=== PATIENT | female | born 1965 | race Caucasian/White ===

== ENCOUNTER 2017-12-14 18:18 | Emergency (ER) | payer BC ==
[2017-12-14] MEDS ORDERED: SODIUM CHLORIDE 0.9% 1,000 ML IV ONE (18:23)
[2017-12-14] MEDS ORDERED: ONDANSETRON 4 MG/2 ML VIAL IVP STA (18:23)
[2017-12-14 18:29] VITALS: TEMP 96.1
--- NOTE | 2017-12-14 18:34 | ED ---
Altered Mental Status HPI - General Chief Complaint: Altered Mental Status Stated Complaint: unresponsive Time Seen by Provider: 12/14/17 18:18 Source: EMS, RN notes reviewed, old records reviewed Mode of arrival: EMS Limitations: no limitations - History of Present Illness Initial Comments: This is a 52-year-old female with a history of hypertensive emergency in 2010 history of fibromuscular dysplasia the right renal artery small kidney in the left side who apparently her son that she did not like went to the bathroom according to family members as a reported to EMS came out and collapsed onto the floor. She was unresponsive to given Narcan per EMS without any results. She is noted have a larger pupil on the left eye than the right she did not respond but did maintain her airway. She was transported here for evaluation she was noted have a heart rate did fluctuate between 16 and 10 beats a minute blood glucose of 156. She did have elevated blood pressure the numbers unknown. She has no history of CVA the remainder the history is unknown at this time. Heather. She apparently is ALLERGIC to codeine Complaint: altered mental status, decreased responsiveness - Related Data Allergies Allergy/AdvReac Type Severity Reaction Status Date / Time No Known Allergies Allergy Verified 12/14/17 18:29 Review of Systems ROS Statement: Those systems with pertinent positive or pertinent negative responses have been documented in the HPI. ROS Other: All systems not noted in ROS Statement are negative. Limitations: ROS unobtainable due to patients medical condition Past Medical History Past Medical History: Hypertension History of Any Multi-Drug Resistant Organisms: None Reported Past Surgical History: Section Past Psychological History: No Psychological Hx Reported Smoking Status: Never smoker Past Alcohol Use History: None Reported Past Drug Use History: None Reported General Exam - General Exam Comments Initial Comments: This a well-developed well-nourished unresponsive female she did demonstrate some nausea upon arrival she was noted be moving her extremities Limitations: no limitations, altered mental status General appearance: obtunded Head exam: Present: atraumatic, normocephalic, normal inspection Eye exam: Present: other (Pupil on the left is partially 1-2 mm larger one on the right there reactive) ENT exam: Present: normal exam, mucous membranes moist Neck exam: Present: normal inspection, other (No stridor JVD or bruits). Absent : tenderness, meningismus, lymphadenopathy Cardiovascular Exam: Present: normal rhythm, bradycardia, normal heart sounds. Absent: systolic murmur, diastolic murmur, rubs, gallop, clicks GI/Abdominal exam: Present: soft. Absent: tenderness, bruit, pulsatile mass, hernia Rectal exam: Present: deferred Back exam: Present: normal inspection Neurological exam: Present: altered, CN II-XII intact, reflexes normal Psychiatric exam: Present: other (Unable to evaluate) Skin exam: Present: warm, dry, intact, normal color. Absent: rash Course Vital Signs 12/14/17 12/14/17 12/14/17 18:24 18:57 19:22 Temperature 96.1 F L Pulse Rate 63 100 96 Respiratory 18 23 Rate Blood Pressure 239/143 224/129 232/118 O2 Sat by Pulse 94 L 97 100 Oximetry 12/14/17 12/14/17 12/14/17 19:28 19:33 19:43 Temperature Pulse Rate 98 100 97 Respiratory 23 24 16 Rate Blood Pressure 247/114 229/106 217/105 O2 Sat by Pulse 100 100 100 Oximetry 12/14/17 19:48 Temperature Pulse Rate 94 Respiratory 16 Rate Blood Pressure 212/95 O2 Sat by Pulse 100 Oximetry - Reevaluation(s) Reevaluation #1: 12/14/17 19:43 I did discuss the initial findings with the family members. Apparently the patient had been dealing with high blood pressure and was not associated doctor to get blood pressure medications she apparently after coming out of the bathroom today bent down to pet dog that is when she apparently sat down on her buttock and then passed out. She had been talking with some slurred speech just prior to this. No trauma is reported other than that above. Reevaluation #2: 12/14/17 19:45 I did discuss the findings with radiologist patient does demonstrate left thalamic several arachnoid hemorrhage with blood in the third and fourth ventricles and slight right word shift. I did discuss this with the family requested transfer to [facility]. I did discuss case with Dr. Villagomez who is agreed to accept the patient transfer she will be going by helicopter. Also the patient was started on a Cardene drip after IV labetalol. She also started on propofol drip. An OG tube was placed after intubation it is in good position per x-ray Reevaluation #3: 12/14/17 19:47 The blood pressure is trending down the patient is beginning to respond she does appear to be responding to pain with any ablation of her IVs. Family is at bedside Reevaluation #4: 12/14/17 19:53 Helicopter crew has arrived the blood pressure is trending down patient currently is on 10 mg per hour of Cardene as well as propofol 10 mg drip Procedures - Intubation Time Out Performed: No (Continual assessment) Paralytic: Succinylcholine Mg Given: 100 Laryngoscope: Pro Size: 4 ET Tube Size: 7.5 ET Tube Uncuffed: No Tube Secured Depth (cm): 22 Tube Secured Location: lips Tube Placement Confirmation: visualized tube passing through cords, equal breath sounds bilaterally, confirmation by capnometry Patient Tolerated Procedure: well Intubation Complications: none Medical Decision Making - Lab Data Result diagrams: 12/14/17 18:27 12/14/17 18:27 Lab Results 12/14/17 12/14/17 12/14/17 Range/Units 18:22 18:27 18:27 WBC (3.8-10.6) k/uL RBC (3.80-5.40) m/uL Hgb (11.4-16.0) gm/dL Hct (34.0-46.0) % MCV (80.0-100.0) fL MCH (25.0-35.0) pg MCHC (31.0-37.0) g/dL RDW (11.5-15.5) % Plt Count (150-450) k/uL Neutrophils % % Lymphocytes % % Monocytes % % Eosinophils % % Basophils % % Neutrophils # (1.3-7.7) k/uL Lymphocytes # (1.0-4.8) k/uL Monocytes # (0-1.0) k/uL Eosinophils # (0-0.7) k/uL Basophils # (0-0.2) k/uL PT (9.0-12.0) sec INR (<1.2) APTT (22.0-30.0) sec D-Dimer (<0.60) mg/L FEU Sodium (137-145) mmol/L Potassium (3.5-5.1) mmol/L Chloride (98-107) mmol/L Carbon Dioxide (22-30) mmol/L Anion Gap mmol/L BUN (7-17) mg/dL Creatinine (0.52-1.04) mg/dL Est GFR (CKD-EPI)AfAm (>60 ml/min/1.73 sqM) Est GFR (CKD-EPI)NonAf (>60 ml/min/1.73 sqM) Glucose (74-99) mg/dL POC Glucose (mg/dL) 143 H (75-99) mg/dL POC Glu Leather Fitter ID Maicol Armendariz Calcium (8.4-10.2) mg/dL Magnesium (1.6-2.3) mg/dL Total Bilirubin (0.2-1.3) mg/dL AST (14-36) U/L ALT (9-52) U/L Alkaline Phosphatase (38-126) U/L Ammonia <9 (<30) umol/L Total Creatine Kinase 58 (30-135) U/L CK-MB (CK-2) 0.5 (0.0-2.4) ng/mL CK-MB (CK-2) Rel Index 0.9 Troponin I <0.012 (0.000-0.034) ng/mL Total Protein (6.3-8.2) g/dL Albumin (3.5-5.0) g/dL Urine Color Urine Appearance (Clear) Urine pH (5.0-8.0) Ur Specific [place] (1.001-1.035) Urine Protein (Negative) Urine Glucose (UA) (Negative) Urine Ketones (Negative) Urine Blood (Negative) Urine Nitrite (Negative) Urine Bilirubin (Negative) Urine Urobilinogen (<2.0) mg/dL Ur Leukocyte Esterase (Negative) Urine RBC (0-5) /hpf Urine WBC (0-5) /hpf Urine Bacteria (None) /hpf Salicylates mg/dL Urine Opiates Screen (NotDetected) Ur Oxycodone Screen (NotDetected) Urine Methadone Screen (NotDetected) Ur Propoxyphene Screen (NotDetected) Acetaminophen ug/mL Ur Barbiturates Screen (NotDetected) U Tricyclic Antidepress (NotDetected) Ur Phencyclidine Scrn (NotDetected) Ur Amphetamines Screen (NotDetected) U Methamphetamines Scrn (NotDetected) U Benzodiazepines Scrn (NotDetected) Urine Cocaine Screen (NotDetected) U Marijuana (THC) Screen (NotDetected) Serum Alcohol mg/dL 12/14/17 12/14/17 12/14/17 Range/Units 18:27 18:27 18:27 WBC 14.4 H (3.8-10.6) k/uL RBC 3.13 L (3.80-5.40) m/uL Hgb 8.5 L (11.4-16.0) gm/dL Hct 26.2 L (34.0-46.0) % MCV 83.9 (80.0-100.0) fL MCH 27.1 (25.0-35.0) pg MCHC 32.3 (31.0-37.0) g/dL RDW 14.9 (11.5-15.5) % Plt Count 121 L (150-450) k/uL Neutrophils % 80 % Lymphocytes % 15 % Monocytes % 4 % Eosinophils % 1 % Basophils % 0 % Neutrophils # 11.5 H (1.3-7.7) k/uL Lymphocytes # 2.1 (1.0-4.8) k/uL Monocytes # 0.6 (0-1.0) k/uL Eosinophils # 0.1 (0-0.7) k/uL Basophils # 0.0 (0-0.2) k/uL PT 10.7 (9.0-12.0) sec INR 1.1 (<1.2) APTT 20.7 L (22.0-30.0) sec D-Dimer 0.69 H (<0.60) mg/L FEU Sodium 140 (137-145) mmol/L Potassium 3.3 L (3.5-5.1) mmol/L Chloride 104 (98-107) mmol/L Carbon Dioxide 21 L (22-30) mmol/L Anion Gap 15 mmol/L BUN 17 (7-17) mg/dL Creatinine 1.24 H (0.52-1.04) mg/dL Est GFR (CKD-EPI)AfAm 59 (>60 ml/min/1.73 sqM) Est GFR (CKD-EPI)NonAf 51 (>60 ml/min/1.73 sqM) Glucose 162 H (74-99) mg/dL POC Glucose (mg/dL) (75-99) mg/dL POC Glu Leather Fitter ID Calcium 9.1 (8.4-10.2) mg/dL Magnesium 1.8 (1.6-2.3) mg/dL Total Bilirubin 1.2 (0.2-1.3) mg/dL AST 22 (14-36) U/L ALT 20 (9-52) U/L Alkaline Phosphatase 77 (38-126) U/L Ammonia (<30) umol/L Total Creatine Kinase (30-135) U/L CK-MB (CK-2) (0.0-2.4) ng/mL CK-MB (CK-2) Rel Index Troponin I (0.000-0.034) ng/mL Total Protein 7.2 (6.3-8.2) g/dL Albumin 4.4 (3.5-5.0) g/dL Urine Color Urine Appearance (Clear) Urine pH (5.0-8.0) Ur Specific [place] (1.001-1.035) Urine Protein (Negative) Urine Glucose (UA) (Negative) Urine Ketones (Negative) Urine Blood (Negative) Urine Nitrite (Negative) Urine Bilirubin (Negative) Urine Urobilinogen (<2.0) mg/dL Ur Leukocyte Esterase (Negative) Urine RBC (0-5) /hpf Urine WBC (0-5) /hpf Urine Bacteria (None) /hpf Salicylates <1.0 mg/dL Urine Opiates Screen (NotDetected) Ur Oxycodone Screen (NotDetected) Urine Methadone Screen (NotDetected) Ur Propoxyphene Screen (NotDetected) Acetaminophen <10.0 ug/mL Ur Barbiturates Screen (NotDetected) U Tricyclic Antidepress (NotDetected) Ur Phencyclidine Scrn (NotDetected) Ur Amphetamines Screen (NotDetected) U Methamphetamines Scrn (NotDetected) U Benzodiazepines Scrn (NotDetected) Urine Cocaine Screen (NotDetected) U Marijuana (THC) Screen (NotDetected) Serum Alcohol <10 mg/dL 12/14/17 Range/Units 19:09 WBC (3.8-10.6) k/uL RBC (3.80-5.40) m/uL Hgb (11.4-16.0) gm/dL Hct (34.0-46.0) % MCV (80.0-100.0) fL MCH (25.0-35.0) pg MCHC (31.0-37.0) g/dL RDW (11.5-15.5) % Plt Count (150-450) k/uL Neutrophils % % Lymphocytes % % Monocytes % % Eosinophils % % Basophils % % Neutrophils # (1.3-7.7) k/uL Lymphocytes # (1.0-4.8) k/uL Monocytes # (0-1.0) k/uL Eosinophils # (0-0.7) k/uL Basophils # (0-0.2) k/uL PT (9.0-12.0) sec INR (<1.2) APTT (22.0-30.0) sec D-Dimer (<0.60) mg/L FEU Sodium (137-145) mmol/L Potassium (3.5-5.1) mmol/L Chloride (98-107) mmol/L Carbon Dioxide (22-30) mmol/L Anion Gap mmol/L BUN (7-17) mg/dL Creatinine (0.52-1.04) mg/dL Est GFR (CKD-EPI)AfAm (>60 ml/min/1.73 sqM) Est GFR (CKD-EPI)NonAf (>60 ml/min/1.73 sqM) Glucose (74-99) mg/dL POC Glucose (mg/dL) (75-99) mg/dL POC Glu Leather Fitter ID Calcium (8.4-10.2) mg/dL Magnesium (1.6-2.3) mg/dL Total Bilirubin (0.2-1.3) mg/dL AST (14-36) U/L ALT (9-52) U/L Alkaline Phosphatase (38-126) U/L Ammonia (<30) umol/L Total Creatine Kinase (30-135) U/L CK-MB (CK-2) (0.0-2.4) ng/mL CK-MB (CK-2) Rel Index Troponin I (0.000-0.034) ng/mL Total Protein (6.3-8.2) g/dL Albumin (3.5-5.0) g/dL Urine Color Colorless Urine Appearance Clear (Clear) Urine pH 6.5 (5.0-8.0) Ur Specific [place] 1.005 (1.001-1.035) Urine Protein Trace H (Negative) Urine Glucose (UA) 2+ H (Negative) Urine Ketones 1+ H (Negative) Urine Blood Trace H (Negative) Urine Nitrite Negative (Negative) Urine Bilirubin Negative (Negative) Urine Urobilinogen <2.0 (<2.0) mg/dL Ur Leukocyte Esterase Negative (Negative) Urine RBC 2 (0-5) /hpf Urine WBC 2 (0-5) /hpf Urine Bacteria Many H (None) /hpf Salicylates mg/dL Urine Opiates Screen Not Detected (NotDetected) Ur Oxycodone Screen Not Detected (NotDetected) Urine Methadone Screen Not Detected (NotDetected) Ur Propoxyphene Screen Not Detected (NotDetected) Acetaminophen ug/mL Ur Barbiturates Screen Not Detected (NotDetected) U Tricyclic Antidepress Not Detected (NotDetected) Ur Phencyclidine Scrn Not Detected (NotDetected) Ur Amphetamines Screen Not Detected (NotDetected) U Methamphetamines Scrn Not Detected (NotDetected) U Benzodiazepines Scrn Not Detected (NotDetected) Urine Cocaine Screen Not Detected (NotDetected) U Marijuana (THC) Screen Not Detected (NotDetected) Serum Alcohol mg/dL - EKG Data -: EKG Interpreted by Me (Sinus bradycardia rate of 54. Interval 136 QRS duration 90 QT since QTC of) EKG shows normal: sinus rhythm - Radiology Data Radiology results: report reviewed (X-ray shows ET tube approximately 2 cm above the marilu the OG tube is in the stomach.), image reviewed Critical Care Time Critical Care Time: Yes Critical Care Time: 55 minutes of critical care time which does not include intubation this does include monitoring the EMS run and discussed with paramedics regarding the events history physical labs x-rays multiple reevaluation of the patient. Several conversations with family members. Discussion with the receiving facility and Dr. Villagomez. Discussion with the helicopter crew upon arrival. Review of old history that was available. Documentation of the above. Review of x-rays and labs. Disposition Clinical Impression: Subarachnoid bleed, Hypertensive emergency, Renal insufficiency Disposition: OTHER INSTITUTION NOT DEFINED Condition: Critical Referrals: None,Stated [Primary Care Provider] - 1-2 days - Out of Hospital Transfer - Req. Specs Out of Hospital Transfer - Requested Specifics: Other Emergency Center
[2017-12-14 18:42] LABS: Glucose,Whole Blood 143 mg/dL (75-99)
--- NOTE | 2017-12-14 18:46 | CT ---
EXAMINATION TYPE: CT brain wo con DATE OF EXAM: 12/14/2017 COMPARISON: NONE HISTORY: Unresponsive, unequal pupils. CT DLP: 1026.8 mGycm Automated exposure control for dose reduction was used. FINDINGS: There is a 3 x 6 cm area of high attenuation involving the left thalamus consistent with acute hemorr rimma. There is also significant acute hemorrhage in the left lateral ventricle. There is hemorrhage i n the fourth ventricle. There is acute hemorrhage within the third ventricle. Midline is shifted slig htly to the right side. Calvarium is intact. IMPRESSION: THERE IS LARGE ACUTE SUBARACHNOID HEMORRHAGE INVOLVING THE LEFT LATERAL VENTRICLE, THIRD AND FOURTH V ENTRICLE. THERE IS LARGE ACUTE LEFT THALAMIC HEMORRHAGE. THIS EXAM WAS DISCUSSED WITH ER PHYSICIAN AT 6:45 PM.
[2017-12-14 18:49] LABS: Basophils % (A) 0 %; Eosinophils # (A) 0.1 k/uL (0-0.7); Eosinophils % (A) 1 %; HCT 26.2 % (34.0-46.0); HGB 8.5 gm/dL (11.4-16.0); Lymphocytes # (A) 2.1 k/uL (1.0-4.8); Lymphocytes % (A) 15 %; MCH 27.1 pg (25.0-35.0); MCHC 32.3 g/dL (31.0-37.0); MCV 83.9 fL (80.0-100.0); Mean Platelet Volume 10.5; Monocytes # (A) 0.6 k/uL (0-1.0); Monocytes % (A) 4 %; Neutrophils # (A) 11.5 k/uL (1.3-7.7); Neutrophils % (A) 80 %; Platelet Count 121 k/uL (150-450); RBC 3.13 m/uL (3.80-5.40); RDW 14.9 % (11.5-15.5); WBC 14.4 k/uL (3.8-10.6)
[2017-12-14 18:51] LABS: D-Dimer 0.69 mg/L FEU (<0.60)
[2017-12-14] MEDS ORDERED: MIDAZOLAM (PF) 1 MG/ML 5 ML VIAL IV STA (18:51)
[2017-12-14] MEDS ORDERED: LABETALOL 5 MG/ML VIAL MDV IVP STA (18:54)
[2017-12-14] MEDS ORDERED: SUCCINYLCHOLINE CHLORIDE VIAL 200 MG/10 ML VIAL IV STA (18:54)
[2017-12-14 18:58] LABS: INR 1.1 (<1.2); Prothrombin Time 10.7 sec (9.0-12.0)
[2017-12-14 19:04] LABS: Partial Thromboplastin Time 20.7 sec (22.0-30.0)
[2017-12-14 19:07] LABS: ALT 20 U/L (9-52); AST 22 U/L (14-36); Acetaminophen <10.0 ug/mL; Albumin 4.4 g/dL (3.5-5.0); Alcohol <10 mg/dL; Alkaline Phosphatase 77 U/L (38-126); Anion Gap 15 mmol/L; Blood Urea Nitrogen 17 mg/dL (7-17); Calcium 9.1 mg/dL (8.4-10.2); Carbon Dioxide 21 mmol/L (22-30); Chloride 104 mmol/L (98-107); Glucose 162 mg/dL (74-99); Magnesium 1.8 mg/dL (1.6-2.3); Potassium 3.3 mmol/L (3.5-5.1); Salicylate <1.0 mg/dL; Sodium 140 mmol/L (137-145); Total Bilirubin 1.2 mg/dL (0.2-1.3); Total Protein 7.2 g/dL (6.3-8.2)
[2017-12-14] MEDS ORDERED: PROPOFOL 1,000 MG in EMPTY BAG 1 BAG IV SCH (19:15)
[2017-12-14 19:20] LABS: Creatine Kinase 58 U/L (30-135)
--- NOTE | 2017-12-14 19:26 | XR ---
EXAMINATION TYPE: XR chest 1V portable DATE OF EXAM: 12/14/2017 COMPARISON: NONE HISTORY: Intubation TECHNIQUE: Single frontal view of the chest is obtained. FINDINGS: Endotracheal tube is in good position 4 cm from the marilu. Nasogastric tube appears in go od position. Lungs are clear. There is no heart failure. There are chest leads. IMPRESSION: No active cardiopulmonary disease.
[2017-12-14 19:30] LABS: Appearance,Urine Clear (Clear); Bacteria,Urine Many /hpf; Bilirubin,Urine Negative (Negative); Blood,Urine Trace (Negative); Color,Urine Colorless; Glucose,Urine (UA) 2+ (Negative); Ketones,Urine 1+ (Negative); Leukocyte Esterase,Urine Negative (Negative); Nitrite,Urine Negative (Negative); PH, Urine 6.5 (5.0-8.0); Protein,Urine Trace (Negative); RBC,Urine 2 /hpf (0-5); Specific Gravity,Urine 1.005 (1.001-1.035); Urobilinogen,Urine <2.0 mg/dL (<2.0); WBC,Urine 2 /hpf (0-5)
[2017-12-14 19:32] LABS: Creatine Kinase MB 0.5 ng/mL (0.0-2.4); Troponin I <0.012 ng/mL (0.000-0.034)
[2017-12-14 19:35] LABS: Amphetamine Screen,Urine Not Detected (NotDetected); Barbiturate Screen,Urine Not Detected (NotDetected); Benzodiazepines Screen,Urine Not Detected (NotDetected); Cocaine Screen,Urine Not Detected (NotDetected); Methadone Screen, Urine Not Detected (NotDetected); Opiate Screen,Urine Not Detected (NotDetected); Oxycodone Screen, Urine Not Detected (NotDetected); Phencyclidine Screen,Urine Not Detected (NotDetected); Tricyclic Antidepressant,Urine Not Detected (NotDetected); Urn Cannabinoid Scrn Not Detected (NotDetected)
[2017-12-14 19:44] VITALS: RESP 16
[2017-12-14] MEDS ORDERED: SODIUM CHLORIDE 0.9% 500 ML IV STA (19:47)
[2017-12-14 19:55] VITALS: BP 212/111; PULSE 100
== END 2017-12-14 20:20 | disposition other institution (70) ==
LOC: EC 18:18
DX: I60.9 Nontraumatic subarachnoid hemorrhage, unspecified (principal); I16.1 Hypertensive emergency; N28.9 Disorder of kidney and ureter, unspecified; I77.3 Arterial fibromuscular dysplasia
CPT/HCPCS: 43753; 36415; 94002; 93005; 85379; 80053; 82140; 82550; 82553; 82805; 83735; 84484; 85025; 85610; 85730; 81001; 80306; 83520 ×2; 80320; 71045; 70450; 99291; 31500; 51702; 96374; 96375 ×2; 96361; J0330; J2405; J2250; J2704

== ENCOUNTER 2018-01-26 17:09 | Observation (INO) | payer BC ==
--- NOTE | 2018-01-26 17:32 | ED ---
General Adult HPI - General Chief complaint: Upper Respiratory Infection Stated complaint: ELIDA Time Seen by Provider: 01/26/18 17:14 Source: EMS, RN notes reviewed Mode of arrival: EMS Limitations: language barrier, physical limitation - History of Present Illness Initial comments: 52-year-old female who has a past medical history significant for intracranial hemorrhage related to hypertensive emergency with subsequent tracheostomy placement patient presents to the emergency department today sent by staff at [facility] [place] for shortness of breath and wheezing. Reports from [facility] state that patient had audible wheezes with auscultation, she received a DuoNeb updraft treatment and Solu-Medrol, despite this the wheezing continued and she was sent here for further evaluation. Patient is nonverbal and unable to provide any history. states that today during speech therapy they gave patient grapefruit juice and she had a choking episode. After that she developed shortness of breath and wheezing. She was sent here for further evaluation. - Related Data Home Medications Medication Instructions Recorded Confirmed Acetaminophen Tab [Tylenol Tab] 650 mg PEG/G-TUBE Q4H PRN 01/26/18 01/26/18 Amantadine Syrup 50 mg PEG/G-TUBE BID@0900,1700 01/26/18 01/26/18 Atorvastatin [Lipitor] 10 mg PEG/G-TUBE HS 01/26/18 01/26/18 Baclofen Suspension 5 mg PEG/G-TUBE TID@0600,1400,2200 01/26/18 01/26/18 Bromocriptine Mesylate [Parlodel] 2.5 mg PEG/G-TUBE 01/26/18 01/26/18 TID@0600,1400,2200 Docusate Oral Soln [Colace Oral 100 mg PEG/G-TUBE BID@0900,1700 01/26/18 Soln] Heparin Sodium,Porcine [Heparin 5,000 unit SQ TID@0600,1400,2200 01/26/18 Sodium] Labetalol HCl [Trandate] 300 mg PEG/G-TUBE 01/26/18 01/26/18 TID@0600,1400,2200 Lisinopril [Prinivil] 20 mg PEG/G-TUBE DAILY@0900 01/26/18 01/26/18 Polyethylene Glycol 3350 [Miralax] 17 gm PEG/G-TUBE DAILY@0900 01/26/18 01/26/18 Ranitidine HCl [Zantac] 150 mg PEG/G-TUBE BID@0900,1700 01/26/18 01/26/18 Sennosides Syrup 17.6 mg PEG/G-TUBE BID@0900,1700 01/26/18 01/26/18 Tuberculin Ppd (Skin Test) 5 unit INTRADERMA HS 01/26/18 01/26/18 [Tubersol] amLODIPine [Norvasc] 10 mg PEG/G-TUBE HS 01/26/18 01/26/18 levETIRAcetam 100 mg PEG/G-TUBE BID@0900,2100 01/26/18 01/26/18 Allergies Allergy/AdvReac Type Severity Reaction Status Date / Time codeine Allergy Unknown Verified 01/26/18 17:30 Review of Systems ROS Statement: Those systems with pertinent positive or pertinent negative responses have been documented in the HPI. ROS Other: All systems not noted in ROS Statement are negative. Past Medical History Past Medical History: Hypertension Additional Past Medical History / Comment(s): hydrocephalus, (R) cerebral infarction History of Any Multi-Drug Resistant Organisms: None Reported Past Surgical History: Section Additional Past Surgical History / Comment(s): trache placement Past Psychological History: No Psychological Hx Reported Smoking Status: Never smoker Past Alcohol Use History: None Reported Past Drug Use History: None Reported General Exam Limitations: language barrier, physical limitation General appearance: alert, in no apparent distress, other (This is a well- developed, well-nourished adult female patient in no apparent distress. Vital signs upon presentation are temperature 97.3F, pulse 91, respirations 16, blood pressure 140/102, pulse ox 100% on room air.) Eye exam: Present: normal appearance, PERRL, EOMI. Absent: scleral icterus, conjunctival injection, periorbital swelling ENT exam: Present: normal exam, normal oropharynx, mucous membranes moist Respiratory exam: Present: normal lung sounds bilaterally. Absent: respiratory distress, wheezes, rales, rhonchi, stridor Cardiovascular Exam: Present: regular rate, normal rhythm, normal heart sounds. Absent: systolic murmur, diastolic murmur, rubs, gallop, clicks GI/Abdominal exam: Present: soft, normal bowel sounds. Absent: distended, tenderness, guarding, rebound, rigid Neurological exam: Present: alert, oriented X3, CN II-XII intact Psychiatric exam: Present: normal affect, normal mood Skin exam: Present: warm, dry, intact, normal color. Absent: rash Course Vital Signs 01/26/18 01/26/18 01/26/18 17:14 19:17 20:30 Temperature 97.3 F L 99.8 F H Pulse Rate 91 92 81 Respiratory 16 18 16 Rate Blood Pressure 140/102 191/101 159/94 O2 Sat by Pulse 100 99 100 Oximetry 01/26/18 21:36 Temperature 98.9 F Pulse Rate 87 Respiratory 18 Rate Blood Pressure 163/89 O2 Sat by Pulse 98 Oximetry EKG Findings - EKG Comments: EKG Findings:: EKG obtained in 1931 shows normal sinus rhythm with possible left atrial enlargement, left ventricular hypertrophy, ventricular rate is 85,. Interval 186, QRS duration 90, QT 374, QTC 445. Medical Decision Making - Medical Decision Making 52-year-old female patient presents to the emergency department today for evaluation of shortness of breath and wheezing after choking on some grapefruit juice. Physical examination reveals clear equal lung sounds. Labs are reviewed and showed a white blood cell count of 11.1, potassium 5.4, BUN of 32. Chest x-ray showed no acute cardiopulmonary process. Patient did have a elevated blood pressure here in the department. She was given a dose of labetalol which did improve her numbers. Patient will be admitted for observation repeat chest x-ray in the morning to determine presence of aspiration pneumonia. She did have elevated temperature 99.8 axillary. She'll be admitted to Dr. Caraballo. - Lab Data Result diagrams: 01/26/18 18:35 01/26/18 18:35 Lab Results 01/26/18 01/26/18 01/26/18 Range/Units 18:35 18:35 18:35 WBC 11.1 H (3.8-10.6) k/uL RBC 4.40 (3.80-5.40) m/uL Hgb 12.7 D (11.4-16.0) gm/dL Hct 37.2 (34.0-46.0) % MCV 84.6 (80.0-100.0) fL MCH 28.8 (25.0-35.0) pg MCHC 34.0 (31.0-37.0) g/dL RDW 15.9 H (11.5-15.5) % Plt Count 172 (150-450) k/uL Neutrophils % 86 % Lymphocytes % 10 % Monocytes % 2 % Eosinophils % 1 % Basophils % 0 % Neutrophils # 9.5 H (1.3-7.7) k/uL Lymphocytes # 1.1 (1.0-4.8) k/uL Monocytes # 0.2 (0-1.0) k/uL Eosinophils # 0.2 (0-0.7) k/uL Basophils # 0.0 (0-0.2) k/uL PT (9.0-12.0) sec INR (<1.2) APTT (22.0-30.0) sec Sodium 141 (137-145) mmol/L Potassium 5.4 H (3.5-5.1) mmol/L Chloride 102 (98-107) mmol/L Carbon Dioxide 23 (22-30) mmol/L Anion Gap 16 mmol/L BUN 32 H (7-17) mg/dL Creatinine 1.03 (0.52-1.04) mg/dL Est GFR (CKD-EPI)AfAm 73 (>60 ml/min/1.73 sqM) Est GFR (CKD-EPI)NonAf 64 (>60 ml/min/1.73 sqM) Glucose 112 H (74-99) mg/dL Calcium 10.6 H (8.4-10.2) mg/dL Total Bilirubin 1.2 (0.2-1.3) mg/dL AST 41 H (14-36) U/L ALT 75 H (9-52) U/L Alkaline Phosphatase 117 (38-126) U/L Total Creatine Kinase 60 (30-135) U/L CK-MB (CK-2) 0.7 (0.0-2.4) ng/mL CK-MB (CK-2) Rel Index 1.2 Troponin I <0.012 (0.000-0.034) ng/mL Total Protein 7.6 (6.3-8.2) g/dL Albumin 4.6 (3.5-5.0) g/dL 01/26/18 Range/Units 18:35 WBC (3.8-10.6) k/uL RBC (3.80-5.40) m/uL Hgb (11.4-16.0) gm/dL Hct (34.0-46.0) % MCV (80.0-100.0) fL MCH (25.0-35.0) pg MCHC (31.0-37.0) g/dL RDW (11.5-15.5) % Plt Count (150-450) k/uL Neutrophils % % Lymphocytes % % Monocytes % % Eosinophils % % Basophils % % Neutrophils # (1.3-7.7) k/uL Lymphocytes # (1.0-4.8) k/uL Monocytes # (0-1.0) k/uL Eosinophils # (0-0.7) k/uL Basophils # (0-0.2) k/uL PT 10.5 (9.0-12.0) sec INR 1.1 (<1.2) APTT 16.5 L (22.0-30.0) sec Sodium (137-145) mmol/L Potassium (3.5-5.1) mmol/L Chloride (98-107) mmol/L Carbon Dioxide (22-30) mmol/L Anion Gap mmol/L BUN (7-17) mg/dL Creatinine (0.52-1.04) mg/dL Est GFR (CKD-EPI)AfAm (>60 ml/min/1.73 sqM) Est GFR (CKD-EPI)NonAf (>60 ml/min/1.73 sqM) Glucose (74-99) mg/dL Calcium (8.4-10.2) mg/dL Total Bilirubin (0.2-1.3) mg/dL AST (14-36) U/L ALT (9-52) U/L Alkaline Phosphatase (38-126) U/L Total Creatine Kinase (30-135) U/L CK-MB (CK-2) (0.0-2.4) ng/mL CK-MB (CK-2) Rel Index Troponin I (0.000-0.034) ng/mL Total Protein (6.3-8.2) g/dL Albumin (3.5-5.0) g/dL - Radiology Data Radiology results: report reviewed, image reviewed Two-view x-ray of the chest shows a heart and mediastinum are normal. Lungs are clear consolidation. There is no heart failure. Costophrenic angles are clear. The bony thorax is intact. Impression by Dr. Ying shows No active cardiopulmonary disease. No adverse change compared to old exam. Disposition Clinical Impression: Dyspnea, Hypertension Disposition: ADMITTED IP TO THIS [facility] Condition: Serious Decision to Admit Reason: Admit from EC Decision Date: 01/26/18 Decision Time: 20:41
[2018-01-26 19:02] LABS: Basophils % (A) 0 %; Eosinophils # (A) 0.2 k/uL (0-0.7); Eosinophils % (A) 1 %; HCT 37.2 % (34.0-46.0); Lymphocytes # (A) 1.1 k/uL (1.0-4.8); Lymphocytes % (A) 10 %; MCH 28.8 pg (25.0-35.0); MCV 84.6 fL (80.0-100.0); Mean Platelet Volume 9.2; Monocytes # (A) 0.2 k/uL (0-1.0); Monocytes % (A) 2 %; Neutrophils # (A) 9.5 k/uL (1.3-7.7); Neutrophils % (A) 86 %; Platelet Count 172 k/uL (150-450); RDW 15.9 % (11.5-15.5); WBC 11.1 k/uL (3.8-10.6)
[2018-01-26 19:10] LABS: Albumin 4.6 g/dL (3.5-5.0); Calcium 10.6 mg/dL (8.4-10.2); HGB 12.7 gm/dL (11.4-16.0); Potassium 5.4 mmol/L (3.5-5.1); Total Bilirubin 1.2 mg/dL (0.2-1.3); Total Protein 7.6 g/dL (6.3-8.2)
[2018-01-26] MEDS ORDERED: LABETALOL 5 MG/ML VIAL MDV IVP STA (19:17)
[2018-01-26 19:19] LABS: INR 1.1 (<1.2); Prothrombin Time 10.5 sec (9.0-12.0)
[2018-01-26 19:25] LABS: Partial Thromboplastin Time 16.5 sec (22.0-30.0)
--- NOTE | 2018-01-26 19:35 | XR ---
EXAMINATION TYPE: XR chest 2V DATE OF EXAM: 01/26/2018 COMPARISON: 12/14/2017 HISTORY: Wheezing TECHNIQUE: Frontal and lateral views of the chest are obtained. FINDINGS: Heart and mediastinum are normal. Lungs are clear of consolidation. There is no heart fail ure. Costophrenic angles are clear. The bony thorax is intact. IMPRESSION: No active cardiopulmonary disease. No adverse change compared to old exam.
[2018-01-26 19:39] LABS: Creatine Kinase 60 U/L (30-135)
[2018-01-26 19:52] LABS: Creatine Kinase MB 0.7 ng/mL (0.0-2.4); Troponin I <0.012 ng/mL (0.000-0.034)
[2018-01-26] MEDS ORDERED: NALOXONE 0.4 MG/ML 1 ML VIAL IV PRN (20:39)
[2018-01-26] MEDS ORDERED: SODIUM CHLORIDE 0.9% 1,000 ML IV SCH (20:45)
[2018-01-27] MEDS: BROMOCRIPTINE MESYLATE 2.5 MG PEG/G-TUBE SCH ×4 (00:25→22:43)
[2018-01-27] MEDS: HEPARIN SODIUM,PORCINE 5,000 UNIT/ML 1 ML VIAL SQ SCH ×4 (00:27→22:43)
[2018-01-27] MEDS: BACLOFEN 10 MG TAB PEG/G-TUBE SCH ×4 (00:28→22:43)
[2018-01-27] MEDS: LABETALOL 100 MG TAB PEG/G-TUBE SCH ×3 (00:28→13:01)
[2018-01-27] MEDS: SENNOSIDES 8.6 MG TAB PEG/G-TUBE SCH ×2 (08:04→17:10)
[2018-01-27] MEDS: FAMOTIDINE 20 MG TAB PEG/G-TUBE SCH ×2 (08:04→17:30)
[2018-01-27] MEDS: LISINOPRIL 20 MG TAB PEG/G-TUBE SCH (08:04)
[2018-01-27] MEDS: levETIRAcetam ORAL SOLN 500 MG/5 ML CUP PEG/G-TUBE SCH ×2 (08:05→22:40)
[2018-01-27] MEDS: AMANTADINE HCL PEG/G-TUBE SCH ×2 (08:06→17:30)
[2018-01-27] MEDS: DOCUSATE ORAL SOLN 100 MG/10 ML CUP PEG/G-TUBE SCH ×2 (08:06→17:09)
[2018-01-27 08:13] LABS: Basophils % (A) 0 %; Eosinophils % (A) 0 %; HGB 11.6 gm/dL (11.4-16.0); Lymphocytes % (A) 14 %; MCH 29.2 pg (25.0-35.0); MCHC 34.3 g/dL (31.0-37.0); MCV 85.2 fL (80.0-100.0); Mean Platelet Volume 8.3; Monocytes # (A) 0.2 k/uL (0-1.0); Monocytes % (A) 3 %; Neutrophils # (A) 6.2 k/uL (1.3-7.7); Neutrophils % (A) 83 %; Platelet Count 183 k/uL (150-450); RBC 3.99 m/uL (3.80-5.40); WBC 7.5 k/uL (3.8-10.6)
[2018-01-27 08:28] LABS: Albumin 4.1 g/dL (3.5-5.0); Calcium 10.5 mg/dL (8.4-10.2); Total Bilirubin 0.7 mg/dL (0.2-1.3); Total Protein 6.8 g/dL (6.3-8.2)
--- NOTE | 2018-01-27 09:18 | XR ---
EXAMINATION TYPE: XR chest 2V DATE OF EXAM: 01/27/2018 COMPARISON: 01/26/2018 HISTORY: Shortness of breath TECHNIQUE: Frontal and lateral views of the chest are obtained. FINDINGS: Scattered senescent parenchymal changes noted. No evidence for infiltrate. No evidence for atelectasis. Heart size is stable. Mediastinal structures are stable and grossly unremarkable. No evidence for hilar prominence. Degenerative changes dorsal spine. IMPRESSION: 1. No evidence for acute pulmonary disease.
[2018-01-27] MEDS: ACETAMINOPHEN TAB 325 MG TAB PEG/G-TUBE PRN ×4 (09:35→22:55)
--- NOTE | 2018-01-27 11:47 | CT ---
EXAMINATION TYPE: CT brain wo con DATE OF EXAM: 01/27/2018 COMPARISON: 12/14/2017 HISTORY: altered mental status CT DLP: 1121 mGycm Automated exposure control for dose reduction was used. FINDINGS: There is a 3.5 cm area of low attenuation within the left thalamus. Punctate areas of hyperdensity ar e seen which may represent petechial hemorrhage. This is improved from the prior exam with some persi stent midline shift from [id number] at the level of the thalamus. The degree of midline shift is r educed. There does appear to be residual edema or mass. Could not exclude some mass effect upon the u pper margin of the midbrain on the left. Remote ischemia involving the left occipital parietal junction noted. Changes of mastoiditis on the right noted. There is abnormal attenuation within the right basal ganglia suggestive of remote ischem ia and stable from previous exam. There appears to be near complete resolution of subarachnoid hemorrhage. 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 IMPRESSION: THERE IS INTERVAL MARKED REDUCTION IN AMOUNT OF ACUTE ACUTE INTRACRANIAL HEMORRHAGE RELATIVE TO THE P REVIOUS EXAM. THERE DOES APPEAR TO BE SOME AREAS OF PERSISTENT ILL-DEFINED HYPERDENSITY WITHIN THE LE FT THALAMIC 3.5 CM AREA OF EDEMA OR MASS. PETECHIAL ACUTE HEMORRHAGE SUSPECTED. RECOMMEND FOLLOW-UP M RI. THE DEGREE OF MIDLINE SHIFT IS MARKEDLY IMPROVED. NOTED ABOVE SOME MASS EFFECT UPON THE UPPER MARGIN OF THE MIDBRAIN ON THE LEFT NOT EXCLUDED..
--- NOTE | 2018-01-27 14:37 | P.CNPUL ---
History of Present Illness Consult date: 01/27/18 Requesting physician: Alison Caraballo Reason for consult: dyspnea, other Chief complaint: shortness of breath and wheezing due to aspiration History of present illness: Mrs. Gardner is a 52-year-old female patient on Dr. Whitleyvi was brought to the emergency department per EMS from [facility] on 01/26/2018 at 1709 after developing respiratory difficulty, wheezing. The patient given some cranberry juice during speech therapy and had a choking episode. Shortly after that she developed symptoms of shortness of breath and significant wheezing. She was given updraft treatments and IV steroids, and was brought in for further evaluation. Patient has a past medical history of intracranial hemorrhage related to hypertensive urgency approximately one month ago, ventilator dependent respiratory failure requiring tracheostomy placement. The patient was hospitalized at the [facility], was subsequently weaned off the ventilator and was transferred to the [facility] 2 weeks ago. The patient's , daughters and other family members are present at the bedside and provided patient's history. Patient has a long-standing history of essential hypertension, and 2 years ago she became noncompliant with her blood pressure medications, and completely stopped taking them, and her states on the regular basis patient's systolic blood pressure was over 200 mmHg. No other past medical history prior to her stroke. No chronic lung disease, is a lifetime nonsmoker, no regular EtOH use. 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 Following her stroke, the patient sustained right sided paralysis, is unable to speak, but is able to nod her head yes or no to simple questions. She was undergoing speech therapy, and was doing well with sips of water, and then was reportedly given some cranberry juice after which she developed acute dyspnea and wheezing. Patient has a PEG tube in place, and she gets intermittent gastric feedings at the senior living. Chest x-ray completed in the ED showed no acute cardiopulmonary process, and the follow-up chest x-ray from this morning on was stable, with no abnormal findings.Currently patient is on 30% trach collar with a pulse ox of 100%. She has been afebrile, vitals have been stable. patient was noted to be hypertensive in the emergency department and was given labetalol. Today her blood pressure is better controlled with as BP from 120s to 130s mmHg, and DBP in the 70s mmHg. Review of Systems All systems: negative Constitutional: Denies chills, Denies fever Eyes: denies blurred vision, denies pain Ears, nose, mouth and throat: Denies headache, Denies sore throat Cardiovascular: Denies chest pain, Denies shortness of breath Respiratory: Reports dyspnea, Reports wheezing, Denies cough Gastrointestinal: Denies abdominal pain, Denies diarrhea, Denies nausea, Denies vomiting Genitourinary: Denies dysuria, Denies hematuria Musculoskeletal: Denies myalgias Integumentary: Denies pruritus, Denies rash Neurological: Denies numbness, Denies weakness Psychiatric: Denies anxiety, Denies depression Endocrine: Denies fatigue, Denies weight change Past Medical History Past Medical History: Hypertension Additional Past Medical History / Comment(s): hydrocephalus, (R) cerebral infarction History of Any Multi-Drug Resistant Organisms: None Reported Past Surgical History: Section Additional Past Surgical History / Comment(s): trache placement Past Psychological History: No Psychological Hx Reported Smoking Status: Never smoker Past Alcohol Use History: None Reported Past Drug Use History: None Reported Medications and Allergies Home Medications Medication Instructions Recorded Confirmed Type Acetaminophen Tab [Tylenol Tab] 650 mg PEG/G-TUBE Q4H PRN 01/26/18 01/26/18 History Amantadine Syrup 50 mg PEG/G-TUBE BID@0900,1700 01/26/18 01/26/18 History Atorvastatin [Lipitor] 10 mg PEG/G-TUBE HS 01/26/18 01/26/18 History Baclofen Suspension 5 mg PEG/G-TUBE TID@0600,1400,2200 01/26/18 01/26/18 History Bromocriptine Mesylate [Parlodel] 2.5 mg PEG/G-TUBE 01/26/18 01/26/18 History TID@0600,1400,2200 Docusate Oral Soln [Colace Oral 100 mg PEG/G-TUBE BID@0900,1700 01/26/18 History Soln] Heparin Sodium,Porcine [Heparin 5,000 unit SQ TID@0600,1400,2200 01/26/18 History Sodium] Labetalol HCl [Trandate] 300 mg PEG/G-TUBE 01/26/18 01/26/18 History TID@0600,1400,2200 Lisinopril [Prinivil] 20 mg PEG/G-TUBE DAILY@0900 01/26/18 01/26/18 History Polyethylene Glycol 3350 [Miralax] 17 gm PEG/G-TUBE DAILY@0900 01/26/18 History Ranitidine HCl [Zantac] 150 mg PEG/G-TUBE BID@0900,1700 01/26/18 01/26/18 History Sennosides Syrup 17.6 mg PEG/G-TUBE BID@0900,1700 01/26/18 01/26/18 History Tuberculin Ppd (Skin Test) 5 unit INTRADERMA HS 01/26/18 01/26/18 History [Tubersol] amLODIPine [Norvasc] 10 mg PEG/G-TUBE HS 01/26/18 01/26/18 History levETIRAcetam 100 mg PEG/G-TUBE BID@0900,2100 01/26/18 01/26/18 History Allergies Allergy/AdvReac Type Severity Reaction Status Date / Time codeine Allergy Unknown Verified 01/26/18 17:30 Physical Exam Vitals: Vital Signs Temp Pulse Pulse Resp BP BP Pulse Ox 01/27/18 07:05 98.0 F 79 16 132/79 100 01/27/18 00:57 98.3 F 71 18 124/72 100 01/26/18 23:15 98 01/26/18 21:36 98.9 F 87 18 163/89 98 01/26/18 21:29 99 F 75 18 128/73 100 01/26/18 20:30 99.8 F H 81 16 159/94 100 01/26/18 19:17 92 18 191/101 99 01/26/18 17:14 97.3 F L 91 16 140/102 100 Intake and Output 01/26/18 01/27/18 01/27/18 22:59 06:59 14:59 Output Total 900 Balance -900 Output: Urine 900 Uretheral (Santizo) 900 Other: Voiding Method Indwelling Catheter # Voids 0 Weight 56.699 kg 56.699 kg - Constitutional General appearance: average body habitus, no acute distress - EENT Eyes: EOMI, dentition normal, normal appearance ENT: NA/AT, normal oropharynx Ears: bilateral: normal - Neck Patient has a tracheostomy in place, and is currently on 30% FiO2 with humidification. The trach site is clean dry, intact Neck: no lymphadenopathy Thyroid: bilateral: normal size - Respiratory Respiratory: bilateral: CTA - Cardiovascular Rhythm: regular Heart sounds: normal: S1, S2 dorsalis pedis Peripheral Pulses: bilateral: Normal radial pulse Peripheral Pulses: bilateral: Normal - Gastrointestinal a PEG tube present in the left upper quadrant, the PEG tube insertion site is clean dry and intact. General gastrointestinal: no organomegaly, soft, no tenderness - Genitourinary There is a Santizo catheter present from the senior living, and the urine is noted to be somewhat cloudy, with a strong odor - Integumentary Integumentary: flushed, normal turgor - Neurologic patient is alert, appears to be oriented to self and the family, although this is difficult to assess the patient is nonverbal, but is able to nod yes or no to questions appropriately. Patient has right-sided motor paralysis, chronic contractures of the right arm and hand, foot drop noted in the right foot. Neurologic: focal deficits - Musculoskeletal right-sided paralysis Musculoskeletal: right sided weakness - Psychiatric patient is tearful, and appears to be frustrated with her current situation, crying, but consolable Psychiatric: appropriate affect Results - Laboratory Findings CBC and BMP: 01/27/18 07:42 01/27/18 07:42 PT/INR, D-dimer PT 10.5 sec (9.0-12.0) 01/26/18 18:35 INR 1.1 (<1.2) 01/26/18 18:35 Abnormal lab findings: Abnormal Labs 01/26/18 01/26/18 01/26/18 18:35 18:35 18:35 WBC 11.1 H RDW 15.9 H Neutrophils # 9.5 H APTT 16.5 L Potassium 5.4 H BUN 32 H Creatinine Glucose 112 H Calcium 10.6 H AST 41 H ALT 75 H 01/27/18 01/27/18 07:42 07:42 WBC RDW 16.0 H Neutrophils # APTT Potassium BUN 39 H Creatinine 1.05 H Glucose 100 H Calcium 10.5 H AST ALT 65 H - Diagnostic Findings Chest x-ray: report reviewed, image reviewed Additional studies: EKG reviewed Assessment and Plan Plan: Assessment: #1. Acute dyspnea, and bronchospasm related to aspiration of foreign substance/ cranberry juice #2. Chronic hypoxic respiratory failure related to history of intracranial hemorrhage, the patient has a trach in place, is breathing spontaneously currently, on 30% FiO2 #3. Recent history of a nontraumatic intracerebral hemorrhage related to hypertensive urgency a month ago, and the patient was hospitalized at the [facility], recovered, and was transferred to the [facility] on the [place] #4. 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 Aphasia following cerebral infarction #6. Generalized muscle weakness #7. Chronic anemia #8. History medical noncompliance #9. Essential hypertension #10. Lifetime nonsmoker Plan: Chest x-ray from the ED and the follow-up chest x-ray from today are negative for any evidence of pneumonia. Keep patient nothing by mouth, currently the patient is stable from pulmonary standpoint, she is maintaining good oxygenation on 30% FiO2, denies any distress. No evidence of wheezing, keep head of the bed elevated 30, maintain aspiration precautions. Labs are negative for any evidence of leukocytosis, patient is afebrile, no evidence of any ongoing dyspnea or bronchospasm. Patient seems to have responded well to the initial treatment with nebulized bronchodilators and a dose of Solu-Medrol. we will order DuoNeb nebulized treatment on as-needed basis. No need for additional doses of IV steroids. We will continue to monitor I performed a history & physical examination of the patient and discussed their management with my nurse practitioner, Samantha Lucero. I reviewed the nurse practitioner's note and agree with the documented findings and plan of care. Lung sounds are clear. The findings and the impression was discussed with the patient. I attest to the documentation by the nurse practitioner. Time with Patient: Greater than 30
--- NOTE | 2018-01-27 15:44 | P.HPIM ---
History of Present Illness H&P Date: 01/27/18 52 years old female patient of Dr. Lu, who sees Dr. Amaya with past medical history of intracranial hemorrhage related to hypertensive urgency on 12/14 patient was hospitalized at [facility] for a month during which she got tracheostomy and PEG tube placed on 12/27 and was initiated on Keppra for seizure precautions. Other significant history includes right brachial artery thrombosis, history of prolonged QT hold is currently a resident of [facility] on the [place] for the past 1 week. Patient comes in with wheezing, shortness of breath and choking episode on cranberry juice while being assessed for speech. Patient is currently wearing Trac collar 30% and was on 8 L of oxygen when evaluated. Oxygen was decreased and patient was saturating well. Patient does not speak or comprehend. She is able to inform when she is in pain or discomfort. According to the bedside her face was flushed and she was wheezing before admission. Chest x-ray was obtained which was negative for any acute abnormality. Vitals were stable with a temp of 97, pulse rate 85 blood pressure 131/71 on trach collar. Labs were unremarkable with creatinine 1.0 was 5, glucose 100, calcium was slightly high with calcium 10.5. Patient to continue on breathing treatments. Pulmonary consult placed Review of Systems ROS unobtainable: due to mental status Past Medical History Past Medical History: Hypertension Additional Past Medical History / Comment(s): hydrocephalus, (R) cerebral infarction History of Any Multi-Drug Resistant Organisms: None Reported Past Surgical History: Section Additional Past Surgical History / Comment(s): trache placement Past Psychological History: No Psychological Hx Reported Smoking Status: Never smoker Past Alcohol Use History: None Reported Past Drug Use History: None Reported Medications and Allergies Home Medications Medication Instructions Recorded Confirmed Type Acetaminophen Tab [Tylenol Tab] 650 mg PEG/G-TUBE Q4H PRN 01/26/18 01/26/18 History Amantadine Syrup 50 mg PEG/G-TUBE BID@0900,1700 01/26/18 01/26/18 History Atorvastatin [Lipitor] 10 mg PEG/G-TUBE HS 01/26/18 01/26/18 History Baclofen Suspension 5 mg PEG/G-TUBE TID@0600,1400,2200 01/26/18 01/26/18 History Bromocriptine Mesylate [Parlodel] 2.5 mg PEG/G-TUBE 01/26/18 01/26/18 History TID@0600,1400,2200 Docusate Oral Soln [Colace Oral 100 mg PEG/G-TUBE BID@0900,1700 01/26/18 History Soln] Heparin Sodium,Porcine [Heparin 5,000 unit SQ TID@0600,1400,2200 01/26/18 History Sodium] Labetalol HCl [Trandate] 300 mg PEG/G-TUBE 01/26/18 01/26/18 History TID@0600,1400,2200 Lisinopril [Prinivil] 20 mg PEG/G-TUBE DAILY@0900 01/26/18 01/26/18 History Polyethylene Glycol 3350 [Miralax] 17 gm PEG/G-TUBE DAILY@0900 01/26/18 History Ranitidine HCl [Zantac] 150 mg PEG/G-TUBE BID@0900,1700 01/26/18 01/26/18 History Sennosides Syrup 17.6 mg PEG/G-TUBE BID@0900,1700 01/26/18 01/26/18 History Tuberculin Ppd (Skin Test) 5 unit INTRADERMA HS 01/26/18 01/26/18 History [Tubersol] amLODIPine [Norvasc] 10 mg PEG/G-TUBE HS 01/26/18 01/26/18 History levETIRAcetam 100 mg PEG/G-TUBE BID@0900,2100 01/26/18 01/26/18 History Allergies Allergy/AdvReac Type Severity Reaction Status Date / Time codeine Allergy Unknown Verified 01/26/18 17:30 Physical Exam Vitals: Vital Signs Temp Pulse Pulse Resp BP BP Pulse Ox 01/27/18 14:50 97.0 F L 85 16 131/71 96 01/27/18 08:00 79 16 01/27/18 07:05 98.0 F 79 16 132/79 100 01/27/18 00:57 98.3 F 71 18 124/72 100 01/26/18 23:15 98 01/26/18 21:36 98.9 F 87 18 163/89 98 01/26/18 21:29 99 F 75 18 128/73 100 01/26/18 20:30 99.8 F H 81 16 159/94 100 01/26/18 19:17 92 18 191/101 99 01/26/18 17:14 97.3 F L 91 16 140/102 100 Intake and Output 01/27/18 01/27/18 01/27/18 06:59 14:59 22:59 Output Total 900 400 Balance -900 -400 Output: Urine 900 400 Uretheral (Santizo) 900 Other: Voiding Method Indwelling Catheter Indwelling Catheter # Voids 0 0 # Bowel Movements 1 Weight 56.699 kg - Constitutional General appearance: cooperative, no acute distress, thin, does not track eyes but does follow commands like squeezing fingers with the left hand. - EENT Eyes: anicteric sclerae, PERRLA, normal appearance ENT: hearing grossly normal - Neck Neck: no lymphadenopathy, does have a tracheostomy in place - Respiratory Respiratory: bilateral: CTA, diminished at bases, but no dullness, rales, rhonchi - Cardiovascular Rhythm: regular Heart sounds: normal: S1, S2 Abnormal Heart Sounds: no systolic murmur, no diastolic murmur, no rub, no S3 Gallop, no S4 Gallop, no click, no other - Gastrointestinal General gastrointestinal: normal bowel sounds, soft, nontender - Integumentary Integumentary: no rash - Neurologic Neurologic: Right sided hemiparesis with contractures present in the right hand stop moves left upper and lower extremities. Sensation intact. Coordination could not be assessed - Musculoskeletal Musculoskeletal: gait could not be assessed, no strength right upper and lower extremities - Psychiatric Psychiatric: Patient is alert but orientation could not be assessed but according to 's bedside patient is currently at her baseline, appropriate affect Results CBC & Chem 7: 01/27/18 07:42 01/27/18 07:42 Labs: Abnormal Lab Results - Last 24 Hours (Table) 01/26/18 01/26/18 01/26/18 Range/Units 18:35 18:35 18:35 WBC 11.1 H (3.8-10.6) k/uL RDW 15.9 H (11.5-15.5) % Neutrophils # 9.5 H (1.3-7.7) k/uL APTT 16.5 L (22.0-30.0) sec Potassium 5.4 H (3.5-5.1) mmol/L BUN 32 H (7-17) mg/dL Creatinine (0.52-1.04) mg/dL Glucose 112 H (74-99) mg/dL Calcium 10.6 H (8.4-10.2) mg/dL AST 41 H (14-36) U/L ALT 75 H (9-52) U/L 01/27/18 01/27/18 Range/Units 07:42 07:42 WBC (3.8-10.6) k/uL RDW 16.0 H (11.5-15.5) % Neutrophils # (1.3-7.7) k/uL APTT (22.0-30.0) sec Potassium (3.5-5.1) mmol/L BUN 39 H (7-17) mg/dL Creatinine 1.05 H (0.52-1.04) mg/dL Glucose 100 H (74-99) mg/dL Calcium 10.5 H (8.4-10.2) mg/dL AST (14-36) U/L ALT 65 H (9-52) U/L Thrombosis Risk Factor Assmnt - DVT/VTE Prophylaxis DVT/VTE Prophylaxis: Pharmacologic Prophylaxis ordered - Choose All That Apply Any of the Below Risk Factors Present?: Yes Each Factor Represents 1 point: Age 41-60 years Each Risk Factor Represents 2 Points: Patient confined to bed Other congenital or acquired thrombophilia - If yes, enter type in comment: No Each Risk Factor Represents 5 Points: Stroke (< 1 month) Thrombosis Risk Factor Assessment Total Risk Factor Score: 8 Thrombosis Risk Factor Assessment Level: High Risk Assessment and Plan Plan: #1 acute shortness of breath likely secondary to the aspiration event. No wheezing on examination. Continue DuoNeb as needed. Speech evaluation ordered. Pulmonary evaluated the patient who does not think patient is an active failure. #2 chronic hypoxic respiratory failure secondary to CVA. Currently on home requirement of 4 L with tracheostomy. #3 history of nontraumatic intracranial hemorrhage secondary to hypertensive urgency. Repeat CT suggestive of 3.5 cm area of the termination of the left thalamus with some concern from new petechial hemorrhage. Midline shift present from [id number] at the level of thalamus which was reduced. There are also signs of remote ischemia involving the left occipital parietal junction , right basal ganglia that appears stable. 7 required hemorrhage had completely resolved. Continue to monitor neuro checks once daily #4 hypertension blood pressure controlled since admission continue amlodipine, labetalol, lisinopril through the PEG tube #5 Right sided hemiparesis with the phase via secondary to intracranial hemorrhage continue aspirin, baclofen for contractures. Continue Keppra for seizure precautions #6 QT prolongation. Avoid QT prolonging medication continue on telemetry #7 CODE STATUS full code Disposition- patient will be discharged back to [facility] tomorrow if stable
--- NOTE | 2018-01-27 20:01 | P.CNNES ---
History of Present Illness Consult date: 01/27/18 Reason for Consult: Patient with history of ICH 12/14/2017 now with aspiration. History of Present Illness: This patient is a 52-year-old right-handed white female who was admitted to [facility] yesterday with evidence of possible aspiration. Patient has a complicated past medical history recently as she had suffered an acute intracerebral hemorrhage on 12/14/2017. It was felt to be secondary to uncontrolled hypertension. She was airlifted to [facility] where she underwent extensive treatment and subacute rehabilitation for about 1 month. She had undergo a tracheostomy and PEG tube placement on 12/27/2017. She was also initiated on Keppra for seizure prophylaxis. Patient was [facility] to [facility] at [facility] on the [place] and had been there for the past 1 week. According to her was at bedside she was being given some cranberry juice and apparently developed severe coughing. Staff was very concerned about possibility of aspiration. She does have a trach collar said it 4 L oxygen. Apparently she had some difficulty when she tried to swallow the fluids. She was brought into the emergency room at [facility] yesterday for further evaluation. She was seen in the ER and subsequent admitted to Hospital. The patient is now resting comfortably. Her is at bedside. He states it was clearly due to the fluid stimulus that may have caused her to suddenly start coughing. She did undergo a computed tomography scan of the brain given her history of previous stroke and this was completed today. This CAT scan reveals interval marketed reduction in the amount of acute intracranial hemorrhage relative to the previous exam performed on 12/14/2017. There does appear to be areas of persistent ill-defined hyperdensity in the left thalamus. Petechial acute hemorrhage is suspected. Recommend follow-up neuro imaging. Midline shift is markedly improved compared to previous exam. We reviewed the CAT scan results today with the patient's at bedside. We have recommended a follow-up computed tomography scan to be done tomorrow for comparison. We will check a Keppra level as she is on anti-seizure precautions. She has not had any seizure activity according to the since her initial intracerebral hemorrhage. The patient is resting comfortably. Due to her stroke she has significant right-sided spastic hemiparesis. She does have right facial droop as well. She has a trach collar in place at this time. She does open her eyes and does attempt to follow some simple commands. Neurology is now been consulted for further evaluation and recommendations. Review of Systems ROS unobtainable: due to mental status Constitutional: Denies chills, Denies fever Eyes: denies blurred vision, denies pain Ears, nose, mouth and throat: Denies headache, Denies sore throat Cardiovascular: Denies chest pain, Denies shortness of breath Respiratory: Denies cough Gastrointestinal: Denies abdominal pain, Denies diarrhea, Denies nausea, Denies vomiting Genitourinary: Denies dysuria, Denies hematuria Musculoskeletal: Denies myalgias Integumentary: Denies pruritus, Denies rash Neurological: Reports aphasia, Reports change in speech, Reports convulsions, Reports motor disturbance, Reports paralysis, Reports seizures, Reports sensory deficit, Reports spasticity, Denies numbness, Denies weakness Psychiatric: Denies anxiety, Denies depression Endocrine: Denies fatigue, Denies weight change Past Medical History Past Medical History: Hypertension Additional Past Medical History / Comment(s): hydrocephalus, (R) cerebral infarction History of Any Multi-Drug Resistant Organisms: None Reported Past Surgical History: Section Additional Past Surgical History / Comment(s): trache placement Past Psychological History: No Psychological Hx Reported Smoking Status: Never smoker Past Alcohol Use History: None Reported Past Drug Use History: None Reported Medications and Allergies Home Medications Medication Instructions Recorded Confirmed Type Acetaminophen Tab [Tylenol Tab] 650 mg PEG/G-TUBE Q4H PRN 01/26/18 01/26/18 History Amantadine Syrup 50 mg PEG/G-TUBE BID@0900,1700 01/26/18 01/26/18 History Atorvastatin [Lipitor] 10 mg PEG/G-TUBE HS 01/26/18 01/26/18 History Baclofen Suspension 5 mg PEG/G-TUBE TID@0600,1400,2200 01/26/18 01/26/18 History Bromocriptine Mesylate [Parlodel] 2.5 mg PEG/G-TUBE 01/26/18 01/26/18 History TID@0600,1400,2200 Docusate Oral Soln [Colace Oral 100 mg PEG/G-TUBE BID@0900,1700 01/26/18 History Soln] Heparin Sodium,Porcine [Heparin 5,000 unit SQ TID@0600,1400,2200 01/26/18 History Sodium] Labetalol HCl [Trandate] 300 mg PEG/G-TUBE 01/26/18 01/26/18 History TID@0600,1400,2200 Lisinopril [Prinivil] 20 mg PEG/G-TUBE DAILY@0900 01/26/18 01/26/18 History Polyethylene Glycol 3350 [Miralax] 17 gm PEG/G-TUBE DAILY@0900 01/26/18 History Ranitidine HCl [Zantac] 150 mg PEG/G-TUBE BID@0900,1700 01/26/18 01/26/18 History Sennosides Syrup 17.6 mg PEG/G-TUBE BID@0900,1700 01/26/18 01/26/18 History Tuberculin Ppd (Skin Test) 5 unit INTRADERMA HS 01/26/18 01/26/18 History [Tubersol] amLODIPine [Norvasc] 10 mg PEG/G-TUBE HS 01/26/18 01/26/18 History levETIRAcetam 100 mg PEG/G-TUBE BID@0900,2100 01/26/18 01/26/18 History Allergies Allergy/AdvReac Type Severity Reaction Status Date / Time codeine Allergy Unknown Verified 01/26/18 17:30 Physical Examination - Vital Signs Vital Signs: Vital Signs Temp Pulse Pulse Resp BP BP Pulse Ox 01/27/18 16:00 16 01/27/18 14:50 97.0 F L 85 16 131/71 96 01/27/18 08:00 79 16 01/27/18 07:05 98.0 F 79 16 132/79 100 01/27/18 00:57 98.3 F 71 18 124/72 100 01/26/18 23:15 98 01/26/18 21:36 98.9 F 87 18 163/89 98 01/26/18 21:29 99 F 75 18 128/73 100 01/26/18 20:30 99.8 F H 81 16 159/94 100 01/26/18 19:17 92 18 191/101 99 Intake and Output 01/27/18 01/27/18 01/27/18 06:59 14:59 22:59 Output Total 900 400 Balance -900 -400 Output: Urine 900 400 Uretheral (Santizo) 900 Other: Voiding Method Indwelling Catheter Indwelling Catheter # Voids 0 0 # Bowel Movements 1 Weight 56.699 kg - Constitutional General appearance: average body habitus, cooperative - EENT EENT: PERRL, mucous membranes moist - Respiratory Respiratory: lungs clear, normal breath sounds - Cardiovascular Cardiovascular: regular rate, normal S1, normal S2 Extremities: no peripheral edema bilaterally - Gastrointestinal Gastrointestinal: normoactive bowel sounds - Integumentary Integumentary: normal - Neurologic Cranial nerve examination: PERRL, EOMI, VFF, V1/V2/V3 grossly intact, tongue midline, intact gag reflex, facial droop Speech examination: global aphasia Sensorimotor examination: intact Motor examination - right side: 2/5: biceps, triceps, wrist flexion, wrist extension, 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, hip flexors, knee extensors, dorsiflexion, toe extension (EHL) , plantarflexion Motor examination - left side: 4/5: biceps, triceps, wrist flexion, wrist extension, 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, hip flexors, knee extensors, dorsiflexion, toe extension (EHL) , plantarflexion Detailed sensory examination: intact Reflex and gait examination: intact Reflexes: 1+: ankle, bicep, knee, tricep - Musculoskeletal Musculoskeletal: no pain - Psychiatric Psychiatric: mood/affect appropriate, cooperative Results - Laboratory Findings CBC and BMP: 01/27/18 07:42 01/27/18 07:42 Abnormal Lab Findings: Abnormal Labs 01/26/18 01/26/18 01/26/18 18:35 18:35 18:35 WBC 11.1 H RDW 15.9 H Neutrophils # 9.5 H APTT 16.5 L Potassium 5.4 H BUN 32 H Creatinine Glucose 112 H Calcium 10.6 H AST 41 H ALT 75 H 01/27/18 01/27/18 07:42 07:42 WBC RDW 16.0 H Neutrophils # APTT Potassium BUN 39 H Creatinine 1.05 H Glucose 100 H Calcium 10.5 H AST ALT 65 H Assessment and Plan (1) History of cerebral hemorrhage Current Visit: Yes Status: Acute Code(s): Z86.79 - PERSONAL HISTORY OF OTHER DISEASES OF THE CIRCULATORY SYSTEM SNOMED Code(s): 928210671 (2) Spastic hemiparesis affecting dominant side Current Visit: Yes Status: Acute Code(s): G81.10 - SPASTIC HEMIPLEGIA AFFECTING UNSPECIFIED SIDE SNOMED Code(s): 70972553 (3) Shortness of breath Current Visit: Yes Status: Acute Code(s): R06.02 - SHORTNESS OF BREATH SNOMED Code(s): 181057268 (4) Hypertension Current Visit: Yes Status: Acute Code(s): I10 - ESSENTIAL (PRIMARY) HYPERTENSION SNOMED Code(s): 52290937 Plan: This patient is a 52-year-old right-handed white female who was residing at [facility] after recently suffering acute intracerebral hemorrhage due to uncontrolled hypertension. Patient was transferred to [facility] for management of acute intracerebral hemorrhage on 2017. She was therefore one month and then recently about a week ago was transferred to [facility] for subacute rehab. Patient yesterday was given some cranberry juice and apparently gagged and was having difficulty breathing following this. She was brought into the emergency room for further evaluation. She underwent a computed tomography scan of the brain results which are noted above. We have recommended that a repeat computed tomography scan of the brain be done tomorrow for follow-up. CAT scan did reveal evidence of improvement in terms of her known history of intracerebral hemorrhage involving the left thalamus. There was still some areas of ill-defined hyperdensity suggesting possibility of petechial hemorrhage. For this reason we have recommended a follow-up computed tomography scan to be done tomorrow to rule out any progression. The patient is resting comfortably at this time. She is to be evaluated by speech pathology. Her neurological exam reveals her to have a spastic hemiparesis on the right secondary to her recent stroke. She is currently on Keppra for seizure prophylaxis and we will check a Keppra level tomorrow morning. Case was discussed at length with the patient's who is at bedside. All of his questions were answered. Overall prognosis at this time remains very guarded. Time with Patient: Greater than 30
[2018-01-27] MEDS: amLODIPine 10 MG TAB PEG/G-TUBE SCH (22:40)
[2018-01-27] MEDS: LABETALOL 200 MG TAB PEG/G-TUBE SCH (22:44)
[2018-01-28 01:33] LABS: Parathyroid Hormone Intact 28.2 pg/mL (14.0-72.0)
[2018-01-28] MEDS: BROMOCRIPTINE MESYLATE 2.5 MG PEG/G-TUBE SCH ×3 (06:19→23:21)
[2018-01-28] MEDS: HEPARIN SODIUM,PORCINE 5,000 UNIT/ML 1 ML VIAL SQ SCH ×3 (06:19→23:20)
[2018-01-28] MEDS: BACLOFEN 10 MG TAB PEG/G-TUBE SCH ×3 (06:19→23:09)
[2018-01-28] MEDS: LABETALOL 200 MG TAB PEG/G-TUBE SCH ×3 (06:20→23:08)
[2018-01-28 07:51] LABS: Anisocytosis Slight; Basophils % (A) 0 %; Eosinophils # (A) 0.1 k/uL (0-0.7); Eosinophils % (A) 2 %; HCT 30.6 % (34.0-46.0); HGB 10.1 gm/dL (11.4-16.0); Lymphocytes # (A) 1.3 k/uL (1.0-4.8); Lymphocytes % (A) 24 %; MCH 28.7 pg (25.0-35.0); MCHC 33.1 g/dL (31.0-37.0); MCV 86.6 fL (80.0-100.0); Mean Platelet Volume 8.5; Monocytes # (A) 0.3 k/uL (0-1.0); Monocytes % (A) 6 %; Neutrophils # (A) 3.7 k/uL (1.3-7.7); Neutrophils % (A) 67 %; Platelet Count 173 k/uL (150-450); RBC 3.53 m/uL (3.80-5.40); RDW 16.2 % (11.5-15.5); WBC 5.4 k/uL (3.8-10.6)
[2018-01-28 08:09] LABS: Calcium 9.8 mg/dL (8.4-10.2); Potassium 4.3 mmol/L (3.5-5.1)
[2018-01-28] MEDS: DOCUSATE ORAL SOLN 100 MG/10 ML CUP PEG/G-TUBE SCH ×2 (09:18→16:37)
[2018-01-28] MEDS: SENNOSIDES 8.6 MG TAB PEG/G-TUBE SCH ×2 (09:18→16:37)
[2018-01-28] MEDS: FAMOTIDINE 20 MG TAB PEG/G-TUBE SCH ×2 (09:19→16:59)
[2018-01-28] MEDS: LISINOPRIL 20 MG TAB PEG/G-TUBE SCH (09:19)
[2018-01-28] MEDS: ACETAMINOPHEN TAB 325 MG TAB PEG/G-TUBE PRN ×3 (09:19→20:23)
[2018-01-28] MEDS: AMANTADINE HCL PEG/G-TUBE SCH ×2 (09:19→16:59)
[2018-01-28] MEDS: levETIRAcetam ORAL SOLN 500 MG/5 ML CUP PEG/G-TUBE SCH ×2 (09:20→20:23)
--- NOTE | 2018-01-28 09:54 | CT ---
EXAMINATION TYPE: CT brain wo con DATE OF EXAM: 01/28/2018 COMPARISON: Previous study dated 01/27/2018. HISTORY: History of ICH, Follow up to evaluate bleed CT DLP: 1090.40 mGycm Automated exposure control for dose reduction was used. FINDINGS: There continues to be a stable, 2.8 cm area of decreased attenuation in the region of the left thalam us. There is some central increased density which may represent some residual blood products. This is unchanged from the examination of yesterday. No additional lesions are seen. There is no mass effect or midline shift. There is fluid within the right-sided mastoid air cells. The remainder the paranasal sinuses are balwinder r. The bony calvarium is intact. IMPRESSION: 1. STABLE LESION IN THE LEFT THALAMUS PRESUMABLY A SEQUELA FROM THE PATIENT'S PREVIOUS BLEEDING THIS REGION. 2. EVIDENCE OF RIGHT-SIDED MASTOIDITIS.
[2018-01-28 10:07] LABS: Appearance,Urine Cloudy (Clear); Bacteria,Urine Many /hpf; Bilirubin,Urine Negative (Negative); Blood,Urine Negative (Negative); Color,Urine Yellow; Glucose,Urine (UA) Negative (Negative); Ketones,Urine Negative (Negative); Leukocyte Esterase,Urine Large (Negative); Mucus,Urine Rare /hpf; Nitrite,Urine Positive (Negative); Protein,Urine Negative (Negative); RBC,Urine 4 /hpf (0-5); Specific Gravity,Urine 1.014 (1.001-1.035); Urobilinogen,Urine <2.0 mg/dL (<2.0); WBC,Urine 31 /hpf (0-5)
[2018-01-28] MEDS: IPRATROPIUM-ALBUTEROL 3 ML NEB INHALATION PRN ×3 (11:03→19:53)
--- NOTE | 2018-01-28 11:50 | P.PN ---
Subjective Progress Note Date: 01/28/18 52 years old female patient of Dr. Lu, who sees Dr. Amaya with past medical history of intracranial hemorrhage related to hypertensive urgency on 12/14 patient was hospitalized at [place] for a month during which she got tracheostomy and PEG tube placed on 12/27 and was initiated on Keppra for seizure precautions. Other significant history includes right brachial artery thrombosis, history of prolonged QT hold is currently a resident of [facility] on the [place] for the past 1 week. Patient comes in with wheezing, shortness of breath and choking episode on cranberry juice while being assessed for speech. Patient is currently wearing Trac collar 30% and was on 8 L of oxygen when evaluated. Oxygen was decreased and patient was saturating well. Patient does not speak or comprehend. She is able to inform when she is in pain or discomfort. According to the bedside her face was flushed and she was wheezing before admission. Chest x-ray was obtained which was negative for any acute abnormality. Vitals were stable with a temp of 97, pulse rate 85 blood pressure 131/71 on trach collar. Labs were unremarkable with creatinine 1.0 was 5, glucose 100, calcium was slightly high with calcium 10.5. Patient to continue on breathing treatments. Pulmonary consult placed 01/28: Patient underwent for CT of the brain without contrast that was ordered by the neurology service, she is laying down in bed does not appear to be in acute distress, discussed with the nursing staff obtain a urinalysis because the urine is cloudy, she appears stable at this time. Objective - Vital Signs Vital signs: Vital Signs Temp 98.4 F 01/27/18 20:40 Pulse 85 01/27/18 20:40 Resp 16 01/27/18 20:40 BP 168/98 01/27/18 20:40 Pulse Ox 95 01/28/18 07:10 Intake & Output 01/27/18 01/28/18 01/28/18 18:59 06:59 18:59 Output Total 900 1100 Balance -900 -1100 Weight 56.699 kg Output: Urine 900 1100 Uretheral (Santizo) 1100 Other: Voiding Method Indwelling Catheter Indwelling Catheter # Voids 0 # Bowel Movements 1 - Exam - Constitutional General appearance: cooperative, no acute distress, thin, does not track eyes but does follow commands like squeezing fingers with the left hand. - EENT Eyes: anicteric sclerae, PERRLA, normal appearance ENT: hearing grossly normal - Neck Neck: no lymphadenopathy, does have a tracheostomy in place - Respiratory Respiratory: bilateral: CTA, diminished at bases, but no dullness, rales, rhonchi - Cardiovascular Rhythm: regular Heart sounds: normal: S1, S2 Abnormal Heart Sounds: no systolic murmur, no diastolic murmur, no rub, no S3 Gallop, no S4 Gallop, no click, no other - Gastrointestinal General gastrointestinal: normal bowel sounds, soft, nontender - Integumentary Integumentary: no rash - Neurologic Neurologic: Right sided hemiparesis with contractures present in the right hand stop moves left upper and lower extremities. Sensation intact. Coordination could not be assessed - Musculoskeletal Musculoskeletal: gait could not be assessed, no strength right upper and lower extremities - Psychiatric Psychiatric: Patient is alert but orientation could not be assessed but according to 's bedside patient is currently at her baseline, appropriate affect - Labs CBC & Chem 7: 01/28/18 07:30 01/28/18 07:30 Labs: Abnormal Lab Results - Last 24 Hours (Table) 01/27/18 01/27/18 01/27/18 Range/Units 07:42 07:42 07:42 RBC (3.80-5.40) m/uL Hgb (11.4-16.0) gm/dL Hct (34.0-46.0) % RDW 16.0 H (11.5-15.5) % BUN 39 H (7-17) mg/dL Creatinine 1.05 H (0.52-1.04) mg/dL Glucose 100 H (74-99) mg/dL Calcium 10.5 H (8.4-10.2) mg/dL ALT 65 H (9-52) U/L Vitamin D 25-Hydroxy 26.0 L (30.0-100.0) ng/mL 01/28/18 Range/Units 07:30 RBC 3.53 L (3.80-5.40) m/uL Hgb 10.1 L (11.4-16.0) gm/dL Hct 30.6 L (34.0-46.0) % RDW 16.2 H (11.5-15.5) % BUN (7-17) mg/dL Creatinine (0.52-1.04) mg/dL Glucose (74-99) mg/dL Calcium (8.4-10.2) mg/dL ALT (9-52) U/L Vitamin D 25-Hydroxy (30.0-100.0) ng/mL Assessment and Plan Assessment: Assessment and Plan Plan: #1 acute shortness of breath likely secondary to the aspiration event. No wheezing on examination. Continue DuoNeb as needed. Speech evaluation ordered. Pulmonary evaluated the patient who does not think patient is an active failure. #2 chronic hypoxic respiratory failure secondary to CVA. Currently on home requirement of 4 L with tracheostomy. #3 history of nontraumatic intracranial hemorrhage secondary to hypertensive urgency. Repeat CT suggestive of 3.5 cm area of the termination of the left thalamus with some concern from new petechial hemorrhage. Midline shift present from [id number] at the level of thalamus which was reduced. There are also signs of remote ischemia involving the left occipital parietal junction , right basal ganglia that appears stable. 7 required hemorrhage had completely resolved. Continue to monitor neuro checks once daily #4 hypertension blood pressure controlled since admission continue amlodipine, labetalol, lisinopril through the PEG tube #5 Right sided hemiparesis with the phase via secondary to intracranial hemorrhage continue aspirin, baclofen for contractures. Continue Keppra for seizure precautions #6 QT prolongation. Avoid QT prolonging medication continue on telemetry #7 Complicated UTI. Start the patient on Rocephin 1 g IV piggyback every 24 hours. #8. Patient is full code.
[2018-01-28] MEDS: cefTRIAXone IN SWFI 1,000 MG/10 ML SYRINGE IVP SCH (12:00)
--- NOTE | 2018-01-28 14:18 | P.PN ---
Subjective Progress Note Date: 01/28/18 Mrs. Gardner is a 52-year-old female patient on Dr. Whitleyvi was brought to the emergency department per EMS from [facility] on 01/26/2018 at 1709 after developing respiratory difficulty, wheezing. The patient given some cranberry juice during speech therapy and had a choking episode. Shortly after that she developed symptoms of shortness of breath and significant wheezing. She was given updraft treatments and IV steroids, and was brought in for further evaluation. Patient has a past medical history of intracranial hemorrhage related to hypertensive urgency approximately one month ago, ventilator dependent respiratory failure requiring tracheostomy placement. The patient was hospitalized at the [facility], was subsequently weaned off the ventilator and was transferred to the [facility] 2 weeks ago. The patient's , daughters and other family members are present at the bedside and provided patient's history. Patient has a long-standing history of essential hypertension, and 2 years ago she became noncompliant with her blood pressure medications, and completely stopped taking them, and her states on the regular basis patient's systolic blood pressure was over 200 mmHg. No other past medical history prior to her stroke. No chronic lung disease, is a lifetime nonsmoker, no regular EtOH use. 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 Following her stroke, the patient sustained right sided paralysis, is unable to speak, but is able to nod her head yes or no to simple questions. She was undergoing speech therapy, and was doing well with sips of water, and then was reportedly given some cranberry juice after which she developed acute dyspnea and wheezing. Patient has a PEG tube in place, and she gets intermittent gastric feedings at the [facility]. Chest x-ray completed in the ED showed no acute cardiopulmonary process, and the follow-up chest x-ray from this morning on was stable, with no abnormal findings.Currently patient is on 30% trach collar with a pulse ox of 100%. She has been afebrile, vitals have been stable. patient was noted to be hypertensive in the emergency department and was given labetalol. Today her blood pressure is better controlled with as BP from 120s to 130s mmHg, and DBP in the 70s mmHg. The patient is seen again today 01/28/2018 in follow-up on the regular medical floor. She is currently awake in no acute distress. She has had a productive cough through the tracheal tube of green thick sputum. She is maintaining good O2 saturations in the 90s on 30% trach collar. The pressure has been stable. She's been afebrile. No leukocytosis. Hemoglobin 10.1. Creatinine 0.98. Urinalysis is positive for nitrates and large amounts of leukocyte esterase with 31 WBCs and many bacteria. Culture is pending. She is currently on ceftriaxone. Objective - Vital Signs Vital signs: Vital Signs Temp 97.5 F L 01/28/18 07:34 Pulse 76 01/28/18 11:19 Resp 16 01/28/18 08:00 BP 154/82 01/28/18 07:34 Pulse Ox 96 01/28/18 07:34 Intake & Output 01/27/18 01/28/18 01/28/18 18:59 06:59 18:59 Intake Total 195 Output Total 900 1100 550 Balance -900 -1100 -355 Weight 56.699 kg 56.9 kg Intake: Tube Feeding 195 Output: Urine 900 1100 550 Uretheral (Santizo) 1100 550 Other: Voiding Method Indwelling Catheter Indwelling Catheter Indwelling Catheter # Voids 0 # Bowel Movements 1 - Exam - Constitutional General appearance: average body habitus, no acute distress - EENT Eyes: EOMI, dentition normal, normal appearance ENT: NA/AT, normal oropharynx Ears: bilateral: normal - Neck Patient has a tracheostomy in place, and is currently on 30% FiO2 with humidification. The trach site is clean dry, intact Neck: no lymphadenopathy Thyroid: bilateral: normal size - Respiratory Respiratory: bilateral: CTA - Cardiovascular Rhythm: regular Heart sounds: normal: S1, S2 dorsalis pedis Peripheral Pulses: bilateral: Normal radial pulse Peripheral Pulses: bilateral: Normal - Gastrointestinal a PEG tube present in the left upper quadrant, the PEG tube insertion site is clean dry and intact. General gastrointestinal: no organomegaly, soft, no tenderness - Genitourinary There is a Santizo catheter present from the [facility], and the urine is noted to be somewhat cloudy, with a strong odor - Integumentary Integumentary: flushed, normal turgor - Neurologic patient is alert, appears to be oriented to self and the family, although this is difficult to assess the patient is nonverbal, but is able to nod yes or no to questions appropriately. Patient has right-sided motor paralysis, chronic contractures of the right arm and hand, foot drop noted in the right foot. Neurologic: focal deficits - Musculoskeletal right-sided paralysis Musculoskeletal: right sided weakness - Psychiatric patient is tearful, and appears to be frustrated with her current situation, crying, but consolable Psychiatric: appropriate affect - Labs CBC & Chem 7: 01/28/18 07:30 01/28/18 07:30 Labs: Abnormal Lab Results - Last 24 Hours (Table) 01/27/18 01/28/18 01/28/18 Range/Units 07:42 07:30 07:30 RBC 3.53 L (3.80-5.40) m/uL Hgb 10.1 L (11.4-16.0) gm/dL Hct 30.6 L (34.0-46.0) % RDW 16.2 H (11.5-15.5) % BUN 36 H (7-17) mg/dL Glucose 114 H (74-99) mg/dL Vitamin D 25-Hydroxy 26.0 L (30.0-100.0) ng/mL Urine Appearance (Clear) Urine Nitrite (Negative) Ur Leukocyte Esterase (Negative) Urine WBC (0-5) /hpf Urine Bacteria (None) /hpf Urine Mucus (None) /hpf 01/28/18 Range/Units 09:32 RBC (3.80-5.40) m/uL Hgb (11.4-16.0) gm/dL Hct (34.0-46.0) % RDW (11.5-15.5) % BUN (7-17) mg/dL Glucose (74-99) mg/dL Vitamin D 25-Hydroxy (30.0-100.0) ng/mL Urine Appearance Cloudy H (Clear) Urine Nitrite Positive H (Negative) Ur Leukocyte Esterase Large H (Negative) Urine WBC 31 H (0-5) /hpf Urine Bacteria Many H (None) /hpf Urine Mucus Rare H (None) /hpf Assessment and Plan Assessment: Assessment: #1. Acute dyspnea, and bronchospasm related to aspiration of foreign substance/ cranberry juice, no evidence of aspiration on the chest x-ray. Follow-up x-ray still clear. #2. Chronic hypoxic respiratory failure related to history of intracranial hemorrhage, the patient has a trach in place, is breathing spontaneously currently, on 30% FiO2 #3. Recent history of a nontraumatic intracerebral hemorrhage related to hypertensive urgency a month ago, and the patient was hospitalized at the [facility], recovered, and was transferred to the [facility] on the [place] #4. 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 Aphasia following cerebral infarction #6. Generalized muscle weakness #7. Chronic anemia #8. History medical noncompliance #9. Essential hypertension #10. Lifetime nonsmoker Plan: The patient was seen and evaluated by Dr. Figueroa. Chest x-rays and labs were reviewed. She is cleared for discharge back to [facility] on the [place]. She could remain on antibiotics for suspected urinary tract infection. No plans for decannulation at this time. He will be seeing her in consultation there and we' ll decannulate her when he feels it is appropriate. I, the cosigning physician, performed a history & physical examination of the patient. Lungs sounds are clear. Maintaining good O2 saturations in the 90s on 30% trach collar. I discussed the assessment and plan of care with my nurse practitioner, Nahomy Decker. I attest to the above note as dictated by her.
--- NOTE | 2018-01-28 16:43 | P.PN ---
Subjective Progress Note Date: 01/28/18 This patient is a 52-year-old female who was seen in neurology consultation yesterdayfor evaluation of altered mental status and possible aspiration. Patient has a history of recent left intracerebral hemorrhage diagnosed on 12/14. She was transferred to [facility] where she underwent extensive neurosurgical evaluation and was sent to rehab after 1 month in the hospital. She was residing at [facility] the [facility] and apparently yesterday had some difficulty with drinking cranberry juice. She does have a PEG tube and tracheostomy in place. She was brought into the emergency room and underwent a computed tomography scan of the brain yesterday. There was some evidence of some petechial hemorrhage residual in the left thalamus from her previous intracerebral hemorrhage. She was sent for repeat computed tomography scan of the brain today which reveals stable lesion of the left thalamus as a sequelae of her previous bleeding in this region. No evidence of new or acute hemorrhage. Patient is doing somewhat better today. According to the she seems to be coming back to near baseline level of function as she was at the [facility]. She has been sleeping off and on throughout the day according to the nursing staff. She denies any headaches. She does have right- sided hemiparesis from her stroke and is also on Keppra monotherapy for seizure prophylaxis. We have ordered a Keppra blood level which is still pending to return from the laboratory. She has been seen by pulmonary medicine and there is no evidence of aspiration pneumonia based on her chest x-ray results. We will continue close neurological follow-up for the patient during this admission. Objective - Vital Signs Vital signs: Vital Signs Temp 97.5 F L 01/28/18 07:34 Pulse 76 01/28/18 11:19 Resp 16 01/28/18 08:00 BP 154/82 01/28/18 07:34 Pulse Ox 96 01/28/18 07:34 Intake & Output 01/27/18 01/28/18 01/28/18 18:59 06:59 18:59 Intake Total 195 Output Total 900 1100 550 Balance -900 -1100 -355 Weight 56.699 kg 56.9 kg Intake: Tube Feeding 195 Output: Urine 900 1100 550 Uretheral (Santizo) 1100 550 Other: Voiding Method Indwelling Catheter Indwelling Catheter Indwelling Catheter # Voids 0 # Bowel Movements 1 - Exam Physical examination: PHYSICAL EXAMINATION: Patient is resting comfortably in bed. Patient is sleeping but is easily arousable. She is noted to have a tracheostomy in place with a trach soft collar. VITAL SIGNS: Blood pressure is [154/82]. Heart rate is [70]. Respiration is [16] . Temperature is [97.5]. HEENT: Head is atraumatic, neck is supple, there were no carotid bruits. CHEST: Lungs are clear to auscultation and percussion. CARDIAC: S1, S2 normal rate and rhythm. There is no murmur. ABDOMEN: Soft and nontender. Bowel sounds are present. EXTREMITIES: There is no pedal edema. Peripheral pulses are present. Neurological examination: Patient's neurological examination is unchanged from yesterday. - Labs CBC & Chem 7: 01/28/18 07:30 01/28/18 07:30 Labs: Abnormal Lab Results - Last 24 Hours (Table) 01/27/18 01/28/18 01/28/18 Range/Units 07:42 07:30 07:30 RBC 3.53 L (3.80-5.40) m/uL Hgb 10.1 L (11.4-16.0) gm/dL Hct 30.6 L (34.0-46.0) % RDW 16.2 H (11.5-15.5) % BUN 36 H (7-17) mg/dL Glucose 114 H (74-99) mg/dL Vitamin D 25-Hydroxy 26.0 L (30.0-100.0) ng/mL Urine Appearance (Clear) Urine Nitrite (Negative) Ur Leukocyte Esterase (Negative) Urine WBC (0-5) /hpf Urine Bacteria (None) /hpf Urine Mucus (None) /hpf 01/28/18 Range/Units 09:32 RBC (3.80-5.40) m/uL Hgb (11.4-16.0) gm/dL Hct (34.0-46.0) % RDW (11.5-15.5) % BUN (7-17) mg/dL Glucose (74-99) mg/dL Vitamin D 25-Hydroxy (30.0-100.0) ng/mL Urine Appearance Cloudy H (Clear) Urine Nitrite Positive H (Negative) Ur Leukocyte Esterase Large H (Negative) Urine WBC 31 H (0-5) /hpf Urine Bacteria Many H (None) /hpf Urine Mucus Rare H (None) /hpf Assessment and Plan (1) History of cerebral hemorrhage Current Visit: Yes Status: Acute Code(s): Z86.79 - PERSONAL HISTORY OF OTHER DISEASES OF THE CIRCULATORY SYSTEM SNOMED Code(s): 754434802 (2) Spastic hemiparesis affecting dominant side Current Visit: Yes Status: Acute Code(s): G81.10 - SPASTIC HEMIPLEGIA AFFECTING UNSPECIFIED SIDE SNOMED Code(s): 08629284 (3) Shortness of breath Current Visit: Yes Status: Acute Code(s): R06.02 - SHORTNESS OF BREATH SNOMED Code(s): 621486198 (4) Hypertension Current Visit: Yes Status: Acute Code(s): I10 - ESSENTIAL (PRIMARY) HYPERTENSION SNOMED Code(s): 06430594 Plan: This patient is a 52-year-old right-handed white female who was residing at [facility] after recently suffering acute intracerebral hemorrhage due to uncontrolled hypertension. Patient was transferred to [facility] for management of acute intracerebral hemorrhage on 2017. She was there for one month and then recently about a week ago was transferred to [facility] the [facility] for subacute rehab. Patient yesterday was given some cranberry juice and apparently gagged and was having difficulty breathing following this. She was brought into the emergency room for further evaluation. She underwent a computed tomography scan of the brain results which are noted above. We have recommended that a repeat computed tomography scan of the brain be done today for follow-up. Her initial CAT scan did reveal evidence of improvement in terms of her known history of intracerebral hemorrhage involving the left thalamus. There was still some areas of ill-defined hyperdensity suggesting possibility of petechial hemorrhage. For this reason we have recommended a follow-up computed tomography scan to be done today to rule out any progression. Patient had repeat computed tomography scan of the brain this morning. CAT scan reveals stable lesion of the left thalamus presumably a sequelae from her previous history of bleeding in this region. No evidence for new or acute bleed. The patient is resting comfortably at this time. She is to be evaluated by speech pathology. Her neurological exam reveals her to have a spastic hemiparesis on the right secondary to her recent stroke. She is currently on Keppra for seizure prophylaxis and we awaiting the Keppra blood level to return from the laboratory.. Case was discussed at length with the patient's who is at bedside yesterday. All of his questions were answered. Overall prognosis at this time her prognosis remains very guarded. We will continue close neurological follow-up for this patient during this admission.
[2018-01-28] MEDS: amLODIPine 10 MG TAB PEG/G-TUBE SCH (20:23)
[2018-01-28] MEDS ORDERED: ALPRAZolam 0.25 MG TAB PO PRN (21:25)
[2018-01-29] MEDS ORDERED: ALPRAZolam 0.25 MG TAB PO PRN (02:35)
[2018-01-29] MEDS: BACLOFEN 10 MG TAB PEG/G-TUBE SCH ×3 (05:30→22:31)
[2018-01-29] MEDS: HEPARIN SODIUM,PORCINE 5,000 UNIT/ML 1 ML VIAL SQ SCH ×3 (05:30→22:31)
[2018-01-29] MEDS: BROMOCRIPTINE MESYLATE 2.5 MG PEG/G-TUBE SCH ×3 (05:31→23:27)
[2018-01-29] MEDS: LABETALOL 200 MG TAB PEG/G-TUBE SCH ×3 (05:31→22:30)
[2018-01-29 07:30] LABS: Anisocytosis Slight; Basophils % (A) 0 %; Eosinophils # (A) 0.2 k/uL (0-0.7); Eosinophils % (A) 3 %; HCT 32.1 % (34.0-46.0); HGB 10.9 gm/dL (11.4-16.0); Lymphocytes # (A) 1.1 k/uL (1.0-4.8); Lymphocytes % (A) 16 %; MCH 29.1 pg (25.0-35.0); MCV 85.5 fL (80.0-100.0); Mean Platelet Volume 7.8; Monocytes # (A) 0.3 k/uL (0-1.0); Monocytes % (A) 4 %; Neutrophils % (A) 76 %; Platelet Count 182 k/uL (150-450); RBC 3.76 m/uL (3.80-5.40); RDW 16.2 % (11.5-15.5); WBC 6.6 k/uL (3.8-10.6)
[2018-01-29] MEDS: DOCUSATE ORAL SOLN 100 MG/10 ML CUP PEG/G-TUBE SCH ×2 (07:54→17:43)
[2018-01-29] MEDS: FAMOTIDINE 20 MG TAB PEG/G-TUBE SCH ×2 (07:54→17:42)
[2018-01-29] MEDS: SENNOSIDES 8.6 MG TAB PEG/G-TUBE SCH ×2 (07:54→17:43)
[2018-01-29] MEDS: LISINOPRIL 20 MG TAB PEG/G-TUBE SCH ×2 (07:54→20:43)
[2018-01-29] MEDS: AMANTADINE HCL PEG/G-TUBE SCH ×2 (07:56→17:42)
[2018-01-29] MEDS: levETIRAcetam ORAL SOLN 500 MG/5 ML CUP PEG/G-TUBE SCH ×2 (07:57→20:43)
[2018-01-29 07:58] LABS: Anion Gap 12 mmol/L; Blood Urea Nitrogen 28 mg/dL (7-17); Calcium 9.9 mg/dL (8.4-10.2); Carbon Dioxide 25 mmol/L (22-30); Chloride 105 mmol/L (98-107); Glucose 114 mg/dL (74-99); Potassium 4.1 mmol/L (3.5-5.1); Sodium 142 mmol/L (137-145)
[2018-01-29] MEDS: ACETAMINOPHEN TAB 325 MG TAB PEG/G-TUBE PRN (08:00)
--- NOTE | 2018-01-29 09:46 | P.PN ---
Subjective Progress Note Date: 01/29/18 52 years old female patient of Dr. Lu, who sees Dr. Amaya with past medical history of intracranial hemorrhage related to hypertensive urgency on 12/14 patient was hospitalized at [place] for a month during which she got tracheostomy and PEG tube placed on 12/27 and was initiated on Keppra for seizure precautions. Other significant history includes right brachial artery thrombosis, history of prolonged QT hold is currently a resident of [facility] the [place] for the past 1 week. Patient comes in with wheezing, shortness of breath and choking episode on cranberry juice while being assessed for speech. Patient is currently wearing Trac collar 30% and was on 8 L of oxygen when evaluated. Oxygen was decreased and patient was saturating well. Patient does not speak or comprehend. She is able to inform when she is in pain or discomfort. According to the bedside her face was flushed and she was wheezing before admission. Chest x-ray was obtained which was negative for any acute abnormality. Vitals were stable with a temp of 97, pulse rate 85 blood pressure 131/71 on trach collar. Labs were unremarkable with creatinine 1.0 was 5, glucose 100, calcium was slightly high with calcium 10.5. Patient to continue on breathing treatments. Pulmonary consult placed 01/28: Patient underwent for CT of the brain without contrast that was ordered by the neurology service, she is laying down in bed does not appear to be in acute distress, discussed with the nursing staff obtain a urinalysis because the urine is cloudy, she appears stable at this time. 01/29: Patient is laying down in bed does not appear to be in acute distress, she can use to be somewhat hypertensive, we will adjusting her lisinopril to 20mg per PEG tube twice every day , we will continue amlodipine 10 mg per PEG tube once every day and labetalol 300 mg per PEG tube 3 times every day. Objective - Vital Signs Vital signs: Vital Signs Temp 98.4 F 01/28/18 21:01 Pulse 83 01/29/18 05:34 Resp 16 01/28/18 21:01 BP 187/90 01/29/18 05:34 Pulse Ox 97 01/28/18 21:01 Intake & Output 01/28/18 01/29/18 01/29/18 18:59 06:59 18:59 Intake Total 306 Output Total 550 300 Balance -244 -300 Weight 56.9 kg Intake: Tube Feeding 306 Output: Urine 550 300 Uretheral (Santizo) 550 300 Other: Voiding Method Indwelling Catheter Indwelling Catheter # Voids 0 - Exam - Constitutional General appearance: cooperative, no acute distress, thin, does not track eyes but does follow commands like squeezing fingers with the left hand. - EENT Eyes: anicteric sclerae, PERRLA, normal appearance ENT: hearing grossly normal - Neck Neck: no lymphadenopathy, does have a tracheostomy in place - Respiratory Respiratory: bilateral: CTA, diminished at bases, but no dullness, rales, rhonchi - Cardiovascular Rhythm: regular Heart sounds: normal: S1, S2 Abnormal Heart Sounds: no systolic murmur, no diastolic murmur, no rub, no S3 Gallop, no S4 Gallop, no click, no other - Gastrointestinal General gastrointestinal: normal bowel sounds, soft, nontender - Integumentary Integumentary: no rash - Neurologic Neurologic: Right sided hemiparesis with contractures present in the right hand stop moves left upper and lower extremities. Sensation intact. Coordination could not be assessed - Musculoskeletal Musculoskeletal: gait could not be assessed, no strength right upper and lower extremities - Psychiatric Psychiatric: Patient is alert but orientation could not be assessed but according to 's bedside patient is currently at her baseline, appropriate affect - Labs CBC & Chem 7: 01/29/18 07:12 01/29/18 07:12 Labs: Abnormal Lab Results - Last 24 Hours (Table) 01/28/18 01/28/18 01/28/18 Range/Units 07:30 07:30 09:32 RBC 3.53 L (3.80-5.40) m/uL Hgb 10.1 L (11.4-16.0) gm/dL Hct 30.6 L (34.0-46.0) % RDW 16.2 H (11.5-15.5) % BUN 36 H (7-17) mg/dL Glucose 114 H (74-99) mg/dL Urine Appearance Cloudy H (Clear) Urine Nitrite Positive H (Negative) Ur Leukocyte Esterase Large H (Negative) Urine WBC 31 H (0-5) /hpf Urine Bacteria Many H (None) /hpf Urine Mucus Rare H (None) /hpf Microbiology - Last 24 Hours (Table) 01/28/18 09:32 Urine Culture - Preliminary Urine,Catheterized Assessment and Plan Assessment: Assessment and Plan Plan: #1 acute shortness of breath likely secondary to the aspiration event. No wheezing on examination. Continue DuoNeb as needed. Speech evaluation ordered. Pulmonary evaluated the patient who does not think patient is an active failure. #2 chronic hypoxic respiratory failure secondary to CVA. Currently on home requirement of 4 L with tracheostomy. #3 history of nontraumatic intracranial hemorrhage secondary to hypertensive urgency. Repeat CT suggestive of 3.5 cm area of the termination of the left thalamus with some concern from new petechial hemorrhage. Midline shift present from [id number] at the level of thalamus which was reduced. There are also signs of remote ischemia involving the left occipital parietal junction , right basal ganglia that appears stable. 7 required hemorrhage had completely resolved. Continue to monitor neuro checks once daily #4 hypertension blood pressure controlled since admission continue amlodipine, labetalol, lisinopril through the PEG tube, increase lisinopril to 20 mg per PEG tube twice every day. #5 Right sided hemiparesis with the phase via secondary to intracranial hemorrhage continue aspirin, baclofen for contractures. Continue Keppra for seizure precautions #6 QT prolongation. Avoid QT prolonging medication continue on telemetry #7 Complicated UTI. Start the patient on Rocephin 1 g IV piggyback every 24 hours. #8. Patient is full code.
--- NOTE | 2018-01-29 09:59 | P.PN ---
Subjective Progress Note Date: 01/29/18 Principal diagnosis: Possible aspiration Progress note dated 01/29/2018 52-year-old female transferred over from [facility] the [facility] because of shortness of breath. The patient was suspected to have an aspiration syndrome but the chest x-ray was clear. The patient chronically has a tracheostomy tube in place. She status post intracranial hemorrhage. The patient also has a history of right-sided hemiplegia aphasia generalized muscle weakness chronic anemia essential hypertension and lifetime nonsmoker. In my opinion, this time, the patient is not a candidate for decannulation. The patient appears stable this time. No respiratory issues. From my perspective, the patient could be transferred back. The patient is also being treated for a urinary tract infection. Objective - Vital Signs Vital signs: Vital Signs Temp 98.7 F 01/29/18 07:00 Pulse 73 01/29/18 07:00 Resp 16 01/29/18 07:00 BP 166/89 01/29/18 07:00 Pulse Ox 98 01/29/18 07:17 Intake & Output 01/28/18 01/29/18 01/29/18 18:59 06:59 18:59 Intake Total 306 Output Total 550 300 Balance -244 -300 Weight 56.9 kg Intake: Tube Feeding 306 Output: Urine 550 300 Uretheral (Santizo) 550 300 Other: Voiding Method Indwelling Catheter Indwelling Catheter # Voids 0 - Exam No acute distress, blank stare. Tracheostomy tube in place.. HEENT examination is grossly unremarkable. Mucous membranes are moist. No oral lesions. Neck supple. Full range of motion. No adenopathy thyromegaly or neck vein distention. Midline tracheostomy tube is noted. Cardiovascular examination reveals regular rhythm rate. S1-S2 normal. No S3 or S4. No discernible murmur noted. Lungs reveal a few scattered rhonchi. Breath sounds are equal. No crackles. No wheezes. Abdomen soft bowel sounds are heard. No masses or tenderness. Extremities are intact. No cyanosis clubbing or edema. Skin is without rash or lesion. Neurologic examination could not be adequately assessed. - Labs CBC & Chem 7: 01/29/18 07:12 01/29/18 07:12 Labs: Abnormal Lab Results - Last 24 Hours (Table) 01/28/18 01/29/18 01/29/18 Range/Units 09:32 07:12 07:12 RBC 3.76 L (3.80-5.40) m/uL Hgb 10.9 L (11.4-16.0) gm/dL Hct 32.1 L (34.0-46.0) % RDW 16.2 H (11.5-15.5) % BUN 28 H (7-17) mg/dL Glucose 114 H (74-99) mg/dL Urine Appearance Cloudy H (Clear) Urine Nitrite Positive H (Negative) Ur Leukocyte Esterase Large H (Negative) Urine WBC 31 H (0-5) /hpf Urine Bacteria Many H (None) /hpf Urine Mucus Rare H (None) /hpf Microbiology - Last 24 Hours (Table) 01/28/18 09:32 Urine Culture - Preliminary Urine,Catheterized Assessment and Plan Assessment: Assessment Acute shortness of breath with bronchospasm, possibly related to aspiration, although chest x-rays clear. Chronic hypoxemic respiratory failure status post tracheostomy tube, secondary to intracranial hemorrhage. Recent nontraumatic intracerebral hemorrhage related to hypertensive urgency, treated at [facility]. Right-sided hemiplegia/hemiparesis secondary to CVA History of dyspnea Generalized muscle weakness Chronic anemia History of medical noncompliance Essential hypertension Lifetime nonsmoker Possible urinary tract infection Plan: Plan dated 01/29/2018 From my perspective, the patient's doing well. No need to decannulate the patient this time. The patient is having significant secretion still. Chest x- ray is normal. The patient seemed to have adequate cough but I'm not sure that when she is decannulated, she can protect airway given her mental status changes. We'll continue to follow. Prognosis is guarded. The patient could be discharged home. Antibiotics can be descalated. Time with Patient: Less than 30
[2018-01-29] MEDS: cefTRIAXone IN SWFI 1,000 MG/10 ML SYRINGE IVP SCH (12:28)
[2018-01-29] MEDS: hydrALAZINE HCL 20 MG/ML 1 ML VIAL IVP PRN (16:31)
--- NOTE | 2018-01-29 19:03 | P.PN ---
Subjective Progress Note Date: 01/29/18 This patient is a 52-year-old female who was seen in neurology consultation yesterdayfor evaluation of altered mental status and possible aspiration. Patient has a history of recent left intracerebral hemorrhage diagnosed on 12/14. She was transferred to [facility] where she underwent extensive neurosurgical evaluation and was sent to rehab after 1 month in the hospital. She was residing at [facility] on the [facility] and apparently yesterday had some difficulty with drinking cranberry juice. She does have a PEG tube and tracheostomy in place. She was brought into the emergency room and underwent a computed tomography scan of the brain yesterday. There was some evidence of some petechial hemorrhage residual in the left thalamus from her previous intracerebral hemorrhage. She was sent for repeat computed tomography scan of the brain today which reveals stable lesion of the left thalamus as a sequelae of her previous bleeding in this region. No evidence of new or acute hemorrhage. Patient is doing somewhat better today. According to the she seems to be coming back to near baseline level of function as she was at the [facility]. Patient is much more awake and alert today. She denies any headaches. She does have right-sided hemiparesis from her stroke and is also on Keppra monotherapy for seizure prophylaxis. We have ordered a Keppra blood level which is still pending to return from the laboratory. She has been seen by pulmonary medicine and there is no evidence of aspiration pneumonia based on her chest x-ray results. Pulmonary medicine has cleared the patient for discharge back to [facility]. We will continue close neurological follow-up for the patient during this admission. Objective - Vital Signs Vital signs: Vital Signs Temp 98.7 F 01/29/18 07:00 Pulse 73 01/29/18 07:00 Resp 16 01/29/18 07:00 BP 166/89 01/29/18 07:00 Pulse Ox 98 01/29/18 07:17 Intake & Output 01/28/18 01/29/18 01/29/18 18:59 06:59 18:59 Intake Total 306 Output Total 550 300 Balance -244 -300 Weight 56.9 kg Intake: Tube Feeding 306 Output: Urine 550 300 Uretheral (Santizo) 550 300 Other: Voiding Method Indwelling Catheter Indwelling Catheter Indwelling Catheter # Voids 0 - Exam Physical examination: PHYSICAL EXAMINATION: Patient is resting comfortably in bed. Patient is sleeping but is easily arousable. She is noted to have a tracheostomy in place with a trach soft collar. VITAL SIGNS: Blood pressure is [167/89]. Heart rate is [73]. Respiration is [16] . Temperature is [98.7]. HEENT: Head is atraumatic, neck is supple, there were no carotid bruits. CHEST: Lungs are clear to auscultation and percussion. CARDIAC: S1, S2 normal rate and rhythm. There is no murmur. ABDOMEN: Soft and nontender. Bowel sounds are present. EXTREMITIES: There is no pedal edema. Peripheral pulses are present. Neurological examination: Patient's neurological examination is unchanged from yesterday. Patient is much more awake and alert today. She is able to follow simple commands. She continues to demonstrate right-sided hemiparesis from her old stroke. - Labs CBC & Chem 7: 01/29/18 07:12 01/29/18 07:12 Labs: Abnormal Lab Results - Last 24 Hours (Table) 01/29/18 01/29/18 Range/Units 07:12 07:12 RBC 3.76 L (3.80-5.40) m/uL Hgb 10.9 L (11.4-16.0) gm/dL Hct 32.1 L (34.0-46.0) % RDW 16.2 H (11.5-15.5) % BUN 28 H (7-17) mg/dL Glucose 114 H (74-99) mg/dL Microbiology - Last 24 Hours (Table) 01/28/18 09:32 Urine Culture - Preliminary Urine,Catheterized Assessment and Plan (1) History of cerebral hemorrhage Current Visit: Yes Status: Acute Code(s): Z86.79 - PERSONAL HISTORY OF OTHER DISEASES OF THE CIRCULATORY SYSTEM SNOMED Code(s): 961459120 (2) Spastic hemiparesis affecting dominant side Current Visit: Yes Status: Acute Code(s): G81.10 - SPASTIC HEMIPLEGIA AFFECTING UNSPECIFIED SIDE SNOMED Code(s): 15014146 (3) Shortness of breath Current Visit: Yes Status: Acute Code(s): R06.02 - SHORTNESS OF BREATH SNOMED Code(s): 530104365 (4) Hypertension Current Visit: Yes Status: Acute Code(s): I10 - ESSENTIAL (PRIMARY) HYPERTENSION SNOMED Code(s): 71231658 Plan: This patient is a 52-year-old female who is being followed for recent episode of possible aspiration at the halfway. She has suffered a recent hypertensive intracranial hemorrhage on 12/14/2017. She was hospitalized at [facility] for a month. She recently was transferred to [facility] on the [facility] and was making good progress. The patient apparently aspirated on some cranberry juice and was having offing spells. For this reason she was admitted to hospital for further evaluation. She has undergone 2 CT scans of the brain as follow-up from her history of hypertensive hemorrhagic bleed involving the left thalamus. Her last CAT scan done yesterday failed to reveal any increase in size or new areas of infarction or hemorrhage. Clinically she is doing quite well and is much more awake and alert today. She is able to follow some simple commands. Her blood pressure is slightly elevated but is closely being monitored by the nursing staff. The patient has evidence of right-sided hemiparesis from her recent stroke. She has been seen by pulmonary medicine and her chest x-rays have remained clear. No evidence to suggest aspiration pneumonia. They have cleared her for discharge back to halfway. Patient clinically is much improved today. Family is at bedside and they have also noticed the improvement. Patient is to continue on anticonvulsant therapy at this time and blood levels are still pending from the laboratory. Overall prognosis at this time remains guarded.
[2018-01-29] MEDS: IPRATROPIUM-ALBUTEROL 3 ML NEB INHALATION PRN (20:18)
[2018-01-29] MEDS: amLODIPine 10 MG TAB PEG/G-TUBE SCH (20:43)
[2018-01-30] MEDS: HEPARIN SODIUM,PORCINE 5,000 UNIT/ML 1 ML VIAL SQ SCH ×3 (06:15→22:09)
[2018-01-30] MEDS: BACLOFEN 10 MG TAB PEG/G-TUBE SCH ×3 (06:15→22:08)
[2018-01-30] MEDS: BROMOCRIPTINE MESYLATE 2.5 MG PEG/G-TUBE SCH ×3 (06:15→23:19)
[2018-01-30] MEDS ORDERED: LABETALOL 100 MG TAB PEG/G-TUBE SCH (06:29)
[2018-01-30] MEDS: IPRATROPIUM-ALBUTEROL 3 ML NEB INHALATION PRN ×3 (07:46→19:15)
[2018-01-30] MEDS: levETIRAcetam ORAL SOLN 500 MG/5 ML CUP PEG/G-TUBE SCH ×2 (08:08→22:08)
[2018-01-30] MEDS: AMANTADINE HCL PEG/G-TUBE SCH ×2 (08:08→17:29)
[2018-01-30] MEDS: DOCUSATE ORAL SOLN 100 MG/10 ML CUP PEG/G-TUBE SCH ×2 (08:09→17:29)
[2018-01-30] MEDS: FAMOTIDINE 20 MG TAB PEG/G-TUBE SCH ×2 (08:09→17:29)
[2018-01-30] MEDS: SENNOSIDES 8.6 MG TAB PEG/G-TUBE SCH ×2 (08:10→17:29)
[2018-01-30] MEDS: LISINOPRIL 20 MG TAB PEG/G-TUBE SCH (08:10)
[2018-01-30] MEDS: hydrALAZINE HCL 20 MG/ML 1 ML VIAL IVP PRN ×2 (08:16→11:22)
[2018-01-30] MEDS: LABETALOL 200 MG TAB PEG/G-TUBE SCH ×2 (08:38→22:07)
[2018-01-30 09:20] LABS: Anisocytosis Slight; Basophils % (A) 0 %; Eosinophils # (A) 0.2 k/uL (0-0.7); Eosinophils % (A) 3 %; HCT 35.8 % (34.0-46.0); HGB 12.1 gm/dL (11.4-16.0); Lymphocytes # (A) 1.4 k/uL (1.0-4.8); Lymphocytes % (A) 19 %; MCH 29.3 pg (25.0-35.0); MCHC 33.8 g/dL (31.0-37.0); MCV 86.8 fL (80.0-100.0); Mean Platelet Volume 8.3; Monocytes # (A) 0.3 k/uL (0-1.0); Monocytes % (A) 5 %; Neutrophils # (A) 5.3 k/uL (1.3-7.7); Neutrophils % (A) 73 %; Platelet Count 182 k/uL (150-450); RBC 4.13 m/uL (3.80-5.40); RDW 16.3 % (11.5-15.5); WBC 7.2 k/uL (3.8-10.6)
[2018-01-30 09:50] LABS: ALT 44 U/L (9-52); AST 23 U/L (14-36); Albumin 4.2 g/dL (3.5-5.0); Alkaline Phosphatase 118 U/L (38-126); Anion Gap 16 mmol/L; Blood Urea Nitrogen 25 mg/dL (7-17); Calcium 10.2 mg/dL (8.4-10.2); Carbon Dioxide 24 mmol/L (22-30); Chloride 102 mmol/L (98-107); Glucose 104 mg/dL (74-99); Potassium 4.4 mmol/L (3.5-5.1); Sodium 142 mmol/L (137-145); Total Bilirubin 0.5 mg/dL (0.2-1.3)
--- NOTE | 2018-01-30 10:30 | P.PN ---
Subjective Progress Note Date: 01/30/18 Principal diagnosis: Possible aspiration Progress note dated 01/29/2018 52-year-old female transferred over from [facility] on the [facility] because of shortness of breath. The patient was suspected to have an aspiration syndrome but the chest x-ray was clear. The patient chronically has a tracheostomy tube in place. She status post intracranial hemorrhage. The patient also has a history of right-sided hemiplegia aphasia generalized muscle weakness chronic anemia essential hypertension and lifetime nonsmoker. In my opinion, this time, the patient is not a candidate for decannulation. The patient appears stable this time. No respiratory issues. From my perspective, the patient could be transferred back. The patient is also being treated for a urinary tract infection. Progress note dated 01/30/2018 This is a 52-year-old female [facility] because of shortness of breath. The patient was suspected to have an aspiration syndrome but chest x-ray was clear. The patient does have a tracheostomy tube in place. The patient's cough is weak. She still expelling thick mucus from the tracheostomy tube. She status post intracranial hemorrhage , nontraumatic. She has a history of right-sided hemiplegia, aphagia, generalized muscle weakness, chronic anemia, essential hypertension and lifetime nonsmoking. The patient likely has a gram-negative urinary tract infection. The bacteria has not been ideally initiate. The patient can be transferred back to [facility] with aspiration precautions. Head of bed should always be elevated. She is not ready to be decannulated. Objective - Vital Signs Vital signs: Vital Signs Temp 97.9 F 01/30/18 07:25 Pulse 88 01/30/18 08:04 Resp 20 01/30/18 07:47 BP 187/99 01/30/18 07:25 Pulse Ox 96 01/30/18 07:25 Intake & Output 01/29/18 01/30/18 01/30/18 18:59 06:59 18:59 Intake Total 516 Output Total 400 Balance 116 Weight 56.7 kg 59.874 kg Intake: Tube Feeding 516 Output: Urine 400 Uretheral (Santizo) 400 Other: Voiding Method Indwelling Catheter Indwelling Catheter - Exam No acute distress, blank stare. Tracheostomy tube in place.. HEENT examination is grossly unremarkable. Mucous membranes are moist. No oral lesions. Neck supple. Full range of motion. No adenopathy thyromegaly or neck vein distention. Midline tracheostomy tube is noted. Cardiovascular examination reveals regular rhythm rate. S1-S2 normal. No S3 or S4. No discernible murmur noted. Lungs reveal a few scattered rhonchi. Breath sounds are equal. No crackles. No wheezes. Abdomen soft bowel sounds are heard. No masses or tenderness. Extremities are intact. No cyanosis clubbing or edema. Skin is without rash or lesion. Neurologic examination could not be adequately assessed. - Labs CBC & Chem 7: 01/30/18 07:52 01/30/18 07:52 Labs: Abnormal Lab Results - Last 24 Hours (Table) 01/30/18 01/30/18 Range/Units 07:52 07:52 RDW 16.3 H (11.5-15.5) % BUN 25 H (7-17) mg/dL Glucose 104 H (74-99) mg/dL Microbiology - Last 24 Hours (Table) 01/28/18 09:32 Urine Culture - Preliminary Urine,Catheterized Gram Neg Bacilli Assessment and Plan Assessment: Assessment Acute shortness of breath with bronchospasm, possibly related to aspiration, although chest x-rays clear. Chronic hypoxemic respiratory failure status post tracheostomy tube, secondary to intracranial hemorrhage. Recent nontraumatic intracerebral hemorrhage related to hypertensive urgency, treated at [facility]. Right-sided hemiplegia/hemiparesis secondary to CVA History of dyspnea Generalized muscle weakness Chronic anemia History of medical noncompliance Essential hypertension Lifetime nonsmoker Possible urinary tract infection Plan: Plan dated 01/29/2018 From my perspective, the patient's doing well. No need to decannulate the patient this time. The patient is having significant secretion still. Chest x- ray is normal. The patient seemed to have adequate cough but I'm not sure that when she is decannulated, she can protect airway given her mental status changes. We'll continue to follow. Prognosis is guarded. The patient could be discharged home. Antibiotics can be descalated. Time with Patient: Less than 30
[2018-01-30] MEDS: cefTRIAXone IN SWFI 1,000 MG/10 ML SYRINGE IVP SCH (13:14)
[2018-01-30] MEDS: LOSARTAN 50 MG TAB PO SCH (13:15)
[2018-01-30 15:19] VITALS: BMI 22.6
--- NOTE | 2018-01-30 15:46 | P.PN ---
Subjective Progress Note Date: 01/30/18 52 years old female patient of Dr. Amaya with past medical history of intracranial hemorrhage related to hypertensive urgency on 12/14 patient was hospitalized at [place] for a month during which she got tracheostomy and PEG tube placed on 12/27 and was initiated on Keppra for seizure precautions. Other significant history includes right brachial artery thrombosis, history of prolonged QT hold is currently a resident of [facility] on [facility] for the past 1 week. Patient comes in with wheezing, shortness of breath and choking episode on cranberry juice while being assessed for speech. Patient is currently wearing Trac collar 30% and was on 8 L of oxygen when evaluated. Oxygen was decreased and patient was saturating well. Patient does not speak or comprehend. She is able to inform when she is in pain or discomfort. According to the bedside her face was flushed and she was wheezing before admission. Chest x-ray was obtained which was negative for any acute abnormality. Vitals were stable with a temp of 97, pulse rate 85 blood pressure 131/71 on trach collar. Labs were unremarkable with creatinine 1.0 was 5, glucose 100, calcium was slightly high with calcium 10.5. Patient to continue on breathing treatments. Pulmonary consult placed 01/28: Patient underwent for CT of the brain without contrast that was ordered by the neurology service, she is laying down in bed does not appear to be in acute distress, discussed with the nursing staff obtain a urinalysis because the urine is cloudy, she appears stable at this time. 01/29: Patient is laying down in bed does not appear to be in acute distress, she can use to be somewhat hypertensive, we will adjusting her lisinopril to 20mg per PEG tube twice every day , we will continue amlodipine 10 mg per PEG tube once every day and labetalol 300 mg per PEG tube 3 times every day. 01/30:01/30: Patient has been cleared by pulmonary medicine to return back to alf. There was no need to decannulate the patient. Patient continues to have significant secretions. Chest x-ray is normal. Patient had repeat CAT scan of the brain failed to reveal any increase in size or new areas of infarction or hemorrhage. Patient is more awake and alert and able to follow simple commands. Patient is to continue on anticoagulation. Urine culture is showing gram-negative bacilli on this admission the patient had a urine culture on January 21 showing E. coli resistant to Augmentin, ampicillin and tetracycline , intermediate to Unasyn and cefazolin. Patient has been on ceftriaxone. Regarding patient's blood pressure, she has received 3 doses of hydralazine 20 mg IV and less than 24 hours and blood pressure remains at 189/119. Lisinopril will be discontinued and patient started on losartan 100 mg daily with an additional dose now, labetalol increased to 600 mg twice daily. Stage therapy would like to do modified barium swallow possibly tomorrow with pressure is improved. Objective - Vital Signs Vital signs: Vital Signs Temp 97.9 F 01/30/18 07:25 Pulse 88 01/30/18 08:04 Resp 20 01/30/18 07:47 BP 187/99 01/30/18 07:25 Pulse Ox 96 01/30/18 07:25 Intake & Output 01/29/18 01/30/18 01/30/18 18:59 06:59 18:59 Intake Total 516 Output Total 400 Balance 116 Weight 56.7 kg Intake: Tube Feeding 516 Output: Urine 400 Uretheral (Santizo) 400 Other: Voiding Method Indwelling Catheter Indwelling Catheter - Exam General appearance: cooperative, no acute distress, thin, does not track eyes but does follow commands like squeezing fingers with the left hand. - EENT Eyes: anicteric sclerae, PERRLA, normal appearance ENT: hearing grossly normal - Neck Neck: no lymphadenopathy, does have a tracheostomy in place - Respiratory Respiratory: bilateral: CTA, diminished at bases, but no dullness, rales, rhonchi - Cardiovascular Rhythm: regular Heart sounds: normal: S1, S2 Abnormal Heart Sounds: no systolic murmur, no diastolic murmur, no rub, no S3 Gallop, no S4 Gallop, no click, no other - Gastrointestinal General gastrointestinal: normal bowel sounds, soft, nontender - Integumentary Integumentary: no rash - Neurologic Neurologic: Right sided hemiparesis with contractures present in the right hand stop moves left upper and lower extremities. Sensation intact. Coordination could not be assessed - Musculoskeletal Musculoskeletal: gait could not be assessed, no strength right upper and lower extremities - Psychiatric Psychiatric: Patient is alert but orientation could not be assessed but according to 's bedside patient is currently at her baseline, appropriate affect - Labs CBC & Chem 7: 01/30/18 07:52 01/30/18 07:52 Labs: Abnormal Lab Results - Last 24 Hours (Table) 01/30/18 Range/Units 07:52 RDW 16.3 H (11.5-15.5) % Microbiology - Last 24 Hours (Table) 01/28/18 09:32 Urine Culture - Preliminary Urine,Catheterized Gram Neg Bacilli Assessment and Plan Plan: 1 acute shortness of breath likely secondary to the aspiration event. No wheezing on examination. Continue DuoNeb as needed. Speech evaluation ordered. Pulmonary evaluated the patient who does not think patient is an active failure. Speech therapy following and plan for modified barium swallow possibly tomorrow. #2 chronic hypoxic respiratory failure secondary to CVA. Currently on home requirement of 4 L with tracheostomy. #3 history of nontraumatic intracranial hemorrhage secondary to hypertensive urgency. Repeat CT suggestive of 3.5 cm area of the termination of the left thalamus with some concern from new petechial hemorrhage. Midline shift present from [id number] at the level of thalamus which was reduced. There are also signs of remote ischemia involving the left occipital parietal junction , right basal ganglia that appears stable. 7 required hemorrhage had completely resolved. Continue to monitor neuro checks once daily #4 uncontrolled hypertension. Lisinopril discontinued and patient started on losartan 100 mg daily, continue amlodipine 10 mg at bedtime, labetalol increased to 600 mg twice daily. Continue hydralazine 20 mg IV every 2 hours as needed #5 Right sided hemiparesis with the phase via secondary to intracranial hemorrhage continue aspirin, baclofen for contractures. Continue Keppra for seizure precautions #6 QT prolongation. Avoid QT prolonging medication continue on telemetry #7 Complicated UTI. Start the patient on Rocephin 1 g IV piggyback every 24 hours. #8. Patient is full code. Discharge plan: Return to [facility] Impression and plan of care have been directed as dictated by the signing physician. Pretty Gomes nurse practitioner acting as scribe for signing physician.
[2018-01-30] MEDS: ACETAMINOPHEN TAB 325 MG TAB PEG/G-TUBE PRN (18:23)
[2018-01-30] MEDS: amLODIPine 10 MG TAB PEG/G-TUBE SCH (22:09)
--- NOTE | 2018-01-30 23:53 | P.PN ---
Subjective Progress Note Date: 01/30/18 This patient is a 52-year-old female who was seen in neurology consultation yesterdayfor evaluation of altered mental status and possible aspiration. Patient has a history of recent left intracerebral hemorrhage diagnosed on 12/14. She was transferred to [facility] where she underwent extensive neurosurgical evaluation and was sent to rehab after 1 month in the hospital. She was residing at [facility] on the [facility] and apparently yesterday had some difficulty with drinking cranberry juice. She does have a PEG tube and tracheostomy in place. She was brought into the emergency room and underwent a computed tomography scan of the brain yesterday. There was some evidence of some petechial hemorrhage residual in the left thalamus from her previous intracerebral hemorrhage. She was sent for repeat computed tomography scan of the brain today which reveals stable lesion of the left thalamus as a sequelae of her previous bleeding in this region. No evidence of new or acute hemorrhage. Patient is doing somewhat better today. According to the she seems to be coming back to near baseline level of function as she was at the custodial. Patient is much more awake and alert today. She denies any headaches. She does have right-sided hemiparesis from her stroke and is also on Keppra monotherapy for seizure prophylaxis. We have ordered a Keppra blood level which is still pending to return from the laboratory. She has been seen by pulmonary medicine and there is no evidence of aspiration pneumonia based on her chest x-ray results. Pulmonary medicine has cleared the patient for discharge back to custodial. Pulmonary medicine feels the patient does not require decannulation at this time. She does continue to have significant secretions. Speech therapy is considering a barium swallow study once her blood pressure is better controlled. Patient has been showing signs of increase hypertension. There has been changes made to her antihypertensive medications today. According to her who was admitted to today she did complain earlier today of IV pain. When questioned if she had headache she denied headache to the . Due to the symptoms of ongoing elevated hypertension and retro-orbital eye pain we have recommended a repeat computed tomography scan of the brain to be done tomorrow morning for further evaluation. As noted to previous CAT scans have shown no significant changes and no evidence of acute hemorrhage or bleed. Given her history of spontaneous hemorrhage we will get a follow-up computed tomography scan tomorrow morning and will continue close monitoring of her status. We will continue close neurological follow-up for the patient during this admission. Her overall prognosis at this time remains guarded. Objective - Vital Signs Vital signs: Vital Signs Temp 97.6 F 01/30/18 15:20 Pulse 111 H 01/30/18 16:58 Resp 16 01/30/18 16:58 BP 158/99 01/30/18 15:20 Pulse Ox 98 01/30/18 15:20 Intake & Output 01/29/18 01/30/18 01/30/18 18:59 06:59 18:59 Intake Total 516 Output Total 400 3000 Balance 116 -3000 Weight 56.7 kg 59.874 kg Intake: Tube Feeding 516 Output: Urine 400 3000 Uretheral (Santizo) 400 Other: Voiding Method Indwelling Catheter Indwelling Catheter Indwelling Catheter # Voids 0 - Exam Physical examination: PHYSICAL EXAMINATION: Patient is resting comfortably in bed. Patient is sleeping but is easily arousable. She is noted to have a tracheostomy in place with a trach soft collar. VITAL SIGNS: Blood pressure is [158/99]. Heart rate is [111]. Respiration is [16 ]. Temperature is [97.7]. HEENT: Head is atraumatic, neck is supple, there were no carotid bruits. CHEST: Lungs are clear to auscultation and percussion. CARDIAC: S1, S2 normal rate and rhythm. There is no murmur. ABDOMEN: Soft and nontender. Bowel sounds are present. EXTREMITIES: There is no pedal edema. Peripheral pulses are present. Neurological examination: Patient's neurological examination is unchanged from yesterday. Patient is currently sleeping. She is easily arousable. She continues to demonstrate right-sided hemiparesis from her old stroke. - Labs CBC & Chem 7: 01/30/18 07:52 01/30/18 07:52 Labs: Abnormal Lab Results - Last 24 Hours (Table) 01/30/18 01/30/18 Range/Units 07:52 07:52 RDW 16.3 H (11.5-15.5) % BUN 25 H (7-17) mg/dL Glucose 104 H (74-99) mg/dL Microbiology - Last 24 Hours (Table) 01/28/18 09:32 Urine Culture - Final Urine,Catheterized Escherichia coli Assessment and Plan (1) History of cerebral hemorrhage Current Visit: Yes Status: Acute Code(s): Z86.79 - PERSONAL HISTORY OF OTHER DISEASES OF THE CIRCULATORY SYSTEM SNOMED Code(s): 496311827 (2) Spastic hemiparesis affecting dominant side Current Visit: Yes Status: Acute Code(s): G81.10 - SPASTIC HEMIPLEGIA AFFECTING UNSPECIFIED SIDE SNOMED Code(s): 32311141 (3) Shortness of breath Current Visit: Yes Status: Acute Code(s): R06.02 - SHORTNESS OF BREATH SNOMED Code(s): 558345981 (4) Hypertension Current Visit: Yes Status: Acute Code(s): I10 - ESSENTIAL (PRIMARY) HYPERTENSION SNOMED Code(s): 70625693 Plan: This patient is a 52-year-old female who is being evaluated for possibility of aspiration from the custodial. She has a history of having suffered a hypertensive intracranial hemorrhage back on 12/14/2017. She was hospitalized at [facility] for one month. She has been transferred about a week ago to [facility] on the [facility]. She had some difficulty with some cranberry juice and possibly was choking. She has been seen by pulmonary medicine and has been cleared for return back to the custodial. She does not require decannulation of her tracheostomy at this time. Her blood pressure continues to fluctuate. There've been changes made today and her antihypertensive medications. 2 CAT scans of the brain revealed stable findings with no evidence of new or acute signs of hemorrhage or infarction. She is showing improvement in her mental status as well over the last 2 days. Speech therapy is following the patient as well. They're considering a modified barium swallow study if her blood pressure remained stable. According to her she did complain of eye pain today. Her blood pressure has been slightly elevated most of today. We have recommended a follow-up computed tomography scan of the brain to be done tomorrow morning to rule out any evidence of acute hemorrhage. Her last 2 CAT scans failed to reveal new areas of hemorrhagic change involving the left thalamus. We will continue to follow her closely for any further neurological changes. Overall prognosis remains guarded.
[2018-01-31] MEDS: ACETAMINOPHEN TAB 325 MG TAB PEG/G-TUBE PRN ×2 (02:07→11:44)
[2018-01-31] MEDS: BACLOFEN 10 MG TAB PEG/G-TUBE SCH ×3 (06:06→21:59)
[2018-01-31] MEDS: HEPARIN SODIUM,PORCINE 5,000 UNIT/ML 1 ML VIAL SQ SCH ×3 (06:06→21:59)
[2018-01-31] MEDS: BROMOCRIPTINE MESYLATE 2.5 MG PEG/G-TUBE SCH ×3 (06:32→22:30)
[2018-01-31] MEDS: IPRATROPIUM-ALBUTEROL 3 ML NEB INHALATION PRN ×4 (07:53→20:32)
--- NOTE | 2018-01-31 08:25 | CT ---
EXAMINATION TYPE: CT brain wo con DATE OF EXAM: 01/31/2018 COMPARISON: 01/28/2018 and 12/14/2017. HISTORY: 52-year-old female Patient with history of ICH on left thalamus. F/U TECHNIQUE: Examination was done in axial plane without intravenous contrast. Coronal and sagittal r econstructions performed. CT DLP: 1230 mGycm Automated exposure control for dose reduction was used. FINDINGS: Redemonstrated sequela of patient's large left-sided intracranial hemorrhage now characterized by an ovoid area of primarily hypodensity measuring 3.7 x 2.7 cm centered in the left thalamus. This is as compared to 4.0 x 2.8 cm on 01/28/2018. There is less mass effect on to the third ventricle. No midlin e shift or effacement of basal subarachnoid cisterns. Some encephalomalacia is present along the superior margin of the frontal horn of the left lateral ve ntricle which corresponded to region of prior hemorrhage. Old lacunar infarcts in the right basal ganglia. Additional encephalomalacia in the left occipital lobe, new from 12/14/2017. No evidence for acute intracranial hemorrhage or acute ischemic change. No extra-axial fluid collecti on or residual intraventricular hemorrhage seen. Paranasal sinuses are well pneumatized. Fluid in the right mastoid air cells. IMPRESSION: 1. Continued evolution of the patient's residual left thalamic intracranial hematoma. This is now lar dania subacute and shows further slight decrease in size measuring 3.7 x 2.7 cm (versus 4.0 x 2.8 cm, previously). There is less mass effect on to the third ventricle. No midline shift or acute intracran ial hemorrhage. 2. Some areas of patchy periventricular encephalomalacia as a sequela of patient's previous large hem orrhage. Additional encephalomalacia left occipital lobe is new from 12/14/2017 suggesting interval, n ow chronic infarct. 3. Old lacunar infarcts in the right basal ganglia. 4. Continued trapped fluid in the right mastoid air cells. Correlate for any mastoid pain to exclude mastoiditis.
[2018-01-31] MEDS: LABETALOL 200 MG TAB PEG/G-TUBE SCH ×2 (08:45→22:02)
[2018-01-31] MEDS: LOSARTAN 50 MG TAB PO SCH (08:45)
[2018-01-31] MEDS: levETIRAcetam ORAL SOLN 500 MG/5 ML CUP PEG/G-TUBE SCH ×2 (08:46→22:01)
[2018-01-31] MEDS: SENNOSIDES 8.6 MG TAB PEG/G-TUBE SCH ×2 (08:46→16:00)
[2018-01-31] MEDS: DOCUSATE ORAL SOLN 100 MG/10 ML CUP PEG/G-TUBE SCH ×2 (08:46→15:57)
[2018-01-31] MEDS: AMANTADINE HCL PEG/G-TUBE SCH ×2 (08:46→15:57)
[2018-01-31] MEDS: FAMOTIDINE 20 MG TAB PEG/G-TUBE SCH ×2 (08:46→15:57)
[2018-01-31 08:52] LABS: Anisocytosis Slight; Basophils % (A) 0 %; Eosinophils # (A) 0.2 k/uL (0-0.7); Eosinophils % (A) 3 %; HCT 34.3 % (34.0-46.0); HGB 11.9 gm/dL (11.4-16.0); Lymphocytes # (A) 1.6 k/uL (1.0-4.8); Lymphocytes % (A) 21 %; MCH 30.2 pg (25.0-35.0); MCHC 34.7 g/dL (31.0-37.0); Mean Platelet Volume 8.2; Monocytes # (A) 0.5 k/uL (0-1.0); Monocytes % (A) 6 %; Neutrophils # (A) 5.2 k/uL (1.3-7.7); Neutrophils % (A) 68 %; Platelet Count 199 k/uL (150-450); RBC 3.94 m/uL (3.80-5.40); RDW 16.7 % (11.5-15.5); WBC 7.7 k/uL (3.8-10.6)
[2018-01-31 08:59] LABS: Potassium 4.7 mmol/L (3.5-5.1)
--- NOTE | 2018-01-31 09:47 | P.PN ---
Subjective Progress Note Date: 01/31/18 Principal diagnosis: Shortness of breath with bronchospasm, possibly related to aspiration Progress note dated 01/29/2018 52-year-old female transferred over from [facility] on the [facility] because of shortness of breath. The patient was suspected to have an aspiration syndrome but the chest x-ray was clear. The patient chronically has a tracheostomy tube in place. She status post intracranial hemorrhage. The patient also has a history of right-sided hemiplegia aphasia generalized muscle weakness chronic anemia essential hypertension and lifetime nonsmoker. In my opinion, this time, the patient is not a candidate for decannulation. The patient appears stable this time. No respiratory issues. From my perspective, the patient could be transferred back. The patient is also being treated for a urinary tract infection. Progress note dated 01/30/2018 This is a 52-year-old female transferred from [facility] on the [facility] because of shortness of breath. The patient was suspected to have an aspiration syndrome but chest x-ray was clear. The patient does have a tracheostomy tube in place. The patient's cough is weak. She still expelling thick mucus from the tracheostomy tube. She status post intracranial hemorrhage , nontraumatic. She has a history of right-sided hemiplegia, aphagia, generalized muscle weakness, chronic anemia, essential hypertension and lifetime nonsmoking. The patient likely has a gram-negative urinary tract infection. The bacteria has not been ideally initiate. The patient can be transferred back to [facility] with aspiration precautions. Head of bed should always be elevated. She is not ready to be decannulated. On 01/31/2018 patient seen in follow-up. Patient is nonverbal, has a tracheostomy in place, she has been nothing by mouth. She has been afebrile, lung sounds are clear to auscultation. She is on 30% trach collar, signs are stable. No wheezes, no rhonchi or rales noted on today's exam. No signs of any respiratory distress. Has been stable from pulmonary standpoint, anticipate discharge back to the [facility] on [facility] sometime today. Objective - Vital Signs Vital signs: Vital Signs Temp 97.1 F L 01/30/18 21:35 Pulse 88 01/31/18 08:08 Resp 16 01/31/18 00:00 BP 111/76 01/31/18 02:06 Pulse Ox 98 01/30/18 23:58 Intake & Output 01/30/18 01/31/18 01/31/18 18:59 06:59 18:59 Intake Total 336 Output Total 3000 600 Balance -3000 -264 Weight 59.874 kg Intake: Tube Feeding 336 Output: Urine 3000 600 Uretheral (Santizo) 600 Other: Voiding Method Indwelling Catheter Indwelling Catheter # Voids 0 - Exam No acute distress, blank stare. Tracheostomy tube in place.. HEENT examination is grossly unremarkable. Mucous membranes are moist. No oral lesions. Neck supple. Full range of motion. No adenopathy thyromegaly or neck vein distention. Midline tracheostomy tube is noted. Cardiovascular examination reveals regular rhythm rate. S1-S2 normal. No S3 or S4. No discernible murmur noted. Lungs reveal clear lung sounds, no rhonchi, no wheezes Abdomen soft bowel sounds are heard. No masses or tenderness. Extremities are intact. No cyanosis clubbing or edema. Skin is without rash or lesion. Neurologic examination could not be adequately assessed. - Labs CBC & Chem 7: 01/31/18 08:00 01/31/18 08:00 Labs: Abnormal Lab Results - Last 24 Hours (Table) 01/30/18 01/31/18 01/31/18 Range/Units 07:52 08:00 08:00 RDW 16.7 H (11.5-15.5) % BUN 25 H 35 H (7-17) mg/dL Creatinine 1.09 H (0.52-1.04) mg/dL Glucose 104 H 109 H (74-99) mg/dL Microbiology - Last 24 Hours (Table) 01/28/18 09:32 Urine Culture - Final Urine,Catheterized Escherichia coli Assessment and Plan Plan: Assessment: #1. Acute dyspnea, and bronchospasm related to aspiration of foreign substance/ cranberry juice #2. Chronic hypoxic respiratory failure related to history of intracranial hemorrhage, the patient has a trach in place, is breathing spontaneously currently, on 30% FiO2 #3. Recent history of a nontraumatic intracerebral hemorrhage related to hypertensive urgency a month ago, and the patient was hospitalized at the [facility], recovered, and was transferred to the [facility] on the [place] #4. 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 Aphasia following cerebral infarction #6. Generalized muscle weakness #7. Chronic anemia #8. History medical noncompliance #9. Essential hypertension #10. Lifetime nonsmoker Plan: Patient remains stable from pulmonary standpoint, afebrile, vital signs are stable. No wheezing, no rhonchi. Patient was noted to be hypertensive, and her blood pressure control is being optimized. Otherwise she stable for transfer back to the [facility] on the [place] today. Not a candidate for decannulation at this time in view of high aspiration risk I performed a history & physical examination of the patient and discussed their management with my nurse practitioner, Samantha Lucero. I reviewed the nurse practitioner's note and agree with the documented findings and plan of care. Lung sounds are clear. The findings and the impression was discussed with the patient. I attest to the documentation by the nurse practitioner. Time with Patient: Less than 30
--- NOTE | 2018-01-31 10:43 | P.DS ---
Providers Date of admission: 01/26/18 20:41 Expected date of discharge: 01/31/18 Attending physician: Sheree Amaya Consults: 01/27/18 10:14 Consult Physician Routine Consulting Provider: Shreyas Bañuelos Consult Reason/Comments: ic bleeding history Do you want consulting provider notified?: Yes 01/27/18 10:17 Consult Physician Routine Consulting Provider: Nuria James Consult Reason/Comments: bronchitis?? Do you want consulting provider notified?: Yes Primary care physician: Sheree Amaya Hospital Course: 52 years old female patient of Dr. Lu, who sees Dr. Amaya with past medical history of intracranial hemorrhage related to hypertensive urgency on 12/14 patient was hospitalized at [place] for a month during which she got tracheostomy and PEG tube placed on 12/27 and was initiated on Keppra for seizure precautions. Other significant history includes right brachial artery thrombosis, history of prolonged QT hold is currently a resident of [facility] on [facility] for the past 1 week. Patient comes in with wheezing, shortness of breath and choking episode on cranberry juice while being assessed for speech. Patient is currently wearing Trac collar 30% and was on 8 L of oxygen when evaluated. Oxygen was decreased and patient was saturating well. Patient does not speak or comprehend. She is able to inform when she is in pain or discomfort. According to the bedside her face was flushed and she was wheezing before admission. Chest x-ray was obtained which was negative for any acute abnormality. Vitals were stable with a temp of 97, pulse rate 85 blood pressure 131/71 on trach collar. Labs were unremarkable with creatinine 1.0 was 5, glucose 100, calcium was slightly high with calcium 10.5. Patient to continue on breathing treatments. Pulmonary consult placed 01/28: Patient underwent for CT of the brain without contrast that was ordered by the neurology service, she is laying down in bed does not appear to be in acute distress, discussed with the nursing staff obtain a urinalysis because the urine is cloudy, she appears stable at this time. 01/29: Patient is laying down in bed does not appear to be in acute distress, she can use to be somewhat hypertensive, we will adjusting her lisinopril to 20mg per PEG tube twice every day , we will continue amlodipine 10 mg per PEG tube once every day and labetalol 300 mg per PEG tube 3 times every day. 01/30: Patient has been cleared by pulmonary medicine to return back to senior living. There was no need to decannulate the patient. Patient continues to have significant secretions. Chest x-ray is normal. Patient had repeat CAT scan of the brain failed to reveal any increase in size or new areas of infarction or hemorrhage. Patient is more awake and alert and able to follow simple commands. Patient is to continue on anticoagulation. Urine culture is showing gram-negative bacilli on this admission the patient had a urine culture on January 21 showing E. coli resistant to Augmentin, ampicillin and tetracycline, intermediate to Unasyn and cefazolin. Patient has been on ceftriaxone. Regarding patient's blood pressure, she has received 3 doses of hydralazine 20 mg IV and less than 24 hours and blood pressure remains at 189/119. Lisinopril will be discontinued and patient started on losartan 100 mg daily with an additional dose now, labetalol increased to 600 mg twice daily. Stage therapy would like to do modified barium swallow possibly tomorrow with pressure is improved. 01/31: Urine culture is positive for E coli and antibiotics changed to ceftin. Blood pressure is much improved with new medications. Patient will be discharged back to [facility] today in stable condition. Discharge diagnoses: 1. Acute shortness of breath likely secondary to the aspiration event without signs of aspiration pneumonia 2. Chronic hypoxic respiratory failure secondary to CVA. Currently on home requirement of 4 L with tracheostomy. 3. History of nontraumatic intracranial hemorrhage secondary to hypertensive urgency. 4. Hypertension 5. Right sided hemiparesis with aphasia secondary to intracranial hemorrhage 6. QT prolongation. Avoid QT prolonging medication 7. Ecoli UTI. Discharge plan: Return to [facility] Impression and plan of care have been directed as dictated by the signing physician. Pretty Gomes nurse practitioner acting as scribe for signing physician. Patient Condition at Discharge: Good Plan - Discharge Summary Discharge Rx Participant: No New Discharge Prescriptions: New Cefuroxime Oral Susp [Ceftin Susp] 250 mg PO BID #200 ml Ipratropium-Albuterol Nebulize [Duoneb 0.5 mg-3 mg/3 ml Soln] 3 ml INHALATION RT-Q2H PRN ampul.neb PRN Reason: Shortness Of Breath Or Wheezing Labetalol [Trandate] 600 mg PEG/G-TUBE BID tab Losartan [Cozaar] 100 mg PO DAILY tab Continue Acetaminophen Tab [Tylenol] 650 mg PEG/G-TUBE Q4H PRN PRN Reason: Pain Bromocriptine Mesylate [Parlodel] 2.5 mg PEG/G-TUBE TID@0600,1400,2200 Heparin Sodium,Porcine [Heparin Sodium] 5,000 unit SQ TID@0600,1400,2200 Ranitidine HCl [Zantac] 150 mg PEG/G-TUBE BID@0900,1700 Baclofen Suspension 5 mg PEG/G-TUBE TID@0600,1400,2200 Sennosides Syrup 17.6 mg PEG/G-TUBE BID@0900,1700 levETIRAcetam 100 mg PEG/G-TUBE BID@0900,2100 Docusate Oral Soln [Colace Oral Soln] 100 mg PEG/G-TUBE BID@0900,1700 Amantadine Syrup 50 mg PEG/G-TUBE BID@0900,1700 Tuberculin Ppd (Skin Test) [Tubersol] 5 unit INTRADERMA HS amLODIPine [Norvasc] 10 mg PEG/G-TUBE HS Polyethylene Glycol 3350 [Miralax] 17 gm PEG/G-TUBE DAILY@0900 Atorvastatin [Lipitor] 10 mg PEG/G-TUBE HS Discontinued Labetalol HCl [Trandate] 300 mg PEG/G-TUBE TID@0600,1400,2200 Lisinopril [Prinivil] 20 mg PEG/G-TUBE DAILY@0900 Discharge Medication List Acetaminophen Tab [Tylenol] 650 mg PEG/G-TUBE Q4H PRN 01/26/18 [History] Amantadine Syrup 50 mg PEG/G-TUBE BID@0900,1700 01/26/18 [History] Atorvastatin [Lipitor] 10 mg PEG/G-TUBE HS 01/26/18 [History] Baclofen Suspension 5 mg PEG/G-TUBE TID@0600,1400,2200 01/26/18 [History] Bromocriptine Mesylate [Parlodel] 2.5 mg PEG/G-TUBE TID@0600,1400,2200 01/26/18 [History] Docusate Oral Soln [Colace Oral Soln] 100 mg PEG/G-TUBE BID@0900,1700 01/26/18 [ History] Heparin Sodium,Porcine [Heparin Sodium] 5,000 unit SQ TID@0600,1400,2200 [History] Polyethylene Glycol 3350 [Miralax] 17 gm PEG/G-TUBE DAILY@0900 01/26/18 [History ] Ranitidine HCl [Zantac] 150 mg PEG/G-TUBE BID@0900,1700 01/26/18 [History] Sennosides Syrup 17.6 mg PEG/G-TUBE BID@0900,1700 01/26/18 [History] Tuberculin Ppd (Skin Test) [Tubersol] 5 unit INTRADERMA HS 01/26/18 [History] amLODIPine [Norvasc] 10 mg PEG/G-TUBE HS 01/26/18 [History] levETIRAcetam 100 mg PEG/G-TUBE BID@0900,2100 01/26/18 [History] Cefuroxime Oral Susp [Ceftin Susp] 250 mg PO BID #200 ml 01/31/18 [Rx] Ipratropium-Albuterol Nebulize [Duoneb 0.5 mg-3 mg/3 ml Soln] 3 ml INHALATION RT -Q2H PRN ampul.neb 01/31/18 [Rx] Labetalol [Trandate] 600 mg PEG/G-TUBE BID tab 01/31/18 [Rx] Losartan [Cozaar] 100 mg PO DAILY tab 01/31/18 [Rx] Follow up Appointment(s)/Referral(s): Beck Lu MD [STAFF PHYSICIAN] - 1-2 days
[2018-01-31] MEDS: cefTRIAXone IN SWFI 1,000 MG/10 ML SYRINGE IVP SCH (11:56)
--- NOTE | 2018-01-31 19:05 | P.PN ---
Subjective Progress Note Date: 01/31/18 This patient is a 52-year-old female who was seen in neurology consultation yesterdayfor evaluation of altered mental status and possible aspiration. Patient has a history of recent left intracerebral hemorrhage diagnosed on 12/14. She was transferred to [facility] where she underwent extensive neurosurgical evaluation and was sent to rehab after 1 month in the hospital. She was residing at [facility] on the [facility] and apparently yesterday had some difficulty with drinking cranberry juice. She does have a PEG tube and tracheostomy in place. She was brought into the emergency room and underwent a computed tomography scan of the brain yesterday. There was some evidence of some petechial hemorrhage residual in the left thalamus from her previous intracerebral hemorrhage. She was sent for repeat computed tomography scan of the brain today which reveals stable lesion of the left thalamus as a sequelae of her previous bleeding in this region. No evidence of new or acute hemorrhage. Patient is doing somewhat better today. According to the she seems to be coming back to near baseline level of function as she was at the [facility]. Patient is much more awake and alert today. She denies any headaches. She does have right-sided hemiparesis from her stroke and is also on Keppra monotherapy for seizure prophylaxis. We have ordered a Keppra blood level which is still pending to return from the laboratory. She has been seen by pulmonary medicine and there is no evidence of aspiration pneumonia based on her chest x-ray results. Pulmonary medicine has cleared the patient for discharge back to [facility]. Pulmonary medicine feels the patient does not require decannulation at this time. She does continue to have significant secretions. Speech therapy is considering a barium swallow study once her blood pressure is better controlled. Patient has been showing signs of increase hypertension. There has been changes made to her antihypertensive medications today. According to her who was admitted to today she did complain earlier today of IV pain. When questioned if she had headache she denied headache to the . Due to the symptoms of ongoing elevated hypertension and retro-orbital eye pain we have recommended a repeat computed tomography scan of the brain to be done tomorrow morning for further evaluation. As noted to previous CAT scans have shown no significant changes and no evidence of acute hemorrhage or bleed. Given her history of spontaneous hemorrhage we will get a follow-up computed tomography scan done today and will continue close monitoring of her status. This follow-up CAT scan done today reveals evolution of the left thalamic intracranial hematoma. The size has slightly decreased from previous. Clearly no evidence of new areas of hemorrhage. This is a good sign for the patient and she is still awaiting discharge to the [facility] possibly later today. We will continue close neurological follow-up for the patient during this admission. Her overall prognosis at this time remains guarded. Objective - Vital Signs Vital signs: Vital Signs Temp 97.9 F 01/31/18 14:55 Pulse 90 01/31/18 16:00 Resp 18 01/31/18 16:00 BP 142/78 01/31/18 14:55 Pulse Ox 97 01/31/18 14:55 Intake & Output 01/30/18 01/31/18 01/31/18 18:59 06:59 18:59 Intake Total 336 252 Output Total 3000 600 4175 Balance -2346 -906 -6105 Weight 59.874 kg 61.59 kg Intake: Tube Feeding 336 252 Output: Urine 3000 600 4175 Uretheral (Santizo) 600 1175 Other: Voiding Method Indwelling Catheter Indwelling Catheter Indwelling Catheter # Voids 0 0 - Exam Physical examination: PHYSICAL EXAMINATION: Patient is resting comfortably in bed. Patient is sleeping but is easily arousable. She is noted to have a tracheostomy in place with a trach soft collar. VITAL SIGNS: Blood pressure is [142/78]. Heart rate is [90]. Respiration is [18] . Temperature is [97.9]. HEENT: Head is atraumatic, neck is supple, there were no carotid bruits. CHEST: Lungs are clear to auscultation and percussion. CARDIAC: S1, S2 normal rate and rhythm. There is no murmur. ABDOMEN: Soft and nontender. Bowel sounds are present. EXTREMITIES: There is no pedal edema. Peripheral pulses are present. Neurological examination: Patient's neurological examination is unchanged from yesterday. Patient is is more awake and alert today. She is able to follow some simple commands. She continues to demonstrate right-sided hemiparesis from her old stroke. - Labs CBC & Chem 7: 01/31/18 08:00 01/31/18 08:00 Labs: Abnormal Lab Results - Last 24 Hours (Table) 01/31/18 01/31/18 Range/Units 08:00 08:00 RDW 16.7 H (11.5-15.5) % BUN 35 H (7-17) mg/dL Creatinine 1.09 H (0.52-1.04) mg/dL Glucose 109 H (74-99) mg/dL Microbiology - Last 24 Hours (Table) 01/28/18 09:32 Urine Culture - Final Urine,Catheterized Escherichia coli Assessment and Plan (1) History of cerebral hemorrhage Current Visit: Yes Status: Acute Code(s): Z86.79 - PERSONAL HISTORY OF OTHER DISEASES OF THE CIRCULATORY SYSTEM SNOMED Code(s): 476495519 (2) Spastic hemiparesis affecting dominant side Current Visit: Yes Status: Acute Code(s): G81.10 - SPASTIC HEMIPLEGIA AFFECTING UNSPECIFIED SIDE SNOMED Code(s): 74349996 (3) Shortness of breath Current Visit: Yes Status: Acute Code(s): R06.02 - SHORTNESS OF BREATH SNOMED Code(s): 444295605 (4) Hypertension Current Visit: Yes Status: Acute Code(s): I10 - ESSENTIAL (PRIMARY) HYPERTENSION SNOMED Code(s): 89037627 Plan: This patient is a 52-year-old female who has a known history of intracerebral hemorrhage due to hypertensive urgency that occurred on 12/14/2017. She was admitted and treated at [facility] for over one month. She underwent tracheostomy and PEG tube placement. She was transferred to [facility] on the [facility] for ongoing care. She developed some signs of choking and possible aspiration and was admitted to Hospital on 01/26/2018 for further evaluation. She has been seen by pulmonary medicine and her chest x-rays are clear and she has been cleared by pulmonary for discharge back to the [facility]. Patient was complaining of some eye pain and questionable headache pain yesterday and for this reason she was sent for repeat computed tomography scan of the brain today. CAT scan fails to reveal any evidence of new areas of hemorrhage. Area of left thalamic hemorrhage in fact is slightly diminished in size compared to previous. The patient is to continue on Keppra for secondary seizure prophylaxis. She is being treated for positive urine cultures for E. coli and is on antibiotics which is been switched to Ceftin today. The patient' s blood pressure is much improved today. She is being considered for discharge back to [facility] on the [facility] possibly later today. At this point there is no evidence of any areas of new hemorrhage involving the left thalamic region on the CAT scan of the brain. We will continue close monitoring of her condition during this admission. As noted she is awaiting transfer back to [facility] on the [facility] for further care. Her overall prognosis at this time remains guarded.
[2018-01-31] MEDS: amLODIPine 10 MG TAB PEG/G-TUBE SCH (21:59)
[2018-02-01] MEDS: BACLOFEN 10 MG TAB PEG/G-TUBE SCH ×2 (06:16→13:55)
[2018-02-01] MEDS: HEPARIN SODIUM,PORCINE 5,000 UNIT/ML 1 ML VIAL SQ SCH ×2 (06:17→13:55)
[2018-02-01] MEDS: BROMOCRIPTINE MESYLATE 2.5 MG PEG/G-TUBE SCH ×2 (06:17→14:14)
[2018-02-01] MEDS: LABETALOL 200 MG TAB PEG/G-TUBE SCH (07:51)
[2018-02-01] MEDS: FAMOTIDINE 20 MG TAB PEG/G-TUBE SCH (07:51)
[2018-02-01] MEDS: SENNOSIDES 8.6 MG TAB PEG/G-TUBE SCH (07:51)
[2018-02-01] MEDS: LOSARTAN 50 MG TAB PO SCH (07:51)
[2018-02-01] MEDS: DOCUSATE ORAL SOLN 100 MG/10 ML CUP PEG/G-TUBE SCH (07:52)
[2018-02-01] MEDS: AMANTADINE HCL PEG/G-TUBE SCH (07:53)
[2018-02-01] MEDS: levETIRAcetam ORAL SOLN 500 MG/5 ML CUP PEG/G-TUBE SCH (07:54)
[2018-02-01 08:03] VITALS: BP 137/77; RESP 16; TEMP 97.7
[2018-02-01 08:25] LABS: Anisocytosis Slight; Basophils % (A) 1 %; Eosinophils # (A) 0.2 k/uL (0-0.7); Eosinophils % (A) 3 %; HCT 33.8 % (34.0-46.0); HGB 11.2 gm/dL (11.4-16.0); Lymphocytes # (A) 1.3 k/uL (1.0-4.8); Lymphocytes % (A) 15 %; MCH 28.6 pg (25.0-35.0); MCHC 33.2 g/dL (31.0-37.0); MCV 86.1 fL (80.0-100.0); Mean Platelet Volume 8.6; Monocytes # (A) 0.5 k/uL (0-1.0); Monocytes % (A) 6 %; Neutrophils # (A) 6.2 k/uL (1.3-7.7); Neutrophils % (A) 75 %; Platelet Count 178 k/uL (150-450); RBC 3.92 m/uL (3.80-5.40); RDW 16.4 % (11.5-15.5); WBC 8.3 k/uL (3.8-10.6)
[2018-02-01 08:47] LABS: Calcium 9.9 mg/dL (8.4-10.2); Potassium 4.9 mmol/L (3.5-5.1)
[2018-02-01] MEDS: IPRATROPIUM-ALBUTEROL 3 ML NEB INHALATION PRN ×2 (09:02→12:35)
--- NOTE | 2018-02-01 13:02 | FL ---
Modified barium swallow. HISTORY: Dysphagia. Modified barium swallow was performed with the department of speech pathology. The patient was prese nted with various consistencies of barium. There is nonfunctioning swallow. Aspiration with thin liquid barium. Full report is to follow from [facility] department of speech pathology. Impression: There is nonfunctioning swallow. Aspiration with thin liquid barium.
[2018-02-01] MEDS: cefTRIAXone IN SWFI 1,000 MG/10 ML SYRINGE IVP SCH (13:55)
[2018-02-01] MEDS: ACETAMINOPHEN TAB 325 MG TAB PEG/G-TUBE PRN (15:47)
[2018-02-01 16:13] VITALS: PULSE 86
== END 2018-02-01 16:50 ==
LOC: EC 17:09 → 5MS5E 20:41
PROVIDERS: ADMIT Family Medicine; ATTEND Family Medicine
DX: R06.02 Shortness of breath (principal); J96.11 Chronic respiratory failure with hypoxia; Z93.0 Tracheostomy status; Z93.1 Gastrostomy status; Z99.81 Dependence on supplemental oxygen; J98.01 Acute bronchospasm; I69.320 Aphasia following cerebral infarction; I69.392 Facial weakness following cerebral infarction; I69.351 Hemiplegia and hemiparesis following cerebral infarction affecting right dominant side; M62.81 Muscle weakness (generalized); D64.9 Anemia, unspecified; I45.81 Long QT syndrome; N39.0 Urinary tract infection, site not specified; B96.20 Unspecified Escherichia coli [E. coli] as the cause of diseases classified elsewhere; I10 Essential (primary) hypertension; G91.9 Hydrocephalus, unspecified; T17.998A Other foreign object in respiratory tract, part unspecified causing other injury, initial encounter; X58.XXXA Exposure to other specified factors, initial encounter; Y92.129 Unspecified place in nursing home as the place of occurrence of the external cause; Z74.01 Bed confinement status; Z88.5 Allergy status to narcotic agent; Z79.899 Other long term (current) drug therapy; Z79.01 Long term (current) use of anticoagulants
CPT/HCPCS: 99285 ×2; 96374 ×2; 96376 ×4; 96372 ×4; 96373 ×2; 96375 ×2; 36415; 94640 ×9; 94760 ×2; 93005; 97163; 97112; 97167; 92611; 80053 ×3; 80048 ×4; 80177; 82550; 82553; 84484; 85025 ×7; 85610; 85730; 81001; 82306; 83970; 87086; 87077; 87186; 74230; 71046 ×2; 70450 ×3; G0378 ×7; J0360 ×2; J1644 ×6; J0696 ×5

== ENCOUNTER → 2018-03-23 | Outpatient (CLI) | payer BC ==
--- NOTE | 2018-03-23 12:16 | FL ---
EXAMINATION TYPE: FL barium swallow w video DATE OF EXAM: 03/23/2018 COMPARISON: NONE HISTORY: CVA difficulty breathing previous aspiration TECHNIQUE: Fluoroscopy. FINDINGS: Fluoroscopic guidance was provided for the procedure performed in conjunction with the [facility] pathology department. Please see complete report forthcoming from the Speech Pathology departmen t. Various consistencies from thin liquid to solids were administered. Fluoroscopy time: 2 minutes 5 seconds Number of images: 0. There is aspiration with thin liquids. No additional thin liquids were administered. Minimal transien t penetration may have been present with nectar thick. Honey thick solids and puree without evidence of aspiration or penetration. Very minimal pooling was observed in the vallecula. There is some delay of bolus transit. IMPRESSION: 1. Aspiration with thin liquids. 2. Minimal pooling within the vallecula. 3. Congers thick to solids are essentially normal without aspiration.
== END | disposition home or self-care (01) ==
LOC: RADFLMAIN 11:09
PROVIDERS: ATTEND Family Medicine
DX: R13.12 Dysphagia, oropharyngeal phase (principal); I69.351 Hemiplegia and hemiparesis following cerebral infarction affecting right dominant side
CPT/HCPCS: 74230

== ENCOUNTER → 2018-03-30 | Outpatient (CLI) | payer BC ==
--- NOTE | 2018-03-30 22:27 | CT ---
EXAMINATION TYPE: CT brain wo/w con DATE OF EXAM: 03/30/2018 COMPARISON: 01/31/2013 and 01/28/2018 HISTORY: 53-year-old female Nontraumatic intracranial hemorrhage. TECHNIQUE: Examination was done in axial plane before and after administration of intravenous contra st. 100 mL Isovue-300 IV contrast was administered. Coronal and sagittal reconstructions performed. CT DLP: 1887.7 mGycm Automated exposure control for dose reduction was used. FINDINGS: There is further evolution to lower density within the left thalamus measuring 2.4 x 1.7 cm versus 3. 7 x 2.7 cm, previously. Only a small 8 mm area of residual slightly higher density remains within and postcontrast images show ring enhancement measuring 1.8 cm. No evidence for acute intracranial hemorrhage, acute ischemic change, mass, mass effect, midline shif t, or extra-axial fluid collection. No hydrocephalus. No effacement of basal subarachnoid cisterns or cerebral sulci. Old infarct left occipital lobe. Redemonstrated trapped fluid within the inferior right mastoid air cells, decreased from 01/31/2018. Pa ranasal sinuses are well pneumatized. Orbits and globes are intact. IMPRESSION: Further evolution of the area of previous intracranial hematoma centered at the left thalamus. The ar ea shows decreasing density suggesting developing encephalomalacia. Some minimal nodular high density measuring 8 mm remains within and there is 1.8 cm of ring enhancement. Ring enhancement can be seen in the setting of resolving hematoma and subacute infarct and these are the favored differentials. Th e internal nodular density could represent an underlying vascular malformation such as a cavernoma. A n aggressive etiology is considered less likely given the gradually decreasing size. Continued follow -up recommended. Small amount of trapped fluid in the right mastoid air cells, decreased from 01/31/2018. Query any symp toms of mastoiditis.
== END | disposition home or self-care (01) ==
LOC: RADCTMAIN 15:12
PROVIDERS: ATTEND Family Medicine
DX: I61.9 Nontraumatic intracerebral hemorrhage, unspecified (principal); R90.89 Other abnormal findings on diagnostic imaging of central nervous system
CPT/HCPCS: 70470; Q9967

== ENCOUNTER 2018-05-23 13:39 | Inpatient (IN) | payer BC, OTHER ==
[2018-05-23] MEDS ORDERED: SODIUM CHLORIDE 0.9% 1,000 ML IV STA (13:44)
--- NOTE | 2018-05-23 13:53 | ED ---
General Adult HPI - General Stated complaint: stroke symptoms Time Seen by Provider: 05/23/18 13:39 Source: RN notes reviewed - History of Present Illness Initial comments: This a 53-year-old female who is in a intermediate because of a stroke earlier this year she has right sided deficit. Patient was last seen normal today at 9: 00 and at approximately 120 this afternoon he went to see her and she was unable to respond to staff. No staff came with the patient no family is with the patient and patient is unable to give any further history. Patient is unable to follow simple commands so is difficult to assess her neurologic deficit she is not speaking and it appears that she has some right-sided arm and leg weakness but his difficult to tell because she is not making any effort when I ask her to. - Related Data Home Medications Medication Instructions Recorded Confirmed Acetaminophen Tab [Tylenol] 650 mg PO Q4H PRN 01/26/18 05/23/18 Atorvastatin [Lipitor] 10 mg PO HS 01/26/18 05/23/18 Bromocriptine Mesylate [Parlodel] 2.5 mg PO TID@01/26/18 05/23/18 Ranitidine HCl [Zantac] 150 mg PO BID 01/26/18 05/23/18 amLODIPine [Norvasc] 10 mg PO HS 01/26/18 05/23/18 Amantadine 50mg 50 mg PO BID 05/23/18 05/23/18 Artificial Tears-Hypromellose 1 drops BOTH EYES BID 05/23/18 05/23/18 [Artificial Tear Drops] Aspirin 81 mg PO DAILY 05/23/18 05/23/18 Baclofen [Lioresal] 10 mg PO TID@05/23/18 05/23/18 Cyclobenzaprine [Flexeril] 10 mg PO BID 05/23/18 05/23/18 Gabapentin [Neurontin] 300 mg PO TID@,,05/23/18 05/23/18 HYDROcodone/APAP 7.5-325MG [[place] 1 tab PO BID PRN 05/23/18 05/23/18 7.5-325] Labetalol [Trandate] 600 mg PO BID 05/23/18 05/23/18 Lactose-Reduced Food [Ensure Plus] 240 ml PO BID@09,17 05/23/18 05/23/18 Losartan Potassium 100 mg PO DAILY 05/23/18 05/23/18 Mylanta 30 ml PO Q6H PRN 05/23/18 05/23/18 Ondansetron [Zofran] 4 mg PO Q6H PRN 05/23/18 05/23/18 Sennosides [Senna] 17.2 mg PO BID 05/23/18 05/23/18 Sertraline [Zoloft] 50 mg PO DAILY 05/23/18 05/23/18 levETIRAcetam [Keppra] 500 mg PO BID 05/23/18 05/23/18 Allergies Allergy/AdvReac Type Severity Reaction Status Date / Time codeine Allergy Unknown Verified 05/23/18 13:42 Review of Systems ROS Statement: Those systems with pertinent positive or pertinent negative responses have been documented in the HPI. ROS Other: All systems not noted in ROS Statement are negative. Past Medical History Past Medical History: Hypertension Additional Past Medical History / Comment(s): hydrocephalus, (R) cerebral infarction History of Any Multi-Drug Resistant Organisms: VRE Date of last positivie culture/infection: 05/04/18 MDRO Source:: VRE URINE Past Surgical History: Section Additional Past Surgical History / Comment(s): trache placement Past Psychological History: No Psychological Hx Reported Smoking Status: Never smoker Past Alcohol Use History: None Reported Past Drug Use History: None Reported - Past Family History Father Family Medical History: Unable to Obtain General Exam - General Exam Comments Initial Comments: GENERAL: Patient is well-developed and well-nourished. Patient is nontoxic and well- hydrated and is in no acute distress. ENT: Neck is soft and supple. No significant lymphadenopathy is noted. Oropharynx is clear. Moist mucous membranes. EYES: The sclera were anicteric and conjunctiva were pink and moist. Eyelids were unremarkable. PULMONARY: Unlabored respirations. Good breath sounds bilaterally. No audible rales rhonchi or wheezing was noted. CARDIOVASCULAR: There is a regular rate and rhythm without any murmurs gallops or rubs. ABDOMEN: Soft and nontender with normal bowel sounds. SKIN: Skin is clear with no lesions or rashes and otherwise unremarkable. NEUROLOGIC: Patient is alert and oriented 0. I am unable to assess the patient's cranial nerves or motor and sensory function because the patient does not follow my commands. MUSCULOSKELETAL: Patient has move the left leg and left arm a little but unable to assess strength PSYCHIATRIC: Unable to assess Course Vital Signs 05/23/18 05/23/18 13:42 15:00 Temperature 99.2 F Pulse Rate 70 76 Respiratory 18 16 Rate Blood Pressure 120/57 145/76 O2 Sat by Pulse 98 100 Oximetry Medical Decision Making - Medical Decision Making EKG shows normal sinus rhythm at 70 bpm AR interval is 184 QRS is 104 QT interval 426 QTC is 460. Patient's EKG shows no ST segment elevation or depression or T wave abnormalities are noted. CT of the brain shows no acute abnormality. Family came in to see the patient thought she was close to her baseline if not at her baseline. I spoke with Dr. Irizarry he agreed to admit the patient admitted the patient I consult to her neurologist. - Lab Data Result diagrams: 05/23/18 13:55 05/23/18 13:55 Lab Results 05/23/18 05/23/18 05/23/18 Range/Units 13:42 13:55 13:55 WBC 6.2 (3.8-10.6) k/uL RBC 3.71 L (3.80-5.40) m/uL Hgb 11.4 (11.4-16.0) gm/dL Hct 33.2 L (34.0-46.0) % MCV 89.4 (80.0-100.0) fL MCH 30.8 (25.0-35.0) pg MCHC 34.4 (31.0-37.0) g/dL RDW 13.5 (11.5-15.5) % Plt Count 202 (150-450) k/uL Neutrophils % 68 % Lymphocytes % 22 % Monocytes % 7 % Eosinophils % 3 % Basophils % 1 % Neutrophils # 4.2 (1.3-7.7) k/uL Lymphocytes # 1.3 (1.0-4.8) k/uL Monocytes # 0.4 (0-1.0) k/uL Eosinophils # 0.2 (0-0.7) k/uL Basophils # 0.0 (0-0.2) k/uL PT (9.0-12.0) sec INR (<1.2) APTT (22.0-30.0) sec Sodium (137-145) mmol/L Potassium (3.5-5.1) mmol/L Chloride (98-107) mmol/L Carbon Dioxide (22-30) mmol/L Anion Gap mmol/L BUN (7-17) mg/dL Creatinine (0.52-1.04) mg/dL Est GFR (CKD-EPI)AfAm (>60 ml/min/1.73 sqM) Est GFR (CKD-EPI)NonAf (>60 ml/min/1.73 sqM) Glucose (74-99) mg/dL POC Glucose (mg/dL) 99 (75-99) mg/dL POC Glu Rail Layer ID [place] Calcium (8.4-10.2) mg/dL Total Bilirubin (0.2-1.3) mg/dL AST (14-36) U/L ALT (9-52) U/L Alkaline Phosphatase (38-126) U/L Total Creatine Kinase 42 (30-135) U/L CK-MB (CK-2) 0.3 (0.0-2.4) ng/mL CK-MB (CK-2) Rel Index 0.7 Troponin I <0.012 (0.000-0.034) ng/mL Total Protein (6.3-8.2) g/dL Albumin (3.5-5.0) g/dL 05/23/18 05/23/18 Range/Units 13:55 13:55 WBC (3.8-10.6) k/uL RBC (3.80-5.40) m/uL Hgb (11.4-16.0) gm/dL Hct (34.0-46.0) % MCV (80.0-100.0) fL MCH (25.0-35.0) pg MCHC (31.0-37.0) g/dL RDW (11.5-15.5) % Plt Count (150-450) k/uL Neutrophils % % Lymphocytes % % Monocytes % % Eosinophils % % Basophils % % Neutrophils # (1.3-7.7) k/uL Lymphocytes # (1.0-4.8) k/uL Monocytes # (0-1.0) k/uL Eosinophils # (0-0.7) k/uL Basophils # (0-0.2) k/uL PT 10.0 (9.0-12.0) sec INR 1.0 (<1.2) APTT 22.4 (22.0-30.0) sec Sodium 142 (137-145) mmol/L Potassium 4.3 (3.5-5.1) mmol/L Chloride 111 H (98-107) mmol/L Carbon Dioxide 24 (22-30) mmol/L Anion Gap 7 mmol/L BUN 21 H (7-17) mg/dL Creatinine 1.20 H (0.52-1.04) mg/dL Est GFR (CKD-EPI)AfAm 61 (>60 ml/min/1.73 sqM) Est GFR (CKD-EPI)NonAf 53 (>60 ml/min/1.73 sqM) Glucose 81 (74-99) mg/dL POC Glucose (mg/dL) (75-99) mg/dL POC Glu Rail Layer ID Calcium 9.4 (8.4-10.2) mg/dL Total Bilirubin 0.6 (0.2-1.3) mg/dL AST 37 H (14-36) U/L ALT 66 H (9-52) U/L Alkaline Phosphatase 81 (38-126) U/L Total Creatine Kinase (30-135) U/L CK-MB (CK-2) (0.0-2.4) ng/mL CK-MB (CK-2) Rel Index Troponin I (0.000-0.034) ng/mL Total Protein 6.4 (6.3-8.2) g/dL Albumin 3.7 (3.5-5.0) g/dL Disposition Clinical Impression: Transient cerebral ischemia Disposition: ADMITTED IP TO THIS HOSP Referrals: Sheree Amaya MD [Primary Care Provider] - 1-2 days Time of Disposition: 16:02
[2018-05-23 14:11] LABS: Basophils % (A) 1 %; Eosinophils # (A) 0.2 k/uL (0-0.7); Eosinophils % (A) 3 %; HCT 33.2 % (34.0-46.0); HGB 11.4 gm/dL (11.4-16.0); Lymphocytes # (A) 1.3 k/uL (1.0-4.8); Lymphocytes % (A) 22 %; MCH 30.8 pg (25.0-35.0); MCHC 34.4 g/dL (31.0-37.0); MCV 89.4 fL (80.0-100.0); Mean Platelet Volume 7.6; Monocytes # (A) 0.4 k/uL (0-1.0); Monocytes % (A) 7 %; Neutrophils # (A) 4.2 k/uL (1.3-7.7); Neutrophils % (A) 68 %; Platelet Count 202 k/uL (150-450); RBC 3.71 m/uL (3.80-5.40); RDW 13.5 % (11.5-15.5); WBC 6.2 k/uL (3.8-10.6)
[2018-05-23 14:23] LABS: Albumin 3.7 g/dL (3.5-5.0); Calcium 9.4 mg/dL (8.4-10.2); Potassium 4.3 mmol/L (3.5-5.1); Total Bilirubin 0.6 mg/dL (0.2-1.3); Total Protein 6.4 g/dL (6.3-8.2)
[2018-05-23 14:25] LABS: Partial Thromboplastin Time 22.4 sec (22.0-30.0)
[2018-05-23 14:30] LABS: Glucose,Whole Blood 99 mg/dL (75-99)
[2018-05-23 14:41] LABS: Creatine Kinase 42 U/L (30-135)
--- NOTE | 2018-05-23 14:47 | CT ---
EXAMINATION TYPE: CT brain wo con DATE OF EXAM: 05/23/2018 HISTORY: Neuro deficits, stroke symptoms, history of bleed with right sided paralysis CT DLP: 955.0 mGycm. Automated Exposure Control for Dose Reduction was Utilized. TECHNIQUE: CT scan of the head is performed without contrast. COMPARISON: CT brain March 30, 2018. FINDINGS: There is no acute intracranial hemorrhage or midline shift identified. There is diffuse v entricular and sulcal prominence consistent with diffuse age-related cerebral atrophy. There is low- attenuation in the periventricular white matter consistent with chronic small vessel ischemic change. Area of old infarct or encephalomalacia medial left occipital lobe near axial image 29 is redemonstr ated. Similar there is subacute on chronic infarct posterior left thalamus axial image 28 which has p rogressed or is more prominent from prior. The globes are intact and the visualized sinuses are clear . Patchy increased fluid signal right mastoid air cells is redemonstrated. IMPRESSION: No acute intracranial hemorrhage or midline shift. There is mild diffuse age-related ce rebral atrophy and chronic small vessel ischemic change as well as old left occipital lobe infarct al l redemonstrated. There is interval progression or better visualization of subacute on chronic infar ct left thalamus extending superiorly to level of [place] radiata axial image 25.
[2018-05-23 14:53] LABS: Creatine Kinase MB 0.3 ng/mL (0.0-2.4); Troponin I <0.012 ng/mL (0.000-0.034)
--- NOTE | 2018-05-23 15:33 | CT ---
EXAMINATION TYPE: CT angio head neck DATE OF EXAM: 05/23/2018 HISTORY: Neurodeficits per order. Difficulty in speaking. COMPARISON: NONE CT DLP: 303.90 mGycm. Automated Exposure Control for Dose Reduction was Utilized. TECHNIQUE: CTA scan of the head and neck are performed with IV Contrast, patient injected with 65 mL of Isovue 370, axial images are obtained, coronal and sagittal reformatted images are reviewed. Thre e-D reconstructed images are created on an independent workstation and reviewed. FINDINGS: Carotid/Vascular Structures: There is bovine type arch which is normal variant. Visualized arch shows no significant plaque. The right common carotid artery shows normal origin from right brachiocephali c artery. There is no significant plaque or stenosis in the right common carotid artery. There is pat ent external carotid artery without significant plaque or stenosis. The right internal carotid artery shows slight tortuous course without significant plaque or stenosis. There is mild noncalcified plaque along anterior aspect left mid common carotid artery axial image 33 . There is mild calcified plaque at left carotid bulb extending into proximal internal carotid artery . No significant stenosis is evident. Remainder of internal carotid artery shows no significant plaqu e or stenosis. There is patent left external carotid artery without significant plaque or stenosis. There is codominant vertebral basilar system. Vertebral arteries are patent to basilar junction. Ther e is patent left posterior communicating artery. Hypoplastic right posterior communicating artery is seen. There is no significant focal stenosis or aneurysmal change. There is patent anterior communicating artery. There is no significant focal stenosis or aneurysmal c hange in the anterior circulation. Other: There is partial visualization of bilateral subpectoral breast implants. There is exaggerated cervical curvature with moderate to severe disc space narrowing and mild to mode rate spurring C5-C6 level. Slight scoliotic curvature seen on coronal images. IMPRESSION: 1. No aneurysmal change at level of [place]. 2. No significant focal stenosis in common or internal carotid arteries bilaterally.
--- NOTE | 2018-05-23 15:52 | XR ---
EXAMINATION TYPE: XR chest 2V DATE OF EXAM: 05/23/2018 COMPARISON: Chest x-ray January 27, 2018 HISTORY: Altered mental status and weakness. TECHNIQUE: Frontal and lateral views of the chest are obtained. FINDINGS: Interval removal of tracheostomy tube noted. There is no focal air space opacity, pleural e ffusion, or pneumothorax seen. The cardiac silhouette size is stable and mildly enlarged. The osse ous structures are intact. IMPRESSION: Mild cardiomegaly without acute pulmonary process.
[2018-05-23 22:11] VITALS: BMI 24.2
[2018-05-24 03:51] LABS: Cholesterol 174 mg/dL (<200); HDL Cholesterol 44 mg/dL (40-60); LDL Cholesterol,Calculated 96 mg/dL (0-99); Triglycerides 172 mg/dL (<150)
[2018-05-24] MEDS ORDERED: ACETAMINOPHEN TAB 325 MG TAB PO PRN (09:33)
[2018-05-24] MEDS ORDERED: ONDANSETRON 4 MG TAB PO PRN (09:33)
[2018-05-24] MEDS ORDERED: HYDROcodone/APAP 7.5-325MG 1 EACH TAB PO PRN (09:33)
[2018-05-24] MEDS ORDERED: MAG HYDROX/AL HYDROX/SIMETH 30 ML CUP PO PRN (09:33)
[2018-05-24] MEDS ORDERED: ASPIRIN 81 MG PO SCH (09:45)
[2018-05-24] MEDS: ARTIFICIAL TEARS-HYPROMELLOSE DROPS 15 ML BTL BOTH EYES SCH ×2 (10:44→21:17)
[2018-05-24] MEDS: GABAPENTIN 300 MG CAP PO SCH ×3 (10:47→21:19)
[2018-05-24] MEDS: LABETALOL 200 MG TAB PO SCH ×2 (10:47→23:00)
[2018-05-24] MEDS: levETIRAcetam 500 MG TAB PO SCH ×2 (10:47→21:19)
[2018-05-24] MEDS: BACLOFEN 10 MG TAB PO SCH ×3 (10:48→21:18)
[2018-05-24] MEDS: FAMOTIDINE 20 MG TAB PO SCH ×2 (10:48→21:19)
--- NOTE | 2018-05-24 11:48 | P.HPIM ---
History of Present Illness H&P Date: 05/24/18 Chief Complaint: TIA This is a 53 year-old female patient of Dr. Amaya with past medical history of intracranial hemorrhage related to hypertensive urgency on 12/14 patient was hospitalized at [place] for a month during which she got tracheostomy and PEG tube placed on 12/27 and was initiated on Keppra for seizure precautions. Other significant history includes right brachial artery thrombosis, history of prolonged QT hold is currently a resident of [facility] for the past 4 months, patient was doing fine and the upper and she became unresponsive at [facility] and the patient was transported to the hospital at [facility] emergency department had a computed tomography scan of the brain that did show an old the left occipital CVA plus a better visualization of what appears to be subacute thalamic infarct, because of that she was admitted to the hospital, neurology consultation was obtained, CT angiography did not show any evidence of aneurysm or any stenosis. Patient was examined and her daughter was at the bedside and she stated that her mother is back to her baseline. Review of Systems ROS unobtainable: due to mental status (patient is aphasic) Past Medical History Past Medical History: CVA/TIA, Hyperlipidemia, Hypertension Additional Past Medical History / Comment(s): hydrocephalus, (R) cerebral infarction History of Any Multi-Drug Resistant Organisms: VRE Date of last positivie culture/infection: 05/04/18 MDRO Source:: VRE URINE Past Surgical History: Section Additional Past Surgical History / Comment(s): trache placement Past Psychological History: No Psychological Hx Reported Smoking Status: Never smoker Past Alcohol Use History: None Reported Past Drug Use History: None Reported - Past Family History Father Family Medical History: Unable to Obtain (patient doesn't know much about her father she currently has a stepfather.) Mother Family Medical History: Hypertension (mother is 80-year-old has history of hypertension.) Daughter(s) Family Medical History: No Reported History (patient has 2 daughters no major medical problems) Son(s) Family Medical History: No Reported History (patient has 2 sons no major medical problems.) Medications and Allergies Home Medications Medication Instructions Recorded Confirmed Type Acetaminophen Tab [Tylenol] 650 mg PO Q4H PRN 01/26/18 05/23/18 History Atorvastatin [Lipitor] 10 mg PO HS 01/26/18 05/23/18 History Bromocriptine Mesylate [Parlodel] 2.5 mg PO TID@,01/26/18 05/23/18 History Ranitidine HCl [Zantac] 150 mg PO BID 01/26/18 05/23/18 History amLODIPine [Norvasc] 10 mg PO HS 01/26/18 05/23/18 History Amantadine 50mg 50 mg PO BID 05/23/18 05/23/18 History Artificial Tears-Hypromellose 1 drops BOTH EYES BID 05/23/18 05/23/18 History [Artificial Tear Drops] Aspirin 81 mg PO DAILY 05/23/18 05/23/18 History Baclofen [Lioresal] 10 mg PO TID@,,05/23/18 05/23/18 History Cyclobenzaprine [Flexeril] 10 mg PO BID 05/23/18 05/23/18 History Gabapentin [Neurontin] 300 mg PO TID@,05/23/18 05/23/18 History HYDROcodone/APAP 7.5-325MG [Roulette 1 tab PO BID PRN 05/23/18 05/23/18 History 7.5-325] Labetalol [Trandate] 600 mg PO BID 05/23/18 05/23/18 History Lactose-Reduced Food [Ensure Plus] 240 ml PO BID@05/23/18 05/23/18 History Losartan Potassium 100 mg PO DAILY 05/23/18 05/23/18 History Mylanta 30 ml PO Q6H PRN 05/23/18 05/23/18 History Ondansetron [Zofran] 4 mg PO Q6H PRN 05/23/18 05/23/18 History Sennosides [Senna] 17.2 mg PO BID 05/23/18 05/23/18 History Sertraline [Zoloft] 50 mg PO DAILY 05/23/18 05/23/18 History levETIRAcetam [Keppra] 500 mg PO BID 05/23/18 05/23/18 History Allergies Allergy/AdvReac Type Severity Reaction Status Date / Time codeine Allergy Unknown Verified 05/23/18 13:42 Physical Exam Vitals: Vital Signs Temp Pulse Pulse Resp BP BP Pulse Ox 05/24/18 08:30 98.7 F 107 H 20 144/78 97 05/24/18 03:31 97.6 F 89 16 179/85 99 05/24/18 00:00 97.3 F L 81 16 115/65 99 05/23/18 21:10 78 16 121/75 99 05/23/18 19:44 73 16 147/79 97 05/23/18 17:35 98.9 F 74 16 128/78 98 05/23/18 17:23 97.3 F L 81 16 115/65 99 05/23/18 15:00 76 16 145/76 100 05/23/18 13:42 99.2 F 70 18 120/57 98 Intake and Output 05/23/18 05/24/18 05/24/18 22:59 06:59 14:59 Other: # Voids 1 1 Weight 68.039 kg 71 kg - Constitutional General appearance: average body habitus, no acute distress - EENT Eyes: PERRLA, dentition normal, no ptosis, no scleral icterus, normal appearance ENT: hearing grossly normal, NA/AT, normal oropharynx, no thrush Ears: bilateral: normal - Neck Neck: other (Scar for a trach.) Carotids: bilateral: upstroke normal Thyroid: bilateral: normal size - Respiratory Respiratory: bilateral: diminished, negative: dullness, rales, rhonchi, wheezing , prolonged expiration, prolonged inspiration - Cardiovascular Rhythm: regular Heart sounds: normal: S1, S2 Abnormal Heart Sounds: no systolic murmur, no rub, no S3 Gallop, no click - Gastrointestinal General gastrointestinal: normal bowel sounds, soft, no splenomegaly, no tenderness, no umbilical hernia, no ventral hernia - Integumentary Integumentary: normal, normal turgor - Musculoskeletal Musculoskeletal: no gait normal, right sided weakness - Psychiatric Psychiatric: A&O x's 3, appropriate affect, intact judgment & insight Results CBC & Chem 7: 05/23/18 13:55 05/23/18 13:55 Labs: Abnormal Lab Results - Last 24 Hours (Table) 05/23/18 05/23/18 05/23/18 Range/Units 13:55 13:55 13:55 RBC 3.71 L (3.80-5.40) m/uL Hct 33.2 L (34.0-46.0) % Chloride 111 H (98-107) mmol/L BUN 21 H (7-17) mg/dL Creatinine 1.20 H (0.52-1.04) mg/dL AST 37 H (14-36) U/L ALT 66 H (9-52) U/L Triglycerides 172 H (<150) mg/dL Thrombosis Risk Factor Assmnt - DVT/VTE Prophylaxis DVT/VTE Prophylaxis: Pharmacologic Prophylaxis ordered, Mechanical Prophylaxis ordered - Choose All That Apply Any of the Below Risk Factors Present?: Yes Each Factor Represents 1 point: Age 41-60 years Other Risk Factors: No Other congenital or acquired thrombophilia - If yes, enter type in comment: No Thrombosis Risk Factor Assessment Total Risk Factor Score: 1 Thrombosis Risk Factor Assessment Level: Low Risk Assessment and Plan Assessment: Assessment and plan: 1. Subacute thalamic infarct. Unclear of its duration, patient did have a CT angiography that did not show any evidence of any stenosis or aneurysm, she did have a computed tomography scan of the brain as stated above, patient will be kept for neuro check every 2 hours for the next 24 hours, patient also would be seen in consultation by neurology, patient will be started on antiplatelet therapy aspirin 81 mg once every day, Lipitor 10 mg orally once every day. 2. History of prior intracranial bleed. Continue to monitor her blood pressure very closely. 3. Hypertension and hypertensive cardiovascular disease. Continue losartan 100 mg orally once every day, amlodipine 10 mg orally once every day, labetalol 600 mg orally twice every day. 4. Hyperlipidemia. Continue patient on Lipitor 10 mg orally once every day. 5. Right-sided weakness with aphasia secondary to her prior intracranial bleed. Continue patient on baclofen 10 mg orally 3 times every day as well as a Flexeril 10 mg orally twice every day. Patient already was started on gabapentin 300 mg orally 3 times every day as well as Symmetrel . 6. History of prolonged QT avoid drug that prolonged QT. 7. Depression. Continue Zoloft 50 mg orally once every day. 8. DVT prophylaxis. Continue patient on knee-high JONH hose and the heparin 5000 units subcutaneously every 12 hours. 9. GI prophylaxis. Continue Pepcid 20 mg orally twice every day. 10. Full code. 11. Admitted to inpatient. Estimate a length of stay 2 midnights.
[2018-05-24] MEDS: AMANTADINE HCL PO SCH ×2 (12:04→21:17)
[2018-05-24] MEDS: SERTRALINE 50 MG TAB PO SCH (12:05)
[2018-05-24] MEDS: SENNOSIDES 8.6 MG TAB PO SCH ×2 (12:06→21:19)
[2018-05-24] MEDS: CYCLOBENZAPRINE 10 MG TAB PO SCH ×2 (12:06→21:18)
[2018-05-24] MEDS: LOSARTAN 50 MG TAB PO SCH (16:44)
[2018-05-24] MEDS ORDERED: NON-FORMULARY DRUG (Lactose-Reduced Food [Ensure Plus] 240 ML) PO SCH (17:00)
--- NOTE | 2018-05-24 17:05 | P.CNNES ---
History of Present Illness Consult date: 05/24/18 Requesting physician: El Mae Reason for Consult: TIA Chief complaint: altered mental status History of Present Illness: Neurology is consulting on a 53-year-old female who is a long-term resident with a history of stroke earlier in 2018 with known right upper and lower extremity weakness. Patient did have significant right-sided upper and lower extremity deficits from previous CVA. Approximately 48 hours ago, patient was at her residential living facility and was unable to respond to staff. Patient was unable to follow simple commands to assess for neurological status per employees. Patient also had difficulty with speaking and had some increased right-sided arm and leg weakness on presentation at the ED. Patient is currently nonverbal and her family members were in the room today when consult was performed. Family members state that the right upper and lower extremity weakness is unchanged from her previous deficits. Family reports that the patient has increased cognitive decline as well as expressive decline with the new event. On contact, the patient was alert and oriented 1, nonverbal, no acute distress with family in the room Review of Systems systems not noted in HPI are negative Past Medical History Past Medical History: CVA/TIA, Hyperlipidemia, Hypertension Additional Past Medical History / Comment(s): hydrocephalus, (R) cerebral infarction History of Any Multi-Drug Resistant Organisms: VRE Date of last positivie culture/infection: 05/04/18 MDRO Source:: VRE URINE Past Surgical History: Section Additional Past Surgical History / Comment(s): trache placement Past Psychological History: No Psychological Hx Reported Smoking Status: Never smoker Past Alcohol Use History: None Reported Past Drug Use History: None Reported - Past Family History Father Family Medical History: Unable to Obtain (patient doesn't know much about her father she currently has a stepfather.) Mother Family Medical History: Hypertension (mother is 80-year-old has history of hypertension.) Daughter(s) Family Medical History: No Reported History (patient has 2 daughters no major medical problems) Son(s) Family Medical History: No Reported History (patient has 2 sons no major medical problems.) Medications and Allergies Home Medications Medication Instructions Recorded Confirmed Type Acetaminophen Tab [Tylenol] 650 mg PO Q4H PRN 01/26/18 05/23/18 History Atorvastatin [Lipitor] 10 mg PO HS 01/26/18 05/23/18 History Bromocriptine Mesylate [Parlodel] 2.5 mg PO TID@,01/26/18 05/23/18 History Ranitidine HCl [Zantac] 150 mg PO BID 01/26/18 05/23/18 History amLODIPine [Norvasc] 10 mg PO HS 01/26/18 05/23/18 History Amantadine 50mg 50 mg PO BID 05/23/18 05/23/18 History Artificial Tears-Hypromellose 1 drops BOTH EYES BID 05/23/18 05/23/18 History [Artificial Tear Drops] Aspirin 81 mg PO DAILY 05/23/18 05/23/18 History Baclofen [Lioresal] 10 mg PO TID@,,05/23/18 05/23/18 History Cyclobenzaprine [Flexeril] 10 mg PO BID 05/23/18 05/23/18 History Gabapentin [Neurontin] 300 mg PO TID@,,05/23/18 05/23/18 History HYDROcodone/APAP 7.5-325MG [[place] 1 tab PO BID PRN 05/23/18 05/23/18 History 7.5-325] Labetalol [Trandate] 600 mg PO BID 05/23/18 05/23/18 History Lactose-Reduced Food [Ensure Plus] 240 ml PO BID@05/23/18 05/23/18 History Losartan Potassium 100 mg PO DAILY 05/23/18 05/23/18 History Mylanta 30 ml PO Q6H PRN 05/23/18 05/23/18 History Ondansetron [Zofran] 4 mg PO Q6H PRN 05/23/18 05/23/18 History Sennosides [Senna] 17.2 mg PO BID 05/23/18 05/23/18 History Sertraline [Zoloft] 50 mg PO DAILY 05/23/18 05/23/18 History levETIRAcetam [Keppra] 500 mg PO BID 05/23/18 05/23/18 History Allergies Allergy/AdvReac Type Severity Reaction Status Date / Time codeine Allergy Unknown Verified 05/23/18 13:42 Physical Examination - Vital Signs Vital Signs: Vital Signs Temp Pulse Pulse Resp BP BP Pulse Ox 05/24/18 16:00 97.6 F 83 16 126/74 100 05/24/18 11:57 98.9 F 92 16 139/81 99 05/24/18 08:30 98.7 F 107 H 20 144/78 97 05/24/18 03:31 97.6 F 89 16 179/85 99 05/24/18 00:00 97.3 F L 81 16 115/65 99 05/23/18 21:10 78 16 121/75 99 05/23/18 19:44 73 16 147/79 97 05/23/18 17:35 98.9 F 74 16 128/78 98 05/23/18 17:23 97.3 F L 81 16 115/65 99 Intake and Output 05/24/18 05/24/18 05/24/18 06:59 14:59 22:59 Other: # Voids 1 2 Weight 71 kg General appearance: Alert & oriented x3, no apparent distress. Head: Atraumatic, normocephalic, normal inspection Eyes: unable to track with consistency, appears to have significant right-sided visual deficits Ear, nose and throat: Normal exam, mucous membranes moist Neck: Normal inspection, absent tenderness, lymphadenopathy. Respiratory: No increased work of breathing Cardiovascular: Regular rate, rhythm GI/abdominal: No guarding Extremities: Full range of motion, normal capillary refill, no tenderness, pedal edema joint swelling, calf tenderness. Neurological: cranial nerves II through XII intactunable to be fully assessed, significantly impaired lateralizing weaknessright upper and lower extremity weaknesssignificant no seizure activity noted on physical exam right upper 0 out of 5 Right lower extremity 1+ out of 5 Left upper extremity 2 out of 5 Left lower extremity 3+ out of 5 Sensation: Left lower extremity: Normal Right lower extremity:diminished Left upper extremity: normal Right upper extremity:diminished Psychological: Mood and Affect appropriate for setting Results lipid panelelevated triglycerides serum homocysteine level ordered - Laboratory Findings CBC and BMP: 05/23/18 13:55 05/23/18 13:55 Abnormal Lab Findings: Abnormal Labs 05/23/18 05/23/18 05/23/18 13:55 13:55 13:55 RBC 3.71 L Hct 33.2 L Chloride 111 H BUN 21 H Creatinine 1.20 H AST 37 H ALT 66 H Triglycerides 172 H Assessment and Plan (1) Cerebrovascular accident (CVA) of left thalamus Narrative/Plan: At this time it does appear that the patient has a new CVA although characterized as subacute on imaging. Imaging was reviewed by supervising physician and physician's is of the opinion that the patient's current status reflects new CVA although is acute/subacute on chronic involving the left thalamus. Patient is extremely difficult to assess as she is nonverbal at this time, however family state that her cognitive functioning has declined since her most recent event. Right upper and lower extremity weakness is unchanged from previous event. Further diagnostic workup: CT brain without contrast noted area of old infarct and encephalomalacia medial left occipital lobe. Subacute on chronic infarct posterior left thalamus which has progressed or is more prominent from prior. EEGordered Serum homocystine level- ordered Increase Lipitor to 40 mg daily at bedtime for long-term risk reduction, multiple event history patient Discontinued 81 mg aspirin Prescribed Plavix 75 mg daily continue neuro checks as ordered and/or implemented CT angiogram notes no aneurysmal change at the level of [place], no significant focal stenosis in common or internal carotid arteries bilaterally. Treatment: Recommend PT/OT consult Recommend speech consult: Expressive aphasia, swallow status and possible diet modification Current Visit: Yes Status: Acute Code(s): I63.9 - CEREBRAL INFARCTION, UNSPECIFIED SNOMED Code(s): 552324138 (2) Hemiparesis affecting right side as late effect of cerebrovascular accident (CVA) Narrative/Plan: Per family no change from prior status. Refer to #1 above for further information Current Visit: Yes Status: Acute Code(s): I69.351 - HEMIPLGA FOLLOWING CEREBRAL INFRC AFF RIGHT DOMINANT SIDE SNOMED Code(s): 979444752 (3) Altered mental status Narrative/Plan: as relates to #1 above Current Visit: Yes Status: Acute Code(s): R41.82 - ALTERED MENTAL STATUS, UNSPECIFIED SNOMED Code(s): 563991402 (4) Expressive aphasia Narrative/Plan: she does appear to be experiencing new onset expressive aphasia secondary to patient's current acute/subacute stroke status. Diagnostic workup: Consult: Speech therapyexpressive aphasia, evaluation for possible swallow study/modified diet Current Visit: Yes Status: Acute Code(s): R47.01 - APHASIA SNOMED Code(s) : 308702492 (5) Hypertriglyceridemia Narrative/Plan: Patient does have mildly elevated triglycerides. Given the patient's overall CVA history, we will aggressively treat the patient's triglyceride level. Treatment: TriCor 54 mg daily to decrease long-term risk. Current Visit: Yes Status: Acute Code(s): E78.1 - PURE HYPERGLYCERIDEMIA SNOMED Code(s): 182495901 Plan: Status: Neurology will continue to follow and provide updates as needed or warranted. Contact our office with any questions I have discussed the plan of care with the physician prior to implementation and he agrees with the plan as implemented.
[2018-05-24] MEDS ORDERED: amLODIPine 10 MG TAB PO SCH (21:00)
[2018-05-24] MEDS: ATORVASTATIN 10 MG TAB PO SCH (21:19)
[2018-05-24] MEDS: HEPARIN SODIUM,PORCINE 5,000 UNIT/ML 1 ML VIAL SQ SCH (21:52)
[2018-05-25 07:09] LABS: Basophils % (A) 0 %; Eosinophils # (A) 0.1 k/uL (0-0.7); Eosinophils % (A) 3 %; HCT 32.8 % (34.0-46.0); HGB 11.1 gm/dL (11.4-16.0); Lymphocytes # (A) 1.4 k/uL (1.0-4.8); Lymphocytes % (A) 30 %; MCHC 33.7 g/dL (31.0-37.0); MCV 91.9 fL (80.0-100.0); Monocytes # (A) 0.3 k/uL (0-1.0); Monocytes % (A) 6 %; Neutrophils # (A) 2.8 k/uL (1.3-7.7); Neutrophils % (A) 60 %; Platelet Count 200 k/uL (150-450); RBC 3.57 m/uL (3.80-5.40); RDW 13.5 % (11.5-15.5); WBC 4.7 k/uL (3.8-10.6)
[2018-05-25 07:27] LABS: Albumin 3.5 g/dL (3.5-5.0); Calcium 9.5 mg/dL (8.4-10.2); Potassium 4.2 mmol/L (3.5-5.1); Total Bilirubin 0.5 mg/dL (0.2-1.3); Total Protein 6.1 g/dL (6.3-8.2)
[2018-05-25] MEDS: SENNOSIDES 8.6 MG TAB PO SCH ×2 (10:21→19:44)
[2018-05-25] MEDS: LOSARTAN 50 MG TAB PO SCH (10:21)
[2018-05-25] MEDS: FENOFIBRATE 54 MG TAB PO SCH (10:21)
[2018-05-25] MEDS: BACLOFEN 10 MG TAB PO SCH ×3 (10:21→19:45)
[2018-05-25] MEDS: SERTRALINE 50 MG TAB PO SCH (10:21)
[2018-05-25] MEDS: CLOPIDOGREL 75 MG TAB PO SCH (10:21)
[2018-05-25] MEDS: GABAPENTIN 300 MG CAP PO SCH ×3 (10:21→19:45)
[2018-05-25] MEDS: AMANTADINE HCL PO SCH ×2 (10:22→19:43)
[2018-05-25] MEDS: levETIRAcetam 500 MG TAB PO SCH ×2 (10:22→19:44)
[2018-05-25] MEDS: CYCLOBENZAPRINE 10 MG TAB PO SCH ×2 (10:22→19:46)
[2018-05-25] MEDS: FAMOTIDINE 20 MG TAB PO SCH ×2 (10:22→19:45)
[2018-05-25] MEDS: HEPARIN SODIUM,PORCINE 5,000 UNIT/ML 1 ML VIAL SQ SCH ×2 (10:23→19:44)
[2018-05-25] MEDS: ARTIFICIAL TEARS-HYPROMELLOSE DROPS 15 ML BTL BOTH EYES SCH ×2 (10:24→19:44)
--- NOTE | 2018-05-25 13:06 | P.PN ---
Subjective Progress Note Date: 05/25/18 This is a 53 year-old female patient of Dr. Amaya with past medical history of intracranial hemorrhage related to hypertensive urgency on 12/14 patient was hospitalized at [facility] for a month during which she got tracheostomy and PEG tube placed on 12/27 and was initiated on Keppra for seizure precautions. Other significant history includes right brachial artery thrombosis, history of prolonged QT hold is currently a resident of [facility] for the past 4 months, patient was doing fine and the upper and she became unresponsive at [facility] and the patient was transported to the hospital at [facility] emergency department had a computed tomography scan of the brain that did show an old the left occipital CVA plus a better visualization of what appears to be subacute thalamic infarct, because of that she was admitted to the hospital, neurology consultation was obtained, CT angiography did not show any evidence of aneurysm or any stenosis. Patient was examined and her daughter was at the bedside and she stated that her mother is back to her baseline. 05/25: Patient apparently did not sleep at all during the night is now very sleepy. She is arousable and is alert. Her daughter is at bedside. Blood sugars are improved today. She did not receive labetalol last evening. We will decrease labetalol in half to 300 mg twice daily and decrease Norvasc from 10 mg to 5 mg at bedtime. We will plan to monitor overnight and discharge back to [facility] tomorrow. Objective - Vital Signs Vital signs: Vital Signs Temp 98.6 F 05/25/18 00:00 Pulse 72 05/25/18 04:00 Resp 16 05/25/18 04:00 BP 117/69 05/25/18 04:00 Pulse Ox 97 05/25/18 04:00 Intake & Output 05/24/18 05/25/18 05/25/18 18:59 06:59 18:59 Intake Total 0 Balance 0 Intake: Oral 0 Other: # Voids 1 - Exam General appearance: average body habitus, no acute distress - EENT Eyes: PERRLA, dentition normal, no ptosis, no scleral icterus, normal appearance ENT: hearing grossly normal, NA/AT, normal oropharynx, no thrush Ears: bilateral: normal - Neck Neck: other (Scar for a trach.) Carotids: bilateral: upstroke normal Thyroid: bilateral: normal size - Respiratory Respiratory: bilateral: diminished, negative: dullness, rales, rhonchi, wheezing , prolonged expiration, prolonged inspiration - Cardiovascular Rhythm: regular Heart sounds: normal: S1, S2 Abnormal Heart Sounds: no systolic murmur, no rub, no S3 Gallop, no click - Gastrointestinal General gastrointestinal: normal bowel sounds, soft, no splenomegaly, no tenderness, no umbilical hernia, no ventral hernia - Integumentary Integumentary: normal, normal turgor - Musculoskeletal Musculoskeletal: no gait normal, right sided weakness - Psychiatric Psychiatric: A&O x's 3, appropriate affect, intact judgment & insight - Labs CBC & Chem 7: 05/25/18 06:16 05/25/18 06:16 Labs: Abnormal Lab Results - Last 24 Hours (Table) 05/25/18 05/25/18 Range/Units 06:16 06:16 RBC 3.57 L (3.80-5.40) m/uL Hgb 11.1 L (11.4-16.0) gm/dL Hct 32.8 L (34.0-46.0) % Chloride 112 H (98-107) mmol/L Creatinine 1.10 H (0.52-1.04) mg/dL AST 40 H (14-36) U/L ALT 65 H (9-52) U/L Total Protein 6.1 L (6.3-8.2) g/dL Assessment and Plan Plan: 1. Subacute thalamic infarct. Unclear of its duration, patient did have a CT angiography that did not show any evidence of any stenosis or aneurysm, she did have a computed tomography scan of the brain as stated above, patient will be kept for neuro check every 2 hours for the next 24 hours, patient also would be seen in consultation by neurology, patient will be started on antiplatelet therapy aspirin 81 mg once every day, Lipitor 10 mg orally once every day. 2. History of prior intracranial bleed. Continue to monitor her blood pressure very closely. 3. Hypertension and hypertensive cardiovascular disease. Continue losartan 100 mg orally once every day, amlodipine crease to 5 mg orally once every day, labetalol decreased to 300 mg orally twice every day. 4. Hyperlipidemia. Continue patient on Lipitor 10 mg orally once every day. 5. Right-sided weakness with aphasia secondary to her prior intracranial bleed. Continue patient on baclofen 10 mg orally 3 times every day as well as a Flexeril 10 mg orally twice every day. Patient already was started on gabapentin 300 mg orally 3 times every day as well as Symmetrel . 6. History of prolonged QT avoid drug that prolonged QT. 7. Recurrent depression. Continue Zoloft 50 mg orally once every day. 8. DVT prophylaxis. Continue patient on knee-high JONH hose and the heparin 5000 units subcutaneously every 12 hours. 9. GI prophylaxis. Continue Pepcid 20 mg orally twice every day. 10. Full code. Discharge plan: Return to [facility] tomorrow Impression and plan of care have been directed as dictated by the signing physician. Pretty Gomes nurse practitioner acting as scribe for signing physician.
[2018-05-25] MEDS: LABETALOL 200 MG TAB PO SCH (13:27)
[2018-05-25] MEDS: BROMOCRIPTINE MESYLATE 2.5 MG PO SCH ×3 (13:27→22:53)
--- NOTE | 2018-05-25 17:13 | EEG ---
ELECTROENCEPHALOGRAM REPORT DATE OF SERVICE: 05/25/2018. REASON FOR TESTING: Transient ischemic attack. DESCRIPTION OF THE PROCEDURE: This EEG was performed using a 21 channel digital electroencephalograph, following international 10-20 system. DESCRIPTION OF THE RECORDING: From the beginning of the tracing, with patient's eyes closed, the background rhythm was mostly consisting of 8 Hz alpha frequency in the posterior occipital leads. No obvious asymmetry is seen. Occasional muscle movement artifacts are seen. Photic stimulation was performed with a minimal driving response seen. No pathological waves were elicited. Hyperventilation was not performed. The patient remains awake throughout the tracing. No epileptiform discharges were seen. Her EKG lead showed a regular rate and rhythm. INTERPRETATION: This awake EEG can be considered within normal limits. There was no asymmetry seen. No epileptiform discharges were noticed. The absence of epileptiform discharges does not rule out the diagnosis of epilepsy; therefore clinical correlation is recommended. MMRUTHANNL / IJSpencer: [id number] /
[2018-05-25] MEDS: ATORVASTATIN 10 MG TAB PO SCH (19:45)
[2018-05-25] MEDS: amLODIPine 5 MG TAB PO SCH (19:48)
[2018-05-25] MEDS: LABETALOL 100 MG TAB PO SCH (19:50)
--- NOTE | 2018-05-26 07:45 | P.DS ---
Providers Date of admission: 05/23/18 16:03 Expected date of discharge: 05/26/18 Attending physician: Ravindra Irizarry Consults: 05/23/18 16:03 Consult Physician Routine Consulting Provider: Dominguez Fletcher Consult Reason/Comments: TIA Do you want consulting provider notified?: Yes Primary care physician: Sheree Amaya [facility] Hospital Course: This is a 53 year-old female patient of Dr. Amaya with past medical history of intracranial hemorrhage related to hypertensive urgency on 12/14 patient was hospitalized at [place] for a month during which she got tracheostomy and PEG tube placed on 12/27 and was initiated on Keppra for seizure precautions. Other significant history includes right brachial artery thrombosis, history of prolonged QT hold is currently a resident of [facility] for the past 4 months, patient was doing fine and the upper and she became unresponsive at [facility] and the patient was transported to the hospital at [facility] emergency department had a computed tomography scan of the brain that did show an old the left occipital CVA plus a better visualization of what appears to be subacute thalamic infarct, because of that she was admitted to the hospital, neurology consultation was obtained, CT angiography did not show any evidence of aneurysm or any stenosis. Patient was examined and her daughter was at the bedside and she stated that her mother is back to her baseline. 05/25: Patient apparently did not sleep at all during the night is now very sleepy. She is arousable and is alert. Her daughter is at bedside. Blood sugars are improved today. She did not receive labetalol last evening. We will decrease labetalol in half to 300 mg twice daily and decrease Norvasc from 10 mg to 5 mg at bedtime. We will plan to monitor overnight and discharge back to [facility] tomorrow. 05/26: EEG is considered within normal limits. Homocysteine 15.49. Neurology has recommended changing aspirin to Plavix and added in fenofibrate. Blood pressure is currently stable with the recent medication changes. Patient is at her baseline and will be discharged back to [facility] today in stable condition. Discharge diagnoses: 1. Subacute thalamic infarct. Unclear of its duration 2. History of prior intracranial bleed. 3. Hypertension and hypertensive cardiovascular disease. 4. Hyperlipidemia. 5. Right-sided weakness with aphasia secondary to her prior intracranial bleed. 6. History of prolonged QT avoid drug that prolonged QT. 7. Recurrent depression. Discharge plan: Return to [facility] under Dr. Amaya Impression and plan of care have been directed as dictated by the signing physician. Pretty Gomes nurse practitioner acting as scribe for signing physician. Patient Condition at Discharge: Good Plan - Discharge Summary Discharge Rx Participant: No New Discharge Prescriptions: New amLODIPine [Norvasc] 5 mg PO HS tab Clopidogrel [Plavix] 75 mg PO DAILY tab Fenofibrate [Lofibra] 54 mg PO DAILY tab Labetalol [Trandate] 300 mg PO BID tab Continue Acetaminophen Tab [Tylenol] 650 mg PO Q4H PRN PRN Reason: Pain Bromocriptine Mesylate [Parlodel] 2.5 mg PO TID@, Ranitidine HCl [Zantac] 150 mg PO BID Atorvastatin [Lipitor] 10 mg PO HS Ondansetron [Zofran] 4 mg PO Q6H PRN PRN Reason: Nausea Gabapentin [Neurontin] 300 mg PO TID@ Baclofen [Lioresal] 10 mg PO TID@, Sennosides [Senna] 17.2 mg PO BID levETIRAcetam [Keppra] 500 mg PO BID Lactose-Reduced Food [Ensure Plus] 240 ml PO BID@ Cyclobenzaprine [Flexeril] 10 mg PO BID Artificial Tears-Hypromellose [Artificial Tear Drops] 1 drops BOTH EYES BID Amantadine 50mg 50 mg PO BID Sertraline [Zoloft] 50 mg PO DAILY Losartan Potassium 100 mg PO DAILY Mylanta 30 ml PO Q6H PRN PRN Reason: Indigestion HYDROcodone/APAP 7.5-325MG [[place] 7.5-325] 1 tab PO BID PRN #4 tab PRN Reason: Pain Discontinued amLODIPine [Norvasc] 10 mg PO HS Aspirin 81 mg PO DAILY Labetalol [Trandate] 600 mg PO BID Discharge Medication List Acetaminophen Tab [Tylenol] 650 mg PO Q4H PRN 01/26/18 [History] Atorvastatin [Lipitor] 10 mg PO HS 01/26/18 [History] Bromocriptine Mesylate [Parlodel] 2.5 mg PO TID@01/26/18 [History] Ranitidine HCl [Zantac] 150 mg PO BID 01/26/18 [History] Amantadine 50mg 50 mg PO BID 05/23/18 [History] Artificial Tears-Hypromellose [Artificial Tear Drops] 1 drops BOTH EYES BID [History] Baclofen [Lioresal] 10 mg PO TID@,,05/23/18 [History] Cyclobenzaprine [Flexeril] 10 mg PO BID 05/23/18 [History] Gabapentin [Neurontin] 300 mg PO TID@,,05/23/18 [History] Lactose-Reduced Food [Ensure Plus] 240 ml PO BID@,05/23/18 [History] Losartan Potassium 100 mg PO DAILY 05/23/18 [History] Mylanta 30 ml PO Q6H PRN 05/23/18 [History] Ondansetron [Zofran] 4 mg PO Q6H PRN 05/23/18 [History] Sennosides [Senna] 17.2 mg PO BID 05/23/18 [History] Sertraline [Zoloft] 50 mg PO DAILY 05/23/18 [History] levETIRAcetam [Keppra] 500 mg PO BID 05/23/18 [History] Clopidogrel [Plavix] 75 mg PO DAILY tab 05/26/18 [Rx] Fenofibrate [Lofibra] 54 mg PO DAILY tab 05/26/18 [Rx] HYDROcodone/APAP 7.5-325MG [[place] 7.5-325] 1 tab PO BID PRN #4 tab 05/26/18 [Rx] Labetalol [Trandate] 300 mg PO BID tab 05/26/18 [Rx] amLODIPine [Norvasc] 5 mg PO HS tab 05/26/18 [Rx] Follow up Appointment(s)/Referral(s): Sheree Amaya MD [Primary Care Provider] - 1 Week (at [facility]) Discharge Disposition: TRANSFER TO SNF/ECF
[2018-05-26] MEDS: BACLOFEN 10 MG TAB PO SCH ×3 (09:25→20:59)
[2018-05-26] MEDS: BROMOCRIPTINE MESYLATE 2.5 MG PO SCH ×3 (09:25→20:59)
[2018-05-26] MEDS: GABAPENTIN 300 MG CAP PO SCH ×3 (09:25→20:58)
[2018-05-26] MEDS: ARTIFICIAL TEARS-HYPROMELLOSE DROPS 15 ML BTL BOTH EYES SCH ×2 (09:26→20:58)
[2018-05-26] MEDS: LOSARTAN 50 MG TAB PO SCH (10:08)
[2018-05-26] MEDS: LABETALOL 100 MG TAB PO SCH ×2 (10:08→20:57)
[2018-05-26] MEDS: AMANTADINE HCL PO SCH ×2 (10:08→20:58)
[2018-05-26] MEDS: CYCLOBENZAPRINE 10 MG TAB PO SCH ×2 (10:16→20:58)
[2018-05-26] MEDS: levETIRAcetam 500 MG TAB PO SCH ×2 (10:17→20:59)
[2018-05-26] MEDS: FAMOTIDINE 20 MG TAB PO SCH ×2 (10:17→20:59)
[2018-05-26] MEDS: FENOFIBRATE 54 MG TAB PO SCH (10:17)
[2018-05-26] MEDS: SERTRALINE 50 MG TAB PO SCH (10:17)
[2018-05-26] MEDS: CLOPIDOGREL 75 MG TAB PO SCH (10:17)
[2018-05-26] MEDS: HEPARIN SODIUM,PORCINE 5,000 UNIT/ML 1 ML VIAL SQ SCH ×2 (10:24→20:59)
[2018-05-26] MEDS: SENNOSIDES 8.6 MG TAB PO SCH ×2 (10:25→20:59)
--- NOTE | 2018-05-26 11:09 | FL ---
EXAMINATION TYPE: FL barium swallow w video DATE OF EXAM: 05/26/2018 MODIFIED SWALLOW / DEGLUTITION STUDY CLINICAL HISTORY: Dysphagia. History of significant CVA. TECHNIQUE: Deglutition study is performed utilizing thin liquid barium, honey and nectar thick liqui d barium, barium thick applesauce, and barium coated cracker. A total of 70 seconds of fluoroscopic t chan was utilized. There are 0 images saved to PACS. COMPARISON: Prior barium swallow report report March 23, 2018. FINDINGS: The oral and pharyngeal phases show satisfactory initiation and propagation with all modali ties tested including multiple attempts with thin liquid barium. Normal mastication is seen with son id modalities tested. There is no evidence of penetration or aspiration with any modality tested. N o significant pharyngeal residue was appreciated. IMPRESSION: No penetration or aspiration observed today. Please refer to speech therapist notes for further details if necessary.
--- NOTE | 2018-05-26 16:18 | CT ---
EXAMINATION TYPE: CT brain wo con DATE OF EXAM: 05/26/2018 HISTORY: decreased neuro status CT DLP: 1159 mGycm. Automated Exposure Control for Dose Reduction was Utilized. TECHNIQUE: CT scan of the head is performed without contrast. COMPARISON: CT brain from 3 days ago and older studies. FINDINGS: There is no acute intracranial hemorrhage or midline shift identified. There is diffuse v entricular and sulcal prominence consistent with diffuse age-related cerebral atrophy. There is low- attenuation in the periventricular white matter consistent with chronic small vessel ischemic change. Old infarct medial left occipital lobe there axial image 30 is redemonstrated. Subacute on chronic i nfarct involving left thalamus axial image 24 is redemonstrated. The globes are intact and the visua lized sinuses are clear. IMPRESSION: No acute intracranial hemorrhage or midline shift. There is mild diffuse age-related ce rebral atrophy and chronic small vessel ischemic change redemonstrated. Old left-sided infarcts are r edemonstrated. No significant change from most recent CT.
--- NOTE | 2018-05-26 19:20 | MR ---
EXAMINATION TYPE: MR brain wo con DATE OF EXAM: 05/26/2018 COMPARISON: None HISTORY: Neurologic deficits. Weakness. Standard multiplanar, multisequence MRI departmental protocol Multiplanar, multisequence images of the brain were acquired. Diffusion weighted imaging was performe d. FINDINGS: There is on the T2 and FLAIR images patchy increased signal in the periventricular white ma tter. There are some nodular is multiple scattered foci that measure up to 8 mm. Total number is appr oximately 15. There is some gyriform increased signal that measures 3 x 1.5 cm in the medial left occ ipital lobe cortex. There is a 1 cm area of increased signal in the left cerebral peduncle. There is a 1.5 cm focus of increased signal in the posterior left thalamus. The cerebellum appears intact. The re is increased signal in the right mastoid air cells. There is oval-shaped 1.5 cm area of fluid sign al in the right caudate nucleus consistent with old lacunar infarct. IMPRESSION: Cerebral atrophy. Compared to old CT scan of 12/14/2017 there is clearing of the extensive subarachnoi d hemorrhage. There is residual large lacunar infarct in the posterior left thalamus. There is modera te periventricular white matter changes consistent with chronic small vessel ischemia. Demyelinating disease is also possible since there is involvement of the corpus callosum. Abnormal gyriform signal in the left occipital lobe consistent with infarct that is new compared to o ld CT scan. Right-sided mastoiditis. Old right caudate nucleus infarct. There is left cerebral peduncle infarct of uncertain age. This could be subacute.
[2018-05-26] MEDS: amLODIPine 5 MG TAB PO SCH (20:57)
[2018-05-26] MEDS: ASPIRIN 81 MG PO SCH (20:57)
[2018-05-26] MEDS: ATORVASTATIN 10 MG TAB PO SCH (20:58)
[2018-05-26 21:23] LABS: Glucose,Whole Blood 126 mg/dL (75-99)
--- NOTE | 2018-05-26 23:19 | P.PN ---
Subjective Progress Note Date: 05/26/18 Principal diagnosis: CVA Neurology is following a 53-year-old female who was a [facility] resident with a history of stroke in early 2018 with known right upper and lower extremity weakness. Patient did have significant right-sided upper and lower extremity deficits from previous CVA. Patient presented to the ED approximate 3 -4 days ago from her residential living facility when she was unable to respond to staff. Patient was unable to follow simple commands to assess for neurological status. Patient also difficulty with speaking and some increased right-sided arm and leg weakness and presentation at the ED. Patient was nonverbal and her family members were with her during consult. Family stated previously that the right upper and lower external he weakness was unchanged from her previous deficits. Family also reported that the patient has increased cognitive decline with regard to expressive decline with a new event. Interval update 05/26/18: 0630 hrs. Patient was rounded on by provider at the noted time above. At that time, patient was alert, interactive and appeared to be progressing well. Patient still had significant right upper and lower extremity deficits but was more alert per family as well as had increased musculoskeletal strength in the right upper and lower extremities which was more consistent with her baseline at previously noted deficits. Patient was not rounded 9 on 05/25/18 due to being off the floor for EEG at time of rounding. Provider attempted 3 times to round on the patient without her being in the room. 1540 Hours: Provider was contacted by nursing staff with a report of neurological status changes while another staff member was speaking with supervising physician on a different phone. Patient was reported to be less interactive, having increased difficulty with right-sided deficit as well as less alert. Supervising physician ordered stat CT of the brain. CT brain noted no acute intracranial hemorrhage or midline shift, mild diffuse age-related cerebral atrophy and chronic small vessel ischemic changes redemonstrated. Old left-sided infarcts are redemonstrated. No significant change from most recent CT. 1730 hrs.: Provider was contacted by nursing staff with a report of neurological status changes involving patient complaining of headache, frontal. Given the patient' s neurological status changes and decline in the last few hours, patient was sent for MRI brain without contrast stat. MRI brain noted:cerebral atrophy. Compared to old CT scan of 12/14/17 there is clearing of the extensive subarachnoid hemorrhage. Residual large lacunar infarct in the posterior left thalamus. Moderate periventricular white matter changes consistent with chronic small vessel ischemia. Demyelinating disease is also possible since there is involvement of the corpus callosum. Abnormal gyriform signal in the left occipital lobe consistent with infarct that is new compared to old CT scan. Right-sided mastoiditis. Old right caudal nucleus infarct. There is left cerebral peduncle infarct of uncertain age. This could be subacute. Discussed need to transfer patient to the ICU with nursing staff. Nursing staff to contact [facility] to facilitate transfer to the ICU for every hour neuro checks and further advanced care as needed. Provider added 81 mg aspirin to Plavix daily. Continue Lipitor as previously noted. Defer further immediate management to on-site [facility]. HYPERCOAGULABILITY PANEL ORDERED Objective - Vital Signs Vital signs: Vital Signs Temp 97.1 F L 05/26/18 20:00 Pulse 96 05/26/18 20:00 Resp 18 05/26/18 20:00 BP 127/77 05/26/18 20:00 Pulse Ox 96 05/26/18 20:00 Intake & Output 05/26/18 05/26/18 05/27/18 06:59 18:59 06:59 Intake Total 118 673 60 Balance 118 673 60 Weight 70 kg Intake: Oral 118 673 60 Other: Voiding Method Diaper # Voids 1 - Exam (morning of 05/26/18) General appearance: Alert, no apparent distress. Head: Atraumatic, normocephalic, normal inspection Eyes: right visual field deficit Ear, nose and throat: Normal exam, mucous membranes moist Neck: Normal inspection, absent tenderness, lymphadenopathy. Respiratory: No increased work of breathing Cardiovascular: Regular rate, rhythm GI/abdominal: No guarding Extremities: limited range of motion with right upper and lower extremity, unilateral weakness to the right upper and lower extremity. Neurological: cranial nerves II through XII unable to be fully assessed, significantly impaired lateralizing weaknessright upper and lower extremity weaknesssignificant no seizure activity noted on physical exam no pronator drift and no nystagmus. Sensation: Left lower extremity: normal Right lower extremity: diminished Left upper extremity: normal Right upper extremity:diminished Psychological: Mood and Affect appropriate for setting - Labs CBC & Chem 7: 05/25/18 06:16 05/25/18 06:16 Labs: Abnormal Lab Results - Last 24 Hours (Table) 08/24/18 Range/Units 21:22 POC Glucose (mg/dL) 126 H (75-99) mg/dL Assessment and Plan (1) Cerebrovascular accident (CVA) of left thalamus Narrative/Plan: At this time it does appear that the patient has a another new CVA in the left occipital lobe which appears new when compared to CT. Also, left cerebral peduncle infarct of uncertain age. Could be subacute. New stroke originally found on presentation at ED was involving the left thalamus Patient is extremely difficult to assess as she is nonverbal at this time, however family state that her cognitive functioningwas improving prior to the declined this afternoon and evening. Right upper and lower extremity weakness is unchanged from previous event. Further diagnostic workup: CT brain without contrast noted area of old infarct and encephalomalacia medial left occipital lobe. Subacute on chronic infarct posterior left thalamus which has progressed or is more prominent from prior. CT brain #2 as noted in results MRI brain: As noted in results EEGordered Serum homocystine level- elevated at 15.49 Increased Lipitor to 40 mg daily at bedtime for long-term risk reduction, multiple event history patient Prescribed: 81 mg aspirin Continue: Plavix 75 mg daily continue neuro checks every hour CT angiogram notes no aneurysmal change at the level of [place], no significant focal stenosis in common or internal carotid arteries bilaterally. Treatment: Recommend PT/OT consult Recommend speech consult: Expressive aphasia, swallow status and possible diet modification, previously ordered and active. Current Visit: Yes Status: Acute Code(s): I63.9 - CEREBRAL INFARCTION, UNSPECIFIED SNOMED Code(s): 421473978 (2) Hemiparesis affecting right side as late effect of cerebrovascular accident (CVA) Narrative/Plan: Refer to #1 above for further information Current Visit: Yes Status: Acute Code(s): I69.351 - HEMIPLGA FOLLOWING CEREBRAL INFRC AFF RIGHT DOMINANT SIDE SNOMED Code(s): 518633792 (3) Altered mental status Narrative/Plan: see #1 above Current Visit: Yes Status: Acute Code(s): R41.82 - ALTERED MENTAL STATUS, UNSPECIFIED SNOMED Code(s): 842951479 (4) Expressive aphasia Narrative/Plan: Patient does appear to be experiencing new onset expressive aphasia secondary to patient's current acute/subacute stroke status. Diagnostic workup: Consult: Speech therapyexpressive aphasia, evaluation for possible swallow study/modified diet Current Visit: Yes Status: Acute Code(s): R47.01 - APHASIA SNOMED Code(s) : 154563137 (5) Hypertriglyceridemia Narrative/Plan: Patient does have mildly elevated triglycerides. Continue tricor as implemented Current Visit: Yes Status: Acute Code(s): E78.1 - PURE HYPERGLYCERIDEMIA SNOMED Code(s): 049166623 Plan: Status: Neurology will continue to follow and provide updates as needed or warranted. Contact our office with any questions I have discussed the plan of care with the physician prior to implementation and he agrees with the plan as implemented.
[2018-05-27 05:44] LABS: Basophils % (A) 0 %; Eosinophils # (A) 0.3 k/uL (0-0.7); Eosinophils % (A) 4 %; HCT 33.7 % (34.0-46.0); HGB 11.2 gm/dL (11.4-16.0); Lymphocytes # (A) 1.7 k/uL (1.0-4.8); Lymphocytes % (A) 27 %; MCH 30.5 pg (25.0-35.0); MCHC 33.3 g/dL (31.0-37.0); MCV 91.7 fL (80.0-100.0); Mean Platelet Volume 7.7; Monocytes # (A) 0.3 k/uL (0-1.0); Monocytes % (A) 5 %; Neutrophils % (A) 62 %; Platelet Count 224 k/uL (150-450); RBC 3.68 m/uL (3.80-5.40); RDW 13.8 % (11.5-15.5); WBC 6.4 k/uL (3.8-10.6)
[2018-05-27 05:59] LABS: Albumin 3.7 g/dL (3.5-5.0); Calcium 9.2 mg/dL (8.4-10.2); Magnesium 1.8 mg/dL (1.6-2.3); Phosphorus 3.8 mg/dL (2.5-4.5); Potassium 3.8 mmol/L (3.5-5.1); Total Bilirubin 0.4 mg/dL (0.2-1.3); Total Protein 6.2 g/dL (6.3-8.2)
[2018-05-27] MEDS: BROMOCRIPTINE MESYLATE 2.5 MG PO SCH ×3 (06:07→22:09)
[2018-05-27] MEDS ORDERED: Potassium Replacement Protocol 1 EACH MISC MISCELLANE PRN (06:11)
[2018-05-27] MEDS: BACLOFEN 10 MG TAB PO SCH ×3 (06:41→22:56)
[2018-05-27] MEDS: GABAPENTIN 300 MG CAP PO SCH ×3 (06:41→22:56)
[2018-05-27] MEDS ORDERED: POTASSIUM CHLORIDE ER 20 MEQ TAB.ER PO SCH (07:00)
[2018-05-27] MEDS: AMANTADINE HCL PO SCH ×2 (09:42→22:49)
[2018-05-27] MEDS: ARTIFICIAL TEARS-HYPROMELLOSE DROPS 15 ML BTL BOTH EYES SCH ×2 (09:43→21:51)
[2018-05-27] MEDS: CYCLOBENZAPRINE 10 MG TAB PO SCH (09:43)
[2018-05-27] MEDS: ASPIRIN 81 MG PO SCH (09:43)
[2018-05-27] MEDS: CLOPIDOGREL 75 MG TAB PO SCH (09:43)
[2018-05-27] MEDS: HEPARIN SODIUM,PORCINE 5,000 UNIT/ML 1 ML VIAL SQ SCH ×2 (09:44→21:52)
[2018-05-27] MEDS: LABETALOL 100 MG TAB PO SCH ×2 (09:44→22:48)
[2018-05-27] MEDS: FAMOTIDINE 20 MG TAB PO SCH ×2 (09:44→21:51)
[2018-05-27] MEDS: FENOFIBRATE 54 MG TAB PO SCH (09:44)
[2018-05-27] MEDS: levETIRAcetam 500 MG TAB PO SCH (09:44)
[2018-05-27] MEDS: SERTRALINE 50 MG TAB PO SCH (09:45)
[2018-05-27] MEDS: LOSARTAN 50 MG TAB PO SCH (09:45)
[2018-05-27] MEDS: SENNOSIDES 8.6 MG TAB PO SCH ×2 (09:45→21:52)
--- NOTE | 2018-05-27 11:58 | P.CNPUL ---
History of Present Illness Consult date: 05/27/18 Chief complaint: Right-sided weakness, CVA History of present illness: This is a 53-year-old female patient with a previous history of a subarachnoid bleed, and right-sided weakness, who is a [facility] resident and she presented to the hospital because of diminished level of consciousness and right -sided weakness on top of her chronic deficits. The patient apparently was found unable to follow simple commands. She was having difficulty with speech and increased right-sided weakness and for that reason she came into the emergency department and she was transferred then. The family confirms the deficits in the right side. Based on that, I workup was initiated. CAT scan of the brain showed no acute intracranial abnormalities and it showed mild age related cerebral atrophy with chronic small vessel ischemic changes and it also showed old infarct in the occipital area. No significant change from previous CAT scan of the head. Yesterday, the patient developed progressive weakness and at one point she was noted to be flaccid on the right side. A son that the patient got transferred to the intensive care unit. MRI of the brain was done and it showed cerebral atrophy, and there was obvious clearing of the previously described subarachnoid hemorrhage. There was residual large lacunar infarct in the posterior left thalamus and moderate periventricular white matter changes consistent with small vessel ischemia. There is also evidence of a left occipital infarct. This morning, the patient is awake. She underwent a swallow evaluation yesterday and she is still able to swallow properly without any major difficulties and she's taken her oral medications. She is still on a combination of aspirates will milligrams of Plavix 75 mg by mouth daily. She is able to move her right upper extremity. Obviously there is chronic rigidity , spasticity and contractures in the right upper extremity related to her previous strokes. The left side is within normal limits. I was able to elicit some activity in the right upper and lower extremity and is not as flaccid as was described earlier. Hemodynamically stable. Normal cardiac sinus rhythm mechanism. No aspiration. No respiratory distress. No fever or chills. No headaches. No edema in lower extremities. Neurologist on the case for now. Review of Systems Patient she understands and she is trying to follow simple commands. Nevertheless she is unable to find a right words to express. She has a right- sided weakness which is chronic related to previous CVA and there is obvious contraction spasticity. I was also told that she was having some problems with her visual field as evaluated by the neurologist on previous neurologic evaluation. Visual field evaluation cannot be done. No respiratory distress. No cough. No sputum production. No chest pain. No angina. No palpitations. No nausea or vomiting. No emesis. No diarrhea. No aspiration. No wounds or ulceration. No fall. No head trauma. No seizure activity at this point in time. No fever or chills. Past Medical History Past Medical History: CVA/TIA, Hyperlipidemia, Hypertension Additional Past Medical History / Comment(s): Previous history of subarachnoid bleed/intracranial hemorrhage related to hypertensive urgency and the patient had prolonged hospitalization at [facility] in December 2013 and her course was complicated by prolonged ventilator dependent respiratory failure requiring tracheostomy tube insertion of PEG tube insertion all reversed for now and the patient has been maintained on Keppra for seizure precautions. Hypertension, hyperlipidemia, hydrocephalus History of Any Multi-Drug Resistant Organisms: VRE Date of last positivie culture/infection: 05/04/18 MDRO Source:: VRE URINE Past Surgical History: Section Additional Past Surgical History / Comment(s): Tracheostomy placement Past Psychological History: No Psychological Hx Reported Smoking Status: Never smoker Past Alcohol Use History: None Reported Past Drug Use History: None Reported - Past Family History Father Family Medical History: Unable to Obtain (patient doesn't know much about her father she currently has a stepfather.) Mother Family Medical History: Hypertension (mother is 80-year-old has history of hypertension.) Daughter(s) Family Medical History: No Reported History (patient has 2 daughters no major medical problems) Son(s) Family Medical History: No Reported History (patient has 2 sons no major medical problems.) Medications and Allergies Home Medications Medication Instructions Recorded Confirmed Type Acetaminophen Tab [Tylenol] 650 mg PO Q4H PRN 01/26/18 05/23/18 History Atorvastatin [Lipitor] 10 mg PO HS 01/26/18 05/23/18 History Bromocriptine Mesylate [Parlodel] 2.5 mg PO TID@06,14,22 01/26/18 05/23/18 History Ranitidine HCl [Zantac] 150 mg PO BID 01/26/18 05/23/18 History Amantadine 50mg 50 mg PO BID 05/23/18 05/23/18 History Artificial Tears-Hypromellose 1 drops BOTH EYES BID 05/23/18 05/23/18 History [Artificial Tear Drops] Baclofen [Lioresal] 10 mg PO TID@,,05/23/18 05/23/18 History Cyclobenzaprine [Flexeril] 10 mg PO BID 05/23/18 05/23/18 History Gabapentin [Neurontin] 300 mg PO TID@,05/23/18 05/23/18 History Lactose-Reduced Food [Ensure Plus] 240 ml PO BID@05/23/18 05/23/18 History Losartan Potassium 100 mg PO DAILY 05/23/18 05/23/18 History Mylanta 30 ml PO Q6H PRN 05/23/18 05/23/18 History Ondansetron [Zofran] 4 mg PO Q6H PRN 05/23/18 05/23/18 History Sennosides [Senna] 17.2 mg PO BID 05/23/18 05/23/18 History Sertraline [Zoloft] 50 mg PO DAILY 05/23/18 05/23/18 History levETIRAcetam [Keppra] 500 mg PO BID 05/23/18 05/23/18 History Clopidogrel [Plavix] 75 mg PO DAILY tab 05/26/18 Rx Fenofibrate [Lofibra] 54 mg PO DAILY tab 05/26/18 Rx Hydrocodone/Acetaminophen [[place] 1 tab PO Q12H PRN 3 Days #6 tab 05/26/18 Rx 7.5-325] Labetalol [Trandate] 300 mg PO BID tab 05/26/18 Rx amLODIPine [Norvasc] 5 mg PO HS tab 05/26/18 Rx Allergies Allergy/AdvReac Type Severity Reaction Status Date / Time codeine Allergy Unknown Verified 05/23/18 13:42 Physical Exam Vitals: Vital Signs Temp Pulse Pulse Resp BP BP Pulse Ox 05/27/18 11:00 88 12 125/77 99 05/27/18 10:00 103 H 12 119/70 99 05/27/18 09:00 104 H 12 119/74 98 05/27/18 08:00 97.4 F L 87 12 126/83 97 05/27/18 07:00 83 11 L 110/72 99 05/27/18 06:00 93 15 112/72 99 05/27/18 05:00 89 12 129/73 99 05/27/18 04:00 99.8 F H 92 16 111/61 99 05/27/18 03:00 95 17 104/66 99 05/27/18 02:00 97 16 95/62 99 05/27/18 01:00 97 17 116/65 99 05/27/18 00:00 99.3 F 95 16 147/81 98 05/26/18 23:00 95 16 147/81 98 05/26/18 22:00 105 H 17 147/81 99 05/26/18 21:37 98.6 F 109 H 19 148/90 99 05/26/18 20:00 97.1 F L 96 18 127/77 96 05/26/18 16:00 97.8 F 98 14 132/78 98 05/26/18 12:00 97.0 F L 88 14 120/78 100 Intake and Output 05/26/18 05/27/18 05/27/18 22:59 06:59 14:59 Intake Total 297 300 Balance 297 300 Intake: Oral 297 300 Other: Voiding Method Diaper Diaper Diaper # Voids 0 1 Weight 65.3 kg 65.3 kg Patient is awake and she follows simple commands. She is aware that she is in the hospital at this point in time. Head exam was generally normal. There was no scleral icterus or corneal arcus. Mucous membranes were moist. Neck was supple and without jugular venous distension, thyromegaly, or carotid bruits. Carotids were easily palpable bilaterally. There was no adenopathy. Lungs were clear to auscultation and percussion, and with normal diaphragmatic excursion. No wheezes or rales were noted. Cardiac exam revealed the PMI to be normally situated and sized. The rhythm was regular and no extrasystoles were noted during several minutes of auscultation. The first and second heart sounds were normal and physiologic splitting of the second heart sound was noted. There were no murmurs, rubs, clicks, or gallops. Abdominal exam revealed normal bowel sounds. The abdomen was soft, non-tender, and without masses, organomegaly, or appreciable enlargement of the abdominal aorta. Examination of the extremities revealed easily palpable radial, femoral and pedal pulses. There was no cyanosis, clubbing or edema. Neurologically the patient has weakness and contractures and spasticity in the right upper and right lower extremity. Motor functions +2/5 in the right upper and right lower extremity. There is also normal motor function on the left. No facial asymmetry noted. Pupils are equal and reactive to light. Results - Laboratory Findings CBC and BMP: 05/27/18 05:06 05/27/18 05:06 PT/INR, D-dimer PT 10.0 sec (9.0-12.0) 05/23/18 13:55 INR 1.0 (<1.2) 05/23/18 13:55 Abnormal lab findings: Abnormal Labs 05/23/18 05/23/18 05/23/18 13:55 13:55 13:55 RBC 3.71 L Hgb Hct 33.2 L Chloride 111 H BUN 21 H Creatinine 1.20 H POC Glucose (mg/dL) AST 37 H ALT 66 H Total Protein Triglycerides 172 H Homocysteine 05/25/18 05/25/18 05/25/18 06:16 06:16 06:16 RBC 3.57 L Hgb 11.1 L Hct 32.8 L Chloride 112 H BUN Creatinine 1.10 H POC Glucose (mg/dL) AST 40 H ALT 65 H Total Protein 6.1 L Triglycerides Homocysteine 15.49 H 05/26/18 05/27/18 05/27/18 21:22 05:06 05:06 RBC 3.68 L Hgb 11.2 L Hct 33.7 L Chloride 112 H BUN 21 H Creatinine 1.30 H POC Glucose (mg/dL) 126 H AST ALT 76 H Total Protein 6.2 L Triglycerides Homocysteine Assessment and Plan Plan: Assessment 1 acute CVA. The patient obviously has some new onset weakness on the right side and there is a series of neurologic workup done including series of CAT scan of the brain that showed old infarct and encephalomalacia involving the left occipital lobe and there is a subacute/chronic infarct involving the posterior left thalamus and this has been followed up by an MRI of the brain that showed cerebral atrophy, residual large lacunar infarct in the posterior left thalamus, moderate periventricular white matter changes consistent with small vessel ischemia in addition to left cerebral peduncle infarct of an undetermined age, possibly subacute 2 altered mental status, improving 3 expressive aphasia 4 normal swallow 5 hyperlipidemia Plan Continue aspirin and Plavix. High-dose statins. Obtain a echocardiogram to assess LV function and make sure there is no intracardiac thrombus. Maybe if he is a later stage. Monitor cardiac rhythm. Monitor blood pressure. Hypercoagulable workup was ordered to be sent by neurology. 3. Neuro checks. We'll continue monitoring this patient in ICU. We'll continue to follow. She is on heparin subcu for DVT prophylaxis. She is also on Pepcid.
--- NOTE | 2018-05-27 16:24 | P.PN ---
Subjective Progress Note Date: 05/27/18 This is a 53 year-old female patient of Dr. Amaya with past medical history of intracranial hemorrhage related to hypertensive urgency on 12/14 patient was hospitalized at [facility] for a month during which she got tracheostomy and PEG tube placed on 12/27 and was initiated on Keppra for seizure precautions. Other significant history includes right brachial artery thrombosis, history of prolonged QT hold is currently a resident of [facility] for the past 4 months, patient was doing fine and the upper and she became unresponsive at [facility] and the patient was transported to the hospital at [facility] emergency department had a computed tomography scan of the brain that did show an old the left occipital CVA plus a better visualization of what appears to be subacute thalamic infarct, because of that she was admitted to the hospital, neurology consultation was obtained, CT angiography did not show any evidence of aneurysm or any stenosis. Patient was examined and her daughter was at the bedside and she stated that her mother is back to her baseline. 05/25: Patient apparently did not sleep at all during the night is now very sleepy. She is arousable and is alert. Her daughter is at bedside. Blood sugars are improved today. She did not receive labetalol last evening. We will decrease labetalol in half to 300 mg twice daily and decrease Norvasc from 10 mg to 5 mg at bedtime. We will plan to monitor overnight and discharge back to [facility] tomorrow. 05/26: EEG is considered within normal limits. Homocysteine 15.49. Neurology has recommended changing aspirin to Plavix and added in fenofibrate. Blood pressure is currently stable with the recent medication changes. Patient is at her baseline and will be discharged back to [facility] today in stable condition. 05/27: Patient was transferred to ICU overnight secondary to progressive mental status changes with new MRI showing acute CVA, in the cerebral peduncle. Patient remains in ICU, patient awakes with verbal command, can follow commands which is different from my last examination as have known [facility] [place], we'll going to hold off morning dose off cyclobenzaprine. Continue on baclofen, precautions aspiration seizure precautions. Hypercoagulopathy workup ordered. On aspirin and Plavix Objective - Vital Signs Vital signs: Vital Signs Temp 97.4 F L 05/27/18 08:00 Pulse 88 05/27/18 11:00 Resp 12 05/27/18 11:00 BP 125/77 05/27/18 11:00 Pulse Ox 99 05/27/18 11:00 Intake & Output 05/26/18 05/27/18 05/27/18 18:59 06:59 18:59 Intake Total 673 60 300 Balance 673 60 300 Weight 65.3 kg 65.3 kg Intake: Oral 673 60 300 Other: Voiding Method Diaper Diaper # Voids 0 1 - Constitutional General appearance: Present: cooperative, no acute distress - EENT Eyes: Present: anicteric sclerae, PERRLA - Respiratory Respiratory: bilateral: CTA, diminished, negative: dullness, rales, rhonchi, wheezing - Cardiovascular Rhythm: regular Heart sounds: normal: S1, S2 Abnormal Heart Sounds: Absent: systolic murmur, diastolic murmur, rub, S3 Gallop , S4 Gallop, click, other - Gastrointestinal General gastrointestinal: Present: normal bowel sounds, soft. Absent: absent bowel sounds, decreased bowel sounds, distended, hepatomegaly, hyperactive bowel sounds, organomegaly, rigid, scaphoid, splenomegaly, tenderness, umbilical hernia, ventral hernia - Musculoskeletal Musculoskeletal: Present: right sided weakness - Psychiatric Psychiatric: Present: A&O x's 3 - Labs CBC & Chem 7: 05/27/18 05:06 05/27/18 05:06 Labs: Abnormal Lab Results - Last 24 Hours (Table) 05/26/18 05/27/18 05/27/18 Range/Units 21:22 05:06 05:06 RBC 3.68 L (3.80-5.40) m/uL Hgb 11.2 L (11.4-16.0) gm/dL Hct 33.7 L (34.0-46.0) % Chloride 112 H (98-107) mmol/L BUN 21 H (7-17) mg/dL Creatinine 1.30 H (0.52-1.04) mg/dL POC Glucose (mg/dL) 126 H (75-99) mg/dL ALT 76 H (9-52) U/L Total Protein 6.2 L (6.3-8.2) g/dL Assessment and Plan Plan: 1. Subacute thalamic infarct and suspected new cerebral peduncle infarct based on MRI. Unclear of its duration, patient did have a CT angiography that did not show any evidence of any stenosis or aneurysm, she did have a computed tomography scan of the brain as stated above, patient will be kept for neuro check every 2 hours for the next 24 hours, patient also would be seen in consultation by neurology, patient will be started on antiplatelet therapy aspirin 81 mg once every day, Lipitor 10 mg orally once every day. 2. History of prior intracranial bleed. Approximately December 2017 secondary to uncontrolled hypertension Continue to monitor her blood pressure very closely. Aspirin is initiated secondary to CVA 3. Hypertension and hypertensive cardiovascular disease. Continue losartan 100 mg orally once every day, amlodipine crease to 5 mg orally once every day, labetalol decreased to 300 mg orally twice every day. 4. Hyperlipidemia. Continue patient on Lipitor 10 mg orally once every day. 5. Right-sided weakness with aphasia secondary to her prior intracranial bleed. Continue patient on baclofen 10 mg orally 3 times every day as well as a Flexeril 10 mg orally twice every day. Patient already was started on gabapentin 300 mg orally 3 times every day as well as Symmetrel . 6. History of prolonged QT avoid drug that prolonged QT. 7. Recurrent depression. Continue Zoloft 50 mg orally once every day. 8. DVT prophylaxis. Continue patient on knee-high JONH hose and the heparin 5000 units subcutaneously every 12 hours. 9. GI prophylaxis. Continue Pepcid 20 mg orally twice every day. 10. Full code. 11. Hypersomnia, with going to decrease Flexeril to 10 mg at bedtime on telemetry, discontinue a.m. dose, continue baclofen, continue to monitor for seizures and mentation Discharge plan: Return to [facility] tomorrow
[2018-05-27 17:24] LABS: Cardiolipin Ab IgG Interp NEGATIVE (NEGATIVE); Cardiolipin Ab IgM Interp NEGATIVE (NEGATIVE); Cardiolipin IgA Antibody <0.5 U/mL; Cardiolipin IgM Antibody 0.3 U/mL
--- NOTE | 2018-05-27 17:40 | ECHOF ---
Referral Reason:cva MEASUREMENTS -------- HEIGHT: 162.6 cm WEIGHT: 64.9 kg BP: 125/77 IVSd: 1.8 cm (0.6 - 1.1) LVIDd: 3.2 cm (3.9 - 5.3) LVPWd: 1.4 cm (0.6 - 1.1) IVSs: 1.9 cm LVIDs: 1.9 cm LVPWs: 1.9 cm LA Diam: 3.0 cm (2.7 - 3.8) RVIDd: 2.6 cm (< 3.3) LAESV Index (A-L): 25.64 ml/m Ao Diam: 2.8 cm (2.0 - 3.7) LA Diam: 3.0 cm (2.7 - 3.8) AV Cusp: 1.7 cm (1.5 - 2.6) EPSS: 0.1 cm MV E Driss: 0.71 m/s MV DecT: 351 ms MV A Driss: 0.93 m/s MV E/A Ratio: 0.77 MV EF SLOPE: 60.05 mm/s (70 - 150) MV EXCURSION: 16.36 mm (> 18.000) FINDINGS -------- Sinus rhythm. This was a technically adequate study. There is severe concentric left ventricular hypertrophy. Overall left ventricular systolic function is normal with, an EF between 60 - 65 %. The right ventricle is normal in size. The left atrial size is normal. The right atrial size is normal. The aortic valve is trileaflet, and appears structurally normal. No aortic stenosis or regurgitation. Mild mitral regurgitation is present. Mild tricuspid regurgitation present. There is no evidence of pulmonary hypertension. The right v entricular systolic pressure, as measured by Doppler, is {RVSP}. Trace/mild (physiologic) pulmonic regurgitation. The aortic root size is normal. There is a small, generalized pericardial effusion present. CONCLUSIONS -------- 1. There is severe concentric left ventricular hypertrophy. 2. Overall left ventricular systolic function is normal with, an EF between 60 - 65 %. 3. The right ventricle is normal in size. 4. The left atrial size is normal. 5. The right atrial size is normal. 6. The aortic valve is trileaflet, and appears structurally normal. No aortic stenosis or regurgitati on. 7. Mild mitral regurgitation is present. 8. Mild tricuspid regurgitation present. 9. There is no evidence of pulmonary hypertension. 10. The right ventricular systolic pressure, as measured by Doppler, is {RVSP}. 11. Trace/mild (physiologic) pulmonic regurgitation. 12. The aortic root size is normal. 13. There is a small, generalized pericardial effusion present. WORKING SECOND HAND: Farrah Miles RDCS
[2018-05-27] MEDS ORDERED: DEXAMETHASONE SOD PHOSPHATE 10 MG/ML 1 ML VIAL IV STA (19:47)
[2018-05-27] MEDS ORDERED: CYCLOBENZAPRINE 10 MG TAB PO SCH (20:00)
[2018-05-27 20:18] LABS: Basophils % (A) 1 %; Eosinophils # (A) 0.3 k/uL (0-0.7); Eosinophils % (A) 5 %; HCT 31.4 % (34.0-46.0); HGB 10.5 gm/dL (11.4-16.0); Lymphocytes # (A) 1.6 k/uL (1.0-4.8); Lymphocytes % (A) 29 %; MCH 30.3 pg (25.0-35.0); MCHC 33.4 g/dL (31.0-37.0); MCV 90.7 fL (80.0-100.0); Mean Platelet Volume 7.5; Monocytes # (A) 0.3 k/uL (0-1.0); Monocytes % (A) 6 %; Neutrophils # (A) 3.2 k/uL (1.3-7.7); Neutrophils % (A) 58 %; Platelet Count 189 k/uL (150-450); RBC 3.47 m/uL (3.80-5.40); RDW 13.6 % (11.5-15.5); WBC 5.5 k/uL (3.8-10.6)
[2018-05-27] MEDS ORDERED: SODIUM CHLORIDE 0.9% 500 ML IV ONE (20:23)
[2018-05-27 20:27] LABS: INR 1.1 (<1.2); Partial Thromboplastin Time 23.4 sec (22.0-30.0); Prothrombin Time 10.3 sec (9.0-12.0)
[2018-05-27 20:28] LABS: Calcium 8.8 mg/dL (8.4-10.2); Potassium 3.9 mmol/L (3.5-5.1); Total Bilirubin 0.5 mg/dL (0.2-1.3); Total Protein 5.4 g/dL (6.3-8.2)
[2018-05-27] MEDS ORDERED: SODIUM CHLORIDE 0.9% 1,000 ML IV SCH (20:30)
--- NOTE | 2018-05-27 20:43 | CT ---
EXAMINATION TYPE: CT brain wo con for TPA DATE OF EXAM: 05/27/2018 COMPARISON: Prior CT brain 05/26/2018 HISTORY: Neuro deficits. CT DLP: 1040.3 mGycm Automated exposure control for dose reduction was used. Helical acquisition through the brain without contrast. FINDINGS: The exam shows a stable appearance. There is encephalomalacia as noted on prior, cerebral peduncle on the left is decreased in size and shows low attenuation, loss of hicks matter seen in a similar distr ibution in the left occipital lobe, thalamus. No acute brain abnormality, no hemorrhage or hydrocepha sinai evident. Orbits show a symmetric appearance. Inflammatory change present in the mastoid air cells on the right IMPRESSION: NO SIGNIFICANT INTERVAL CHANGE. CHRONIC ISCHEMIC CHANGES. NO ACUTE ABNORMALITY.
[2018-05-27] MEDS ORDERED: levETIRAcetam 500 MG TAB PO SCH (21:00)
--- NOTE | 2018-05-27 21:02 | CT ---
EXAMINATION TYPE: CT angio head neck DATE OF EXAM: 05/27/2018 HISTORY: Neuro deficits. COMPARISON: Prior CTA of the head and neck from 05/23/2018 CT DLP: 344.8 mGycm. Automated Exposure Control for Dose Reduction was Utilized. TECHNIQUE: CTA scan of the neck is performed with IV Contrast, patient injected with 65ml mL of Isov ue 370, axial images are obtained, coronal and sagittal reformatted images are reviewed. Three-D monica nstructed images are created on an independent workstation and reviewed. FINDINGS: Carotid/Vascular Structures: Stable, no evident aneurysm, dissection, or embolus. Common carotid nicolasa dean are patent. No significant internal carotid artery stenosis, [place] of [place] shows a stable brock earance. No evident embolus or aneurysm. 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 Breast implants are again noted. Lung apices within nor mal limits. Posterior midline fusion anomaly at C1 noted incidentally. IMPRESSION: No significant interval change is seen. No significant abnormality, no embolus or aneury sm, no evident dissection.
[2018-05-27] MEDS: amLODIPine 5 MG TAB PO SCH (21:51)
[2018-05-27] MEDS: ATORVASTATIN 10 MG TAB PO SCH (21:51)
--- NOTE | 2018-05-27 22:07 | P.PN ---
Subjective Progress Note Date: 05/27/18 Principal diagnosis: CVA Interval update 05/27/18: 0800 hrs. Patient was rounded on with ICU tank truck mechanic, Dr. Castellanos. Providers reviewed the previous imaging reports, physical exam was conducted. Patient does have contracture, spasticity in the right upper and lower extremities. This does appear more than previous baseline however improved from completely flaccid late yesterday evening. Providers did note some improvement with regard to the patient's right upper and lower extremity weakness however, patient is not back to patient's previously known baseline with known deficits. This provider has rounded on the patient several times and is very familiar with the patient's physical exam findings. Patient appeared to struggle more with attempting to convey information to providers versus in the past several days. Patient is unable to speak however, but patient will attempt to speak but is unable to get her words out. This process appears much more difficult for the patient day over day. Interval update 05/26/18: 0630 hrs. Patient was rounded on by provider at the noted time above. At that time, patient was alert, interactive and appeared to be progressing well. Patient still had significant right upper and lower extremity deficits but was more alert per family as well as had increased musculoskeletal strength in the right upper and lower extremities which was more consistent with her baseline at previously noted deficits. Patient was not rounded 9 on 05/25/18 due to being off the floor for EEG at time of rounding. Provider attempted 3 times to round on the patient without her being in the room. 1540 Hours: Provider was contacted by nursing staff with a report of neurological status changes while another staff member was speaking with supervising physician on a different phone. Patient was reported to be less interactive, having increased difficulty with right-sided deficit as well as less alert. Supervising physician ordered stat CT of the brain. CT brain noted no acute intracranial hemorrhage or midline shift, mild diffuse age-related cerebral atrophy and chronic small vessel ischemic changes redemonstrated. Old left-sided infarcts are redemonstrated. No significant change from most recent CT. 1730 hrs.: Provider was contacted by nursing staff with a report of neurological status changes involving patient complaining of headache, frontal. Given the patient' s neurological status changes and decline in the last few hours, patient was sent for MRI brain without contrast stat. MRI brain noted:cerebral atrophy. Compared to old CT scan of 12/14/17 there is clearing of the extensive subarachnoid hemorrhage. Residual large lacunar infarct in the posterior left thalamus. Moderate periventricular white matter changes consistent with chronic small vessel ischemia. Demyelinating disease is also possible since there is involvement of the corpus callosum. Abnormal gyriform signal in the left occipital lobe consistent with infarct that is new compared to old CT scan. Right-sided mastoiditis. Old right caudal nucleus infarct. There is left cerebral peduncle infarct of uncertain age. This could be subacute. Discussed need to transfer patient to the ICU with nursing staff. Nursing staff to contact tank truck mechanic to facilitate transfer to the ICU for every hour neuro checks and further advanced care as needed. Provider added 81 mg aspirin to Plavix daily. Continue Lipitor as previously noted. Defer further immediate management to on-site tank truck mechanic. HYPERCOAGULABILITY PANEL ORDERED Neurology is following a 53-year-old female who was a group home resident with a history of stroke in early 2018 with known right upper and lower extremity weakness. Patient did have significant right-sided upper and lower extremity deficits from previous CVA. Patient presented to the ED approximate 3 -4 days ago from her residential living facility when she was unable to respond to staff. Patient was unable to follow simple commands to assess for neurological status. Patient also difficulty with speaking and some increased right-sided arm and leg weakness and presentation at the ED. Patient was nonverbal and her family members were with her during consult. Family stated previously that the right upper and lower external he weakness was unchanged from her previous deficits. Family also reported that the patient has increased cognitive decline with regard to expressive decline with a new event. Objective - Vital Signs Vital signs: Vital Signs Temp 98.5 F 05/27/18 16:00 Pulse 81 05/27/18 21:15 Resp 8 L 05/27/18 21:15 BP 138/77 05/27/18 21:15 Pulse Ox 95 05/27/18 19:45 Intake & Output 05/27/18 05/27/18 05/28/18 06:59 18:59 06:59 Intake Total 60 1100 0 Output Total 50 Balance 60 1050 0 Weight 65.3 kg 65.3 kg Intake: Oral 60 1100 0 Output: Urine 50 Other: Voiding Method Diaper Diaper # Voids 0 1 - Exam (morning of 05/27/18) DIFFICULT TO ASSESS ENTIRE PHYSICAL EXAM- PATIENT IS NON VERBAL General appearance: Alert, no apparent distress. Head: Atraumatic, normocephalic, normal inspection Eyes: right visual field deficit Ear, nose and throat: Normal exam, mucous membranes moist Neck: Normal inspection, absent tenderness, lymphadenopathy. Respiratory: No increased work of breathing Cardiovascular: Regular rate, rhythm GI/abdominal: No guarding Extremities: limited range of motion with right upper and lower extremity, spasticity, contracture unilateral weakness to the right upper and lower extremity. Neurological: cranial nerves II through XII unable to be fully assessed, significantly impaired lateralizing weaknessright upper and lower extremity weaknesssignificant no seizure activity noted on physical exam Sensation: Left lower extremity: normal Right lower extremity: diminished Left upper extremity: normal Right upper extremity:diminished - Labs CBC & Chem 7: 05/27/18 20:05 05/27/18 20:05 Labs: Abnormal Lab Results - Last 24 Hours (Table) 05/27/18 05/27/18 05/27/18 Range/Units 05:06 05:06 20:05 RBC 3.68 L 3.47 L (3.80-5.40) m/uL Hgb 11.2 L 10.5 L (11.4-16.0) gm/dL Hct 33.7 L 31.4 L (34.0-46.0) % Chloride 112 H (98-107) mmol/L BUN 21 H (7-17) mg/dL Creatinine 1.30 H (0.52-1.04) mg/dL ALT 76 H (9-52) U/L Total Protein 6.2 L (6.3-8.2) g/dL Albumin (3.5-5.0) g/dL 05/27/18 Range/Units 20:05 RBC (3.80-5.40) m/uL Hgb (11.4-16.0) gm/dL Hct (34.0-46.0) % Chloride 109 H (98-107) mmol/L BUN (7-17) mg/dL Creatinine 1.12 H (0.52-1.04) mg/dL ALT 60 H (9-52) U/L Total Protein 5.4 L (6.3-8.2) g/dL Albumin 3.0 L (3.5-5.0) g/dL Assessment and Plan (1) Cerebrovascular accident (CVA) of left thalamus Narrative/Plan: At this time it does appear that the patient has a another new CVA in the left occipital lobe which appears new when compared to CT. Also, left cerebral peduncle infarct of uncertain age. Could be subacute. New stroke originally found on presentation at ED was involving the left thalamus Patient is extremely difficult to assess as she is nonverbal at this time. Her cognitive functioning declined yesterday afternoon and evening. Right upper and lower extremity weakness is improved from completely flacid state late yesterday but not back to previous baseline early yesterday. Patient is currently in the ICU. Further diagnostic workup: CT brain without contrast noted area of old infarct and encephalomalacia medial left occipital lobe. Subacute on chronic infarct posterior left thalamus which has progressed or is more prominent from prior. CT brain #2 as noted in results MRI brain: As noted in results EEGordered Serum homocystine level- elevated at 15.49 Increased Lipitor to 40 mg daily at bedtime for long-term risk reduction, multiple event history patient Prescribed: 81 mg aspirin Continue: Plavix 75 mg daily continue neuro checks every hour CT angiogram notes no aneurysmal change at the level of platinum of [place], no significant focal stenosis in common or internal carotid arteries bilaterally. hypercoagulability panel was ordered yesterday with additional hypercoagulability labs added this morning. Treatment: Continue neuro checks every hour or as implemented by tank truck mechanic defer correctable etiologies to primary team further treatment options once the results of laboratory blood work is received and reviewed. Current Visit: Yes Status: Acute Code(s): I63.9 - CEREBRAL INFARCTION, UNSPECIFIED SNOMED Code(s): 670585609 (2) Hemiparesis affecting right side as late effect of cerebrovascular accident (CVA) Current Visit: Yes Status: Acute Code(s): I69.351 - HEMIPLGA FOLLOWING CEREBRAL INFRC AFF RIGHT DOMINANT SIDE SNOMED Code(s): 455212547 (3) Altered mental status Narrative/Plan: see #1 above Current Visit: Yes Status: Acute Code(s): R41.82 - ALTERED MENTAL STATUS, UNSPECIFIED SNOMED Code(s): 086710597 (4) Expressive aphasia Narrative/Plan: Patient does appear to be experiencing new onset expressive aphasia secondary to patient's current acute/subacute stroke status. Diagnostic workup: Consult: Speech therapyexpressive aphasia, evaluation for possible swallow study/modified diet Current Visit: Yes Status: Acute Code(s): R47.01 - APHASIA SNOMED Code(s) : 946783322 (5) Hypertriglyceridemia Narrative/Plan: Patient does have mildly elevated triglycerides. Continue tricor as implemented Current Visit: Yes Status: Acute Code(s): E78.1 - PURE HYPERGLYCERIDEMIA SNOMED Code(s): 763098305 Plan: Status: Neurology will continue to follow and provide updates as needed or warranted. Contact our office with any questions I have discussed the plan of care with the physician prior to implementation and he agrees with the plan as implemented.
[2018-05-27 23:15] VITALS: PULSE 82
[2018-05-28] MEDS ORDERED: DEXAMETHASONE SOD PHOSPHATE 4 MG/ML 1 ML VIAL IV SCH
[2018-05-28 01:35] VITALS: BP 132/88; RESP 10; TEMP 98.2
[2018-05-29 13:52] LABS: Protein S Antigen 107 % (50 - 140)
[2018-05-29 14:15] LABS: APTT 38 Sec(s) (<43); Dilute Russell Viper Venom 40 Sec(s) (<44)
[2018-05-29 14:31] LABS: C-ANCA <1:20 Titer (<1:20); P-ANCA <1:20 Titer (<1:20)
[2018-05-30 10:41] LABS: Protein C Antigen 113 % (72-160)
[2018-05-30 13:30] LABS: Protein C (Activity) 101 % (71-138)
[2018-05-30 13:38] LABS: Free Protein S Antigen 90 % (50 - 147)
[2018-05-31 13:28] LABS: Von Willebrand Factor Antigen 205 % (52-214)
== END 2018-05-28 04:46 | DRG 64 ==
LOC: EC 13:39 → 6SEL 16:03 → 6ICU 05-26 21:34
PROVIDERS: ADMIT Internal Medicine; ATTEND Internal Medicine
DX: I63.8 Other cerebral infarction (principal); R40.2222 Coma scale, best verbal response, incomprehensible words, at arrival to emergency department; F33.9 Major depressive disorder, recurrent, unspecified; I69.351 Hemiplegia and hemiparesis following cerebral infarction affecting right dominant side; G91.9 Hydrocephalus, unspecified; R47.01 Aphasia; H53.9 Unspecified visual disturbance; R40.2332 Coma scale, best motor response, abnormal flexion, at arrival to emergency department; R40.2142 Coma scale, eyes open, spontaneous, at arrival to emergency department; I11.9 Hypertensive heart disease without heart failure; E78.1 Pure hyperglyceridemia; E78.5 Hyperlipidemia, unspecified; H70.91 Unspecified mastoiditis, right ear; Z79.02 Long term (current) use of antithrombotics/antiplatelets; Z79.82 Long term (current) use of aspirin; Z82.49 Family history of ischemic heart disease and other diseases of the circulatory system; R56.9 Unspecified convulsions; G31.9 Degenerative disease of nervous system, unspecified; Z88.5 Allergy status to narcotic agent; R29.720 NIHSS score 20
CPT/HCPCS: 36415; 70450; 70496; 70498; 70551; 71046; 74230; 80053; 80061; 81240; 81241; 81291; 82550; 82553; 83090; 83735; 84100; 84484; 85025; 85246; 85300; 85301; 85302; 85303; 85305; 85306; 85610; 85613; 85730; 86038; 86147; 86255; 93005; 93306; 95816; 96360; 99285

== ENCOUNTER 2019-03-04 04:03 | Emergency (ER) | payer BC, OTHER ==
[2019-03-04] MEDS ORDERED: NITROGLYCERIN OINT 1 INCH/GM PACKET TOPICAL STA (04:18)
[2019-03-04] MEDS ORDERED: LABETALOL SYRINGE 5 MG/ML IVP STA (04:19)
[2019-03-04 04:34] LABS: Basophils % (A) 0 %; Eosinophils # (A) 0.3 k/uL (0-0.7); Eosinophils % (A) 4 %; HCT 32.8 % (34.0-46.0); HGB 11.2 gm/dL (11.4-16.0); Lymphocytes # (A) 1.4 k/uL (1.0-4.8); Lymphocytes % (A) 19 %; MCH 29.7 pg (25.0-35.0); MCHC 34.2 g/dL (31.0-37.0); MCV 86.9 fL (80.0-100.0); Mean Platelet Volume 7.6; Monocytes # (A) 0.4 k/uL (0-1.0); Monocytes % (A) 5 %; Neutrophils % (A) 70 %; Platelet Count 244 k/uL (150-450); RBC 3.78 m/uL (3.80-5.40); RDW 14.5 % (11.5-15.5); WBC 7.1 k/uL (3.8-10.6)
[2019-03-04 04:46] LABS: Albumin 3.4 g/dL (3.5-5.0); Calcium 8.8 mg/dL (8.4-10.2); D-Dimer 0.55 mg/L FEU (<0.60); Partial Thromboplastin Time 23.6 sec (22.0-30.0); Potassium 3.7 mmol/L (3.5-5.1); Prothrombin Time 10.3 sec (9.0-12.0); Total Bilirubin 0.4 mg/dL (0.2-1.3)
[2019-03-04 04:55] VITALS: RESP 18
--- NOTE | 2019-03-04 05:48 | XR ---
EXAM: XR Chest, 1 View CLINICAL HISTORY: : chest pain TECHNIQUE: Frontal view of the chest. COMPARISON: 05/23/18 FINDINGS: Lungs: Unremarkable. No consolidation. Pleural space: Unremarkable. No pneumothorax. Heart: Unremarkable. No cardiomegaly. Mediastinum: Unremarkable. Bones/joints: Unremarkable. IMPRESSION: Normal chest x-ray.
--- NOTE | 2019-03-04 07:39 | ED ---
Chest Pain HPI - General Chief Complaint: Chest Pain Stated Complaint: Chest Pain Time Seen by Provider: 03/04/19 04:12 Source: patient Mode of arrival: EMS Limitations: physical limitation - History of Present Illness Initial Comments: 's patient is 54-year-old woman coming by ambulance from her long-term care facility to be evaluated for substernal chest pain. History is somewhat limited as patient has significant expressive aphasia. She is mainly communicating through signaling yes and no. Patient does indicate she had substernal chest pain developed longer and hour ago. The pain has resolved now but did last between 5 and 10 minutes. She states it was an aching pain. Moderately severe intensity. Again the pain has resolved. She did not notice worsening or relieving factors. There were no associated symptoms. MD Complaint: chest pain Onset/Timin -: hour(s) Onset: during rest Pain Location: substernal Pain Radiation: none Severity: moderate Quality: dull Consistency: now resolved Improves With: nothing Worsens With: nothing Treatments Prior to Arrival: none - Related Data Home Medications Medication Instructions Recorded Confirmed Acetaminophen Tab [Tylenol] 650 mg PO Q4H PRN 01/26/18 03/05/19 Atorvastatin [Lipitor] 10 mg PO HS@209901/26/18 03/05/19 Baclofen [Lioresal] 10 mg PO TID@0600,1400,0 05/23/18 03/05/19 Cyclobenzaprine [Flexeril] 10 mg PO BID@0900,2100 05/23/18 03/05/19 Sennosides [Senna] 8.6 mg PO BID 05/23/18 03/05/19 Sertraline [Zoloft] 50 mg PO DAILY@0900 05/23/18 03/05/19 levETIRAcetam [Keppra] 500 mg PO BID@0600,2200 05/23/18 03/05/19 Aspirin EC [Ecotrin Low Dose] 81 mg PO DAILY@0900 03/04/19 03/05/19 Bisacodyl 10 mg RECTAL DAILY PRN 03/04/19 03/05/19 Butalbital/Apap 50/325mg 1 tab PO Q4H PRN 03/04/19 03/05/19 Cefuroxime [Ceftin] 250 mg PO BID@0900,209903/04/1919 Gabapentin [Neurontin] 400 mg PO TID@0600,1400,2200 03/04/19 03/05/19 Ipratropium-Albuterol Nebulize 3 ml INHALATION RT-Q6H PRN 03/04/19 03/05/19 [Duoneb 0.5 mg-3 mg/3 ml Soln] Labetalol [Trandate] 400 mg PO BID@0900,2100 03/04/19 03/05/19 Magnesium Hydroxide [Milk of 2,400 mg PO DAILY PRN 03/04/19 03/05/19 Magnesia] Methyl Salicylate/Menthol 1 patch TOPICAL DAILY@0600 03/04/19 03/05/19 [Salonpas Patch] Multivitamins, Thera [Multivitamin 1 tab PO DAILY@0900 03/04/19 03/05/19 (formulary)] Olmesartan Medoxomil 40 mg PO DAILY@0900 03/04/19 03/05/19 Omeprazole 40 mg PO DAILY@0600 03/04/19 03/05/19 Sucralfate [Carafate] 1 gm PO QID@06,11,17,21 03/04/19 03/05/19 Triamterene-Hctz 37.5-25Mg 1 cap PO MOTH 03/04/19 03/05/19 [Dyazide 37.5-25 Capsule] cloNIDine HCL [Catapres] 0.1 mg PO BID PRN MDD >160 03/04/19 03/05/19 guaiFENesin [Mucinex] 600 mg PO Q12H PRN 03/04/19 03/05/19 levETIRAcetam [Keppra] 250 mg PO DAILY@1400 03/04/19 03/05/19 Allergies Allergy/AdvReac Type Severity Reaction Status Date / Time codeine Allergy Unknown Verified 03/05/19 04:11 Review of Systems ROS Statement: Those systems with pertinent positive or pertinent negative responses have been documented in the HPI. ROS Other: All systems not noted in ROS Statement are negative. Constitutional: Denies: fever Respiratory: Denies: cough, dyspnea Cardiovascular: Reports: as per HPI, chest pain. Denies: palpitations, orthopnea, edema, syncope Gastrointestinal: Denies: abdominal pain, nausea, vomiting Genitourinary: Denies: dysuria Musculoskeletal: Denies: back pain Skin: Denies: rash Neurological: Denies: headache EKG Findings - EKG Results: EKG: interpreted by BRITTNI, sinus rhythm (Rate 83 bpm), normal axis, normal ST/T - Blocks, [place], Hypertrophy, ST Abn: AV and intraventricular conduction: 1 AV block Repolarization changes or abnormalities: Q-T interval prolongation Past Medical History Past Medical History: CVA/TIA, Hyperlipidemia, Hypertension Additional Past Medical History / Comment(s): Previous history of subarachnoid bleed/intracranial hemorrhage related to hypertensive urgency and the patient had prolonged hospitalization at [facility] in December 2013 and her course was complicated by prolonged ventilator dependent respiratory failure requiring tracheostomy tube insertion of PEG tube insertion all reversed for now and the patient has been maintained on Keppra for seizure precautions. Hypertension, hyperlipidemia, hydrocephalus History of Any Multi-Drug Resistant Organisms: VRE Date of last positivie culture/infection: 05/04/18 MDRO Source:: VRE URINE Past Surgical History: Section Additional Past Surgical History / Comment(s): Tracheostomy placement Past Psychological History: No Psychological Hx Reported Smoking Status: Never smoker Past Alcohol Use History: None Reported Past Drug Use History: None Reported - Past Family History Father Family Medical History: Unable to Obtain (patient doesn't know much about her father she currently has a stepfather.) Mother Family Medical History: Hypertension (mother is 80-year-old has history of hypertension.) Daughter(s) Family Medical History: No Reported History (patient has 2 daughters no major medical problems) Son(s) Family Medical History: No Reported History (patient has 2 sons no major medical problems.) General Exam Limitations: physical limitation General appearance: alert, in no apparent distress Head exam: Present: atraumatic, normocephalic Eye exam: Present: normal appearance. Absent: scleral icterus, conjunctival injection ENT exam: Present: normal oropharynx Neck exam: Present: normal inspection Respiratory exam: Present: normal lung sounds bilaterally. Absent: respiratory distress, wheezes, rales, rhonchi, stridor, chest wall tenderness Cardiovascular Exam: Present: regular rate, normal rhythm, normal heart sounds. Absent: systolic murmur, diastolic murmur, rubs, gallop GI/Abdominal exam: Present: soft. Absent: distended, tenderness, guarding, rebound, rigid, mass Extremities exam: Present: normal inspection, normal capillary refill. Absent: pedal edema, calf tenderness Back exam: Present: normal inspection. Absent: CVA tenderness (R), CVA tenderness (L) Neurological exam: Present: alert Skin exam: Present: warm, dry, intact, normal color. Absent: rash Course Vital Signs 03/04/19 03/04/19 03/04/19 04:04 04:53 07:01 Temperature 98.4 F Pulse Rate 85 80 82 Respiratory 20 18 18 Rate Blood Pressure 187/117 172/106 125/85 O2 Sat by Pulse 98 96 96 Oximetry 03/04/19 10:00 Temperature 98.0 F Pulse Rate 78 Respiratory 18 Rate Blood Pressure 130/84 O2 Sat by Pulse 97 Oximetry Chest Pain MDM - MDM This patient is a 54-year-old woman who did have some chest pain earlier that had resolved spontaneously. She was found to be moderately hypertensive and transferred here for evaluation. The patient's blood pressure has improved. She did have cardiac workup including 2 sets of troponins and an EKG which is not suggestive of ischemia. Patient to follow-up with her physician to ensure that there is a better blood pressure control and also probable cardiology follow-up. Disposition Clinical Impression: Chest pain, Hypertension Disposition: HOME SELF-CARE Condition: Good Instructions (If sedation given, give patient instructions): Chest Pain (ED) Is patient prescribed a controlled substance at d/c from ED?: No Referrals: Sheree Amaya MD [Primary Care Provider] - 1-2 days
[2019-03-04 10:15] VITALS: BP 130/84; PULSE 78; TEMP 98
== END 2019-03-04 10:15 | disposition home or self-care (01) ==
LOC: EC 04:03
DX: R07.2 Precordial pain (principal); I10 Essential (primary) hypertension; E78.5 Hyperlipidemia, unspecified; Z79.899 Other long term (current) drug therapy; Z79.82 Long term (current) use of aspirin; Z88.5 Allergy status to narcotic agent; Z86.73 Personal history of transient ischemic attack (TIA), and cerebral infarction without residual deficits
CPT/HCPCS: 36415; 71045; 80053; 82150; 83690; 83735; 84484; 85025; 85379; 85610; 85730; 96374; 99285

== ENCOUNTER 2019-03-05 04:05 | Emergency (ER) | payer BC, OTHER ==
[2019-03-05 04:11] VITALS: TEMP 98.7
[2019-03-05] MEDS ORDERED: cloNIDine HCL 0.2 MG TAB PO STA (04:14)
[2019-03-05] MEDS ORDERED: LABETALOL SYRINGE 5 MG/ML IVP STA (04:19)
[2019-03-05] MEDS ORDERED: cloNIDine HCL 0.1 MG TAB PO ONE (04:30)
--- NOTE | 2019-03-05 04:49 | ED ---
Recheck HPI - General Chief Complaint: Recheck/Abnormal Lab/Rx Stated Complaint: Hypertension Time Seen by Provider: 03/05/19 04:31 Source: patient, EMS Mode of arrival: ambulatory Limitations: altered mental status - History of Present Illness Initial Comments: Patient's 54-year-old woman who is transferred here from [facility] to be evaluated for hypertension. Patient's blood pressure reportedly running high tonight. The [facility] staff did reportedly give additional medications and there was reported to be no significant decrease in the blood pressure and they for the patient here. The patient is not giving any new complaints related to the blood pressure. No headache, chest pain, neurologic symptoms, back or abdominal pain area MD Complaint: other (Hypertension) -: hour(s) Symptoms Since Prior Visit: no new symptoms Associated Symptoms: none Treatments Prior to Arrival: other medications - Related Data Home Medications Medication Instructions Recorded Confirmed Acetaminophen Tab [Tylenol] 650 mg PO Q4H PRN 01/26/18 03/05/19 Atorvastatin [Lipitor] 10 mg PO HS@209901/26/18 03/05/19 Baclofen [Lioresal] 10 mg PO TID@0600,1400,2200 05/23/18 03/05/19 Cyclobenzaprine [Flexeril] 10 mg PO BID@0900,2100 05/23/18 03/05/19 Sennosides [Senna] 8.6 mg PO BID 05/23/18 03/05/19 Sertraline [Zoloft] 50 mg PO DAILY@0900 05/23/18 03/05/19 levETIRAcetam [Keppra] 500 mg PO BID@0600,2200 05/23/18 03/05/19 Aspirin EC [Ecotrin Low Dose] 81 mg PO DAILY@0900 03/04/19 03/05/19 Bisacodyl 10 mg RECTAL DAILY PRN 03/04/19 03/05/19 Butalbital/Apap 50/325mg 1 tab PO Q4H PRN 03/04/19 03/05/19 Cefuroxime [Ceftin] 250 mg PO BID@0900,2100 03/04/19 03/05/19 Gabapentin [Neurontin] 400 mg PO TID@0600,1400,2200 03/04/19 03/05/19 Ipratropium-Albuterol Nebulize 3 ml INHALATION RT-Q6H PRN 03/04/19 03/05/19 [Duoneb 0.5 mg-3 mg/3 ml Soln] Labetalol [Trandate] 400 mg PO BID@0900,2100 03/04/19 03/05/19 Magnesium Hydroxide [Milk of 2,400 mg PO DAILY PRN 03/04/19 03/05/19 Magnesia] Methyl Salicylate/Menthol 1 patch TOPICAL DAILY@0600 03/04/19 03/05/19 [Salonpas Patch] Multivitamins, Thera [Multivitamin 1 tab PO DAILY@0900 03/04/19 03/05/19 (formulary)] Olmesartan Medoxomil 40 mg PO DAILY@0900 03/04/19 03/05/19 Omeprazole 40 mg PO DAILY@0600 03/04/19 03/05/19 Sucralfate [Carafate] 1 gm PO QID@06,11,17,21 03/04/19 03/05/19 Triamterene-Hctz 37.5-25Mg 1 cap PO MOTH 03/04/19 03/05/19 [Dyazide 37.5-25 Capsule] cloNIDine HCL [Catapres] 0.1 mg PO BID PRN MDD >160 03/04/19 03/05/19 guaiFENesin [Mucinex] 600 mg PO Q12H PRN 03/04/19 03/05/19 levETIRAcetam [Keppra] 250 mg PO DAILY@1400 03/04/19 03/05/19 Allergies Allergy/AdvReac Type Severity Reaction Status Date / Time codeine Allergy Unknown Verified 03/05/19 04:11 Review of Systems ROS Statement: Those systems with pertinent positive or pertinent negative responses have been documented in the HPI. ROS Other: All systems not noted in ROS Statement are negative. Constitutional: Denies: fever Respiratory: Denies: cough, dyspnea Cardiovascular: Denies: chest pain, syncope Gastrointestinal: Denies: abdominal pain Musculoskeletal: Denies: back pain Neurological: Denies: headache, weakness, numbness Past Medical History Past Medical History: CVA/TIA, Hyperlipidemia, Hypertension Additional Past Medical History / Comment(s): Previous history of subarachnoid bleed/intracranial hemorrhage related to hypertensive urgency and the patient snow d prolonged hospitalization at [facility] in December 2013 and her course was complicated by prolonged ventilator dependent respiratory failure requiring tracheostomy tube insertion of PEG tube insertion all reversed for now and the patient has been maintained on Keppra for seizure precautions. Hypertension, hyperlipidemia, hydrocephalus History of Any Multi-Drug Resistant Organisms: VRE Date of last positivie culture/infection: 05/04/18 MDRO Source:: VRE URINE Past Surgical History: Section Additional Past Surgical History / Comment(s): Tracheostomy placement Past Psychological History: No Psychological Hx Reported Smoking Status: Never smoker Past Alcohol Use History: None Reported Past Drug Use History: None Reported - Past Family History Father Family Medical History: Unable to Obtain (patient doesn't know much about her father she currently has a stepfather.) Mother Family Medical History: Hypertension (mother is 80-year-old has history of hypertension.) Daughter(s) Family Medical History: No Reported History (patient has 2 daughters no major medical problems) Son(s) Family Medical History: No Reported History (patient has 2 sons no major medical problems.) General Exam Limitations: altered mental status General appearance: alert, in no apparent distress Head exam: Present: atraumatic, normocephalic Respiratory exam: Present: normal lung sounds bilaterally. Absent: respiratory distress, wheezes, rales, rhonchi, stridor Cardiovascular Exam: Present: regular rate, normal rhythm, normal heart sounds. Absent: systolic murmur, diastolic murmur, rubs, gallop GI/Abdominal exam: Present: soft. Absent: distended, tenderness, guarding, rebound, rigid, mass Neurological exam: Present: alert, motor sensory deficit, other (Expressive aphasia from previous stroke. Right sided motor weakness from previous stroke.) Skin exam: Present: warm, dry, intact, normal color. Absent: rash Course Vital Signs 03/05/19 04:07 Temperature 98.7 F Pulse Rate 87 Respiratory 16 Rate Blood Pressure 156/102 O2 Sat by Pulse 97 Oximetry Disposition Clinical Impression: Hypertension Disposition: HOME SELF-CARE Condition: Good Instructions (If sedation given, give patient instructions): Hypertension (ED) Is patient prescribed a controlled substance at d/c from ED?: No Referrals: Sheree Amaya MD [Primary Care Provider] - 1-2 days
[2019-03-05 06:04] VITALS: PULSE 85; RESP 20
[2019-03-05 06:46] VITALS: BP 102/81
== END 2019-03-05 07:50 | disposition home or self-care (01) ==
LOC: EC 04:05
DX: I10 Essential (primary) hypertension (principal); E78.5 Hyperlipidemia, unspecified; Z79.82 Long term (current) use of aspirin; Z79.899 Other long term (current) drug therapy; Z88.5 Allergy status to narcotic agent; Z86.73 Personal history of transient ischemic attack (TIA), and cerebral infarction without residual deficits
CPT/HCPCS: 99283

== ENCOUNTER 2019-09-12 17:58 | Observation (INO) | payer BC, OTHER ==
--- NOTE | 2019-09-12 18:15 | ED ---
Fall HPI - General Chief Complaint: Fall Stated Complaint: Fall, vision loss Time Seen by Provider: 09/12/19 18:00 Source: patient, EMS, RN notes reviewed Mode of arrival: EMS - History of Present Illness Initial Comments: This is a 54-year-old female history of CVA with right hemiparesis chronic kidney disease a aphasia cystitis diplopia major depression hydrocephalus hypertension hemiplegia and hemiparesis right dominant side who is brought in from her shelter with complaints of visual disturbance in the right eye. She fell 2 days ago apparently was assessed but didn't complain some visual disturbance and mouth apparently indicated to paramedics that she couldn't see out of her right eye. No complaints of fever chills nausea vomiting sweats patient has a phasic but doesn't seem to respond by nodding her head yes or no. MD Complaint: fall - Related Data Home Medications Medication Instructions Recorded Confirmed Acetaminophen Tab [Tylenol] 650 mg PO Q4H PRN 01/26/18 09/12/19 Atorvastatin [Lipitor] 10 mg PO HS@209901/26/18 09/12/19 Baclofen [Lioresal] 10 mg PO TID@0600,1400,2200 05/23/18 09/12/19 Cyclobenzaprine [Flexeril] 10 mg PO BID@0900,209905/23/18 09/12/19 Sennosides [Senna] 8.6 mg PO BID 05/23/18 09/12/19 Sertraline [Zoloft] 50 mg PO DAILY@0900 05/23/18 09/12/19 levETIRAcetam [Keppra] 500 mg PO BID@0600,2200 05/23/18 09/12/19 Aspirin EC [Ecotrin Low Dose] 81 mg PO DAILY 03/04/19 09/12/19 Butalbital/Apap 50/325mg 1 tab PO Q4H PRN 03/04/19 09/12/19 Gabapentin [Neurontin] 400 mg PO BID@0600,2200 03/04/19 09/12/19 Labetalol [Trandate] 400 mg PO BID@0900,2100 03/04/19 09/12/19 Magnesium Hydroxide [Milk of 2,400 mg PO DAILY PRN 03/04/19 09/12/19 Magnesia] Methyl Salicylate/Menthol 1 patch TOPICAL DAILY@0600 03/04/19 09/12/19 [Salonpas Patch] Multivitamins, Thera [Multivitamin 1 tab PO DAILY@0900 03/04/19 09/12/19 (formulary)] Olmesartan Medoxomil 40 mg PO DAILY@0900 03/04/19 09/12/19 Sucralfate [Carafate] 1 gm PO QID@09,13,17,21 03/04/19 09/12/19 Triamterene-Hctz 37.5-25Mg 1 cap PO DAILY 03/04/19 09/12/19 [Dyazide 37.5-25 Capsule] cloNIDine HCL [Catapres] 0.1 mg PO BID PRN MDD >160 03/04/19 09/12/19 levETIRAcetam [Keppra] 250 mg PO DAILY@1400 03/04/19 09/12/19 hydrALAZINE HCL 50 mg PO Q8H PRN 09/12/19 09/12/19 Allergies Allergy/AdvReac Type Severity Reaction Status Date / Time codeine Allergy Unknown Verified 09/12/19 21:35 Review of Systems ROS Statement: Those systems with pertinent positive or pertinent negative responses have been documented in the HPI. ROS Other: All systems not noted in ROS Statement are negative. Past Medical History Past Medical History: CVA/TIA, Hyperlipidemia, Hypertension Additional Past Medical History / Comment(s): Previous history of subarachnoid bleed/intracranial hemorrhage related to hypertensive urgency and the patient had prolonged hospitalization at [facility] in December 2013 and her course was complicated by prolonged ventilator dependent respiratory failure requiring tracheostomy tube insertion of PEG tube insertion all reversed for now and the patient has been maintained on Keppra for seizure precautions. Hypertension, hyperlipidemia, hydrocephalus History of Any Multi-Drug Resistant Organisms: VRE Date of last positivie culture/infection: 05/04/18 MDRO Source:: VRE URINE Past Surgical History: Section Additional Past Surgical History / Comment(s): Tracheostomy placement Past Psychological History: No Psychological Hx Reported Smoking Status: Never smoker Past Alcohol Use History: None Reported Past Drug Use History: None Reported - Past Family History Father Family Medical History: Unable to Obtain (patient doesn't know much about her father she currently has a stepfather.) Mother Family Medical History: Hypertension (mother is 80-year-old has history of hypertension.) Daughter(s) Family Medical History: No Reported History (patient has 2 daughters no major medical problems) Son(s) Family Medical History: No Reported History (patient has 2 sons no major medical problems.) General Exam - General Exam Comments Initial Comments: This is a wall nourished awake seemingly alert female is evidence of some ecchymosis to the inferior right orbit Limitations: language barrier, physical limitation General appearance: alert, in no apparent distress Head exam: Present: atraumatic, normocephalic, normal inspection Eye exam: Present: normal appearance, PERRL, EOMI. Absent: scleral icterus, conjunctival injection, periorbital swelling ENT exam: Present: mucous membranes moist, other (Patient does seem to track with binocular vision however she states she can see light in the right eye. Eye grounds are poorly visualized) Neck exam: Present: normal inspection, full ROM, other (No stridor JVD or bruits). Absent: tenderness, meningismus, lymphadenopathy Respiratory exam: Present: normal lung sounds bilaterally. Absent: respiratory distress, wheezes, rales, rhonchi, stridor Cardiovascular Exam: Present: regular rate, normal rhythm, normal heart sounds. Absent: systolic murmur, diastolic murmur, rubs, gallop, clicks GI/Abdominal exam: Present: soft, normal bowel sounds. Absent: distended, tenderness, guarding, rebound, rigid Extremities exam: Present: normal capillary refill, other (Right hemiparesis with some contracture noted). Absent: full ROM, tenderness, pedal edema, joint swelling, calf tenderness Back exam: Present: normal inspection Neurological exam: Present: alert, oriented X3, motor sensory deficit (Right- sided). Absent: CN II-XII intact Psychiatric exam: Present: normal affect, normal mood Skin exam: Present: warm, dry, intact, normal color. Absent: rash Course Vital Signs 09/12/19 09/12/19 09/12/19 17:59 18:02 18:06 Temperature 98.5 F Pulse Rate 85 Respiratory 20 20 Rate Blood Pressure 125/92 O2 Sat by Pulse 98 98 Oximetry 09/12/19 09/12/19 09/12/19 18:10 18:20 18:30 Temperature Pulse Rate Respiratory Rate Blood Pressure 125/92 125/92 125/92 O2 Sat by Pulse 99 95 95 Oximetry 09/12/19 09/12/19 09/12/19 18:40 18:50 20:52 Temperature 98.7 F Pulse Rate 86 Respiratory 18 Rate Blood Pressure 125/92 125/92 150/88 O2 Sat by Pulse 100 99 98 Oximetry 09/12/19 22:00 Temperature Pulse Rate 90 Respiratory 18 Rate Blood Pressure 140/86 O2 Sat by Pulse 100 Oximetry - Reevaluation(s) Reevaluation #1: 09/12/19 22:52 Reevaluation patient reveals her eyesight has improved she believes she is back to normal she is aphasic but does not yes and no to questioning her is also bedside and confirms. Medical Decision Making - Medical Decision Making I did discuss findings with the patient family members also with Dr. Irizarry. Patient be admitted the presentation appears be consistent with a TIA. Dr. Robles will be consulted to see the patient and the a.m. - Lab Data Result diagrams: 09/12/19 18:45 09/12/19 18:45 Lab Results 09/12/19 09/12/19 09/12/19 Range/Units 18:45 18:45 18:45 WBC 7.1 (3.8-10.6) k/uL RBC 4.11 (3.80-5.40) m/uL Hgb 12.4 (11.4-16.0) gm/dL Hct 37.1 (34.0-46.0) % MCV 90.3 (80.0-100.0) fL MCH 30.0 (25.0-35.0) pg MCHC 33.3 (31.0-37.0) g/dL RDW 13.7 (11.5-15.5) % Plt Count 198 (150-450) k/uL Neutrophils % 69 % Lymphocytes % 20 % Monocytes % 3 % Eosinophils % 6 % Basophils % 0 % Neutrophils # 4.8 (1.3-7.7) k/uL Lymphocytes # 1.4 (1.0-4.8) k/uL Monocytes # 0.2 (0-1.0) k/uL Eosinophils # 0.4 (0-0.7) k/uL Basophils # 0.0 (0-0.2) k/uL PT (9.0-12.0) sec INR (<1.2) APTT (22.0-30.0) sec Sodium 142 (137-145) mmol/L Potassium 5.0 (3.5-5.1) mmol/L Chloride 113 H (98-107) mmol/L Carbon Dioxide 20 L (22-30) mmol/L Anion Gap 9 mmol/L BUN 43 H (7-17) mg/dL Creatinine 1.78 H (0.52-1.04) mg/dL Est GFR (CKD-EPI)AfAm 37 (>60 ml/min/1.73 sqM) Est GFR (CKD-EPI)NonAf 32 (>60 ml/min/1.73 sqM) Glucose 89 (74-99) mg/dL Calcium 9.3 (8.4-10.2) mg/dL Magnesium 2.8 H (1.6-2.3) mg/dL Total Bilirubin 0.3 (0.2-1.3) mg/dL AST 27 (14-36) U/L ALT 27 (9-52) U/L Alkaline Phosphatase 84 (38-126) U/L Creatine Kinase 480 H (30-135) U/L Troponin I <0.012 (0.000-0.034) ng/mL Total Protein 6.9 (6.3-8.2) g/dL Albumin 4.2 (3.5-5.0) g/dL TSH 1.610 (0.465-4.680) mIU/L 09/12/19 Range/Units 20:07 WBC (3.8-10.6) k/uL RBC (3.80-5.40) m/uL Hgb (11.4-16.0) gm/dL Hct (34.0-46.0) % MCV (80.0-100.0) fL MCH (25.0-35.0) pg MCHC (31.0-37.0) g/dL RDW (11.5-15.5) % Plt Count (150-450) k/uL Neutrophils % % Lymphocytes % % Monocytes % % Eosinophils % % Basophils % % Neutrophils # (1.3-7.7) k/uL Lymphocytes # (1.0-4.8) k/uL Monocytes # (0-1.0) k/uL Eosinophils # (0-0.7) k/uL Basophils # (0-0.2) k/uL PT 10.5 (9.0-12.0) sec INR 1.0 (<1.2) APTT 19.8 L (22.0-30.0) sec Sodium (137-145) mmol/L Potassium (3.5-5.1) mmol/L Chloride (98-107) mmol/L Carbon Dioxide (22-30) mmol/L Anion Gap mmol/L BUN (7-17) mg/dL Creatinine (0.52-1.04) mg/dL Est GFR (CKD-EPI)AfAm (>60 ml/min/1.73 sqM) Est GFR (CKD-EPI)NonAf (>60 ml/min/1.73 sqM) Glucose (74-99) mg/dL Calcium (8.4-10.2) mg/dL Magnesium (1.6-2.3) mg/dL Total Bilirubin (0.2-1.3) mg/dL AST (14-36) U/L ALT (9-52) U/L Alkaline Phosphatase (38-126) U/L Creatine Kinase (30-135) U/L Troponin I (0.000-0.034) ng/mL Total Protein (6.3-8.2) g/dL Albumin (3.5-5.0) g/dL TSH (0.465-4.680) mIU/L - EKG Data -: EKG Interpreted by [facility] EKG shows normal: sinus rhythm (Sinus rhythm rate 85. Interval 180 QRS duration 92 QT/QTc/45 evidence of prolonged QT) - Radiology Data Radiology results: report reviewed (I did review the imaging and reports no evidence of acute findings are seen.), image reviewed Disposition Clinical Impression: Transient cerebral ischemia Disposition: ADMITTED IP TO THIS [facility] Condition: Stable Referrals: Sheree Amaya MD [Primary Care Provider] - 1-2 days
[2019-09-12 19:06] LABS: Basophils % (A) 0 %; Eosinophils # (A) 0.4 k/uL (0-0.7); Eosinophils % (A) 6 %; HCT 37.1 % (34.0-46.0); HGB 12.4 gm/dL (11.4-16.0); Lymphocytes # (A) 1.4 k/uL (1.0-4.8); Lymphocytes % (A) 20 %; MCHC 33.3 g/dL (31.0-37.0); MCV 90.3 fL (80.0-100.0); Mean Platelet Volume 8.6; Monocytes # (A) 0.2 k/uL (0-1.0); Monocytes % (A) 3 %; Neutrophils # (A) 4.8 k/uL (1.3-7.7); Neutrophils % (A) 69 %; Platelet Count 198 k/uL (150-450); RBC 4.11 m/uL (3.80-5.40); RDW 13.7 % (11.5-15.5); WBC 7.1 k/uL (3.8-10.6)
[2019-09-12 19:15] LABS: Albumin 4.2 g/dL (3.5-5.0); Calcium 9.3 mg/dL (8.4-10.2); Magnesium 2.8 mg/dL (1.6-2.3); Total Bilirubin 0.3 mg/dL (0.2-1.3); Total Protein 6.9 g/dL (6.3-8.2)
[2019-09-12] MEDS ORDERED: SODIUM CHLORIDE 0.9% 1,000 ML IV STA (19:26)
--- NOTE | 2019-09-12 19:27 | CT ---
EXAMINATION TYPE: CT orbits wo con DATE OF EXAM: 09/12/2019 COMPARISON: None HISTORY: fall. bruising around both eyes, loss of vision to right eye. CT DLP: combined DLP 1305.2 mGycm Automated exposure control for dose reduction was used. FINDINGS: SPINA BIFIDA OCCULTA OF C1. OSSEOUS STRUCTURES INTACT. MODERATE GENERALIZED DEGENERATIVE CHANGE INTRA CRANIALLY. ORBITAL STRUCTURES ARE SYMMETRIC. GLOBES ARE INTACT. IMPRESSION: NO ACUTE FRACTURE.
--- NOTE | 2019-09-12 19:43 | CT ---
EXAMINATION TYPE: CT brain anais hoang con DATE OF EXAM: 09/12/2019 COMPARISON: CT brain 05/27/2018 HISTORY: fall. bruising around both eyes, loss of vision to right eye. CT DLP: combined DLP 1305.2 mGycm Automated exposure control for dose reduction was used. There is cerebral cortical atrophy. There is no mass effect nor midline shift. There is no sign of in tracranial hemorrhage. Calvarium is intact. Skull base is intact. There is mild asymmetric enlargemen t of the left lateral ventricle. There is probably an old lacunar infarct posterior left thalamus. There is cervical mild kyphotic deformity. There is degenerative disc space narrowing at C5-6 C6-7. T here is spurring of the endplates. Posterior elements are intact. Facet joints are intact. 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 Cerebral atrophy. No acute intracranial abnormality. Brain unchanged ekaterina red to old exam. Cervical mild kyphotic deformity. Spondylotic changes. No fracture.
[2019-09-12 20:32] LABS: Prothrombin Time 10.5 sec (9.0-12.0)
[2019-09-12 20:37] LABS: Partial Thromboplastin Time 19.8 sec (22.0-30.0)
[2019-09-12] MEDS ORDERED: ACETAMINOPHEN TAB 325 MG TAB PO PRN (22:57)
[2019-09-12] MEDS ORDERED: MAGNESIUM HYDROXIDE 2,400 MG/10 ML CUP PO PRN (23:30)
[2019-09-13] MEDS ORDERED: hydrALAZINE HCL 50 MG TAB PO PRN (06:00)
[2019-09-13] MEDS ORDERED: BUTALB/APAP/CAFF 50-325-40MG TAB PO PRN (06:00)
[2019-09-13] MEDS: BACLOFEN 10 MG TAB PO SCH ×3 (06:59→21:33)
[2019-09-13] MEDS: levETIRAcetam 500 MG TAB PO SCH ×2 (07:01→21:41)
[2019-09-13 07:24] LABS: Cholesterol 134 mg/dL (<200); HDL Cholesterol 28 mg/dL (40-60); LDL Cholesterol,Calculated 42 mg/dL (0-99); Triglycerides 322 mg/dL (<150)
[2019-09-13] MEDS ORDERED: cloNIDine HCL 0.1 MG TAB PO PRN (09:00)
[2019-09-13] MEDS: METHYL SALICYLATE/MENTHOL CREAM 5 OZ TOPICAL SCH (09:44)
[2019-09-13] MEDS: CYCLOBENZAPRINE 10 MG TAB PO SCH ×2 (09:58→20:57)
[2019-09-13] MEDS: SUCRALFATE 1 GM TAB PO SCH ×4 (09:58→20:57)
[2019-09-13] MEDS: MULTIVITAMINS, THERA 1 EACH TAB PO SCH (09:58)
[2019-09-13] MEDS: LOSARTAN 50 MG TAB PO SCH (09:58)
[2019-09-13] MEDS: TRIAMTERENE-HCTZ 37.5-25MG 1 EACH CAP PO SCH (09:58)
[2019-09-13] MEDS: SENNOSIDES 8.6 MG TAB PO SCH ×2 (09:59→20:57)
[2019-09-13] MEDS: SERTRALINE 50 MG TAB PO SCH (09:59)
[2019-09-13] MEDS: ASPIRIN 81 MG PO SCH (09:59)
[2019-09-13] MEDS: LABETALOL 200 MG TAB PO SCH ×2 (09:59→20:57)
[2019-09-13] MEDS: GABAPENTIN 400 MG CAP PO SCH ×2 (10:27→21:31)
--- NOTE | 2019-09-13 12:13 | P.HPIM ---
History of Present Illness H&P Date: 09/13/19 This is a 54-year-old female patient of Dr. Amaya with past medical history of intracranial hemorrhage related to hypertensive urgency on 12/14/2017. Patient was hospitalized at [facility] for a month during which she had tracheostomy and PEG tube placed and was initiated on Keppra for seizure precautions. Other significant history includes right brachial artery thrombosis, history of prolonged QT, hypertension, hypertensive cardiovascular disease, hyperlipidemia, recurrent depression. Patient is currently a resident of [facility] on [facility]. Her last hospitalization was in May 2018 which time she was treated for subacute thalmic infarct and was discharged back to [facility]. Patient is essen tially a aphasic but is able to point and helps her with communication. Patient was apparently in her wheelchair and she reached 4 pillow that had fallen onto the floor and ended up falling forward out of the wheelchair and hit her face. She was found to have periorbital ecchymosis. Her right eye was previously affected from CVA and at the time was to wear specialty glasses which apparently she did not. Patient was brought into [facility] emergency center for evalu ation. CAT scan of the brain and C-spine revealed old left ophthalmic infarct. Cerebral atrophy. No acute intracranial abnormality. Brain unchanged compared old exam. Cervical mild kyphotic deformity. Spondylotic changes. No fracture. CAT scan of the orbits revealed no acute fracture. Patient has no new neuro deficits. There was a consult placed with neurology but due to lack of suspicio n for CVA, neurology consult has been canceled. We have added in a consult with ophthalmology to rule out retinal detachment. Review of Systems ROS unobtainable: due to mental status (aphasia) Past Medical History Past Medical History: CVA/TIA, Hyperlipidemia, Hypertension Additional Past Medical History / Comment(s): Previous history of subarachnoid bleed/intracranial hemorrhage related to hypertensive urgency and the patient had prolonged hospitalization at [facility] back in December 2013 and her course was complicated by prolonged ventilator dependent respiratory failure requiring tracheostomy tube insertion of PEG tube insertion all reversed for now and the patient has been maintained on Keppra for seizure precautions. Hypertension, hyperlipidemia, hydrocephalus History of Any Multi-Drug Resistant Organisms: VRE Date of last positivie culture/infection: 05/04/18 MDRO Source:: VRE URINE Past Surgical History: Section Additional Past Surgical History / Comment(s): Tracheostomy placement Past Psychological History: No Psychological Hx Reported Smoking Status: Never smoker Past Alcohol Use History: None Reported Past Drug Use History: None Reported - Past Family History Father Family Medical History: Unable to Obtain (patient doesn't know much about her father she currently has a stepfather.) Additional Family Medical History / Comment(s): Patient doesn't know much about her father she currently has a stepfather. Mother Family Medical History: Hypertension (mother is 80-year-old has history of hypertension.) Additional Family Medical History / Comment(s): Mother is 80-year-old has history of hypertension. Daughter(s) Family Medical History: No Reported History (patient has 2 daughters no major medical problems) Additional Family Medical History / Comment(s): Patient has 2 daughters no major medical problems Son(s) Family Medical History: No Reported History (patient has 2 sons no major medical problems.) Additional Family Medical History / Comment(s): Patient has 2 sons no major medical problems. Medications and Allergies Home Medications Medication Instructions Recorded Confirmed Type Acetaminophen Tab [Tylenol] 650 mg PO Q4H PRN 01/26/18 09/12/19 History Atorvastatin [Lipitor] 10 mg PO HS@209901/26/18 09/12/19 History Baclofen [Lioresal] 10 mg PO TID@0600,1400,0 05/23/18 09/12/19 History Cyclobenzaprine [Flexeril] 10 mg PO BID@0900,2100 05/23/18 09/12/19 History Sennosides [Senna] 8.6 mg PO BID 05/23/18 09/12/19 History Sertraline [Zoloft] 50 mg PO DAILY@0900 05/23/18 09/12/19 History levETIRAcetam [Keppra] 500 mg PO BID@0600,219905/23/18 09/12/19 History Aspirin EC [Ecotrin Low Dose] 81 mg PO DAILY 03/04/19 09/12/19 History Butalbital/Apap 50/325mg 1 tab PO Q4H PRN 03/04/19 09/12/19 History Gabapentin [Neurontin] 400 mg PO BID@0600,2200 03/04/19 09/12/19 History Labetalol [Trandate] 400 mg PO BID@0900,2100 03/04/19 09/12/19 History Magnesium Hydroxide [Milk of 2,400 mg PO DAILY PRN 03/04/19 09/12/19 History Magnesia] Methyl Salicylate/Menthol 1 patch TOPICAL DAILY@0600 03/04/19 09/12/19 History [Salonpas Patch] Multivitamins, Thera [Multivitamin 1 tab PO DAILY@0900 03/04/19 09/12/19 History (formulary)] Olmesartan Medoxomil 40 mg PO DAILY@0900 03/04/19 09/12/19 History Sucralfate [Carafate] 1 gm PO QID@,,17,21 03/04/19 09/12/19 History Triamterene-Hctz 37.5-25Mg 1 cap PO DAILY 03/04/19 09/12/19 History [Dyazide 37.5-25 Capsule] cloNIDine HCL [Catapres] 0.1 mg PO BID PRN MDD >160 03/04/19 09/12/19 History levETIRAcetam [Keppra] 250 mg PO DAILY@1400 03/04/19 09/12/19 History hydrALAZINE HCL 50 mg PO Q8H PRN 09/12/19 09/12/19 History Allergies Allergy/AdvReac Type Severity Reaction Status Date / Time codeine Allergy Unknown Verified 09/12/19 21:35 Physical Exam Vitals: Vital Signs Temp Pulse Resp BP Pulse Ox 09/13/19 05:00 98 F 80 18 153/90 09/12/19 22:00 90 18 140/86 100 09/12/19 20:52 98.7 F 86 18 150/88 98 09/12/19 18:50 125/92 99 09/12/19 18:40 125/92 100 09/12/19 18:30 125/92 95 09/12/19 18:20 125/92 95 09/12/19 18:10 125/92 99 09/12/19 18:06 20 09/12/19 18:02 98 09/12/19 17:59 98.5 F 85 20 125/92 98 Intake and Output 09/12/19 09/13/19 09/13/19 22:59 06:59 14:59 Other: Weight 91.03 kg - Constitutional General appearance: average body habitus, no acute distress - EENT Eyes: PERRLA, ecchymosis and edema, funduscopic exam difficult to perform due to patient's blinking, dentition normal, no ptosis, no scleral icterus, normal appearance ENT: hearing grossly normal, NA/AT, normal oropharynx, no thrush Ears: bilateral: normal - Neck Neck: other (Scar for a trach.) Carotids: bilateral: upstroke normal Thyroid: bilateral: normal size - Respiratory Respiratory: bilateral: diminished, negative: dullness, rales, rhonchi, wheezing, prolonged expiration, prolonged inspiration - Cardiovascular Rhythm: regular Heart sounds: normal: S1, S2 Abnormal Heart Sounds: no systolic murmur, no rub, no S3 Gallop, no click - Gastrointestinal General gastrointestinal: normal bowel sounds, soft, no splenomegaly, no t enderness, no umbilical hernia, no ventral hernia - Integumentary Integumentary: normal, normal turgor Patient had recent nail surgery the first and second toes right foot for ingrown toenails. - Musculoskeletal Musculoskeletal: no gait normal, right sided weakness - Psychiatric Psychiatric: A&O x's 3, appropriate affect, intact judgment & insight Neurologic: Patient is awake and alert. Right side is flaccid. Patient is able to move her toes on the right. Foot drop on the right, clonus noted with Babinski on the right foot. Results CBC & Chem 7: 09/12/19 18:45 09/12/19 18:45 Labs: Abnormal Lab Results - Last 24 Hours (Table) 09/12/19 09/12/19 09/13/19 Range/Units 18:45 20:07 05:46 APTT 19.8 L (22.0-30.0) sec Chloride 113 H (98-107) mmol/L Carbon Dioxide 20 L (22-30) mmol/L BUN 43 H (7-17) mg/dL Creatinine 1.78 H (0.52-1.04) mg/dL Magnesium 2.8 H (1.6-2.3) mg/dL Creatine Kinase 480 H (30-135) U/L Triglycerides 322 H (<150) mg/dL HDL Cholesterol 28 L (40-60) mg/dL Thrombosis Risk Factor Assmnt - DVT/VTE Prophylaxis DVT/VTE Prophylaxis: Pharmacologic Prophylaxis ordered Assessment and Plan Plan: 1. Periorbital ecchymosis, rule out retinal detachment on right eye. Consult with ophthalmology. 2. History of thalamic infarct. CAT scan findings unchanged from previous study. 3. History of prior intracranial bleed. Continue Keppra 500 mg twice daily in the morning and at bedtime, 250 mg at 1400. 4. Hypertension and hypertensive cardiovascular disease. Continue losartan 150 mg orally once every day, labetalol 400 mg orally twice every day, Dyazide 30 7. 525 milligrams daily, Catapres and hydralazine as needed. 5. Hyperlipidemia. Continue patient on Lipitor 10 mg orally once every day. 6. Right-sided weakness with aphasia secondary to her prior intracranial bleed. Continue patient on baclofen 10 mg orally 3 times every day as well as a Flexeril 10 mg orally twice every day, gabapentin 400 mg orally 2 times every day. 7. History of prolonged QT avoid drug that prolonged QT. 8. Depression. Continue Zoloft 50 mg orally once every day. 9. DVT prophylaxis. Continue patient on knee-high JONH hose and the heparin 5000 units subcutaneously every 12 hours. 10. GI prophylaxis. Continue Pepcid 20 mg orally twice every day. CODE STATUS: Full code. Discharge plan: Return to [facility] under the care of Dr. Amaya. Impression and plan of care have been directed as dictated by the signing physician. Pretty Gomes nurse practitioner acting as scribe for signing physician.
[2019-09-13] MEDS ORDERED: levETIRAcetam 250 MG TAB PO SCH (14:00)
[2019-09-13 15:24] LABS: Appearance,Urine Cloudy (Clear); Bacteria,Urine Occasional /hpf; Bilirubin,Urine Negative (Negative); Blood,Urine Trace (Negative); Color,Urine Yellow; Glucose,Urine (UA) Negative (Negative); Ketones,Urine Negative (Negative); Leukocyte Esterase,Urine Large (Negative); Mucus,Urine Rare /hpf; Nitrite,Urine Negative (Negative); Protein,Urine Trace (Negative); RBC,Urine 12 /hpf (0-5); Specific Gravity,Urine 1.013 (1.001-1.035); Squamous Epithelial Cell,Urine 3 /hpf (0-4); Urobilinogen,Urine <2.0 mg/dL (<2.0); WBC,Urine 152 /hpf (0-5)
[2019-09-13] MEDS: HEPARIN SODIUM,PORCINE 5,000 UNIT/ML 1 ML VIAL SQ SCH (15:27)
[2019-09-13] MEDS: SODIUM CHLORIDE 0.9% 1,000 ML IV SCH ×3 (15:27→20:56)
[2019-09-13 17:09] VITALS: RESP 16
[2019-09-13] MEDS ORDERED: ATORVASTATIN 10 MG TAB PO SCH (21:00)
[2019-09-14] MEDS: HEPARIN SODIUM,PORCINE 5,000 UNIT/ML 1 ML VIAL SQ SCH ×2 (00:38→07:42)
[2019-09-14] MEDS: SODIUM CHLORIDE 0.9% 1,000 ML IV SCH (05:52)
[2019-09-14] MEDS: levETIRAcetam 500 MG TAB PO SCH (05:52)
[2019-09-14] MEDS: BACLOFEN 10 MG TAB PO SCH (05:52)
[2019-09-14] MEDS: GABAPENTIN 400 MG CAP PO SCH (05:52)
[2019-09-14 06:37] VITALS: BP 120/76; PULSE 83; TEMP 98
[2019-09-14] MEDS: METHYL SALICYLATE/MENTHOL CREAM 5 OZ TOPICAL SCH (06:59)
[2019-09-14] MEDS: LABETALOL 200 MG TAB PO SCH (07:43)
[2019-09-14] MEDS: ASPIRIN 81 MG PO SCH (07:43)
[2019-09-14] MEDS: TRIAMTERENE-HCTZ 37.5-25MG 1 EACH CAP PO SCH (07:43)
[2019-09-14] MEDS: SENNOSIDES 8.6 MG TAB PO SCH (07:43)
[2019-09-14] MEDS: CYCLOBENZAPRINE 10 MG TAB PO SCH (07:43)
[2019-09-14] MEDS: SERTRALINE 50 MG TAB PO SCH (07:43)
[2019-09-14] MEDS: LOSARTAN 50 MG TAB PO SCH (07:43)
[2019-09-14] MEDS: MULTIVITAMINS, THERA 1 EACH TAB PO SCH (07:44)
[2019-09-14] MEDS: SUCRALFATE 1 GM TAB PO SCH ×2 (07:44→12:17)
[2019-09-14] MEDS ORDERED: FAMOTIDINE 20 MG TAB PO SCH (09:00)
--- NOTE | 2019-09-14 10:39 | P.DS ---
Providers Date of admission: 09/12/19 22:55 Expected date of discharge: 09/14/19 Attending physician: Ravindra Irizarry Consults: 09/13/19 10:17 Consult Physician Routine Consulting Provider: Pelon Tam Consult Reason/Comments: fall, r/o retinal detachment Do you want consulting provider notified?: Yes Primary care physician: Sheree Amaya [facility] Course: This is a 54-year-old female patient of Dr. Amaya with past medical history of intracranial hemorrhage related to hypertensive urgency on 12/14/2017. Patient was hospitalized at [facility] for a month during which she had tracheostomy and PEG tube placed and was initiated on Keppra for seizure precautions. Other significant history includes right brachial artery thrombosis, history of prolonged QT, hypertension, hypertensive cardiovascular disease, hyperlipidemia, recurrent depression. Patient is currently a resident of [facility] on [facility]. Her last hospitalization was in May 2018 which time she was treated for subacute thalmic infarct and was discharged back to [facility]. Patient is essentially a aphasic but is able to point and helps her with communication. Patient was apparently in her wheelchair and she reached 4 pillow that had fallen onto the floor and ended up falling forward out of the wheelchair and hit her face. She was found to have periorbital ecchymosis. Her right eye was previously affected from CVA and at the time was to wear specialty glasses which apparently she did not. Patient was brought into [facility] emergency center for evaluation. CAT scan of the brain and C-spine revealed old left ophthalmic infarct. Cerebral atrophy. No acute intracranial abnormality. Brain unchanged compared old exam. Cervical mild kyphotic deformity. Spondylotic changes. No fracture. CAT scan of the orbits revealed no acute fracture. Patient has no new neuro deficits. There was a consult placed with neurology but due to lack of suspicion for CVA, neurology consult has been canceled. We have added in a consult with ophthalmology to rule out retinal detachment. 09/14: The patient was seen by ophthalmology last evening and detached retina has been ruled out. Patient has no new symptoms. Patient will be discharged back to [facility] in stable condition. No medication changes have been made. Discharge diagnoses: 1. Periorbital ecchymosis, ruled out retinal detachment on right eye. 2. History of thalamic infarct. 3. History of prior intracranial bleed. 4. Hypertension and hypertensive cardiovascular disease. 5. Hyperlipidemia. 6. Right-sided weakness with aphasia secondary to her prior intracranial bleed. 7. History of prolonged QT avoid drug that prolonged QT. 8. Depression, recurrent. Discharge plan: Return to [facility] under the care of Dr. Amaya. Impression and plan of care have been directed as dictated by the signing physician. Pretty Gomes nurse practitioner acting as scribe for signing physician. Patient Condition at Discharge: Good Plan - Discharge Summary Discharge Rx Participant: No New Discharge Prescriptions: Continue Acetaminophen Tab [Tylenol] 650 mg PO Q4H PRN PRN Reason: Pain Atorvastatin [Lipitor] 10 mg PO HS@2100 Baclofen [Lioresal] 10 mg PO TID@0600,1400,2200 Sennosides [Senna] 8.6 mg PO BID levETIRAcetam [Keppra] 500 mg PO BID@0600,2200 Cyclobenzaprine [Flexeril] 10 mg PO BID@0900,2100 Sertraline [Zoloft] 50 mg PO DAILY@0900 Butalbital/Apap 50/325mg 1 tab PO Q4H PRN PRN Reason: Migraine Headache Aspirin EC [Ecotrin Low Dose] 81 mg PO DAILY cloNIDine HCL [Catapres] 0.1 mg PO BID PRN MDD >160 PRN Reason: SBP Labetalol [Trandate] 400 mg PO BID@0900,2100 levETIRAcetam [Keppra] 250 mg PO DAILY@1400 Magnesium Hydroxide [Milk of Magnesia] 2,400 mg PO DAILY PRN PRN Reason: Constipation Methyl Salicylate/Menthol [Salonpas Patch] 1 patch TOPICAL DAILY@0600 Multivitamins, Thera [Multivitamin (formulary)] 1 tab PO DAILY@0900 Olmesartan Medoxomil 40 mg PO DAILY@0900 Sucralfate [Carafate] 1 gm PO QID@09,13,17,21 Triamterene-Hctz 37.5-25Mg [Dyazide 37.5-25 Capsule] 1 cap PO DAILY hydrALAZINE HCL 50 mg PO Q8H PRN PRN Reason: Blood Pressure - High Gabapentin [Neurontin] 400 mg PO BID@0600,2200 #6 cap Discharge Medication List Acetaminophen Tab [Tylenol] 650 mg PO Q4H PRN 04/26/18 [History] Atorvastatin [Lipitor] 10 mg PO HS@209901/26/18 [History] Baclofen [Lioresal] 10 mg PO TID@0600,1400,219905/23/18 [History] Cyclobenzaprine [Flexeril] 10 mg PO BID@0900,209905/23/18 [History] Sennosides [Senna] 8.6 mg PO BID 05/23/18 [History] Sertraline [Zoloft] 50 mg PO DAILY@89905/23/18 [History] levETIRAcetam [Keppra] 500 mg PO BID@0600,219905/23/18 [History] Aspirin EC [Ecotrin Low Dose] 81 mg PO DAILY 03/04/19 [History] Butalbital/Apap 50/325mg 1 tab PO Q4H PRN 03/04/19 [History] Labetalol [Trandate] 400 mg PO BID@0900,209903/04/19 [History] Magnesium Hydroxide [Milk of Magnesia] 2,400 mg PO DAILY PRN 03/04/19 [History] Methyl Salicylate/Menthol [Salonpas Patch] 1 patch TOPICAL DAILY@59903/04/19 [History] Multivitamins, Thera [Multivitamin (formulary)] 1 tab PO DAILY@0903/04/19 [History] Olmesartan Medoxomil 40 mg PO DAILY@89903/04/19 [History] Sucralfate [Carafate] 1 gm PO QID@,,,03/04/19 [History] Triamterene-Hctz 37.5-25Mg [Dyazide 37.5-25 Capsule] 1 cap PO DAILY 03/04/19 [History] cloNIDine HCL [Catapres] 0.1 mg PO BID PRN MDD >160 03/04/19 [History] levETIRAcetam [Keppra] 250 mg PO DAILY@1400 03/04/19 [History] hydrALAZINE HCL 50 mg PO Q8H PRN 09/12/19 [History] Gabapentin [Neurontin] 400 mg PO BID@0600,2200 #6 cap 09/14/19 [Rx] Follow up Appointment(s)/Referral(s): Sheree Amaya MD [Primary Care Provider] - 1 Week (at [facility]) Rupinder Bird MD [STAFF PHYSICIAN] - 1 Week [facility] on the [place], [NON-STAFF] - 1 Week Patient Instructions/Handouts: Transient Ischemic Attack (DC) Discharge Disposition: TRANSFER TO SNF/ECF
--- NOTE | 2019-09-15 08:06 | CONS ---
CONSULTATION OPHTHALMOLOGY CONSULT REPORT: CONSULTATION DATE: 09/13/2019. CHIEF COMPLAINT: Eye pain. HISTORY OF PRESENT ILLNESS: Althea Gardner is a 54-year-old female with past history of intracranial hemorrhage who presented after a recent fall. The patient has had some visual symptoms that she has noted in the last few days. Due to her neurologic history, the patient is essentially aphasic, but is able to communicate through basic gestures. Upon questioning, the patient is somewhat inconsistent in her responses, however, appears to have some pain in 1 or both of her eyes. The patient responds no when asked if she feels like she has lost vision recently. The patient denies complete vision loss. REVIEW OF SYSTEMS: Is mostly unobtainable due to mental status. However, she denies shortness of breath or chest pain. PAST MEDICAL HISTORY: CVA, hyperlipidemia, hypertension, subarachnoid bleed with intracranial hemorrhage related to hypertensive urgency, seizures, hydrocephalus. PAST SURGICAL HISTORY: Significant for section and a tracheostomy placement. SOCIAL HISTORY: The patient has never smoked and denies alcohol use. FAMILY HISTORY: Not pertinent. MEDICATIONS: Acetaminophen, atorvastatin, Flexeril, Senna, Zoloft, Keppra, aspirin, Neurontin, labetalol, Dyazide, clonidine, hydralazine. ALLERGIES: CODEINE. OPHTHALMOLOGICAL EXAM: Visual acuity is difficult to obtain due to mental status. However, the patient appears to be at least 20/100 at near without correction in the right eye and 20/70 unit without correction in the left eye using directional tumbling E's. Intraocular pressure is within normal limits to palpation. The pupils are equal, round, and reactive to light. Extraocular movements are limited in up gaze in both eyes. However, horizontal gaze is mostly intact. The anterior chamber is within normal limits in both eyes. There is some ecchymosis below the right orbit. There are no step-offs along the inferior orbital wall. Posterior examination of the retina and vitreous is within normal limits in both eyes. The optic nerve appears within normal limits in both eyes and has sharp margins in both eyes. IMAGING PROCEDURE: CT scan was reviewed and was found to show an old left thalamic infarct and cerebral atrophy, which had been noted to be stable from a previous CT scan of the brain. ASSESSMENT AND PLAN: 1. Ecchymosis of the right periorbital region. This is due to recent fall. There are no fractures on CT scan and no indications of any orbital fractures on examination. The globe itself is intact and there are no concerns for a ruptured globe. The retina is flat and within normal limits. This is likely simply a contusion. 2. History of intracranial hemorrhage. This has caused mental status changes and is likely causing resultant upgaze deficiency or limitation in both eyes. Further evaluation of extraocular movements could be done as an outpatient in a more appropriate setting to evaluate further using other instruments and prisms. However, her limitations and extraocular movements do not appear to be acute and were discussed with a long-time family nurse who states that her eye movements appear stable from previous examinations. I recommend re-evaluation of the patient as an outpatient in the office in 1-2 weeks. However, at this time, I have no further recommendations as there does not appear to be an acute process due to her recent fall. Thank you for allowing me to participate in this patient's care. MMCOLUMBA / TAMMY: [id number] /
== END 2019-09-14 13:07 ==
LOC: EC 17:58 → 3SCARD 22:55 → 4MS4W 09-13 10:48
PROVIDERS: ADMIT Internal Medicine; ATTEND Internal Medicine
DX: S05.11XA Contusion of eyeball and orbital tissues, right eye, initial encounter (principal); I69.151 Hemiplegia and hemiparesis following nontraumatic intracerebral hemorrhage affecting right dominant side; I69.120 Aphasia following nontraumatic intracerebral hemorrhage; I13.10 Hypertensive heart and chronic kidney disease without heart failure, with stage 1 through stage 4 chronic kidney disease, or unspecified chronic kidney disease; N18.9 Chronic kidney disease, unspecified; E78.5 Hyperlipidemia, unspecified; R94.39 Abnormal result of other cardiovascular function study; M43.8X2 Other specified deforming dorsopathies, cervical region; M47.812 Spondylosis without myelopathy or radiculopathy, cervical region; F32.9 Major depressive disorder, single episode, unspecified; H53.2 Diplopia; G91.9 Hydrocephalus, unspecified; M21.371 Foot drop, right foot; R25.8 Other abnormal involuntary movements; Z79.899 Other long term (current) drug therapy; Z79.82 Long term (current) use of aspirin; Z88.5 Allergy status to narcotic agent; Z86.19 Personal history of other infectious and parasitic diseases; Z98.890 Other specified postprocedural states; Z86.718 Personal history of other venous thrombosis and embolism; Z97.3 Presence of spectacles and contact lenses; Z82.49 Family history of ischemic heart disease and other diseases of the circulatory system; W05.0XXA Fall from non-moving wheelchair, initial encounter
CPT/HCPCS: 96361 ×4; 96372 ×2; 96360; 99285; 36415; 93005; 97165; 80061; 80053; 84443; 82550; 83735; 84484; 85025; 85610; 85730; 81001; 87086; 72125; 70450; 70480; G0378 ×4; J1644 ×2

== ENCOUNTER 2019-09-15 07:32 | Emergency (ER) | payer BC, OTHER ==
[2019-09-15 07:42] VITALS: RESP 16
--- NOTE | 2019-09-15 08:32 | ED ---
General Adult HPI - General Chief complaint: Fall Stated complaint: Fall Time Seen by Provider: 09/15/19 07:48 Source: patient Mode of arrival: EMS Limitations: no limitations - History of Present Illness Initial comments: Dictation was produced using [employer] dictation software. please excuse any grammatical, word or spelling errors. Chief Complaint: 54-year-old female with history of hemorrhagic stroke, residual right-sided deficit and nonverbal presents after fall at intermediate. History of Present Illness: 24-year-old female she was brought in by EMS for fall at intermediate. Patient currently resides at the intermediate when she fell. Patient rolled out of bed landing on her right side. She was nonverbal however able to answer yes or no questions. Everything physical patient suffered a hemorrhagic stroke causing chronic right-sided weakness and making patient nonverbal. Patient was brought to the emergency for concerns of elbow pain. Patient points to pain in her right wrist when asked where her symptoms are. Denies hitting her head. Patient also had another fall several days ago where she was admitted the hospital for concerns of transient ischemic attack. She was discharged after ophthalmology evaluation. The ROS documented in this emergency department record has been reviewed and confirmed by me. Those systems with pertinent positive or negative responses have been documented in the HPI. All other systems are other negative and/or noncontributory. PHYSICAL EXAM: General Impression: Alert, nonverbal, not in acute distress HEENT: Normocephalic atraumatic, extra-ocular movements intact, pupils equal and reactive to light bilaterally, mucous membranes moist, periorbital ecchymoses Cardiovascular: Heart regular rate and rhythm, S1&S2 audible, no murmurs, rubs or gallops Chest: Lungs clear to auscultation bilaterally, no rhonchi, no wheeze, no rales Abdomen: Bowel sounds present, abdomen soft, non-tender, non-distended, no organomegaly Musculoskeletal: Pulses present and equal in all extremities, no peripheral edema, negative gross deformities to the right upper extremity Motor: no focal deficits noted Neurological: CN II-XII grossly intact, contracted right upper extremity Skin: Intact with no visualized rashes Psych: Normal affect and mood ED course: 54-year-old female sent in after fall out of bed from intermediate. Vital signs upon arrival are within acceptable limits. CT of the head and C-spine was unremarkable. Elbow x-ray was limited however no definite findings to suggest acute fracture. Patient's elbow examination is unremarkable. Wrist x-ray is negative for any definite acute injuries. Patient does not have any snuffbox tenderness. No pain to the wrist with axial load of the thumb and no pain along the scaphoid tubercle. Clinical presentation consistent with right upper extremity contusion and right wrist strain. Patient clear for discharge back to intermediate. EKG interpretation: Ventricular rate 81, normal sinus rhythm, OK interval 194, care is 88, QTC 480. No OK prolongation, no QTC prolongation, no ST or T-wave changes noted. Overall, this EKG is unremarkable - Related Data Home Medications Medication Instructions Recorded Confirmed Acetaminophen Tab [Tylenol] 650 mg PO Q4H PRN 01/26/18 09/12/19 Atorvastatin [Lipitor] 10 mg PO HS@209901/26/18 09/12/19 Baclofen [Lioresal] 10 mg PO TID@0600,1400,2200 05/23/18 09/12/19 Cyclobenzaprine [Flexeril] 10 mg PO BID@0900,209905/23/18 09/12/19 Sennosides [Senna] 8.6 mg PO BID 05/23/18 09/12/19 Sertraline [Zoloft] 50 mg PO DAILY@0900 05/23/18 09/12/19 levETIRAcetam [Keppra] 500 mg PO BID@0600,2200 05/23/18 09/12/19 Aspirin EC [Ecotrin Low Dose] 81 mg PO DAILY 03/04/19 09/12/19 Butalbital/Apap 50/325mg 1 tab PO Q4H PRN 03/04/19 09/12/19 Labetalol [Trandate] 400 mg PO BID@0900,2100 03/04/19 09/12/19 Magnesium Hydroxide [Milk of 2,400 mg PO DAILY PRN 03/04/19 09/12/19 Magnesia] Methyl Salicylate/Menthol 1 patch TOPICAL DAILY@0600 03/04/19 09/12/19 [Salonpas Patch] Multivitamins, Thera [Multivitamin 1 tab PO DAILY@0900 03/04/19 09/12/19 (formulary)] Olmesartan Medoxomil 40 mg PO DAILY@0900 03/04/19 09/12/19 Sucralfate [Carafate] 1 gm PO QID@09,13,17,21 03/04/19 09/12/19 Triamterene-Hctz 37.5-25Mg 1 cap PO DAILY 03/04/19 09/12/19 [Dyazide 37.5-25 Capsule] cloNIDine HCL [Catapres] 0.1 mg PO BID PRN MDD >160 03/04/19 09/12/19 levETIRAcetam [Keppra] 250 mg PO DAILY@1400 03/04/19 09/12/19 hydrALAZINE HCL 50 mg PO Q8H PRN 09/12/19 09/12/19 Previous Rx's Medication Instructions Recorded Gabapentin [Neurontin] 400 mg PO BID@0600,2200 #6 cap 09/14/19 Allergies Allergy/AdvReac Type Severity Reaction Status Date / Time codeine Allergy Unknown Verified 09/15/19 07:42 Review of Systems ROS Statement: Those systems with pertinent positive or pertinent negative responses have been documented in the HPI. ROS Other: All systems not noted in ROS Statement are negative. Past Medical History Past Medical History: CVA/TIA, Hyperlipidemia, Hypertension Additional Past Medical History / Comment(s): Previous history of subarachnoid bleed/intracranial hemorrhage related to hypertensive urgency and the patient had prolonged hospitalization at [facility] in December 2013 and her course was complicated by prolonged ventilator dependent respiratory failure requiring tracheostomy tube insertion of PEG tube insertion all reversed for now and the patient has been maintained on Keppra for seizure precautions. Hypertension, hyperlipidemia, hydrocephalus History of Any Multi-Drug Resistant Organisms: VRE Date of last positivie culture/infection: 05/04/18 MDRO Source:: VRE URINE Past Surgical History: Section Additional Past Surgical History / Comment(s): Tracheostomy placement Past Anesthesia/Blood Transfusion Reactions: No Reported Reaction Past Psychological History: No Psychological Hx Reported Smoking Status: Never smoker Past Alcohol Use History: None Reported Past Drug Use History: None Reported - Past Family History Father Family Medical History: Unable to Obtain (patient doesn't know much about her father she currently has a stepfather.) Additional Family Medical History / Comment(s): Patient doesn't know much about her father she currently has a stepfather. Mother Family Medical History: Hypertension (mother is 80-year-old has history of hypertension.) Additional Family Medical History / Comment(s): Mother is 80-year-old has history of hypertension. Daughter(s) Family Medical History: No Reported History (patient has 2 daughters no major medical problems) Additional Family Medical History / Comment(s): Patient has 2 daughters no major medical problems Son(s) Family Medical History: No Reported History (patient has 2 sons no major medical problems.) Additional Family Medical History / Comment(s): Patient has 2 sons no major medical problems. General Exam Limitations: no limitations Course Vital Signs 09/15/19 07:37 Temperature 97.8 F Pulse Rate 85 Respiratory 16 Rate Blood Pressure 123/99 O2 Sat by Pulse 96 Oximetry Disposition Clinical Impression: Fall Disposition: HOME SELF-CARE Condition: Good Instructions (If sedation given, give patient instructions): Fall Prevention for Older Adults (ED) Is patient prescribed a controlled substance at d/c from ED?: No Referrals: Sheree Amaya MD [Primary Care Provider] - 1-2 days Time of Disposition: 09:34
--- NOTE | 2019-09-15 08:34 | CT ---
EXAMINATION TYPE: CT brain anais hoang con DATE OF EXAM: 09/15/2019 COMPARISON: Previous study dated 09/12/2019 HISTORY: Fall CT DLP: 1491 mGycm Automated exposure control for dose reduction was used. TECHNIQUE: CT scan of the head and cervical spine are performed without contrast. FINDINGS: BRAIN: There is evidence for left-sided thalamic infarct. There is a left occipital infarct which is also old. Central structures are midline. There is no evidence of hydrocephalus. No acute focal lesion, mass ef fect or midline shift is seen. I do not see evidence of intracranial blood. Visualized portions of the paranasal sinuses and mastoids are clear. The bony calvarium is intact. IMPRESSION: 1. NO ACUTE INTRACRANIAL ABNORMALITY. 2. EVIDENCE OF AN OLD THALAMIC AND LEFT OCCIPITAL INFARCT. CERVICAL SPINE: There is atelectatic change as well as emphysematous changes within the visualized po rtions of the lungs. Prevertebral soft tissues are normal. There is a reversal of the normal cervical lordosis which is replaced by kyphosis. There is a minimal antegrade listhesis of C4 on C5. Alignment is otherwise maintained. Atlantoaxial relationships are n ormal. There is diffuse degenerative disc disease with hypertrophic spondylosis present from C4-5 thr ough C6-7. There is mild uncovertebral joint disease. There is facet arthropathy which is mild and bi lateral at C2-3 there is an incomplete arch of C1, a normal variant. No fractures are seen. IMPRESSION: 1. NO ACUTE OSSEOUS LESION. 2. DEGENERATIVE CHANGE. 3. EMPHYSEMATOUS CHANGES WITHIN THE LUNGS.
--- NOTE | 2019-09-15 08:40 | XR ---
EXAMINATION TYPE: XR elbow limited RT , 3 VIEWS DATE OF EXAM ORDERED: 09/15/2019 HISTORY: fall. COMPARISON: None. FINDINGS: Nonstandard views abdomen submitted. No definite fracture, dislocation or elbow joint effu ronda is seen. IMPRESSION: LIMITED STUDY DEMONSTRATING NO DEFINITE ACUTE FRACTURE.
--- NOTE | 2019-09-15 09:03 | XR ---
EXAMINATION TYPE: XR wrist complete RT , 3 VIEWS DATE OF EXAM ORDERED: 09/15/2019 HISTORY: wrist pain. COMPARISON: None. FINDINGS: The bones are diffusely osteopenic likely on the basis of disuse. There is flexion all of the digits. There is dorsiflexion of the wrist. No definite acute fracture is seen. There is cystic change throug hout the carpal bones. IMPRESSION: 1. DIFFUSE OSTEOPENIA LIKELY ON THE BASIS OF DISUSE. 2. NO DEFINITE ACUTE FRACTURE. 3. CYSTIC CHANGES THROUGHOUT THE CARPAL BONES.
[2019-09-15 09:37] VITALS: BP 131/89; PULSE 81
[2019-09-15 09:50] VITALS: TEMP 98
== END 2019-09-15 11:05 | disposition home or self-care (01) ==
LOC: EC 07:32
DX: Z04.3 Encounter for examination and observation following other accident (principal); E78.5 Hyperlipidemia, unspecified; I10 Essential (primary) hypertension; Z79.82 Long term (current) use of aspirin; Z79.899 Other long term (current) drug therapy; Z88.5 Allergy status to narcotic agent; Z86.73 Personal history of transient ischemic attack (TIA), and cerebral infarction without residual deficits
CPT/HCPCS: 70450; 72125; 93005; 99284

== ENCOUNTER 2019-09-16 03:44 | Emergency (ER) | payer BC, OTHER ==
[2019-09-16 04:52] LABS: Glucose,Whole Blood 99 mg/dL (75-99)
[2019-09-16 05:07] LABS: Basophils % (A) 0 %; Eosinophils # (A) 0.4 k/uL (0-0.7); Eosinophils % (A) 5 %; HCT 32.7 % (34.0-46.0); HGB 11.4 gm/dL (11.4-16.0); Lymphocytes # (A) 1.7 k/uL (1.0-4.8); Lymphocytes % (A) 20 %; MCH 30.4 pg (25.0-35.0); MCHC 34.7 g/dL (31.0-37.0); MCV 87.5 fL (80.0-100.0); Mean Platelet Volume 8.4; Monocytes # (A) 0.4 k/uL (0-1.0); Monocytes % (A) 5 %; Neutrophils # (A) 5.6 k/uL (1.3-7.7); Neutrophils % (A) 68 %; Platelet Count 228 k/uL (150-450); RBC 3.74 m/uL (3.80-5.40); RDW 13.2 % (11.5-15.5); WBC 8.2 k/uL (3.8-10.6)
[2019-09-16 05:14] LABS: Prothrombin Time 10.4 sec (9.0-12.0)
[2019-09-16 05:19] LABS: Albumin 4.1 g/dL (3.5-5.0); Calcium 9.8 mg/dL (8.4-10.2); Potassium 3.8 mmol/L (3.5-5.1); Total Bilirubin 0.6 mg/dL (0.2-1.3); Total Protein 6.8 g/dL (6.3-8.2)
--- NOTE | 2019-09-16 06:07 | XR ---
EXAM: XR Chest, 1 View CLINICAL HISTORY: ITS.REASON XR Reason: altered mental status TECHNIQUE: Frontal view of the chest. COMPARISON: CXR 05/23/18 and 03/04/19 FINDINGS: Lungs: Low lung volumes with vascular crowding especially seen within the right lower lung. Difficult to completely exclude underlying lung disease in this area. Pleural space: Unremarkable. No pneumothorax. Heart: Unremarkable. No cardiomegaly. Mediastinum: Unremarkable. Bones/joints: Unremarkable. IMPRESSION: Low lung volumes with vascular crowding especially seen within the right lower lung. Difficult to completely exclude underlying lung disease in this area.
--- NOTE | 2019-09-16 06:19 | CT ---
EXAM: CT Head Without Intravenous Contrast CLINICAL HISTORY: ITS.REASON CT Reason: altered mental status TECHNIQUE: Axial computed tomography images of the head/brain without intravenous contrast. CTDI is 49.1 mGy and DLP is 1064.4 mGy-cm. This CT exam was performed using one or more of the following dose reduction techniques: automated exposure control, adjustment of the mA and/or kV according to patient size, and/or use of iterative reconstruction technique. Coronal and sagittal reformatted images were created and reviewed. COMPARISON: CT head dated 09/15/19 FINDINGS: Brain: Chronic small vessel ischemic change. Old left thalamic, medial temporal and occipital infarcts. Old corpus callosal infarcts are also seen on the left. No hemorrhage. No mass effect or edema. No evolving territorial infarction. Ventricles: Ex vacuo dilatation of the left lateral ventricle. Bones/joints: Unremarkable. No acute fracture. Soft tissues: Unremarkable. Sinuses: Unremarkable as visualized. No acute sinusitis. Mastoid air cells: Unremarkable as visualized. No mastoid effusion. Tubes, lines and devices: Right frontal approach catheter tract seen. IMPRESSION: Chronic small vessel ischemic change. Old left thalamic, medial temporal and occipital infarcts. Old corpus callosal infarcts are also seen on the left. No acute intracranial abnormality.
[2019-09-16] MEDS ORDERED: SODIUM CHLORIDE 0.9% 500 ML 500 ML IV STA (06:22)
[2019-09-16 06:23] LABS: Appearance,Urine Cloudy (Clear); Bacteria,Urine Occasional /hpf; Bilirubin,Urine Negative (Negative); Blood,Urine Moderate (Negative); Color,Urine Yellow; Glucose,Urine (UA) Negative (Negative); Ketones,Urine Negative (Negative); Leukocyte Esterase,Urine Large (Negative); Mucus,Urine Few /hpf; Nitrite,Urine Negative (Negative); Protein,Urine Trace (Negative); RBC,Urine 72 /hpf (0-5); Specific Gravity,Urine 1.016 (1.001-1.035); Squamous Epithelial Cell,Urine <1 /hpf (0-4); WBC,Urine 44 /hpf (0-5)
[2019-09-16 06:24] LABS: Amphetamine Screen,Urine Not Detected (NotDetected); Barbiturate Screen,Urine Detected (NotDetected); Benzodiazepines Screen,Urine Not Detected (NotDetected); Cocaine Screen,Urine Not Detected (NotDetected); Methadone Screen, Urine Not Detected (NotDetected); Opiate Screen,Urine Not Detected (NotDetected); Oxycodone Screen, Urine Not Detected (NotDetected); Phencyclidine Screen,Urine Not Detected (NotDetected); Tricyclic Antidepressant,Urine Detected (NotDetected); Urn Cannabinoid Scrn Not Detected (NotDetected)
[2019-09-16] MEDS ORDERED: LEVOFLOXACIN 750 MG TAB PO STA (06:55)
--- NOTE | 2019-09-16 06:57 | ED ---
Altered Mental Status HPI - General Chief Complaint: Altered Mental Status Stated Complaint: Hallucinations Time Seen by Provider: 09/16/19 03:52 Source: patient, family, EMS Mode of arrival: EMS Limitations: altered mental status - History of Present Illness Initial Comments: patient is a 54-year-old woman presenting as an ambulance transfer from the [facility]. The patient has reportedly been having a change from her baseline status. She appeared to be hallucinating that there was someone outside of her room. 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 The patient's daughter had obtained the history by asking yes no questions which the patient is able to respond to. The symptoms have been going on for the past 1-2 days. When I asked the patient, she is not complaining of any pains. No dyspnea. MD Complaint: altered mental status -: days(s) Severity: mild Associated Symptoms: denies other symptoms - Related Data Home Medications Medication Instructions Recorded Confirmed Acetaminophen Tab [Tylenol] 650 mg PO Q4H PRN 01/26/18 09/12/19 Atorvastatin [Lipitor] 10 mg PO HS@209901/26/18 09/12/19 Baclofen [Lioresal] 10 mg PO TID@0600,1400,2200 05/23/18 09/12/19 Cyclobenzaprine [Flexeril] 10 mg PO BID@0900,2100 05/23/18 09/12/19 Sennosides [Senna] 8.6 mg PO BID 05/23/18 09/12/19 Sertraline [Zoloft] 50 mg PO DAILY@0900 05/23/18 09/12/19 levETIRAcetam [Keppra] 500 mg PO BID@0600,2200 05/23/18 09/12/19 Aspirin EC [Ecotrin Low Dose] 81 mg PO DAILY 03/04/19 09/12/19 Butalbital/Apap 50/325mg 1 tab PO Q4H PRN 03/04/19 09/12/19 Labetalol [Trandate] 400 mg PO BID@0900,2100 03/04/19 09/12/19 Magnesium Hydroxide [Milk of 2,400 mg PO DAILY PRN 03/04/19 09/12/19 Magnesia] Methyl Salicylate/Menthol 1 patch TOPICAL DAILY@00 03/04/19 09/12/19 [Salonpas Patch] Multivitamins, Thera [Multivitamin 1 tab PO DAILY@0900 03/04/19 09/12/19 (formulary)] Olmesartan Medoxomil 40 mg PO DAILY@0900 03/04/19 09/12/19 Sucralfate [Carafate] 1 gm PO QID@09,13,17,21 03/04/19 09/12/19 Triamterene-Hctz 37.5-25Mg 1 cap PO DAILY 03/04/19 09/12/19 [Dyazide 37.5-25 Capsule] cloNIDine HCL [Catapres] 0.1 mg PO BID PRN MDD >160 03/04/19 09/12/19 levETIRAcetam [Keppra] 250 mg PO DAILY@1400 03/04/19 09/12/19 hydrALAZINE HCL 50 mg PO Q8H PRN 09/12/19 09/12/19 Previous Rx's Medication Instructions Recorded Gabapentin [Neurontin] 400 mg PO BID@0600,2200 #6 cap 09/14/19 Allergies Allergy/AdvReac Type Severity Reaction Status Date / Time codeine Allergy Unknown Verified 09/15/19 07:42 Review of Systems ROS Statement: Those systems with pertinent positive or pertinent negative responses have been documented in the HPI. ROS Other: All systems not noted in ROS Statement are negative. Limitations: ROS unobtainable due to patients medical condition Constitutional: Denies: fever Eyes: Denies: vision change Respiratory: Denies: cough, dyspnea Cardiovascular: Denies: chest pain Gastrointestinal: Denies: abdominal pain, vomiting Musculoskeletal: Denies: back pain Neurological: Denies: headache Psychiatric: Reports: auditory hallucinations, visual hallucinations Past Medical History Past Medical History: CVA/TIA, Hyperlipidemia, Hypertension Additional Past Medical History / Comment(s): Previous history of subarachnoid bleed/intracranial hemorrhage related to hypertensive urgency and the patient had prolonged hospitalization at [facility] in December 2013 and her course was complicated by prolonged ventilator dependent respiratory failure requiring tracheostomy tube insertion of PEG tube insertion all reversed for now and the patient has been maintained on Keppra for seizure precautions. Hypertension, hyperlipidemia, hydrocephalus History of Any Multi-Drug Resistant Organisms: VRE Date of last positivie culture/infection: 05/04/18 MDRO Source:: VRE URINE Past Surgical History: Section Additional Past Surgical History / Comment(s): Tracheostomy placement Past Anesthesia/Blood Transfusion Reactions: No Reported Reaction Past Psychological History: No Psychological Hx Reported Smoking Status: Never smoker Past Alcohol Use History: None Reported Past Drug Use History: None Reported - Past Family History Father Family Medical History: Unable to Obtain (patient doesn't know much about her father she currently has a stepfather.) Additional Family Medical History / Comment(s): Patient doesn't know much about her father she currently has a stepfather. Mother Family Medical History: Hypertension (mother is 80-year-old has history of hypertension.) Additional Family Medical History / Comment(s): Mother is 80-year-old has history of hypertension. Daughter(s) Family Medical History: No Reported History (patient has 2 daughters no major medical problems) Additional Family Medical History / Comment(s): Patient has 2 daughters no major medical problems Son(s) Family Medical History: No Reported History (patient has 2 sons no major medical problems.) Additional Family Medical History / Comment(s): Patient has 2 sons no major medical problems. General Exam Limitations: no limitations General appearance: alert, in no apparent distress Head exam: Present: normocephalic Eye exam: Present: PERRL, other (right periorbital contusion). Absent: scleral icterus, conjunctival injection ENT exam: Present: normal oropharynx Neck exam: Absent: tenderness Respiratory exam: Present: normal lung sounds bilaterally. Absent: respiratory distress, wheezes, rales, rhonchi, stridor Cardiovascular Exam: Present: regular rate, normal rhythm, normal heart sounds. Absent: systolic murmur, diastolic murmur, rubs, gallop GI/Abdominal exam: Present: soft. Absent: distended, tenderness, guarding Neurological exam: Present: alert, oriented X3, other (right hemiparesis) Skin exam: Present: warm, dry, intact, normal color Course Vital Signs 09/16/19 09/16/19 09/16/19 03:51 04:07 04:30 Temperature 99.1 F Pulse Rate 92 91 77 Respiratory 18 18 15 Rate Blood Pressure 153/100 110/74 110/73 O2 Sat by Pulse 96 96 95 Oximetry 09/16/19 09/16/19 09/16/19 05:00 05:30 06:00 Temperature Pulse Rate 80 81 79 Respiratory 12 13 12 Rate Blood Pressure 103/77 120/77 118/98 O2 Sat by Pulse 97 99 100 Oximetry 09/16/19 06:30 Temperature 97.7 F Pulse Rate 81 Respiratory 14 Rate Blood Pressure 111/73 O2 Sat by Pulse 98 Oximetry Medical Decision Making - Lab Data Result diagrams: 09/16/19 04:49 09/16/19 04:49 Lab Results 09/16/19 09/16/19 09/16/19 Range/Units 04:43 04:49 04:49 WBC 8.2 (3.8-10.6) k/uL RBC 3.74 L (3.80-5.40) m/uL Hgb 11.4 (11.4-16.0) gm/dL Hct 32.7 L (34.0-46.0) % MCV 87.5 (80.0-100.0) fL MCH 30.4 (25.0-35.0) pg MCHC 34.7 (31.0-37.0) g/dL RDW 13.2 (11.5-15.5) % Plt Count 228 (150-450) k/uL Neutrophils % 68 % Lymphocytes % 20 % Monocytes % 5 % Eosinophils % 5 % Basophils % 0 % Neutrophils # 5.6 (1.3-7.7) k/uL Lymphocytes # 1.7 (1.0-4.8) k/uL Monocytes # 0.4 (0-1.0) k/uL Eosinophils # 0.4 (0-0.7) k/uL Basophils # 0.0 (0-0.2) k/uL PT (9.0-12.0) sec INR (<1.2) APTT (22.0-30.0) sec Sodium (137-145) mmol/L Potassium (3.5-5.1) mmol/L Chloride (98-107) mmol/L Carbon Dioxide (22-30) mmol/L Anion Gap mmol/L BUN (7-17) mg/dL Creatinine (0.52-1.04) mg/dL Est GFR (CKD-EPI)AfAm (>60 ml/min/1.73 sqM) Est GFR (CKD-EPI)NonAf (>60 ml/min/1.73 sqM) Glucose (74-99) mg/dL POC Glucose (mg/dL) 99 (75-99) mg/dL POC Glu [employer] ID Patricia Delatorre Calcium (8.4-10.2) mg/dL Total Bilirubin (0.2-1.3) mg/dL AST (14-36) U/L ALT (4-34) U/L Alkaline Phosphatase (38-126) U/L Ammonia <9 (<30) umol/L Troponin I (0.000-0.034) ng/mL Total Protein (6.3-8.2) g/dL Albumin (3.5-5.0) g/dL Urine Color Urine Appearance (Clear) Urine pH (5.0-8.0) Ur Specific [place] (1.001-1.035) Urine Protein (Negative) Urine Glucose (UA) (Negative) Urine Ketones (Negative) Urine Blood (Negative) Urine Nitrite (Negative) Urine Bilirubin (Negative) Urine Urobilinogen (<2.0) mg/dL Ur Leukocyte Esterase (Negative) Urine RBC (0-5) /hpf Urine WBC (0-5) /hpf Ur Squamous Epith Cells (0-4) /hpf Urine Bacteria (None) /hpf Urine Mucus (None) /hpf Urine Opiates Screen (NotDetected) Ur Oxycodone Screen (NotDetected) Urine Methadone Screen (NotDetected) Ur Propoxyphene Screen (NotDetected) Ur Barbiturates Screen (NotDetected) U Tricyclic Antidepress (NotDetected) Ur Phencyclidine Scrn (NotDetected) Ur Amphetamines Screen (NotDetected) U Methamphetamines Scrn (NotDetected) U Benzodiazepines Scrn (NotDetected) Urine Cocaine Screen (NotDetected) U Marijuana (THC) Screen (NotDetected) 09/16/19 09/16/19 09/16/19 Range/Units 04:49 04:49 04:49 WBC (3.8-10.6) k/uL RBC (3.80-5.40) m/uL Hgb (11.4-16.0) gm/dL Hct (34.0-46.0) % MCV (80.0-100.0) fL MCH (25.0-35.0) pg MCHC (31.0-37.0) g/dL RDW (11.5-15.5) % Plt Count (150-450) k/uL Neutrophils % % Lymphocytes % % Monocytes % % Eosinophils % % Basophils % % Neutrophils # (1.3-7.7) k/uL Lymphocytes # (1.0-4.8) k/uL Monocytes # (0-1.0) k/uL Eosinophils # (0-0.7) k/uL Basophils # (0-0.2) k/uL PT 10.4 (9.0-12.0) sec INR 1.0 (<1.2) APTT 25.0 (22.0-30.0) sec Sodium 140 (137-145) mmol/L Potassium 3.8 (3.5-5.1) mmol/L Chloride 109 H (98-107) mmol/L Carbon Dioxide 24 (22-30) mmol/L Anion Gap 7 mmol/L BUN 19 H (7-17) mg/dL Creatinine 1.35 H (0.52-1.04) mg/dL Est GFR (CKD-EPI)AfAm 52 (>60 ml/min/1.73 sqM) Est GFR (CKD-EPI)NonAf 45 (>60 ml/min/1.73 sqM) Glucose 96 (74-99) mg/dL POC Glucose (mg/dL) (75-99) mg/dL POC Glu [employer] ID Calcium 9.8 (8.4-10.2) mg/dL Total Bilirubin 0.6 (0.2-1.3) mg/dL AST 18 (14-36) U/L ALT 18 (4-34) U/L Alkaline Phosphatase 90 (38-126) U/L Ammonia (<30) umol/L Troponin I <0.012 (0.000-0.034) ng/mL Total Protein 6.8 (6.3-8.2) g/dL Albumin 4.1 (3.5-5.0) g/dL Urine Color Urine Appearance (Clear) Urine pH (5.0-8.0) Ur Specific [place] (1.001-1.035) Urine Protein (Negative) Urine Glucose (UA) (Negative) Urine Ketones (Negative) Urine Blood (Negative) Urine Nitrite (Negative) Urine Bilirubin (Negative) Urine Urobilinogen (<2.0) mg/dL Ur Leukocyte Esterase (Negative) Urine RBC (0-5) /hpf Urine WBC (0-5) /hpf Ur Squamous Epith Cells (0-4) /hpf Urine Bacteria (None) /hpf Urine Mucus (None) /hpf Urine Opiates Screen (NotDetected) Ur Oxycodone Screen (NotDetected) Urine Methadone Screen (NotDetected) Ur Propoxyphene Screen (NotDetected) Ur Barbiturates Screen (NotDetected) U Tricyclic Antidepress (NotDetected) Ur Phencyclidine Scrn (NotDetected) Ur Amphetamines Screen (NotDetected) U Methamphetamines Scrn (NotDetected) U Benzodiazepines Scrn (NotDetected) Urine Cocaine Screen (NotDetected) U Marijuana (THC) Screen (NotDetected) 09/16/19 Range/Units 06:05 WBC (3.8-10.6) k/uL RBC (3.80-5.40) m/uL Hgb (11.4-16.0) gm/dL Hct (34.0-46.0) % MCV (80.0-100.0) fL MCH (25.0-35.0) pg MCHC (31.0-37.0) g/dL RDW (11.5-15.5) % Plt Count (150-450) k/uL Neutrophils % % Lymphocytes % % Monocytes % % Eosinophils % % Basophils % % Neutrophils # (1.3-7.7) k/uL Lymphocytes # (1.0-4.8) k/uL Monocytes # (0-1.0) k/uL Eosinophils # (0-0.7) k/uL Basophils # (0-0.2) k/uL PT (9.0-12.0) sec INR (<1.2) APTT (22.0-30.0) sec Sodium (137-145) mmol/L Potassium (3.5-5.1) mmol/L Chloride (98-107) mmol/L Carbon Dioxide (22-30) mmol/L Anion Gap mmol/L BUN (7-17) mg/dL Creatinine (0.52-1.04) mg/dL Est GFR (CKD-EPI)AfAm (>60 ml/min/1.73 sqM) Est GFR (CKD-EPI)NonAf (>60 ml/min/1.73 sqM) Glucose (74-99) mg/dL POC Glucose (mg/dL) (75-99) mg/dL POC Glu [employer] ID Calcium (8.4-10.2) mg/dL Total Bilirubin (0.2-1.3) mg/dL AST (14-36) U/L ALT (4-34) U/L Alkaline Phosphatase (38-126) U/L Ammonia (<30) umol/L Troponin I (0.000-0.034) ng/mL Total Protein (6.3-8.2) g/dL Albumin (3.5-5.0) g/dL Urine Color Yellow Urine Appearance Cloudy H (Clear) Urine pH 7.0 (5.0-8.0) Ur Specific [place] 1.016 (1.001-1.035) Urine Protein Trace H (Negative) Urine Glucose (UA) Negative (Negative) Urine Ketones Negative (Negative) Urine Blood Moderate H (Negative) Urine Nitrite Negative (Negative) Urine Bilirubin Negative (Negative) Urine Urobilinogen 2.0 (<2.0) mg/dL Ur Leukocyte Esterase Large H (Negative) Urine RBC 72 H (0-5) /hpf Urine WBC 44 H (0-5) /hpf Ur Squamous Epith Cells <1 (0-4) /hpf Urine Bacteria Occasional H (None) /hpf Urine Mucus Few H (None) /hpf Urine Opiates Screen Not Detected (NotDetected) Ur Oxycodone Screen Not Detected (NotDetected) Urine Methadone Screen Not Detected (NotDetected) Ur Propoxyphene Screen Not Detected (NotDetected) Ur Barbiturates Screen Detected H (NotDetected) U Tricyclic Antidepress Detected H (NotDetected) Ur Phencyclidine Scrn Not Detected (NotDetected) Ur Amphetamines Screen Not Detected (NotDetected) U Methamphetamines Scrn Not Detected (NotDetected) U Benzodiazepines Scrn Not Detected (NotDetected) Urine Cocaine Screen Not Detected (NotDetected) U Marijuana (THC) Screen Not Detected (NotDetected) Disposition Clinical Impression: Urinary tract infection Disposition: HOME SELF-CARE Condition: Good Instructions (If sedation given, give patient instructions): Urinary Tract Infection in Women (ED) Is patient prescribed a controlled substance at d/c from ED?: No Referrals: Sheree Amaya MD [Primary Care Provider] - 1-2 days
[2019-09-16 06:59] VITALS: TEMP 97.7
[2019-09-16 07:18] VITALS: BP 116/73; PULSE 74; RESP 12
== END 2019-09-16 07:25 | disposition home or self-care (01) ==
LOC: EC 03:44
DX: N39.0 Urinary tract infection, site not specified (principal); S00.11XA Contusion of right eyelid and periocular area, initial encounter; G81.91 Hemiplegia, unspecified affecting right dominant side; E78.5 Hyperlipidemia, unspecified; I10 Essential (primary) hypertension; Z79.82 Long term (current) use of aspirin; Z79.899 Other long term (current) drug therapy; Z88.5 Allergy status to narcotic agent; Z86.73 Personal history of transient ischemic attack (TIA), and cerebral infarction without residual deficits; X58.XXXA Exposure to other specified factors, initial encounter
CPT/HCPCS: 36415; 70450; 71045; 80053; 80306; 81001; 82140; 84484; 85025; 85610; 85730; 87086; 93005; 96360; 99285

== ENCOUNTER 2019-09-18 15:39 | Inpatient (IN) | payer BC, OTHER ==
[2019-09-18] MEDS ORDERED: ONDANSETRON 4 MG/2 ML VIAL IVP STA (16:04)
[2019-09-18] MEDS ORDERED: SODIUM CHLORIDE 0.9% 1,000 ML IV STA (16:04)
[2019-09-18 16:12] LABS: Glucose,Whole Blood 122 mg/dL (75-99)
--- NOTE | 2019-09-18 16:20 | ED ---
General Adult HPI - General Chief complaint: Nausea/Vomiting/Diarrhea Stated complaint: Vomiting, eye rolling in head Time Seen by Provider: 09/18/19 15:56 Source: family Mode of arrival: wheelchair Limitations: no limitations - History of Present Illness Initial comments: Dictation was produced using [employer] dictation software. please excuse any gr ammatical, word or spelling errors. Chief Complaint: 54-year-old female past medical history of being nonverbal secondary to hemorrhagic stroke suffered several years ago. Presents today with nausea vomiting and syncope. History of Present Illness: 54-year-old female presents with episode of emesis and syncope. Patient is nonverbal at baseline. She presents today with [facility] transportation services. Patient just completed speech therapy done at [facility]. On their car ride back patient had episode where she was turned off into space. She appeared to become unresponsive for a couple seconds. She then regained consciousness and had an episode of nausea. Patient was seen in the emergency department 2 days ago where she was diagnosed with urinary tract infection. Patient able to answer yes or no questions with nodding. She denies any chest pain, shortness of breath or abdominal pain. Patient denies any urinary symptoms. She does complain of dizziness. She has no recollection of the event from earlier today. Family member at bedside reports that patient's bunk mate at the [facility] has also been having similar symptoms. The ROS documented in this emergency department record has been reviewed and confirmed by me. Those systems with pertinent positive or negative responses have been documented in the HPI. All other systems are other negative and/or noncontributory. PHYSICAL EXAM: General Impression: Alert, not in acute distress HEENT: Normocephalic atraumatic, extra-ocular movements intact, pupils equal and reactive to light bilaterally, mucous membranes moist. Cardiovascular: Heart regular rate and rhythm, S1&S2 audible, no murmurs, rubs or gallops Chest: Lungs clear to auscultation bilaterally, no rhonchi, no wheeze, no rales Abdomen: Bowel sounds present, abdomen soft, non-tender, non-distended, no organomegaly Musculoskeletal: Pulses present and equal in all extremities, no peripheral edema Motor: no focal deficits noted Neurological: CN II-XII grossly intact Skin: Intact with no visualized rashes Psych: Normal affect and mood ED course: 54-year-old female presents with chief complaint of syncope and episode of vomiting. All signs upon arrival are within acceptable limits. Physical examination is grossly benign. Patient is well-appearing at bedside. Chart review was performed. Patient was here 2 days ago she was diagnosed with urinary tract infection. Patient's medical biology is available and positive aerococcus. Laboratory evaluation obtained. CBC unremarkable. Metabolic panel shows slight acute kidney injury. Magnesium is normal. Urinalysis is clear of any infection. Patient had prolonged QT on her EKG. It's unclear what is causing this appears likely secondary to medications. Given patient's degree of acute kidney injury will have patient admitted. Slightly secondary to dehydration from recent vomiting. Patient is understandable agreeable to admission. Discussed patient case with Dr. Jhonatan Gilbert except patient's care. EKG interpretation: Ventricular rate 94, normal sinus rhythm, NE interval 172, QS 92, QTc 507. QT is prolonged. QT is prolonged compared to EKG from 09/16. - Related Data Home Medications Medication Instructions Recorded Confirmed Acetaminophen Tab [Tylenol] 650 mg PO Q4H PRN 01/26/18 09/12/19 Atorvastatin [Lipitor] 10 mg PO HS@2100 01/26/18 09/12/19 Baclofen [Lioresal] 10 mg PO TID@0600,1400,2200 05/23/18 09/12/19 Cyclobenzaprine [Flexeril] 10 mg PO BID@0900,2100 05/23/18 09/12/19 Sennosides [Senna] 8.6 mg PO BID 05/23/18 09/12/19 Sertraline [Zoloft] 50 mg PO DAILY@0900 05/23/18 09/12/19 levETIRAcetam [Keppra] 500 mg PO BID@0600,2200 05/23/18 09/12/19 Aspirin EC [Ecotrin Low Dose] 81 mg PO DAILY 03/04/19 09/12/19 Butalbital/Apap 50/325mg 1 tab PO Q4H PRN 03/04/19 09/12/19 Labetalol [Trandate] 400 mg PO BID@0900,2100 03/04/19 09/12/19 Magnesium Hydroxide [Milk of 2,400 mg PO DAILY PRN 03/04/19 09/12/19 Magnesia] Methyl Salicylate/Menthol 1 patch TOPICAL DAILY@0600 03/04/19 09/12/19 [Salonpas Patch] Multivitamins, Thera [Multivitamin 1 tab PO DAILY@0900 03/04/19 09/12/19 (formulary)] Olmesartan Medoxomil 40 mg PO DAILY@0900 03/04/19 09/12/19 Sucralfate [Carafate] 1 gm PO QID@,,17,21 03/04/19 09/12/19 Triamterene-Hctz 37.5-25Mg 1 cap PO DAILY 03/04/19 09/12/19 [Dyazide 37.5-25 Capsule] cloNIDine HCL [Catapres] 0.1 mg PO BID PRN MDD >160 03/04/19 09/12/19 levETIRAcetam [Keppra] 250 mg PO DAILY@1400 03/04/19 09/12/19 hydrALAZINE HCL 50 mg PO Q8H PRN 09/12/19 09/12/19 Previous Rx's Medication Instructions Recorded Gabapentin [Neurontin] 400 mg PO BID@0600,2200 #6 cap 09/14/19 Allergies Allergy/AdvReac Type Severity Reaction Status Date / Time codeine Allergy Unknown Verified 09/18/19 15:54 Review of Systems ROS Statement: Those systems with pertinent positive or pertinent negative responses have been documented in the HPI. ROS Other: All systems not noted in ROS Statement are negative. Past Medical History Past Medical History: CVA/TIA, Hyperlipidemia, Hypertension Additional Past Medical History / Comment(s): Previous history of subarachnoid bleed/intracranial hemorrhage related to hypertensive urgency and the patient had prolonged hospitalization at [facility] in December 2013 and her course was complicated by prolonged ventilator dependent respiratory failure requiring tracheostomy tube insertion of PEG tube insertion all reversed for now and the patient has been maintained on Keppra for seizure precautions. Hypertension, hyperlipidemia, hydrocephalus History of Any Multi-Drug Resistant Organisms: VRE Date of last positivie culture/infection: 05/04/18 MDRO Source:: VRE URINE Past Surgical History: Section Additional Past Surgical History / Comment(s): Tracheostomy placement Past Anesthesia/Blood Transfusion Reactions: No Reported Reaction Past Psychological History: Anxiety Smoking Status: Never smoker Past Alcohol Use History: None Reported Past Drug Use History: None Reported - Past Family History Father Family Medical History: Unable to Obtain (patient doesn't know much about her father she currently has a stepfather.) Additional Family Medical History / Comment(s): Patient doesn't know much about her father she currently has a stepfather. Mother Family Medical History: Hypertension (mother is 80-year-old has history of hypertension.) Additional Family Medical History / Comment(s): Mother is 80-year-old has history of hypertension. Daughter(s) Family Medical History: No Reported History (patient has 2 daughters no major medical problems) Additional Family Medical History / Comment(s): Patient has 2 daughters no major medical problems Son(s) Family Medical History: No Reported History (patient has 2 sons no major medical problems.) Additional Family Medical History / Comment(s): Patient has 2 sons no major medical problems. General Exam Limitations: no limitations Course Vital Signs 09/18/19 09/18/19 09/18/19 15:55 16:00 16:55 Temperature 98.7 F 98.5 F Pulse Rate 93 93 71 Respiratory 18 16 19 Rate Blood Pressure 107/92 107/92 113/86 O2 Sat by Pulse 92 L 94 L 96 Oximetry 09/18/19 09/18/19 17:00 18:00 Temperature 98.6 F 98.6 F Pulse Rate 90 91 Respiratory 17 18 Rate Blood Pressure 107/91 107/92 O2 Sat by Pulse 98 98 Oximetry Medical Decision Making - Lab Data Result diagrams: 09/18/19 16:13 09/18/19 16:13 Lab Results 09/18/19 09/18/19 09/18/19 Range/Units 16:06 16:13 16:13 WBC 8.7 (3.8-10.6) k/uL RBC 3.98 (3.80-5.40) m/uL Hgb 11.7 (11.4-16.0) gm/dL Hct 35.4 (34.0-46.0) % MCV 89.0 (80.0-100.0) fL MCH 29.5 (25.0-35.0) pg MCHC 33.1 (31.0-37.0) g/dL RDW 13.8 (11.5-15.5) % Plt Count 238 (150-450) k/uL Neutrophils % 73 % Lymphocytes % 17 % Monocytes % 5 % Eosinophils % 4 % Basophils % 1 % Neutrophils # 6.3 (1.3-7.7) k/uL Lymphocytes # 1.5 (1.0-4.8) k/uL Monocytes # 0.4 (0-1.0) k/uL Eosinophils # 0.4 (0-0.7) k/uL Basophils # 0.1 (0-0.2) k/uL Sodium 143 (137-145) mmol/L Potassium 3.9 (3.5-5.1) mmol/L Chloride 110 H (98-107) mmol/L Carbon Dioxide 23 (22-30) mmol/L Anion Gap 10 mmol/L BUN 31 H (7-17) mg/dL Creatinine 2.11 H (0.52-1.04) mg/dL Est GFR (CKD-EPI)AfAm 30 (>60 ml/min/1.73 sqM) Est GFR (CKD-EPI)NonAf 26 (>60 ml/min/1.73 sqM) Glucose 111 H (74-99) mg/dL POC Glucose (mg/dL) 122 H (75-99) mg/dL POC Glu [employer] Worker ID Kedar Miles Calcium 9.6 (8.4-10.2) mg/dL Magnesium 2.1 (1.6-2.3) mg/dL Total Bilirubin 0.4 (0.2-1.3) mg/dL AST 20 (14-36) U/L ALT 20 (4-34) U/L Alkaline Phosphatase 94 (38-126) U/L Total Protein 7.0 (6.3-8.2) g/dL Albumin 4.2 (3.5-5.0) g/dL Lipase 53 (23-300) U/L Urine Color Urine Appearance (Clear) Urine pH (5.0-8.0) Ur Specific Rhame (1.001-1.035) Urine Protein (Negative) Urine Glucose (UA) (Negative) Urine Ketones (Negative) Urine Blood (Negative) Urine Nitrite (Negative) Urine Bilirubin (Negative) Urine Urobilinogen (<2.0) mg/dL Ur Leukocyte Esterase (Negative) Urine WBC (0-5) /hpf Amorphous Sediment (None) /hpf Urine Bacteria (None) /hpf Urine Mucus (None) /hpf 09/18/19 Range/Units 18:00 WBC (3.8-10.6) k/uL RBC (3.80-5.40) m/uL Hgb (11.4-16.0) gm/dL Hct (34.0-46.0) % MCV (80.0-100.0) fL MCH (25.0-35.0) pg MCHC (31.0-37.0) g/dL RDW (11.5-15.5) % Plt Count (150-450) k/uL Neutrophils % % Lymphocytes % % Monocytes % % Eosinophils % % Basophils % % Neutrophils # (1.3-7.7) k/uL Lymphocytes # (1.0-4.8) k/uL Monocytes # (0-1.0) k/uL Eosinophils # (0-0.7) k/uL Basophils # (0-0.2) k/uL Sodium (137-145) mmol/L Potassium (3.5-5.1) mmol/L Chloride (98-107) mmol/L Carbon Dioxide (22-30) mmol/L Anion Gap mmol/L BUN (7-17) mg/dL Creatinine (0.52-1.04) mg/dL Est GFR (CKD-EPI)AfAm (>60 ml/min/1.73 sqM) Est GFR (CKD-EPI)NonAf (>60 ml/min/1.73 sqM) Glucose (74-99) mg/dL POC Glucose (mg/dL) (75-99) mg/dL POC Glu [employer] Worker ID Calcium (8.4-10.2) mg/dL Magnesium (1.6-2.3) mg/dL Total Bilirubin (0.2-1.3) mg/dL AST (14-36) U/L ALT (4-34) U/L Alkaline Phosphatase (38-126) U/L Total Protein (6.3-8.2) g/dL Albumin (3.5-5.0) g/dL Lipase (23-300) U/L Urine Color Yellow Urine Appearance Clear (Clear) Urine pH 6.0 (5.0-8.0) Ur Specific Rhame 1.018 (1.001-1.035) Urine Protein Trace H (Negative) Urine Glucose (UA) Negative (Negative) Urine Ketones Trace H (Negative) Urine Blood Negative (Negative) Urine Nitrite Negative (Negative) Urine Bilirubin Negative (Negative) Urine Urobilinogen <2.0 (<2.0) mg/dL Ur Leukocyte Esterase Trace H (Negative) Urine WBC 3 (0-5) /hpf Amorphous Sediment Rare H (None) /hpf Urine Bacteria Rare H (None) /hpf Urine Mucus Rare H (None) /hpf Disposition Clinical Impression: KHAI (acute kidney injury), Prolonged QT interval, Nausea & vomiting Disposition: ADMITTED IP TO THIS HOSP Condition: Fair Referrals: Sheree Amaya MD [Primary Care Provider] - 1-2 days Decision Time: 19:01
[2019-09-18 16:27] LABS: Basophils # (A) 0.1 k/uL (0-0.2); Basophils % (A) 1 %; Eosinophils # (A) 0.4 k/uL (0-0.7); Eosinophils % (A) 4 %; HCT 35.4 % (34.0-46.0); HGB 11.7 gm/dL (11.4-16.0); Lymphocytes # (A) 1.5 k/uL (1.0-4.8); Lymphocytes % (A) 17 %; MCH 29.5 pg (25.0-35.0); MCHC 33.1 g/dL (31.0-37.0); Mean Platelet Volume 8.7; Monocytes # (A) 0.4 k/uL (0-1.0); Monocytes % (A) 5 %; Neutrophils # (A) 6.3 k/uL (1.3-7.7); Neutrophils % (A) 73 %; Platelet Count 238 k/uL (150-450); RBC 3.98 m/uL (3.80-5.40); RDW 13.8 % (11.5-15.5); WBC 8.7 k/uL (3.8-10.6)
[2019-09-18 16:40] LABS: Albumin 4.2 g/dL (3.5-5.0); Calcium 9.6 mg/dL (8.4-10.2); Magnesium 2.1 mg/dL (1.6-2.3); Potassium 3.9 mmol/L (3.5-5.1); Total Bilirubin 0.4 mg/dL (0.2-1.3)
--- NOTE | 2019-09-18 16:43 | XR ---
EXAMINATION TYPE: XR chest 2V DATE OF EXAM: 09/18/2019 COMPARISON: Chest x-ray 2 days ago HISTORY: Cough and vomiting. TECHNIQUE: Frontal and lateral views of the chest are obtained. FINDINGS: Low lung volumes redemonstrated. Overlying EKG leads again seen. There is no focal air spa ce opacity, pleural effusion, or pneumothorax seen. The cardiac silhouette size is stable and mildly enlarged. The osseous structures are intact. IMPRESSION: Mild cardiomegaly without suspicious acute pulmonary process.
[2019-09-18 18:30] LABS: Amorphous Sediment,Urine Rare /hpf; Appearance,Urine Clear (Clear); Bacteria,Urine Rare /hpf; Bilirubin,Urine Negative (Negative); Blood,Urine Negative (Negative); Color,Urine Yellow; Glucose,Urine (UA) Negative (Negative); Ketones,Urine Trace (Negative); Leukocyte Esterase,Urine Trace (Negative); Mucus,Urine Rare /hpf; Nitrite,Urine Negative (Negative); Protein,Urine Trace (Negative); Specific Gravity,Urine 1.018 (1.001-1.035); Urobilinogen,Urine <2.0 mg/dL (<2.0); WBC,Urine 3 /hpf (0-5)
[2019-09-18] MEDS ORDERED: NALOXONE 0.4 MG/ML 1 ML VIAL IV PRN (18:58)
[2019-09-18] MEDS: SODIUM CHLORIDE 0.9% 1,000 ML IV SCH (20:35)
[2019-09-18] MEDS ORDERED: hydrALAZINE HCL 50 MG TAB PO PRN (20:51)
[2019-09-18] MEDS ORDERED: ACETAMINOPHEN TAB 325 MG TAB PO PRN (20:51)
[2019-09-18] MEDS ORDERED: cloNIDine HCL 0.1 MG TAB PO PRN (20:51)
[2019-09-18] MEDS: LABETALOL 200 MG TAB PO SCH (22:03)
[2019-09-18] MEDS: ATORVASTATIN 10 MG TAB PO SCH (22:03)
[2019-09-18] MEDS: SUCRALFATE 1 GM TAB PO SCH (22:04)
[2019-09-18] MEDS: SENNOSIDES 8.6 MG TAB PO SCH (22:04)
[2019-09-18] MEDS: levETIRAcetam 500 MG TAB PO SCH (22:04)
[2019-09-18] MEDS: BACLOFEN 10 MG TAB PO SCH (22:04)
[2019-09-19] MEDS: BACLOFEN 10 MG TAB PO SCH ×3 (05:43→21:17)
[2019-09-19] MEDS: levETIRAcetam 500 MG TAB PO SCH ×2 (05:43→21:18)
[2019-09-19] MEDS: SODIUM CHLORIDE 0.9% 1,000 ML IV SCH ×3 (05:47→21:19)
[2019-09-19] MEDS ORDERED: GABAPENTIN 300 MG CAP PO SCH (09:00)
[2019-09-19] MEDS: SUCRALFATE 1 GM TAB PO SCH ×4 (10:56→21:17)
[2019-09-19] MEDS: SENNOSIDES 8.6 MG TAB PO SCH ×2 (10:56→21:16)
[2019-09-19] MEDS: ASPIRIN 81 MG PO SCH (10:56)
[2019-09-19] MEDS: LABETALOL 200 MG TAB PO SCH ×2 (10:56→21:16)
[2019-09-19] MEDS: SERTRALINE 50 MG TAB PO SCH (10:56)
[2019-09-19 11:56] VITALS: BMI 28.3
--- NOTE | 2019-09-19 13:55 | P.CRDCN ---
History of Present Illness History of present illness: HISTORY OF PRESENTING ILLNESS This is a pleasant 54-year-old female past medical history significant for hemorrhagic stroke with speech impairment and right sides residual weakness, hypertension, dyslipidemia and hydrocephalus maintained on keppra for seizure precautions . She does not follow in the office with a visitor use assistant for any reason. We have been asked to see in consultation for prolong QT interval on EKG. She presented to the emergency department on September 16 secondary to hallucinations and burning with urination. She was diagnosed with a urinary tract infection and started on Levaquin. Yesterday she was being transported to speech therapy and on the right home she became unresponsive in the sense that she was staring off with her eyes open but was not responding appropriately per her . She then vomited one time. She is nonverbal however her is at the bedside providing a very detailed history. He states she communicates with him appropriately. She is seen and examined resting comfortably in bed in no acute distress. According to the she denies having had any chest discomfort, shortness of breath, dizziness or palpitations. Her vomiting was unprovoked by oral intake. Her states she has gotten sick from riding in the car in the past but unsure if this was the cause. DIAGNOSTICS EKG reveals sinus mechanism with heart rate 94, QTC corrected 507 ms. Chest xray negative for an acute cardiopulmonary process. Laboratory reviewed, CBC unremarkable, sodium 143, potassium 3.9, creatinine 2.11, magnesium 2.1. Current cardiac medications include aspirin 81 mg daily, atorvastatin 10 mg daily, labetalol 400 mg twice a day, losartan 40 mg daily, Dyazide 37.5/25 mg daily, hydralazine 50 mg 3 times a day as needed and clonidine 0.1 mg twice a day as needed for blood pressure greater than 160 systolic. Most recent echocardiogram obtained in 2018 revealed preserved LV systolic function with ejection fraction 60-65% and mild mitral regurgitation. REVIEW OF SYSTEMS At the time of my exam: Pt is non-verbal. Review of symptoms discussed with the at the bedside. CONSTITUTIONAL: Denies fever or chills. CARDIOVASCULAR: Denies chest pain, shortness of breath, orthopnea, PND or palpitations. RESPIRATORY: Denies cough. GASTROINTESTINAL: Denies abdominal pain, diarrhea, constipation, nausea or vomiting. MUSCULOSKELETAL: Denies myalgias. NEUROLOGIC: Denies numbness, tingling or weakness. ENDOCRINE: Denies fatigue, weight change, polydipsia or polyurina. GENITOURINARY: Denies burning, hematuria or urgency with micturation. HEMATOLOGIC: Denies history of anemia or bleeding. PHYSICAL EXAMINATION Blood pressure 129/76 heart rate 104 afebrile and maintaining oxygen saturation on room air. CONSTITUTIONAL: No apparent distress. HEENT: Head is normocephalic. Pupils are equal, round. Sclerae anicteric. Mucous membranes of the mouth are moist. No JVD. No carotid bruit. CHEST EXAMINATION: Lungs are clear to auscultation. No chest wall tenderness is noted on palpation or with deep breathing. HEART EXAMINATION: Regular rate and rhythm. S1, S2 heard. No murmurs, gallops or rub. ABDOMEN: Soft, nontender. Positive bowel sounds. EXTREMITIES: 2+ peripheral pulses, no lower extremity edema and no calf t enderness. NEUROLOGIC EXAMINATION: Patient is awake, alert and oriented. ASSESSMENT Prolonged QT interval secondary to levaquin administration Urinary tract infection Acute kidney injury History of hemorrhagic stroke with residual speech impairment and right sided weakness Hypertension Dyslipidemia PLAN Recommend discontinuation of levaquin as this can cause QT prolongation. Echo has been obtained and will be reviewed. Ongoing medical management and evaluation. Thank you kindly for this consultation. Nurse Practitioner note has been reviewed, I agree with a documented findings and plan of care. Patient was seen and examined. Past Medical History Past Medical History: CVA/TIA, Hyperlipidemia, Hypertension Additional Past Medical History / Comment(s): Previous history of subarachnoid bleed/intracranial hemorrhage related to hypertensive urgency and the patient had prolonged hospitalization at [facility] in December 2013 and her course was complicated by prolonged ventilator dependent respiratory failure requiring tracheostomy tube insertion of PEG tube insertion all reversed for now and the patient has been maintained on Keppra for seizure precautions. Hypertension, hyperlipidemia, hydrocephalus History of Any Multi-Drug Resistant Organisms: VRE Date of last positivie culture/infection: 05/04/18 MDRO Source:: VRE URINE Past Surgical History: Section Additional Past Surgical History / Comment(s): Tracheostomy placement Past Anesthesia/Blood Transfusion Reactions: No Reported Reaction Past Psychological History: Anxiety Additional Psychological History / Comment(s): Pt resides at [facility] on [facility]. She is assisted by staff to wheelchair. Smoking Status: Never smoker Past Alcohol Use History: None Reported Past Drug Use History: None Reported - Past Family History Father Family Medical History: Unable to Obtain Additional Family Medical History / Comment(s): Patient doesn't know much about her father she currently has a stepfather. Mother Family Medical History: Hypertension Additional Family Medical History / Comment(s): Mother is 80-year-old has history of hypertension. Daughter(s) Family Medical History: No Reported History Additional Family Medical History / Comment(s): Patient has 2 daughters no major medical problems Son(s) Family Medical History: No Reported History Additional Family Medical History / Comment(s): Patient has 2 sons no major medical problems. Medications and Allergies Home Medications Medication Instructions Recorded Confirmed Type Acetaminophen Tab [Tylenol] 650 mg PO Q4H PRN 01/26/18 09/18/19 History Atorvastatin [Lipitor] 10 mg PO HS@209901/26/18 09/18/19 History Baclofen [Lioresal] 10 mg PO TID@0600,1400,2200 05/23/18 09/18/19 History Cyclobenzaprine [Flexeril] 10 mg PO BID@0900,209905/23/18 09/18/19 History Sennosides [Senna] 8.6 mg PO BID@0900,209905/23/18 09/18/19 History Sertraline [Zoloft] 50 mg PO DAILY@89905/23/18 09/18/19 History levETIRAcetam [Keppra] 500 mg PO BID@0600,2200 05/23/18 09/18/19 History Aspirin EC [Ecotrin Low Dose] 81 mg PO DAILY@89903/04/19 09/18/19 History Butalbital/Apap 50/325mg 1 tab PO Q4H PRN 03/04/19 09/18/19 History Labetalol [Trandate] 400 mg PO BID@0900,209903/04/19 09/18/19 History Magnesium Hydroxide [Milk of 2,400 mg PO DAILY PRN 03/04/19 09/18/19 History Magnesia] Multivitamins, Thera [Multivitamin 1 tab PO DAILY@0900 03/04/19 09/18/19 History (formulary)] Olmesartan Medoxomil 40 mg PO DAILY@0900 03/04/19 09/18/19 History Sucralfate [Carafate] 1 gm PO QID@,,,03/04/19 09/18/19 History Triamterene-Hctz 37.5-25Mg 1 cap PO DAILY@0900 03/04/19 09/18/19 History [Dyazide 37.5-25 Capsule] cloNIDine HCL [Catapres] 0.1 mg PO BID PRN MDD >160 03/04/19 09/18/19 History levETIRAcetam [Keppra] 250 mg PO DAILY@1400 03/04/19 09/18/19 History hydrALAZINE HCL 50 mg PO Q8H PRN 09/12/19 09/18/19 History Gabapentin [Neurontin] 400 mg PO BID@0600,2200 #6 cap 09/14/19 09/18/19 Rx Levofloxacin [Levaquin] 750 mg PO DAILY@0900 09/18/19 09/18/19 History Allergies Allergy/AdvReac Type Severity Reaction Status Date / Time codeine Allergy Unknown Verified 09/18/19 19:18 Physical Exam Vitals: Vital Signs Temp Pulse Pulse Resp BP BP BP 09/19/19 07:00 99.0 F 104 H 17 129/76 09/19/19 00:33 98.9 F 120 H 16 124/77 09/18/19 22:00 116 H 119/60 09/18/19 20:22 97.9 F 105 H 16 104/71 09/18/19 20:10 98.6 F 104 H 18 107/92 09/18/19 18:00 98.6 F 91 18 107/92 09/18/19 17:00 98.6 F 90 17 107/91 09/18/19 16:55 71 19 113/86 09/18/19 16:00 98.5 F 93 16 107/92 09/18/19 15:55 98.7 F 93 18 107/92 Pulse Ox 09/19/19 07:00 95 09/19/19 00:33 94 L 09/18/19 22:00 09/18/19 20:22 98 09/18/19 20:10 98 09/18/19 18:00 98 09/18/19 17:00 98 09/18/19 16:55 96 12/17/19 16:00 94 L 09/18/19 15:55 92 L Intake and Output 09/18/19 09/19/19 09/19/19 22:59 06:59 14:59 Intake Total 700 Balance 700 Intake: Intake, IV Titration 220 Amount Sodium Chloride 0.9% 1, 220 000 ml @ 110 mls/hr IV . Q9H6M [facility] Rx#:[id number] Oral 480 Other: # Voids 1 Weight 77.111 kg 77.111 kg Results 09/18/19 16:13 09/18/19 16:13 Cardiac Enzymes 09/18/19 Range/Units 16:13 AST 20 (14-36) U/L CBC 09/18/19 Range/Units 16:13 WBC 8.7 (3.8-10.6) k/uL RBC 3.98 (3.80-5.40) m/uL Hgb 11.7 (11.4-16.0) gm/dL Hct 35.4 (34.0-46.0) % Plt Count 238 (150-450) k/uL Comprehensive Metabolic Panel 09/18/19 Range/Units 16:13 Sodium 143 (137-145) mmol/L Potassium 3.9 (3.5-5.1) mmol/L Chloride 110 H (98-107) mmol/L Carbon Dioxide 23 (22-30) mmol/L BUN 31 H (7-17) mg/dL Creatinine 2.11 H (0.52-1.04) mg/dL Glucose 111 H (74-99) mg/dL Calcium 9.6 (8.4-10.2) mg/dL AST 20 (14-36) U/L ALT 20 (4-34) U/L Alkaline Phosphatase 94 (38-126) U/L Total Protein 7.0 (6.3-8.2) g/dL Albumin 4.2 (3.5-5.0) g/dL Current Medications Generic Name Dose Route Start Last Admin Trade Name Freq PRN Reason Stop Dose Admin Acetaminophen 650 mg 09/18/19 20:51 Tylenol Tab PO Q4H PRN MILD Pain Aspirin 81 mg 09/19/19 09:00 09/19/19 10:56 Aspirin PO 81 mg DAILY@0900 [facility] Administration Atorvastatin Calcium 10 mg 09/18/19 21:00 09/18/19 22:03 Lipitor PO 10 mg HS@2100 DORIAN Administration Baclofen 10 mg 09/18/19 22:00 09/19/19 05:43 Lioresal PO 10 mg TID@0600,1400,2200 DORIAN Administration Clonidine 0.1 mg 09/18/19 20:51 Catapres PO BID PRN SBP Gabapentin 300 mg 09/19/19 09:00 09/19/19 10:56 Neurontin PO 300 mg DAILY DORIAN Administration Hydralazine HCl 50 mg 09/18/19 20:51 Apresoline PO Q8H PRN SBP>160 Sodium Chloride 1,000 mls @ 110 mls/hr 09/18/19 19:00 09/19/19 05:47 Saline 0.9% IV Not Given .Q9H6M DORIAN Labetalol HCl 400 mg 09/18/19 21:00 09/19/19 10:56 Trandate PO 400 mg BID@0900,2100 DORIAN Administration Levetiracetam 250 mg 09/19/19 14:00 Keppra PO DAILY@1400 DORIAN Levetiracetam 500 mg 09/18/19 22:00 09/19/19 05:43 Keppra PO 500 mg BID@0600,2200 DORIAN Administration Naloxone HCl 0.2 mg 09/18/19 18:58 Narcan IV Q2M PRN Opioid Reversal Senna 8.6 mg 09/18/19 21:00 09/19/19 10:56 Senokot PO 8.6 mg BID@0900,2100 DORIAN Administration Sertraline HCl 50 mg 09/19/19 09:00 09/19/19 10:56 Zoloft PO 50 mg DAILY@0900 DORIAN Administration Sucralfate 1 gm 09/18/19 21:00 09/19/19 10:56 Carafate PO 1 gm QID@,, DORIAN Administration Intake and Output 09/18/19 09/19/19 09/19/19 22:59 06:59 14:59 Intake Total 700 Balance 700 Intake: Intake, IV Titration 220 Amount Sodium Chloride 0.9% 1, 220 000 ml @ 110 mls/hr IV . Q9H6M DORIAN Rx#:[id number] Oral 480 Other: # Voids 1 Weight 77.111 kg 77.111 kg Patient Weight 09/20/19 06:59 Weight 77.111 kg 09/18/19 16:13 09/18/19 16:13
--- NOTE | 2019-09-19 14:35 | P.HPIM ---
History of Present Illness H&P Date: 09/19/19 his is a 54-year-old female patient of Dr. Amaya with past medical history of intracranial hemorrhage related to hypertensive urgency on 12/14/2017 followed by May 2018 which time she was treated for subacute thalmic infarct and was discharged back to [facility]. Patient is essentially aphasic but is able to point and helps her with communication. last seen on when she reached for a pillow that had fallen onto the floor and ended up falling forward out of the wheelchair and hit her face. She was found to have periorbital ecchymosis. Her right eye was previously affected from CVA and at the time was to wear specialty glasses which apparently she did not. Other significant history includes right brachial artery thrombosis, history of prolonged QT, hypertension, hypertensive cardiovascular disease, hyperlipidemia, recurrent depression. Patient is currently a resident of [facility] on the [place]. Patient was brought into [facility] emergency center for evaluation as patient.syncopal incident while in the car after she completed her speech therapy done in [facility]. On the car ride back patient to had an episode where she done into the space and was unresponsive for a couple of seconds. Patient also had had an episode of nausea and vomiting after she regained consciousness. According to the family bedside she has been sick for past few days. She was diagnosed with UTI and was initiated on Levaquin and has not been herself for the past 3 days. Patient does not walk but was found to be wobbly in her chair for the past few days. No episode of seizures noted patient is on Keppra for prophylaxis.Patient had a temp of 98.7 pulse 93 blood pressure 07/09/92 , B UN of 31 and creatinine 2.1 above patient's baseline glucose 111 W CBC 8.7 hemoglobin 11.7. Neurology and cardiology consult placed. Levaquin held for concern of QT prolongation. Continue on telemetry. EEG ordered to evaluate for his seizures. Orthostatics ordered Review of Systems could not be obtained as patient is aphasic Past Medical History Past Medical History: CVA/TIA, Hyperlipidemia, Hypertension Additional Past Medical History / Comment(s): Previous history of subarachnoid bleed/intracranial hemorrhage related to hypertensive urgency and the patient had prolonged hospitalization at [facility] back in December 2013 and her course was complicated by prolonged ventilator dependent respiratory failure requiring tracheostomy tube insertion of PEG tube insertion all reversed for now and the patient has been maintained on Keppra for seizure precautions. Hyper tension, hyperlipidemia, hydrocephalus History of Any Multi-Drug Resistant Organisms: VRE Date of last positivie culture/infection: 05/04/18 MDRO Source:: VRE URINE Past Surgical History: Section Additional Past Surgical History / Comment(s): Tracheostomy placement Past Anesthesia/Blood Transfusion Reactions: No Reported Reaction Past Psychological History: Anxiety Additional Psychological History / Comment(s): Pt resides at [facility] on [facility]. She is assisted by staff to wheelchair. Smoking Status: Never smoker Past Alcohol Use History: None Reported Past Drug Use History: None Reported - Past Family History Father Family Medical History: Unable to Obtain Additional Family Medical History / Comment(s): Patient doesn't know much about her father she currently has a stepfather. Mother Family Medical History: Hypertension Additional Family Medical History / Comment(s): Mother is 80-year-old has history of hypertension. Daughter(s) Family Medical History: No Reported History Additional Family Medical History / Comment(s): Patient has 2 daughters no major medical problems Son(s) Family Medical History: No Reported History Additional Family Medical History / Comment(s): Patient has 2 sons no major medical problems. Medications and Allergies Home Medications Medication Instructions Recorded Confirmed Type Acetaminophen Tab [Tylenol] 650 mg PO Q4H PRN 01/26/18 09/18/19 History Atorvastatin [Lipitor] 10 mg PO HS@209901/26/18 09/18/19 History Baclofen [Lioresal] 10 mg PO TID@0600,1400,2200 05/23/18 09/18/19 History Cyclobenzaprine [Flexeril] 10 mg PO BID@0900,209905/23/18 09/18/19 History Sennosides [Senna] 8.6 mg PO BID@0900,209905/23/18 09/18/19 History Sertraline [Zoloft] 50 mg PO DAILY@0900 05/23/18 09/18/19 History levETIRAcetam [Keppra] 500 mg PO BID@0600,2200 05/23/18 09/18/19 History Aspirin EC [Ecotrin Low Dose] 81 mg PO DAILY@0900 03/04/19 09/18/19 History Butalbital/Apap 50/325mg 1 tab PO Q4H PRN 03/04/19 09/18/19 History Labetalol [Trandate] 400 mg PO BID@0900,2100 03/04/19 09/18/19 History Magnesium Hydroxide [Milk of 2,400 mg PO DAILY PRN 03/04/19 09/18/19 History Magnesia] Multivitamins, Thera [Multivitamin 1 tab PO DAILY@0900 03/04/19 09/18/19 History (formulary)] Olmesartan Medoxomil 40 mg PO DAILY@0900 03/04/19 09/18/19 History Sucralfate [Carafate] 1 gm PO QID@,,,03/04/19 09/18/19 History Triamterene-Hctz 37.5-25Mg 1 cap PO DAILY@0900 03/04/19 09/18/19 History [Dyazide 37.5-25 Capsule] cloNIDine HCL [Catapres] 0.1 mg PO BID PRN MDD >160 03/04/19 09/18/19 History levETIRAcetam [Keppra] 250 mg PO DAILY@1400 03/04/19 09/18/19 History hydrALAZINE HCL 50 mg PO Q8H PRN 09/12/19 09/18/19 History Gabapentin [Neurontin] 400 mg PO BID@0600,2200 #6 cap 09/14/19 09/18/19 Rx Levofloxacin [Levaquin] 750 mg PO DAILY@0900 09/18/19 09/18/19 History Allergies Allergy/AdvReac Type Severity Reaction Status Date / Time codeine Allergy Unknown Verified 09/18/19 19:18 Physical Exam Vitals: Vital Signs Temp Pulse Pulse Resp BP BP BP 09/19/19 07:00 99.0 F 104 H 17 129/76 09/19/19 00:33 98.9 F 120 H 16 124/77 09/18/19 22:00 116 H 119/60 09/18/19 20:22 97.9 F 105 H 16 104/71 09/18/19 20:10 98.6 F 104 H 18 107/92 09/18/19 18:00 98.6 F 91 18 107/92 09/18/19 17:00 98.6 F 90 17 107/91 09/18/19 16:55 71 19 113/86 09/18/19 16:00 98.5 F 93 16 107/92 09/18/19 15:55 98.7 F 93 18 107/92 Pulse Ox 09/19/19 07:00 95 09/19/19 00:33 94 L 09/18/19 22:00 09/18/19 20:22 98 09/18/19 20:10 98 09/18/19 18:00 98 09/18/19 17:00 98 09/18/19 16:55 96 09/18/19 16:00 94 L 09/18/19 15:55 92 L Intake and Output 09/18/19 09/19/19 09/19/19 22:59 06:59 14:59 Intake Total 700 Output Total 300 Balance 700 -300 Intake: Intake, IV Titration 220 Amount Sodium Chloride 0.9% 1, 220 000 ml @ 110 mls/hr IV . Q9H6M [facility] Rx#:[id number] Oral 480 Output: Urine 300 Other: # Voids 1 Weight 77.111 kg 77.111 kg - Constitutional General appearance: drowsy sleeping obese noted to have periorbital edema on the right good prognosis answers questions in yes and no and falls back to sleep - EENT Eyes: anicteric sclerae, PERRLA, normal appearance ENT: hearing grossly normal - Neck Neck: no lymphadenopathy, normal ROM, no other, no rigidity, no stridor, no thyromegaly - Respiratory Respiratory: bilateral: CTA, negative: diminished, dullness, rales, rhonchi - Cardiovascular Rhythm: regular Heart sounds: normal: S1, S2 Abnormal Heart Sounds: no systolic murmur, no diastolic murmur, no rub, no S3 Gallop, no S4 Gallop, no click, no other - Gastrointestinal General gastrointestinal: normal bowel sounds, softnontender - Integumentary Integumentary: no rash - Neurologic Neurologic: CNII-XII intactpatient has minimal movement in the right upper and lower extremity is able to lift her buttocks to move the right lower extremity - Musculoskeletal Musculoskeletal:wheelchair bound, 7 strength reduced in the right upper and lower extremity - Psychiatric Psychiatric: Alert, orientation could not be assessed as patient answers in yes and no, appropriate affect Results CBC & Chem 7: 09/18/19 16:13 09/18/19 16:13 Labs: Abnormal Lab Results - Last 24 Hours (Table) 09/18/19 09/18/19 09/18/19 Range/Units 16:06 16:13 18:00 Chloride 110 H (98-107) mmol/L BUN 31 H (7-17) mg/dL Creatinine 2.11 H (0.52-1.04) mg/dL Glucose 111 H (74-99) mg/dL POC Glucose (mg/dL) 122 H (75-99) mg/dL Urine Protein Trace H (Negative) Urine Ketones Trace H (Negative) Ur Leukocyte Esterase Trace H (Negative) Amorphous Sediment Rare H (None) /hpf Urine Bacteria Rare H (None) /hpf Urine Mucus Rare H (None) /hpf Thrombosis Risk Factor Assmnt - DVT/VTE Prophylaxis DVT/VTE Prophylaxis: Pharmacologic Prophylaxis ordered - Choose All That Apply Any of the Below Risk Factors Present?: Yes Each Factor Represents 1 point: Age 41-60 years Other Risk Factors: No Thrombosis Risk Factor Assessment Total Risk Factor Score: 1 Thrombosis Risk Factor Assessment Level: Low Risk Assessment and Plan Plan: 1. syncopal episode likely secondary to QT prolongation. Rule out vasovagal syncope. Orthostatics ordered. Neurology and cardiology consulted. Patient has history of subarachnoid hemorrhage in 2018 rule out possible seizure EEG ordered 2. 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 2. History of thalamic infarct. CAT scan findings unchanged from previous study. 3. History of prior intracranial bleed. Continue Keppra 500 mg twice daily in the morning and at bedtime, 250 mg at 1400. 4. Hypertension and hypertensive cardiovascular disease. hold losartan 150 mg orally once every day,continue labetalol 400 mg orally twice every day, holdDyazide 30 7. 525 milligrams daily,continue Catapres and hydralazine as needed. 5. Hyperlipidemia. Continue patient on Lipitor 10 mg orally once every day. 6. Right-sided weakness with aphasia secondary to her prior intracranial bleed. Continue patient on baclofen 10 mg orally 3 times every day as well as a Fle xeril 10 mg orally twice every day, gabapentin 400 mg orally 2 times every day. 7. History of prolonged QT avoid drug that prolonged QT.oral Levaquin 8. Depression. Continue Zoloft 50 mg orally once every day. 9. DVT prophylaxis. Continue patient on knee-high JONH hose and the heparin 5000 units subcutaneously every 12 hours. 10. GI prophylaxis. Continue Pepcid 20 mg orally twice every day. CODE STATUS: Full code. Discharge plan: Return to [facility] under the care of Dr. Amaya.
[2019-09-19] MEDS: levETIRAcetam 250 MG TAB PO SCH (15:02)
--- NOTE | 2019-09-19 15:08 | US ---
EXAMINATION TYPE: US kidneys/renal and bladder DATE OF EXAM: 09/19/2019 COMPARISON: NONE CLINICAL HISTORY: KHAI. KHAI EXAM MEASUREMENTS: Right Kidney: 10.0 x 4.5 x 4.6 cm Left Kidney: 7.3 x 4.1 x 3.8 cm Exam limitations due to body habitus. Right Kidney: No hydronephrosis or masses seen Left Kidney: Limited visualization borders not well seen. Bladder: Anechoic Bilateral Jets seen: Just right jet seen. IMPRESSION: 1. Normal renal ultrasound
[2019-09-19] MEDS: ATORVASTATIN 10 MG TAB PO SCH (21:15)
[2019-09-19] MEDS: GABAPENTIN 100 MG CAP PO SCH (21:17)
[2019-09-19] MEDS: HEPARIN SODIUM,PORCINE 5,000 UNIT/ML 1 ML VIAL SQ SCH (21:18)
[2019-09-20 01:48] VITALS: RESP 16
[2019-09-20] MEDS: levETIRAcetam 500 MG TAB PO SCH (05:15)
[2019-09-20] MEDS: GABAPENTIN 100 MG CAP PO SCH (05:15)
[2019-09-20] MEDS: BACLOFEN 10 MG TAB PO SCH ×2 (05:15→13:39)
[2019-09-20 07:29] LABS: Calcium 8.8 mg/dL (8.4-10.2); Potassium 3.7 mmol/L (3.5-5.1); Total Bilirubin 0.4 mg/dL (0.2-1.3); Total Protein 5.5 g/dL (6.3-8.2)
[2019-09-20 07:42] LABS: Basophils % (A) 0 %; Eosinophils # (A) 0.4 k/uL (0-0.7); Eosinophils % (A) 4 %; HCT 29.6 % (34.0-46.0); Lymphocytes # (A) 1.3 k/uL (1.0-4.8); Lymphocytes % (A) 15 %; MCH 30.6 pg (25.0-35.0); MCHC 33.3 g/dL (31.0-37.0); MCV 91.9 fL (80.0-100.0); Mean Platelet Volume 8.8; Monocytes # (A) 0.6 k/uL (0-1.0); Monocytes % (A) 8 %; Neutrophils % (A) 71 %; Platelet Count 160 k/uL (150-450); RBC 3.22 m/uL (3.80-5.40); RDW 13.9 % (11.5-15.5); WBC 8.4 k/uL (3.8-10.6)
[2019-09-20 07:48] VITALS: BP 146/83; PULSE 76; TEMP 98
[2019-09-20 07:50] LABS: HGB 9.8 gm/dL (11.4-16.0)
[2019-09-20] MEDS: SENNOSIDES 8.6 MG TAB PO SCH (08:20)
[2019-09-20] MEDS: SERTRALINE 50 MG TAB PO SCH (08:20)
[2019-09-20] MEDS: SUCRALFATE 1 GM TAB PO SCH ×2 (08:20→13:39)
[2019-09-20] MEDS: LABETALOL 200 MG TAB PO SCH (08:20)
[2019-09-20] MEDS: ASPIRIN 81 MG PO SCH (08:20)
[2019-09-20] MEDS: HEPARIN SODIUM,PORCINE 5,000 UNIT/ML 1 ML VIAL SQ SCH (08:20)
[2019-09-20] MEDS: SODIUM CHLORIDE 0.9% 1,000 ML IV SCH (08:22)
--- NOTE | 2019-09-20 11:58 | ECHOF ---
Referral Reason:CHF MEASUREMENTS -------- HEIGHT: 165.1 cm WEIGHT: 77.1 kg BP: 129/76 RVIDd: 2.8 cm (< 3.3) IVSd: 1.6 cm (0.6 - 1.1) LVIDd: 3.5 cm (3.9 - 5.3) LVPWd: 1.5 cm (0.6 - 1.1) IVSs: 2.0 cm LVIDs: 1.6 cm LVPWs: 2.3 cm LAESV Index (A-L): 21.54 ml/m Ao Diam: 2.7 cm (2.0 - 3.7) AV Cusp: 1.7 cm (1.5 - 2.6) MV E Driss: 0.44 m/s MV DecT: 159 ms MV A Driss: 0.62 m/s MV E/A Ratio: 0.72 RAP: 5.00 mmHg RVSP: 24.27 mmHg FINDINGS -------- Sinus rhythm. This was a technically adequate study. The left ventricular size is normal. There is moderate concentric left ventricular hypertrophy. O verall left ventricular systolic function is normal with, an EF between 65 - 70 %. The diastolic fi lling pattern is normal for the age of the patient {E/E'}. The right ventricle is normal in size. Normal LA size by volume 22+/-6 ml/m2. The right atrial size is normal. Interatrial and interventricular septum intact. There is no evidence of aortic regurgitation. There is no evidence of aortic stenosis. Mild mitral regurgitation is present. Mild tricuspid regurgitation present. There is no evidence of pulmonary hypertension. The right v entricular systolic pressure, as measured by Doppler, is 24.27mmHg. Trace/mild (physiologic) pulmonic regurgitation. The aortic root size is normal. Normal inferior vena cava with normal inspiratory collapse consistent with estimated right atrial pre ssure of 5 mmHg. There is a small, generalized pericardial effusion present. CONCLUSIONS -------- 1. Sinus rhythm. 2. This was a technically adequate study. 3. The left ventricular size is normal. 4. There is moderate concentric left ventricular hypertrophy. 5. Overall left ventricular systolic function is normal with, an EF between 65 - 70 %. 6. The diastolic filling pattern is normal for the age of the patient {E/E'} 7. The right ventricle is normal in size. 8. Normal LA size by volume 22+/-6 ml/m2. 9. The right atrial size is normal. 10. Interatrial and interventricular septum intact. 11. There is no evidence of aortic regurgitation. 12. There is no evidence of aortic stenosis. 13. Mild mitral regurgitation is present. 14. Mild tricuspid regurgitation present. 15. There is no evidence of pulmonary hypertension. 16. The right ventricular systolic pressure, as measured by Doppler, is 24.27mmHg. 17. Trace/mild (physiologic) pulmonic regurgitation. 18. The aortic root size is normal. 19. Normal inferior vena cava with normal inspiratory collapse consistent with estimated right atrial pressure of 5 mmHg. 20. There is a small, generalized pericardial effusion present. SECURITIES COMPLIANCE EXAMINER: Lu Arenas RDCS
--- NOTE | 2019-09-20 12:42 | EEG ---
ELECTROENCEPHALOGRAM REPORT PROCEDURE DATE: 09/19/2019 ELECTROENCEPHALOGRAM (EEG) REPORT: TECHNIQUE: A routine 18 channel EEG was performed with video using the 10/20 electrode placement system. HISTORY: Dehydration, acute kidney injury, patient unable to use her right side. OTHER MEDICAL HISTORY: Includes hypertension, hyperlipidemia. CURRENT MEDICATIONS: Carafate, Zoloft, senna, Keppra, hydralazine, Neurontin. Please note that due to electrode artifact, recording was limited from the T5 region. FINDINGS: Study Duration: 21 minutes. BACKGROUND: Frequencies over the posterior quadrants consisted of poorly modulated 4-5 Hz waveforms. ACTIVATION: Hyperventilation: Not performed. Photic stimulation: No driving seen. Sleep: Drowsy. ABNORMALITIES: Over the right hemisphere, diffuse synchronous and asynchronous 3-5 hertz slow wave activity was seen. Over the left hemisphere, diffuse synchronous and asynchronous 2-4 hertz slow wave activity was seen. Overall, left hemispheric slowing was seen greater than right hemisphere slowing. IMPRESSION: Abnormal EEG. Left hemispheric greater than right hemispheric slow wave activity was seen that is not epileptiform in nature. These findings indicate moderate diffuse cerebral dysfunction of the right hemisphere and moderate to severe diffuse cerebral dysfunction of the left hemisphere. These findings can be seen with the presence of a structural abnormality involving the left hemisphere. No seizures were recorded. No epileptiform activity was present. Clinical correlation is recommended. MMODL / IJN: [id number] / MTDD
--- NOTE | 2019-09-20 13:06 | P.DS ---
Providers Date of admission: 09/18/19 18:58 Attending physician: Jose Lowry MD Consults: 09/19/19 10:30 Consult Physician Routine Consulting Provider: Beulah Palafox Consult Reason/Comments: syncope, QT prolongation Do you want consulting provider notified?: Yes 09/20/19 11:23 Consult Physician Routine Consulting Provider: Leslie Mi Consult Reason/Comments: syncope, r/o seizure Do you want consulting provider notified?: Yes Primary care physician: Sheree Amaya [facility] Course: his is a 54-year-old female patient of Dr. Amaya with past medical history of intracranial hemorrhage related to hypertensive urgency on 12/14/2017 followed by May 2018 which time she was treated for subacute thalmic infarct and was discharged back to [facility]. Patient is essentially aphasic but is able to point and helps her with communication. last seen on when she reached for a pillow that had fallen onto the floor and ended up falling forward out of the wheelchair and hit her face. She was found to have periorbital ecchymosis. Her right eye was previously affected from CVA and at the time was to wear specialty glasses which apparently she did not. Other significant history includes right brachial artery thrombosis, history of prolonged QT, hypertension, hypertensive cardiovascular disease, hyperlipidemia, recurrent depression. Patient is currently a resident of [facility] on the [place]. Patient was brought into [facility] emergency center for evaluation as patient.syncopal incident while in the car after she completed her speech therapy done in [facility]. On the car ride back patient to had an episode where she done into the space and was unresponsive for a couple of seconds. Patient also had had an episode of nausea and vomiting after she regained consciousness. According to the family bedside she has been sick for past few days. She was diagnosed with UTI and was initiated on Levaquin and has not been herself for the past 3 days. Patient does not walk but was found to be wobbly in her chair for the past few days. No episode of seizures noted patient is on Keppra for prophylaxis.Patient had a temp of 98.7 pulse 93 blood pressure 10// , B UN of 31 and creatinine 2.1 above patient's baseline glucose 111 W CBC 8.7 hemoglobin 11.7. Neurology and cardiology consult placed. Levaquin held for concern of QT prolongation. Continue on telemetry. EEG ordered to evaluate for his seizures. Orthostatics ordered 09/20 patient exam today is alert oriented answer questions appropriately denies any weakness in the left upper and lower extremity does have remnant weakness in the right upper and lower extremity. Patient denies any chest pain, shortness breath headache, nausea, abdominal pain, diarrhea.White is a stable with a blood pressure 146/83 pulse 76patient's creatinine has normalized to patient's baseline 1.36after IV fluids. Patient stable to be discharged after neurology evaluation. EEG is done Discharge diagnosis 1. syncopal episode likely secondary to QT prolongation. 2. 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 2. History of thalamic infarct. 3. History of prior intracranial bleed. 4. Hypertension and hypertensive cardiovascular disease. 5. Hyperlipidemia. 6. Right-sided weakness with aphasia secondary to her prior intracranial bleed. 7. History of prolonged QT avoid drug that prolonged QT.oral Levaquin 8. Depression. patient discharged to [facility] Patient Condition at Discharge: Fair Plan - Discharge Summary Discharge Rx Participant: No New Discharge Prescriptions: Continue Acetaminophen Tab [Tylenol] 650 mg PO Q4H PRN PRN Reason: Pain Atorvastatin [Lipitor] 10 mg PO HS@2100 Baclofen [Lioresal] 10 mg PO TID@0600,1400,2200 Sennosides [Senna] 8.6 mg PO BID@0900,2100 levETIRAcetam [Keppra] 500 mg PO BID@0600,2200 Cyclobenzaprine [Flexeril] 10 mg PO BID@0900,2100 Sertraline [Zoloft] 50 mg PO DAILY@0900 Butalbital/Apap 50/325mg 1 tab PO Q4H PRN PRN Reason: Migraine Headache Aspirin EC [Ecotrin Low Dose] 81 mg PO DAILY@0900 cloNIDine HCL [Catapres] 0.1 mg PO BID PRN MDD >160 PRN Reason: SBP Labetalol [Trandate] 400 mg PO BID@0900,2100 levETIRAcetam [Keppra] 250 mg PO DAILY@1400 Magnesium Hydroxide [Milk of Magnesia] 2,400 mg PO DAILY PRN PRN Reason: Constipation Multivitamins, Thera [Multivitamin (formulary)] 1 tab PO DAILY@0900 Sucralfate [Carafate] 1 gm PO QID@,,, hydrALAZINE HCL 50 mg PO Q8H PRN PRN Reason: SBP>160 Gabapentin [Neurontin] 400 mg PO BID@0600,2200 #6 cap Discontinued Olmesartan Medoxomil 40 mg PO DAILY@0900 Triamterene-Hctz 37.5-25Mg [Dyazide 37.5-25 Capsule] 1 cap PO DAILY@0900 Levofloxacin [Levaquin] 750 mg PO DAILY@0900 Discharge Medication List Acetaminophen Tab [Tylenol] 650 mg PO Q4H PRN 01/26/18 [History] Atorvastatin [Lipitor] 10 mg PO HS@209901/26/18 [History] Baclofen [Lioresal] 10 mg PO TID@0600,1400,219905/23/18 [History] Cyclobenzaprine [Flexeril] 10 mg PO BID@0900,209905/23/18 [History] Sennosides [Senna] 8.6 mg PO BID@0900,209905/23/18 [History] Sertraline [Zoloft] 50 mg PO DAILY@0905/23/18 [History] levETIRAcetam [Keppra] 500 mg PO BID@0600,219905/23/18 [History] Aspirin EC [Ecotrin Low Dose] 81 mg PO DAILY@0900 03/04/19 [History] Butalbital/Apap 50/325mg 1 tab PO Q4H PRN 03/04/19 [History] Labetalol [Trandate] 400 mg PO BID@0900,209903/04/19 [History] Magnesium Hydroxide [Milk of Magnesia] 2,400 mg PO DAILY PRN 03/04/19 [History] Multivitamins, Thera [Multivitamin (formulary)] 1 tab PO DAILY@0900 03/04/19 [History] Sucralfate [Carafate] 1 gm PO QID@,,,03/04/19 [History] cloNIDine HCL [Catapres] 0.1 mg PO BID PRN MDD >160 03/04/19 [History] levETIRAcetam [Keppra] 250 mg PO DAILY@1400 03/04/19 [History] hydrALAZINE HCL 50 mg PO Q8H PRN 09/12/19 [History] Gabapentin [Neurontin] 400 mg PO BID@0600,2200 #6 cap 09/20/19 [Rx] Follow up Appointment(s)/Referral(s): Sheree Amaya MD [Primary Care Provider] - 1-2 days [facility] on the [place], [NON-STAFF] - As Needed Discharge Disposition: TRANSFER TO SNF/ECF
[2019-09-20] MEDS: levETIRAcetam 250 MG TAB PO SCH (13:39)
== END 2019-09-20 15:39 | DRG 683 ==
LOC: EC 15:39 → 4SSUR 18:58
PROVIDERS: ADMIT Internal Medicine; ATTEND Internal Medicine
DX: N17.9 Acute kidney failure, unspecified (principal); G91.9 Hydrocephalus, unspecified; I69.251 Hemiplegia and hemiparesis following other nontraumatic intracranial hemorrhage affecting right dominant side; F33.9 Major depressive disorder, recurrent, unspecified; I11.9 Hypertensive heart disease without heart failure; I69.220 Aphasia following other nontraumatic intracranial hemorrhage; R40.2362 Coma scale, best motor response, obeys commands, at arrival to emergency department; R40.2142 Coma scale, eyes open, spontaneous, at arrival to emergency department; R40.2252 Coma scale, best verbal response, oriented, at arrival to emergency department; E86.0 Dehydration; I34.0 Nonrheumatic mitral (valve) insufficiency; I45.81 Long QT syndrome; T36.8X5A Adverse effect of other systemic antibiotics, initial encounter; E78.5 Hyperlipidemia, unspecified; S00.10XA Contusion of unspecified eyelid and periocular area, initial encounter; F41.9 Anxiety disorder, unspecified; Z79.82 Long term (current) use of aspirin; Z79.899 Other long term (current) drug therapy; Z86.19 Personal history of other infectious and parasitic diseases; Z98.891 History of uterine scar from previous surgery; Z88.5 Allergy status to narcotic agent; W05.0XXA Fall from non-moving wheelchair, initial encounter; Z82.49 Family history of ischemic heart disease and other diseases of the circulatory system
CPT/HCPCS: 36415; 71046; 76770; 80053; 81001; 83690; 83735; 85025; 93005; 93306; 95819; 96361; 96374; 99285

== ENCOUNTER 2019-12-07 | Inpatient (IN) | payer BC, OTHER | END 2019-12-14 16:25 | DRG 177 | PROVIDERS: ADMIT Family Medicine | CPT/HCPCS: 36415; 71045; 71046; 71275; 74018; 74177; 80053; 80202; 82565; 83036; 83735; 83880; 84484; 85025; 85027; 85379; 85610; 85730; 86304; 86738; 87040; 87070; 87077; 87186; 87205; 87449; 87502; 93005; 94640; 94760; 96365; 96366; 96368; 96375; 99285 ==

== ENCOUNTER 2020-01-26 14:51 | Emergency (ER) | payer BC, OTHER ==
[2020-01-26 15:07] VITALS: TEMP 98.4
--- NOTE | 2020-01-26 15:59 | ED ---
General Adult HPI - General Chief complaint: Chest Pain Stated complaint: chest pain Time Seen by Provider: 01/26/20 15:57 Source: patient, EMS Mode of arrival: EMS Limitations: language barrier - History of Present Illness Initial comments: Patient presents to the ED by ambulance from her detention for evaluation of chest pain. 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 Per detention report, the patient was clenching her chest when they checked on her today, and she admitted to having chest pain when asked, so she was transferred to the emergency department. Patient nods yes when asked if she is having chest pain, and she also nods yes when asked if she is having dyspnea. History from the patient is otherwise very limited secondary to the patient being nonverbal from a prior stroke. - Related Data Home Medications Medication Instructions Recorded Confirmed Acetaminophen Tab [Tylenol] 650 mg PO Q4H PRN 01/26/18 01/26/20 Baclofen [Lioresal] 10 mg PO TID@0600,1400,219905/23/18 01/26/20 Cyclobenzaprine [Flexeril] 10 mg PO BID@0900,209905/23/18 01/26/20 Sertraline [Zoloft] 50 mg PO DAILY@0900 05/23/18 01/26/20 levETIRAcetam [Keppra] 500 mg PO BID@0600,0 05/23/18 01/26/20 Aspirin EC [Ecotrin Low Dose] 81 mg PO DAILY@0900 03/04/19 01/26/20 Labetalol [Trandate] 400 mg PO BID@0900,209903/04/19 01/26/20 Magnesium Hydroxide [Milk of 2,400 mg PO DAILY PRN 03/04/19 01/26/20 Magnesia] levETIRAcetam [Keppra] 250 mg PO DAILY@1400 03/04/19 01/26/20 Clotrimazole/Betamethasone Dip 1 applic TOPICAL Q12H 12/07/19 01/26/20 [Lotrisone Cream] Furosemide [Lasix] 40 mg PO DAILY@0900 12/07/19 01/26/20 Omeprazole 20 mg PO DAILY@0600 12/07/19 01/26/20 Potassium Chloride ER [K-Dur 20] 20 meq PO DAILY@0900 12/07/19 01/26/20 Rosuvastatin [Crestor] 10 mg PO HS@209912/07/19 01/26/20 Sennosides/Docusate Sodium [Senna 1 tab PO BID@0900,209912/07/19 01/26/20 Plus 8.6-50 mg Tablet] Vits A and D/White Pet/Lanolin [A 1 applic TOPICAL Q12H 12/07/19 01/26/20 and D Ointment] Artificial Tears-Hypromellose 1 drops BOTH EYES BID PRN 01/26/20 01/26/20 [Artificial Tear Drops] Nitroglycerin Sl Tabs [Nitrostat] 0.4 mg SUBLINGUAL Q5M PRN 01/26/20 01/26/20 Polyethylene Glycol 3350 [Miralax] 17 gm PO DAILY@209901/26/20 01/26/20 Sertraline HCl [Zoloft] 25 mg PO DAILY@89901/26/20 01/26/20 Valsartan [Diovan] 160 mg PO DAILY@0901/26/20 01/26/20 hydrALAZINE HCL [Apresoline] 100 mg PO TID@0600,1400,2200 01/26/20 01/26/20 Previous Rx's Medication Instructions Recorded Gabapentin [Neurontin] 400 mg PO BID@0600,2200 #6 cap 12/13/19 Melatonin 6 mg PO HS tablet 12/13/19 Allergies Allergy/AdvReac Type Severity Reaction Status Date / Time codeine Allergy Unknown Verified 01/26/20 16:04 Review of Systems ROS Statement: Those systems with pertinent positive or pertinent negative responses have been documented in the HPI. ROS Other: All systems not noted in ROS Statement are negative. Limitations: ROS unobtainable due to patients medical condition Past Medical History Past Medical History: CVA/TIA, Hyperlipidemia, Hypertension Additional Past Medical History / Comment(s): Previous history of subarachnoid bleed/intracranial hemorrhage related to hypertensive urgency and the patient had prolonged hospitalization at [facility] two years ago and her course was complicated by prolonged ventilator dependent respiratory failure requiring tracheostomy tube insertion of PEG tube insertion all reversed for now and the patient has been maintained on Keppra for seizure precautions. Hypertension, hyperlipidemia, hydrocephalus History of Any Multi-Drug Resistant Organisms: MRSA, VRE Date of last positivie culture/infection: 11/18/19 MRSA 05/04/18 VRE MDRO Source:: MRSA TOE/ VRE URINE Past Surgical History: Section Additional Past Surgical History / Comment(s): Tracheostomy placement Past Anesthesia/Blood Transfusion Reactions: No Reported Reaction Past Psychological History: Anxiety Smoking Status: Never smoker Past Alcohol Use History: None Reported Past Drug Use History: None Reported - Past Family History Father Family Medical History: Unable to Obtain Additional Family Medical History / Comment(s): Patient doesn't know much about her father she currently has a stepfather. Mother Family Medical History: Hypertension Additional Family Medical History / Comment(s): Mother is 80-year-old has history of hypertension. Daughter(s) Family Medical History: No Reported History Additional Family Medical History / Comment(s): Patient has 2 daughters no major medical problems Son(s) Family Medical History: No Reported History Additional Family Medical History / Comment(s): Patient has 2 sons no major medical problems. General Exam Limitations: language barrier General appearance: alert, in no apparent distress Head exam: Present: atraumatic, normocephalic Eye exam: Present: normal appearance, PERRL, EOMI ENT exam: Present: mucous membranes moist Neck exam: Present: other (Trachea is in midline). Absent: tenderness, meningismus Respiratory exam: Present: normal lung sounds bilaterally. Absent: respiratory distress, wheezes, rales, rhonchi, chest wall tenderness Cardiovascular Exam: Present: regular rate, normal rhythm, normal heart sounds, other (Normal radial pulses bilaterally) GI/Abdominal exam: Present: soft. Absent: distended, tenderness, guarding Extremities exam: Present: other (Homans sign bilaterally). Absent: tenderness, pedal edema, calf tenderness Neurological exam: Present: alert, other (Right hemiparesis from prior stroke) Skin exam: Present: warm, dry, intact, normal color Course Vital Signs 01/26/20 01/26/20 01/26/20 15:04 15:07 15:30 Temperature 98.4 F Pulse Rate 96 86 Respiratory 16 18 18 Rate Blood Pressure 148/92 147/92 O2 Sat by Pulse 95 96 Oximetry 01/26/20 01/26/20 01/26/20 16:00 16:07 16:30 Temperature Pulse Rate 82 82 Respiratory 18 16 18 Rate Blood Pressure 146/90 146/92 O2 Sat by Pulse 95 Oximetry 01/26/20 01/26/20 17:00 17:07 Temperature Pulse Rate 83 83 Respiratory 16 16 Rate Blood Pressure 146/84 146/84 O2 Sat by Pulse Oximetry - Reevaluation(s) Reevaluation #1: 01/26/20 18:54 Patient now nods no when asked if she is having chest pain or any pain at all. Patient remains alert and breathing comfortably with a normal room air oxygen saturation. Patient's is now at bedside with the patient. He states that he thinks that the patient has been depressed recently because she has not been able to see him secondary to the current Covid-19 pandemic, and he feels that may have contributed to the patient's symptoms. Patient and are aware of the patient's test results, and they both feel comfortable with the patient being discharged back to her detention at this time. EKG Findings - EKG Comments: EKG Findings:: Normal sinus rhythm, no ectopy, ventricular rate of 99 bpm, normal AL and QRS intervals, QTc interval of 487 ms, normal axis, no ST or T- wave abnormality Medical Decision Making - Medical Decision Making Patient's EKG and chest x-ray are fairly unremarkable. Patient's d-dimer is negative. Patient has had 2 negative troponins drawn over 2 hours apart while in the ED. I do not think that the patient's symptoms are from a cardiac or emergent medical condition. Will discharge patient back to her detention at this time. Patient was counseled about chest pain, and she was clearly explained return and follow-up instructions. She feels comfortable with this plan. - Lab Data Result diagrams: 01/26/20 15:00 01/26/20 15:00 Lab Results 01/26/20 01/26/20 01/26/20 Range/Units 15:00 15:00 15:00 WBC 8.8 (3.8-10.6) k/uL RBC 3.98 (3.80-5.40) m/uL Hgb 11.8 (11.4-16.0) gm/dL Hct 34.9 (34.0-46.0) % MCV 87.8 (80.0-100.0) fL MCH 29.7 (25.0-35.0) pg MCHC 33.8 (31.0-37.0) g/dL RDW 15.7 H (11.5-15.5) % Plt Count 230 (150-450) k/uL Neutrophils % 75 % Lymphocytes % 16 % Monocytes % 5 % Eosinophils % 3 % Basophils % 0 % Neutrophils # 6.6 (1.3-7.7) k/uL Lymphocytes # 1.4 (1.0-4.8) k/uL Monocytes # 0.4 (0-1.0) k/uL Eosinophils # 0.3 (0-0.7) k/uL Basophils # 0.0 (0-0.2) k/uL PT 10.0 (9.0-12.0) sec INR 1.0 (<1.2) APTT 23.7 (22.0-30.0) sec D-Dimer 0.47 (<0.60) mg/L FEU Sodium 140 (137-145) mmol/L Potassium 4.4 (3.5-5.1) mmol/L Chloride 108 H (98-107) mmol/L Carbon Dioxide 25 (22-30) mmol/L Anion Gap 7 mmol/L BUN 16 (7-17) mg/dL Creatinine 1.20 H (0.52-1.04) mg/dL Est GFR (CKD-EPI)AfAm 60 (>60 ml/min/1.73 sqM) Est GFR (CKD-EPI)NonAf 52 (>60 ml/min/1.73 sqM) Glucose 104 H (74-99) mg/dL Calcium 9.5 (8.4-10.2) mg/dL Magnesium 2.2 (1.6-2.3) mg/dL Total Bilirubin 0.4 (0.2-1.3) mg/dL AST 20 (14-36) U/L ALT 16 (4-34) U/L Alkaline Phosphatase 83 (38-126) U/L Troponin I (0.000-0.034) ng/mL NT-Pro-B Natriuret Pep pg/mL Total Protein 6.9 (6.3-8.2) g/dL Albumin 4.2 (3.5-5.0) g/dL Coronavirus (PCR) (Not Detectd) 01/26/20 01/26/2001/25/20 Range/Units 15:00 15:00 16:00 WBC (3.8-10.6) k/uL RBC (3.80-5.40) m/uL Hgb (11.4-16.0) gm/dL Hct (34.0-46.0) % MCV (80.0-100.0) fL MCH (25.0-35.0) pg MCHC (31.0-37.0) g/dL RDW (11.5-15.5) % Plt Count (150-450) k/uL Neutrophils % % Lymphocytes % % Monocytes % % Eosinophils % % Basophils % % Neutrophils # (1.3-7.7) k/uL Lymphocytes # (1.0-4.8) k/uL Monocytes # (0-1.0) k/uL Eosinophils # (0-0.7) k/uL Basophils # (0-0.2) k/uL PT (9.0-12.0) sec INR (<1.2) APTT (22.0-30.0) sec D-Dimer (<0.60) mg/L FEU Sodium (137-145) mmol/L Potassium (3.5-5.1) mmol/L Chloride (98-107) mmol/L Carbon Dioxide (22-30) mmol/L Anion Gap mmol/L BUN (7-17) mg/dL Creatinine (0.52-1.04) mg/dL Est GFR (CKD-EPI)AfAm (>60 ml/min/1.73 sqM) Est GFR (CKD-EPI)NonAf (>60 ml/min/1.73 sqM) Glucose (74-99) mg/dL Calcium (8.4-10.2) mg/dL Magnesium (1.6-2.3) mg/dL Total Bilirubin (0.2-1.3) mg/dL AST (14-36) U/L ALT (4-34) U/L Alkaline Phosphatase (38-126) U/L Troponin I <0.012 (0.000-0.034) ng/mL NT-Pro-B Natriuret Pep 77 pg/mL Total Protein (6.3-8.2) g/dL Albumin (3.5-5.0) g/dL Coronavirus (PCR) Not Detected (Not Detectd) 01/26/20 Range/Units 18:05 WBC (3.8-10.6) k/uL RBC (3.80-5.40) m/uL Hgb (11.4-16.0) gm/dL Hct (34.0-46.0) % MCV (80.0-100.0) fL MCH (25.0-35.0) pg MCHC (31.0-37.0) g/dL RDW (11.5-15.5) % Plt Count (150-450) k/uL Neutrophils % % Lymphocytes % % Monocytes % % Eosinophils % % Basophils % % Neutrophils # (1.3-7.7) k/uL Lymphocytes # (1.0-4.8) k/uL Monocytes # (0-1.0) k/uL Eosinophils # (0-0.7) k/uL Basophils # (0-0.2) k/uL PT (9.0-12.0) sec INR (<1.2) APTT (22.0-30.0) sec D-Dimer (<0.60) mg/L FEU Sodium (137-145) mmol/L Potassium (3.5-5.1) mmol/L Chloride (98-107) mmol/L Carbon Dioxide (22-30) mmol/L Anion Gap mmol/L BUN (7-17) mg/dL Creatinine (0.52-1.04) mg/dL Est GFR (CKD-EPI)AfAm (>60 ml/min/1.73 sqM) Est GFR (CKD-EPI)NonAf (>60 ml/min/1.73 sqM) Glucose (74-99) mg/dL Calcium (8.4-10.2) mg/dL Magnesium (1.6-2.3) mg/dL Total Bilirubin (0.2-1.3) mg/dL AST (14-36) U/L ALT (4-34) U/L Alkaline Phosphatase (38-126) U/L Troponin I <0.012 (0.000-0.034) ng/mL NT-Pro-B Natriuret Pep pg/mL Total Protein (6.3-8.2) g/dL Albumin (3.5-5.0) g/dL Coronavirus (PCR) (Not Detectd) - Radiology Data Radiology results: image reviewed (Chest x-ray is negative) Disposition Clinical Impression: Chest pain Disposition: HOME SELF-CARE Condition: Stable Instructions (If sedation given, give patient instructions): Chest Pain (ED) Additional Instructions: Return to the ER immediately should you develop new or worsening pain, increased shortness of breath, a fever, vomiting, feeling dizzy or faint, or new or worsening symptoms. Follow up closely with your primary care provider. Is patient prescribed a controlled substance at d/c from ED?: No Referrals: Sheree Amaya MD [Primary Care Provider] - 1-2 days Time of Disposition: 18:59
[2020-01-26 16:26] LABS: Basophils % (A) 0 %; Eosinophils # (A) 0.3 k/uL (0-0.7); Eosinophils % (A) 3 %; HCT 34.9 % (34.0-46.0); HGB 11.8 gm/dL (11.4-16.0); Lymphocytes # (A) 1.4 k/uL (1.0-4.8); Lymphocytes % (A) 16 %; MCH 29.7 pg (25.0-35.0); MCHC 33.8 g/dL (31.0-37.0); MCV 87.8 fL (80.0-100.0); Mean Platelet Volume 8.4; Monocytes # (A) 0.4 k/uL (0-1.0); Monocytes % (A) 5 %; Neutrophils # (A) 6.6 k/uL (1.3-7.7); Neutrophils % (A) 75 %; Platelet Count 230 k/uL (150-450); RBC 3.98 m/uL (3.80-5.40); RDW 15.7 % (11.5-15.5); WBC 8.8 k/uL (3.8-10.6)
[2020-01-26 16:47] LABS: D-Dimer 0.47 mg/L FEU (<0.60); Partial Thromboplastin Time 23.7 sec (22.0-30.0)
[2020-01-26 17:13] LABS: Albumin 4.2 g/dL (3.5-5.0); Calcium 9.5 mg/dL (8.4-10.2); Magnesium 2.2 mg/dL (1.6-2.3); Potassium 4.4 mmol/L (3.5-5.1); Total Bilirubin 0.4 mg/dL (0.2-1.3); Total Protein 6.9 g/dL (6.3-8.2)
[2020-01-26 17:26] VITALS: PULSE 83; RESP 16
--- NOTE | 2020-01-26 17:41 | XR ---
EXAMINATION TYPE: XR chest 2V DATE OF EXAM: 01/26/2020 COMPARISON: 12/10/2019 HISTORY: 54-year-old female with chest pain TECHNIQUE: AP and lateral views FINDINGS: Heart borderline enlarged. Mild interstitial prominence are similar without consolidation or pleural effusion. IMPRESSION: 1. Borderline heart size. 2. Similar interstitial prominence, possible bronchitis or asthma.
[2020-01-26 19:07] VITALS: BP 123/98
== END 2020-01-26 21:20 | disposition home or self-care (01) ==
LOC: EC 14:51
DX: R07.9 Chest pain, unspecified (principal); I10 Essential (primary) hypertension; E78.5 Hyperlipidemia, unspecified; F41.9 Anxiety disorder, unspecified; Z79.82 Long term (current) use of aspirin; Z79.899 Other long term (current) drug therapy; Z88.5 Allergy status to narcotic agent; Z86.73 Personal history of transient ischemic attack (TIA), and cerebral infarction without residual deficits
CPT/HCPCS: 36415; 71046; 80053; 83735; 83880; 84484; 85025; 85379; 85610; 85730; 87635; 93005; 99285

== ENCOUNTER 2020-09-16 10:06 | Inpatient (IN) | payer BC, MEDICARE, OTHER ==
[2020-09-16] MEDS ORDERED: SODIUM CHLORIDE 0.9% 1,000 ML IV ONE (10:11)
[2020-09-16 10:12] LABS: Glucose,Whole Blood 130 mg/dL (75-99)
--- NOTE | 2020-09-16 10:18 | ED ---
General Adult HPI - General Chief complaint: Altered Mental Status Stated complaint: unresponsive Time Seen by Provider: 09/16/20 10:11 Source: EMS Mode of arrival: EMS - History of Present Illness Initial comments: Dictation was produced using [employer] dictation software. please excuse any grammatical, word or spelling errors. This patient was cared for during a federal and state declared state of emergency secondary to Covid 19 Chief Complaint: 55-year-old female past medical history of CVA, dyslipidemia hypertension presents with unresponsiveness History of Present Illness: 55-year-old female she has past medical history of hemorrhagic stroke, hypertension and dyslipidemia. She is currently a resident at [facility]. There is allegedly been an outbreak of Covid 19 there. Patient was last seen normal proximal 7 PM last night. Patient was discovered to be unresponsive this morning. EMS was called patient is brought to the emergency department. Patient unable to provide history at this time. EMS reports that patient's glucose was normal. She had slightly diminished blood pressure with systolics in the 90s. Patient given fluids. They provided her with some Narcan without any focal change. Numerous reports that patient does l ocalize painful stimuli. Unable to obtain review of systems secondary to mental status PHYSICAL EXAM: General Impression: Somnolent, sleeping and snoring HEENT: Normocephalic atraumatic, pupils equal and reactive to light bilaterally, mucous membranes moist. Cardiovascular: Heart regular rate and rhythm Chest: no retractions, no tachypnea Abdomen: abdomen soft, non-tender, non-distended, no organomegaly Musculoskeletal: Pulses present and equal in all extremities, no peripheral edema Motor: no focal deficits noted Neurological: Sleeping, responds to sternal rub,, when her ring her hand over her face her hand was back to her side instead of hitting her in the face, gag reflex intact, difficult to arouse Skin: Intact with no visualized rashes ED course: 55-year-old female with past medical history of hemorrhagic stroke secondary to subarachnoid bleed this emergency department for unresponsiveness. Blood sugar and emergency department is normal. Patient has stable vital signs. She is difficult to arouse. Chart review was performed. Patient was last admitted to our hospital on December of this year. She was admitted for hypertensive urgency. Pneumonia, QTC prolongation EKG interpretation: Ventricular rate 101, sinus tachycardia,. Interval and 76, QRS 90, QTC 484. No DE prolongation, no QTC prolongation, no ST or T-wave changes noted. EKG compared to 01/26/2020 showing no changes. Overall, this EKG is unremarkable Computed tomography scan the brain is unremarkable for any acute processes. Chest x-ray shows no new suspicious acute pulmonary processes. Laboratory evaluation obtained. CBC, coag panel, metabolic panel was obtained. CBC and coag panel is negative. Creatinine is 2.50 which is above patient's usual baseline. Serum alcohol is negative. Rapid Buckner virus is negative. No ammonia elevations. Patient reevaluated at bedside appears to be more alert. at bedside is very disappointed with the care that she's been receiving at [facility]. He states that it's been nothing but difficulties with dealing with [facility] staff. Patient's is set that patient's skin looks very dry. He just wants her to be well taken care of. Patient's is agreeable with admission. Case was discussed with Dr. Griffith was went except patient's care on behalf of Dr. Amaya. Neurology will be consulted. At this point is unclear what is causing patient's symptoms. There is some degree of dehydration. Likely this is secondary to metabolic encephalopathy. She does look improved at this time upon reevaluation at approximately 12:30 PM. - Related Data Home Medications Medication Instructions Recorded Confirmed Acetaminophen Tab [Tylenol] 650 mg PO Q4H PRN 01/26/18 09/16/20 Baclofen [Lioresal] 10 mg PO TID@0600,1400,0 05/23/18 09/16/20 Cyclobenzaprine [Flexeril] 10 mg PO BID@0900,209905/23/18 09/16/20 levETIRAcetam [Keppra] 500 mg PO BID@0600,2200 05/23/18 09/16/20 Aspirin EC [Ecotrin Low Dose] 81 mg PO DAILY@0900 03/04/19 09/16/20 Labetalol [Trandate] 400 mg PO BID@0900,209903/04/19 09/16/20 Magnesium Hydroxide [Milk of 2,400 mg PO DAILY PRN 03/04/19 09/16/20 Magnesia] levETIRAcetam [Keppra] 250 mg PO DAILY@1400 03/04/19 09/16/20 Clotrimazole/Betamethasone Dip 1 applic TOPICAL Q12H 12/07/19 09/16/20 [Lotrisone Cream] Furosemide [Lasix] 40 mg PO BID@0600,1400 12/07/19 09/16/20 Omeprazole 20 mg PO DAILY@0600 12/07/19 09/16/20 Potassium Chloride ER [K-Dur 20] 20 meq PO DAILY@0900 12/07/19 09/16/20 Rosuvastatin [Crestor] 10 mg PO HS@209912/07/19 09/16/20 Sennosides/Docusate Sodium [Senna 1 tab PO BID@899,209912/07/19 09/16/20 Plus 8.6-50 mg Tablet] Vits A and D/White Pet/Lanolin [A 1 applic TOPICAL Q12H 12/07/19 09/16/20 and D Ointment] Artificial Tears-Hypromellose 1 drops BOTH EYES BID PRN 01/26/20 09/16/20 [Artificial Tear Drops] Nitroglycerin Sl Tabs [Nitrostat] 0.4 mg SUBLINGUAL Q5M PRN 01/26/20 09/16/20 Valsartan [Diovan] 160 mg PO DAILY@89901/26/20 09/16/20 hydrALAZINE HCL [Apresoline] 100 mg PO BID 01/26/20 09/16/20 polyethylene glycoL 3350 [Miralax] 17 gm PO DAILY@209901/26/20 09/16/20 Benzocaine Blaine [Hurricaine Blaine] 1 applic TOPICAL Q6H PRN 09/16/20 09/16/20 Benzocaine/Menthol [Cepacol Sore 1 lozenge MM Q2H PRN 09/16/20 09/16/20 Throat Lozenge] Betadine Wipe 1 applic TOPICAL BID 09/16/20 09/16/20 Butalbital/Tyl 50-325 1 tab PO Q4H PRN 09/16/20 09/16/20 Clindamycin 1% Lotion 1 applic TOPICAL BID 09/16/20 09/16/20 Lubiprostone [Amitiza] 24 mcg PO DAILY 09/16/20 09/16/20 busPIRone HCl [Buspar] 10 mg PO QID 09/16/20 09/16/20 Previous Rx's Medication Instructions Recorded Gabapentin [Neurontin] 400 mg PO BID@0600,2200 #6 cap 12/13/19 Melatonin 6 mg PO HS tablet 12/13/19 Allergies Allergy/AdvReac Type Severity Reaction Status Date / Time codeine Allergy Unknown Verified 09/16/20 10:46 Review of Systems ROS Statement: Those systems with pertinent positive or pertinent negative responses have been documented in the HPI. ROS Other: All systems not noted in ROS Statement are negative. Past Medical History Past Medical History: CVA/TIA, Hyperlipidemia, Hypertension Additional Past Medical History / Comment(s): Previous history of subarachnoid bleed/intracranial hemorrhage related to hypertensive urgency and the patient had prolonged hospitalization at [facility] two years ago and her course was complicated by prolonged ventilator dependent respiratory failure requiring tracheostomy tube insertion of PEG tube insertion all reversed for now and the patient has been maintained on Keppra for seizure precautions. Hypertension, hyperlipidemia, hydrocephalus History of Any Multi-Drug Resistant Organisms: MRSA, VRE Date of last positivie culture/infection: 11/18/19 MRSA 05/04/18 VRE MDRO Source:: MRSA TOE/ VRE URINE Past Surgical History: Section Additional Past Surgical History / Comment(s): Tracheostomy placement Past Anesthesia/Blood Transfusion Reactions: No Reported Reaction Past Psychological History: Anxiety Past Alcohol Use History: None Reported Past Drug Use History: None Reported - Past Family History Father Family Medical History: Unable to Obtain Additional Family Medical History / Comment(s): Patient doesn't know much about her father she currently has a stepfather. Mother Family Medical History: Hypertension Additional Family Medical History / Comment(s): Mother is 80-year-old has history of hypertension. Daughter(s) Family Medical History: No Reported History Additional Family Medical History / Comment(s): Patient has 2 daughters no major medical problems Son(s) Family Medical History: No Reported History Additional Family Medical History / Comment(s): Patient has 2 sons no major medical problems. Course Vital Signs 09/16/20 10:07 Temperature 98.5 F Pulse Rate 99 Blood Pressure 101/76 O2 Sat by Pulse 100 Oximetry Medical Decision Making - Lab Data Result diagrams: 09/16/20 11:27 09/16/20 11:27 Lab Results 09/16/20 09/16/20 09/16/20 Range/Units 10:11 10:16 11:27 WBC 8.4 (3.8-10.6) k/uL RBC 4.40 (3.80-5.40) m/uL Hgb 12.7 (11.4-16.0) gm/dL Hct 39.0 (34.0-46.0) % MCV 88.7 (80.0-100.0) fL MCH 28.9 (25.0-35.0) pg MCHC 32.6 (31.0-37.0) g/dL RDW 15.1 (11.5-15.5) % Plt Count 197 (150-450) k/uL MPV 10.1 Neutrophils % 61 % Lymphocytes % 25 % Monocytes % 8 % Eosinophils % 3 % Basophils % 2 % Neutrophils # 5.1 (1.3-7.7) k/uL Lymphocytes # 2.1 (1.0-4.8) k/uL Monocytes # 0.7 (0-1.0) k/uL Eosinophils # 0.2 (0-0.7) k/uL Basophils # 0.1 (0-0.2) k/uL PT (9.0-12.0) sec INR (<1.2) APTT (22.0-30.0) sec Sodium (137-145) mmol/L Potassium (3.5-5.1) mmol/L Chloride (98-107) mmol/L Carbon Dioxide (22-30) mmol/L Anion Gap mmol/L BUN (7-17) mg/dL Creatinine (0.52-1.04) mg/dL Est GFR (CKD-EPI)AfAm (>60 ml/min/1.73 sqM) Est GFR (CKD-EPI)NonAf (>60 ml/min/1.73 sqM) Glucose (74-99) mg/dL POC Glucose (mg/dL) 130 H (75-99) mg/dL POC Glu Central Supply Technician Supervisor ID Carlos Lopez Plasma Lactic Acid Kane (0.7-2.0) mmol/L Calcium (8.4-10.2) mg/dL Total Bilirubin (0.2-1.3) mg/dL AST (14-36) U/L ALT (4-34) U/L Alkaline Phosphatase (38-126) U/L Ammonia (<30) umol/L Troponin I (0.000-0.034) ng/mL Total Protein (6.3-8.2) g/dL Albumin (3.5-5.0) g/dL Urine Color Urine Appearance (Clear) Urine pH (5.0-8.0) Ur Specific Pyatt (1.001-1.035) Urine Protein (Negative) Urine Glucose (UA) (Negative) Urine Ketones (Negative) Urine Blood (Negative) Urine Nitrite (Negative) Urine Bilirubin (Negative) Urine Urobilinogen (<2.0) mg/dL Ur Leukocyte Esterase (Negative) Urine RBC (0-5) /hpf Urine WBC (0-5) /hpf Amorphous Sediment (None) /hpf Urine Bacteria (None) /hpf Hyaline Casts (0-2) /lpf Urine Mucus (None) /hpf Serum Alcohol mg/dL Coronavirus (PCR) Not Detected (Not Detectd) 09/16/20 09/16/20 09/16/20 Range/Units 11:27 11:27 11:27 WBC (3.8-10.6) k/uL RBC (3.80-5.40) m/uL Hgb (11.4-16.0) gm/dL Hct (34.0-46.0) % MCV (80.0-100.0) fL MCH (25.0-35.0) pg MCHC (31.0-37.0) g/dL RDW (11.5-15.5) % Plt Count (150-450) k/uL MPV Neutrophils % % Lymphocytes % % Monocytes % % Eosinophils % % Basophils % % Neutrophils # (1.3-7.7) k/uL Lymphocytes # (1.0-4.8) k/uL Monocytes # (0-1.0) k/uL Eosinophils # (0-0.7) k/uL Basophils # (0-0.2) k/uL PT 10.8 (9.0-12.0) sec INR 1.1 (<1.2) APTT 23.2 (22.0-30.0) sec Sodium 143 (137-145) mmol/L Potassium 4.4 (3.5-5.1) mmol/L Chloride 107 (98-107) mmol/L Carbon Dioxide 28 (22-30) mmol/L Anion Gap 8 mmol/L BUN 39 H (7-17) mg/dL Creatinine 2.50 H (0.52-1.04) mg/dL Est GFR (CKD-EPI)AfAm 25 (>60 ml/min/1.73 sqM) Est GFR (CKD-EPI)NonAf 21 (>60 ml/min/1.73 sqM) Glucose 127 H (74-99) mg/dL POC Glucose (mg/dL) (75-99) mg/dL POC Glu Central Supply Technician Supervisor ID Plasma Lactic Acid Kane 1.2 (0.7-2.0) mmol/L Calcium 9.2 (8.4-10.2) mg/dL Total Bilirubin 0.7 (0.2-1.3) mg/dL AST 21 (14-36) U/L ALT 20 (4-34) U/L Alkaline Phosphatase 74 (38-126) U/L Ammonia <9 (<30) umol/L Troponin I (0.000-0.034) ng/mL Total Protein 6.6 (6.3-8.2) g/dL Albumin 4.1 (3.5-5.0) g/dL Urine Color Urine Appearance (Clear) Urine pH (5.0-8.0) Ur Specific Pyatt (1.001-1.035) Urine Protein (Negative) Urine Glucose (UA) (Negative) Urine Ketones (Negative) Urine Blood (Negative) Urine Nitrite (Negative) Urine Bilirubin (Negative) Urine Urobilinogen (<2.0) mg/dL Ur Leukocyte Esterase (Negative) Urine RBC (0-5) /hpf Urine WBC (0-5) /hpf Amorphous Sediment (None) /hpf Urine Bacteria (None) /hpf Hyaline Casts (0-2) /lpf Urine Mucus (None) /hpf Serum Alcohol <10 mg/dL Coronavirus (PCR) (Not Detectd) 09/16/20 09/16/20 Range/Units 11:27 12:24 WBC (3.8-10.6) k/uL RBC (3.80-5.40) m/uL Hgb (11.4-16.0) gm/dL Hct (34.0-46.0) % MCV (80.0-100.0) fL MCH (25.0-35.0) pg MCHC (31.0-37.0) g/dL RDW (11.5-15.5) % Plt Count (150-450) k/uL MPV Neutrophils % % Lymphocytes % % Monocytes % % Eosinophils % % Basophils % % Neutrophils # (1.3-7.7) k/uL Lymphocytes # (1.0-4.8) k/uL Monocytes # (0-1.0) k/uL Eosinophils # (0-0.7) k/uL Basophils # (0-0.2) k/uL PT (9.0-12.0) sec INR (<1.2) APTT (22.0-30.0) sec Sodium (137-145) mmol/L Potassium (3.5-5.1) mmol/L Chloride (98-107) mmol/L Carbon Dioxide (22-30) mmol/L Anion Gap mmol/L BUN (7-17) mg/dL Creatinine (0.52-1.04) mg/dL Est GFR (CKD-EPI)AfAm (>60 ml/min/1.73 sqM) Est GFR (CKD-EPI)NonAf (>60 ml/min/1.73 sqM) Glucose (74-99) mg/dL POC Glucose (mg/dL) (75-99) mg/dL POC Glu Central Supply Technician Supervisor ID Plasma Lactic Acid Kane (0.7-2.0) mmol/L Calcium (8.4-10.2) mg/dL Total Bilirubin (0.2-1.3) mg/dL AST (14-36) U/L ALT (4-34) U/L Alkaline Phosphatase (38-126) U/L Ammonia (<30) umol/L Troponin I <0.012 (0.000-0.034) ng/mL Total Protein (6.3-8.2) g/dL Albumin (3.5-5.0) g/dL Urine Color Yellow Urine Appearance Clear (Clear) Urine pH 5.0 (5.0-8.0) Ur Specific Pyatt 1.013 (1.001-1.035) Urine Protein Negative (Negative) Urine Glucose (UA) Negative (Negative) Urine Ketones Negative (Negative) Urine Blood Negative (Negative) Urine Nitrite Negative (Negative) Urine Bilirubin Negative (Negative) Urine Urobilinogen <2.0 (<2.0) mg/dL Ur Leukocyte Esterase Trace H (Negative) Urine RBC <1 (0-5) /hpf Urine WBC 1 (0-5) /hpf Amorphous Sediment Occasional H (None) /hpf Urine Bacteria Rare H (None) /hpf Hyaline Casts 4 H (0-2) /lpf Urine Mucus Rare H (None) /hpf Serum Alcohol mg/dL Coronavirus (PCR) (Not Detectd) Disposition Clinical Impression: Encephalopathy Disposition: ADMITTED IP TO THIS HOSP Condition: Fair Referrals: Sheree Amaya MD [Primary Care Provider] - 1-2 days Decision Time: 12:55
--- NOTE | 2020-09-16 10:48 | XR ---
EXAMINATION TYPE: XR chest 1V portable DATE OF EXAM: 09/16/2020 COMPARISON: Chest x-ray January 26, 2020. CTA chest December 07, 2019 HISTORY: Unresponsive with weakness. TECHNIQUE: Single AP portable frontal view of the chest is obtained. FINDINGS: There is low lung volumes redemonstrated without suspicious new focal air space opacity, pleural effusion, or pneumothorax seen. The cardiac silhouette size is stable and mildly enlarged. The osseous structures redemonstrate slight scoliotic curvature. IMPRESSION: Low lung volumes and mild cardiomegaly without new suspicious acute pulmonary process.
[2020-09-16 12:00] LABS: Lactic Acid, Venous 1.2 mmol/L (0.7-2.0)
--- NOTE | 2020-09-16 12:00 | CT ---
EXAMINATION TYPE: CT brain wo con DATE OF EXAM: 09/16/2020 COMPARISON: 09/16/2019 HISTORY: Unresponsive. CT DLP: 1099.4 mGycm Automated exposure control for dose reduction was used. FINDINGS: Mild generalized degenerative change of faint periventricular low-attenuation likely in the basis of remote ischemia. Area of low attenuation involving the left occipital lobe compatible with remote isc hemia. Craniocervical junction maintained. Small areas of low attenuation involving the basal ganglia are mo st typical remote lacunar infarct sella turcica has a normal appearance. Calvarium intact. No midline shift or mass effect. Orbits are symmetric. No changes of sinusitis. Mil d changes of right mastoiditis IMPRESSION: DEGENERATIVE AND REMOTE ISCHEMIC CHANGE WITH NO EVIDENCE OF ACUTE HEMORRHAGE OR MASS EFFECT.
[2020-09-16 12:01] LABS: INR 1.1 (<1.2); Partial Thromboplastin Time 23.2 sec (22.0-30.0); Prothrombin Time 10.8 sec (9.0-12.0)
[2020-09-16 12:04] LABS: ALT 20 U/L (4-34); AST 21 U/L (14-36); African American GFR (CKD) 25 (>60 ml/min/1.73 sqM); Albumin 4.1 g/dL (3.5-5.0); Alcohol <10 mg/dL; Alkaline Phosphatase 74 U/L (38-126); Anion Gap 8 mmol/L; Blood Urea Nitrogen 39 mg/dL (7-17); Calcium 9.2 mg/dL (8.4-10.2); Carbon Dioxide 28 mmol/L (22-30); Chloride 107 mmol/L (98-107); Glucose 127 mg/dL (74-99); Non-African American GFR(CKD) 21 (>60 ml/min/1.73 sqM); Potassium 4.4 mmol/L (3.5-5.1); Sodium 143 mmol/L (137-145); Total Bilirubin 0.7 mg/dL (0.2-1.3); Total Protein 6.6 g/dL (6.3-8.2)
[2020-09-16 12:06] LABS: Basophils # (A) 0.1 k/uL (0-0.2); Basophils % (A) 2 %; Eosinophils # (A) 0.2 k/uL (0-0.7); Eosinophils % (A) 3 %; HGB 12.7 gm/dL (11.4-16.0); Lymphocytes # (A) 2.1 k/uL (1.0-4.8); Lymphocytes % (A) 25 %; MCH 28.9 pg (25.0-35.0); MCHC 32.6 g/dL (31.0-37.0); MCV 88.7 fL (80.0-100.0); Mean Platelet Volume 10.1; Monocytes # (A) 0.7 k/uL (0-1.0); Monocytes % (A) 8 %; Neutrophils # (A) 5.1 k/uL (1.3-7.7); Neutrophils % (A) 61 %; Platelet Count 197 k/uL (150-450); RDW 15.1 % (11.5-15.5); WBC 8.4 k/uL (3.8-10.6)
[2020-09-16 12:36] LABS: Amorphous Sediment,Urine Occasional /hpf; Appearance,Urine Clear (Clear); Bacteria,Urine Rare /hpf; Bilirubin,Urine Negative (Negative); Blood,Urine Negative (Negative); Color,Urine Yellow; Glucose,Urine (UA) Negative (Negative); Hyaline Casts,Urine 4 /lpf (0-2); Ketones,Urine Negative (Negative); Leukocyte Esterase,Urine Trace (Negative); Mucus,Urine Rare /hpf; Nitrite,Urine Negative (Negative); Protein,Urine Negative (Negative); RBC,Urine <1 /hpf (0-5); Specific Gravity,Urine 1.013 (1.001-1.035); Urobilinogen,Urine <2.0 mg/dL (<2.0); WBC,Urine 1 /hpf (0-5)
[2020-09-16] MEDS ORDERED: NALOXONE 0.4 MG/ML 1 ML VIAL IV PRN (12:50)
[2020-09-16] MEDS ORDERED: ACETAMINOPHEN TAB 325 MG TAB PO PRN ×2 (12:50→12:52)
[2020-09-16 12:56] LABS: Amphetamine Screen,Urine Not Detected (NotDetected); Barbiturate Screen,Urine Not Detected (NotDetected); Benzodiazepines Screen,Urine Not Detected (NotDetected); Cocaine Screen,Urine Not Detected (NotDetected); Methadone Screen, Urine Not Detected (NotDetected); Opiate Screen,Urine Not Detected (NotDetected); Oxycodone Screen, Urine Not Detected (NotDetected); Phencyclidine Screen,Urine Not Detected (NotDetected); Tricyclic Antidepressant,Urine Detected (NotDetected); Urn Cannabinoid Scrn Not Detected (NotDetected)
[2020-09-16] MEDS ORDERED: levETIRAcetam 250 MG TAB PO SCH (14:00)
[2020-09-16] MEDS ORDERED: MAGNESIUM HYDROXIDE 2,400 MG/10 ML CUP PO PRN (15:25)
[2020-09-16] MEDS ORDERED: BUTALBITAL PO PRN (15:25)
[2020-09-16] MEDS ORDERED: BENZOCAINE SPRAY 1 CAN TOPICAL PRN (15:25)
[2020-09-16] MEDS ORDERED: ARTIFICIAL TEARS-HYPROMELLOSE DROPS 15 ML BTL BOTH EYES PRN (15:25)
[2020-09-16] MEDS ORDERED: TYL PO PRN (15:25)
[2020-09-16] MEDS ORDERED: NITROGLYCERIN SL TABS 0.4 MG TAB SUBLINGUAL PRN (15:25)
[2020-09-16] MEDS: BACLOFEN 10 MG TAB PO SCH ×2 (16:04→22:46)
[2020-09-16] MEDS: CLOTRIMAZOLE/BETAMETH 1-0.05% CREAM 45 GM TUBE TOPICAL SCH (16:13)
[2020-09-16] MEDS: SODIUM CHLORIDE 0.9% 1,000 ML IV SCH ×2 (16:13→22:30)
[2020-09-16] MEDS ORDERED: ACETAMINOPHEN IV (For NPO) 1,000 MG in EMPTY BAG 1 BAG IVPB PRN (16:42)
[2020-09-16] MEDS ORDERED: levETIRAcetam IV 250 MG in SODIUM CHLORIDE 0.9% 100 ML IVPB ONE (17:00)
[2020-09-16] MEDS: MELATONIN 3 MG TABLET PO SCH (21:34)
[2020-09-16] MEDS: CLINDAMYCIN 1% TOPICAL SCH (21:34)
[2020-09-16] MEDS: busPIRone HCl 10 MG TAB PO SCH ×2 (21:34→22:46)
[2020-09-16] MEDS ORDERED: BENZOCAINE MM PRN (21:36)
[2020-09-16] MEDS ORDERED: MENTHOL MM PRN (21:36)
[2020-09-16] MEDS ORDERED: [UNRECOGNIZED DRUG - OTHER] TOPICAL SCH (21:45)
[2020-09-16] MEDS ORDERED: LANOLIN TOPICAL SCH (21:45)
[2020-09-16] MEDS ORDERED: VITS A AND D TOPICAL SCH (21:45)
[2020-09-16] MEDS ORDERED: WHITE PET TOPICAL SCH (21:45)
--- NOTE | 2020-09-16 21:45 | CT ---
EXAMINATION TYPE: CT abdomen pelvis wo con DATE OF EXAM: 09/16/2020 HISTORY: abdominal distention CT DLP: 1016.4 mGycm. Automated Exposure Control for Dose Reduction was Utilized. TECHNIQUE: CT scan of the abdomen and pelvis is performed without oral or IV contrast. COMPARISON: CT abdomen and pelvis December 09, 2019 FINDINGS: Within the limitations of a non-contrast study, the following observations are made. Persi stent suboptimal study due to overlying bilateral upper extremities similar to prior. LUNG BASES: Tiny bilateral pleural effusions on current study redemonstrated. Stable small to tiny pe ricardial effusion. Bilateral breast implants partially imaged. LIVER/GB: Visualized liver is heterogeneously hypodense relative to spleen consistent with diffuse fa tty infiltration. Gallbladder has distended margin similar to prior without surrounding inflammatory change. No biliary ductal dilatation. PANCREAS: No significant abnormality is seen. SPLEEN: No significant abnormality is seen. ADRENALS: No significant abnormality is seen. KIDNEYS: Asymmetric cortical thinning and atrophy to the left kidney. There is 9 mm nonobstructing ca lculus mid pole level left kidney axial image 35 that is stable. There is a 5 mm calculus anterior andrews perior to this segment image 33 that is stable. Cortical thinning upper pole right kidney. Possible p unctate calculi lower pole right kidney coronal image 78. No hydronephrosis or obstructing ureter amber culi bilaterally. Santizo catheter in decompressed bladder. BOWEL: Suboptimal evaluation without enteric contrast. Air-fluid level in mildly distended stomach. N o suspicious small or large bowel dilatation. Severe rectal fecal prominence similar to prior. GENITAL ORGANS: Anteverted uterus. Right ovarian 2.4 cm low dense lesion axial image 79 is stable fav ored benign. Occasional scattered tiny bilateral pelvic phleboliths. LYMPH NODES: No greater than 1cm abdominal or pelvic lymph nodes are appreciated. OSSEOUS STRUCTURES: Moderate to severe narrowing of both hip joints. Slight underlying scoliotic curv ature. Facet arthropathy lower lumbar levels OTHER: No significant additional abnormality is seen. IMPRESSION: Moderate to severe rectal fecal stasis or impaction is redemonstrated. Overall nonobstruc tive bowel gas pattern.
[2020-09-16] MEDS ORDERED: levETIRAcetam 500 MG TAB PO SCH (22:00)
[2020-09-16] MEDS: SENNOSIDES-DOCUSATE SODIUM 1 EACH TAB PO SCH (22:29)
[2020-09-16] MEDS: polyethylene glycoL 3350 17 GM POWD.PACK PO SCH (22:29)
[2020-09-16] MEDS: ATORVASTATIN 20 MG TAB PO SCH ×2 (22:29→22:46)
--- NOTE | 2020-09-16 22:39 | P.HPIM ---
History of Present Illness H&P Date: 09/16/20 Chief Complaint: decreased level of consciousness, encephalopathy history of intercurrent h 55-year-old female one of Dr. 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 Patient was hospitalized last at [facility] back in December 2023 acute pneumonia along with severe dyspnea and shortness of breath with a QT prolongation was seen cardiology as well. Patient level of common medication is limited except she is awake alert and able to express herself slightly. who is her caregiver was at the bedside today and according to him to see a phone call from [facility] to tell him that his had significant decrease level of consciousness with unresponsiveness. When the insist to bring her to the emergency department for evaluation. Patient was seen and evaluated she was checked for hypoglycemia a sternal rub was with no result at the time EMS were not able to wake up patient on the right from [facility]. Vital signs were normal patient was giving Narcan did not make any change at the time. Ended up going for CT of the brain with finding consistent with mild generalized change with remote ischemic changes with no evidence of acute hemorrhagic or mass effect. With significant abdominal distention patient ended up having CT of the pelvis showed other to severe rectal fecal stasis and impaction with no obstruction or gas pattern was found. Her lab shows normal CBC but found to be in acute kidney injury with UTI drug screen was positive for try cyclic and I depression alcohol level was low and Covid 19 was negative. Patient was started on hydration, Narcan was giving, continue Keppra as an anti- seizure and patient be seen neurology in consultation. Review of Systems CONSTITUTIONAL: Well-developed no acute respiratory distress. EYES: No icterus sclerae, no conjunctivitis. EARS, NOSE, MOUTH, THROAT, and FACE: No sore throat, lymphadenopathy, carotid bruits or deformity. RESPIRATORY: no dyspnea and shortness of breath visible at this point no sign of hypoxia currently no cough.. CARDIOVASCULAR: No CP, Palpitation, PND, Orthopnea, or angina. GASTROINTESTINAL: No Abd pain, Nausea or vomiting, no Diarrhea positive constipation with impaction with slight abdominal distention. GENITOURINARY: Negative for Hematuria or UTI, no kidney stones.positive incontinence and recurrent UTI INTEGUMENT/BREAST: Negative for any muscular injury with mild osteoarthritis.. HEMATOLOGIC/LYMPHATIC: Negative for bleed or purpura. MUSCULOSKELTAL: Negative for Myalgia or arthralgia. NEURLOGICAL: significant decrease level of conscious with severe weakness from her stroke BEHAVIORAL/PSYCH: Negative. ENDOCRINE: Negative. 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 History of Any Multi-Drug Resistant Organisms: MRSA, VRE Date of last positivie culture/infection: 11/18/19 MRSA 05/04/18 VRE MDRO Source:: MRSA TOE/ VRE URINE Past Surgical History: Breast Surgery, Section Additional Past Surgical History / Comment(s): Trach/peg with removal, bilateral breast implants, abdominal aortagram. Past Anesthesia/Blood Transfusion Reactions: No Reported Reaction Smoking Status: Never smoker - Past Family History Father Family Medical History: Unable to Obtain Additional Family Medical History / Comment(s): Pt was raised by her step father. Mother Family Medical History: Hypertension Additional Family Medical History / Comment(s): Mother is 82-year-old has history of hypertension. Daughter(s) Family Medical History: No Reported History Additional Family Medical History / Comment(s): Patient has 2 daughters no major medical problems Son(s) Family Medical History: No Reported History Additional Family Medical History / Comment(s): Patient has 2 sons no major medical problems. Medications and Allergies Home Medications Medication Instructions Recorded Confirmed Type Acetaminophen Tab [Tylenol] 650 mg PO Q4H PRN 01/26/18 09/16/20 History Baclofen [Lioresal] 10 mg PO TID@00,1400,2200 05/23/18 09/16/20 History Cyclobenzaprine [Flexeril] 10 mg PO BID@0900,2100 05/23/18 09/16/20 History levETIRAcetam [Keppra] 500 mg PO BID@0600,2200 05/23/18 09/16/20 History Aspirin EC [Ecotrin Low Dose] 81 mg PO DAILY@0900 03/04/19 09/16/20 History Labetalol [Trandate] 400 mg PO BID@0900,2100 03/04/19 09/16/20 History Magnesium Hydroxide [Milk of 2,400 mg PO DAILY PRN 03/04/19 09/16/20 History Magnesia] levETIRAcetam [Keppra] 250 mg PO DAILY@1400 03/04/19 09/16/20 History Clotrimazole/Betamethasone Dip 1 applic TOPICAL Q12H 12/07/19 09/16/20 History [Lotrisone Cream] Furosemide [Lasix] 40 mg PO BID@0600,1400 12/07/19 09/16/20 History Omeprazole 20 mg PO DAILY@0600 12/07/19 09/16/20 History Potassium Chloride ER [K-Dur 20] 20 meq PO DAILY@0900 12/07/19 09/16/20 History Rosuvastatin [Crestor] 10 mg PO HS@209912/07/19 09/16/20 History Sennosides/Docusate Sodium [Senna 1 tab PO BID@0900,209912/07/19 09/16/20 History Plus 8.6-50 mg Tablet] Vits A and D/White Pet/Lanolin [A 1 applic TOPICAL Q12H 12/07/19 09/16/20 History and D Ointment] Gabapentin [Neurontin] 400 mg PO BID@0600,2200 #6 cap 12/13/19 09/16/20 Rx Melatonin 6 mg PO HS tablet 12/13/19 09/16/20 Rx Artificial Tears-Hypromellose 1 drops BOTH EYES BID PRN 01/26/20 09/16/20 History [Artificial Tear Drops] Nitroglycerin Sl Tabs [Nitrostat] 0.4 mg SUBLINGUAL Q5M PRN 01/26/20 09/16/20 History Valsartan [Diovan] 160 mg PO DAILY@0900 01/26/20 09/16/20 History hydrALAZINE HCL [Apresoline] 100 mg PO BID 01/26/20 09/16/20 History polyethylene glycoL 3350 [Miralax] 17 gm PO DAILY@2100 01/26/20 09/16/20 History Benzocaine [place] [Hurricaine [place]] 1 applic TOPICAL Q6H PRN 09/16/20 09/16/20 History Benzocaine/Menthol [Cepacol Sore 1 lozenge MM Q2H PRN 09/16/20 09/16/20 History Throat Lozenge] Betadine Wipe 1 applic TOPICAL BID 09/16/20 09/16/20 History Butalbital/Tyl 50-325 1 tab PO Q4H PRN 09/16/20 09/16/20 History Clindamycin 1% Lotion 1 applic TOPICAL BID 09/16/20 09/16/20 History Lubiprostone [Amitiza] 24 mcg PO DAILY 09/16/20 09/16/20 History busPIRone HCl [Buspar] 10 mg PO QID 09/16/20 09/16/20 History Allergies Allergy/AdvReac Type Severity Reaction Status Date / Time codeine Allergy Unknown Verified 09/16/20 10:46 Physical Exam Vitals: Vital Signs Temp Pulse Resp BP Pulse Ox 09/16/20 21:34 98.5 F 88 18 113/66 96 09/16/20 20:42 88 18 113/66 96 09/16/20 20:14 86/43 09/16/20 16:14 82 18 102/85 100 09/16/20 14:30 87 12 108/67 09/16/20 14:00 81 12 95/70 09/16/20 13:30 81 12 85/67 09/16/20 13:00 82 13 90/76 09/16/20 12:30 84 15 95/51 99 09/16/20 12:00 93 10 L 107/67 100 09/16/20 11:30 119/103 09/16/20 11:00 93 16 98 09/16/20 10:30 94 12 09/16/20 10:12 100 12 101/76 99 09/16/20 10:07 98.5 F 99 101/76 100 Intake and Output 09/16/20 09/16/20 09/16/20 06:59 14:59 22:59 Other: Weight 85.593 kg 85.593 kg General Appearance: significant decrease level of conscious not responding much does not look in . Neck HEENT: Supple, no lymphadenopathy, no thyroid enlargement, no carotid bruits. Lungs: Clear to auscultation without crackles or wheezes no rhonchi, no deformity. Chest Wall: Chest wall normal expansion with deep inspiration no tenderness and no deformity was found on exam, no costochondral pain or discomfort. Heart: Regular rate and rhythm, S1, S2 normal, no murmur, rub or gallop. Back: Symmetric, no curvature, ROM normal, no CVA tenderness.significant irritation in the lower lumbar and sacral area. Abdomen: Soft, non-tender, bowel sounds active all four quadrants, no masses, no organomegaly. Extremities: Extremities normal, atraumatic, no cyanosis positive edema Pulses: 2+ and symmetric. Skin: Skin color, texture, tugor normal, no rashes or lesions. Neurologic: significant decrease level of conscious patient still have slight function in t with severe expression aphasia as well Results CBC & Chem 7: 09/16/20 11:27 09/16/20 11:27 Labs: Abnormal Lab Results - Last 24 Hours (Table) 09/16/20 09/16/20 09/16/20 Range/Units 10:11 11:27 12:24 BUN 39 H (7-17) mg/dL Creatinine 2.50 H (0.52-1.04) mg/dL Glucose 127 H (74-99) mg/dL POC Glucose (mg/dL) 130 H (75-99) mg/dL Ur Leukocyte Esterase Trace H (Negative) Amorphous Sediment Occasional H (None) /hpf Urine Bacteria Rare H (None) /hpf Hyaline Casts 4 H (0-2) /lpf Urine Mucus Rare H (None) /hpf U Tricyclic Antidepress Detected H (NotDetected) Thrombosis Risk Factor Assmnt - DVT/VTE Prophylaxis DVT/VTE Prophylaxis: Mechanical Prophylaxis ordered - Choose All That Apply Any of the Below Risk Factors Present?: Yes Each Factor Represents 1 point: Age 41-60 years, Medical pt on bed rest, Obesity (BMI >25) Other Risk Factors: Yes Each Risk Factor Represents 2 Points: Patient confined to bed Each Risk Factor Represents 3 Points: Family history of DVT/PE Other congenital or acquired thrombophilia - If yes, enter type in comment: No Thrombosis Risk Factor Assessment Total Risk Factor Score: 8 Thrombosis Risk Factor Assessment Level: High Risk Assessment and Plan Assessment: 1 significant decrease level of consciousness: Not a clear etiology, with previous history of intracranial hemorrhage and aneurysm rupture patient CAT scan did not show any whether able to do an MRI will not we will leave it up to neurology for. 2 encephalopathy: Not a clear etiology whether it's infectious reactive or toxic or without side effect of medication or respond to her previous history of strokes, patient be seen neurology, EEG of the brain and MRI would be recommended. 3 history of thalami Infarct along with intracanal bleed: Remain on Keppra prophylaxis for seizure. No sign of active or acute bleed at this point. 4 hypertension: Continue patient on hydralazine 75 mg every 8 hours along with labetalol 400 mg twice a day. 5 hyperlipidemia: Remain on atorvastatin. 6 severe dysphagia: Secondary to her current stroke speech evaluation be done. 7 acute kidney injury on chronic kidney disease stage III: Hydrate patient will repeat BUN/creatinine. 8 history of QT prolongation: To avoid certain antibiotics might affect the severity of this furthermore. 7 UTI: UA was slightly but positive, patient be giving Ceftin for total of 7 days. 8 depression: Has been on Zoloft 75 mg daily. 9 GI prophylaxis: Remain on Protonix. 10 DVT prophylaxis: Patient to continue anticoagulation. CODE STATUS: Full code. Admit patient to the inpatient service for more than 2 night stay.
[2020-09-16] MEDS: GABAPENTIN 400 MG CAP PO SCH (22:46)
[2020-09-16] MEDS: levETIRAcetam IV 500 MG in SODIUM CHLORIDE 0.9% 100 ML IVPB SCH (22:46)
[2020-09-17] MEDS: CLOTRIMAZOLE/BETAMETH 1-0.05% CREAM 45 GM TUBE TOPICAL SCH ×2 (01:14→17:13)
[2020-09-17] MEDS ORDERED: FUROSEMIDE 40 MG TAB PO SCH (06:00)
[2020-09-17] MEDS: GABAPENTIN 400 MG CAP PO SCH (06:03)
[2020-09-17] MEDS: levETIRAcetam IV 500 MG in SODIUM CHLORIDE 0.9% 100 ML IVPB SCH ×2 (06:03→22:16)
[2020-09-17] MEDS: BACLOFEN 10 MG TAB PO SCH ×3 (06:03→22:13)
[2020-09-17] MEDS: LABETALOL 200 MG TAB PO SCH ×2 (07:10→22:48)
[2020-09-17] MEDS: CLINDAMYCIN 1% TOPICAL SCH ×2 (07:11→22:15)
[2020-09-17] MEDS: LUBIPROSTONE 24 MCG PO SCH (07:11)
[2020-09-17] MEDS: CEFUROXIME 1,500 MG in SODIUM CHLORIDE 0.9% 100 ML IVPB SCH ×2 (08:18→22:47)
[2020-09-17] MEDS: SODIUM CHLORIDE 0.9% 1,000 ML IV SCH ×2 (08:20→17:13)
[2020-09-17] MEDS: ASPIRIN 81 MG PO SCH (08:32)
[2020-09-17] MEDS: PANTOPRAZOLE 40 MG TABLET PO SCH (08:32)
[2020-09-17] MEDS: busPIRone HCl 10 MG TAB PO SCH ×4 (08:33→22:47)
[2020-09-17] MEDS: SENNOSIDES-DOCUSATE SODIUM 1 EACH TAB PO SCH ×2 (08:33→22:14)
[2020-09-17] MEDS: GABAPENTIN 100 MG CAP PO SCH ×2 (08:59→22:13)
[2020-09-17] MEDS ORDERED: POVIDONE IODINE TOPICAL SCH (09:00)
[2020-09-17] MEDS ORDERED: VALSARTAN 160 MG TAB PO SCH (09:00)
[2020-09-17] MEDS ORDERED: POTASSIUM CHLORIDE ER 20 MEQ TAB.ER PO SCH (09:00)
[2020-09-17] MEDS ORDERED: hydrALAZINE HCL 50 MG TAB PO SCH (09:00)
[2020-09-17] MEDS ORDERED: CYCLOBENZAPRINE 10 MG TAB PO SCH (09:00)
--- NOTE | 2020-09-17 09:40 | ECHOF ---
Referral Reason:hypotension MEASUREMENTS -------- HEIGHT: 167.6 cm WEIGHT: 85.3 kg BP: 122/80 RVIDd: 2.1 cm (< 3.3) IVSd: 1.2 cm (0.6 - 1.1) LVIDd: 2.6 cm (3.9 - 5.3) LVPWd: 1.3 cm (0.6 - 1.1) IVSs: 2.0 cm LVIDs: 1.5 cm LVPWs: 1.5 cm Ao Diam: 2.3 cm (2.0 - 3.7) AV Cusp: 1.6 cm (1.5 - 2.6) LA Diam: 2.9 cm (2.7 - 3.8) MV EXCURSION: 13.059 mm (> 18.000) MV EF SLOPE: 35 mm/s (70 - 150) EPSS: 0.1 cm MV E Driss: 0.80 m/s MV DecT: 210 ms MV A Driss: 0.70 m/s MV E/A Ratio: 1.13 RAP: 5.00 mmHg RVSP: 21.01 mmHg FINDINGS -------- Resting tachycardia (HR>100bpm). This was a technically adequate study. The left ventricular size is normal. There is mild concentric left ventricular hypertrophy. Overa ll left ventricular systolic function is normal with, an EF between 55 - 60 %. The right ventricle is normal in size. The left atrial size is normal. The right atrial size is normal. The aortic valve is trileaflet and appears structurally normal. The mitral valve is normal. There is trace mitral regurgitation. The tricuspid valve appears structurally normal. Trace tricuspid regurgitation present. Right jw tricular systolic pressure is normal at < 35 mmHg. There is no pulmonic regurgitation present. The aortic root size is normal. Normal inferior vena cava with normal inspiratory collapse consistent with estimated right atrial pre ssure of 5 mmHg. There is a small, generalized pericardial effusion present. CONCLUSIONS -------- 1. The left ventricular size is normal. 2. There is mild concentric left ventricular hypertrophy. 3. Overall left ventricular systolic function is normal with, an EF between 55 - 60 %. 4. There is trace mitral regurgitation. 5. Trace tricuspid regurgitation present. 6. There is a small, generalized pericardial effusion present. HEATING AND COOLING TECHNICIAN: Raven Truong RDCS
--- NOTE | 2020-09-17 11:05 | P.NPCON ---
History of Present Illness - Reason for Consult acute renal failure, chronic renal failure - History of Present Illness Reason for consultation: Acute kidney injury on chronic kidney disease History of present illness: Patient is a 55-year-old female seen in renal consultation for acute kidney injury on chronic kidney disease. Patient has chronic kidney disease stage III with baseline creatinine in the range of 1.2-1.4. Creatinine was 2.5 yesterday. Labs from today are pending. She is maintained on IV fluids. Patient resides at an extended care facility long-term. She has history of hemorrhagic stroke. Patient was found unresponsive at the [facility] and was subsequently sent to the hospital. Patient is not a reliable historian and is currently undergoing an EEG. Her is present at bedside. Patient's blood pressure has been low in the systolic 80s to low 100s. She did receive 1 L bolus of normal saline on admission. She was also on multiple antihypertensives including Diovan, hyd ralazine, labetalol and Lasix at home. She did receive a dose of Lasix this morning. She has a Santizo catheter in place and urine output 825 mL since admission. No edema. No evidence of fluid overload noted on chest x-ray. CT of the abdomen and pelvis revealed no evidence of hydronephrosis. Moderate fecal stasis or impaction was noted. She was also noted to have nonobstructive nephrolithiasis. Echocardiogram revealed preserved ejection fraction. Vital signs are stable. Blood pressure on the lower side. General: The patient appeared well nourished and normally developed. HEENT: Head exam is unremarkable. Neck is without jugular venous distension. LUNGS: Breath sounds decreased. HEART: Rate and Rhythm are regular. ABDOMEN: Soft, mild distention noted. EXTREMITITES: No edema. 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 History of Any Multi-Drug Resistant Organisms: MRSA, VRE Date of last positivie culture/infection: 11/18/19 MRSA 05/04/18 VRE MDRO Source:: MRSA TOE/ VRE URINE Past Surgical History: Breast Surgery, Section Additional Past Surgical History / Comment(s): Trach/peg with removal, bilateral breast implants, abdominal aortagram. Past Anesthesia/Blood Transfusion Reactions: No Reported Reaction Smoking Status: Never smoker - Past Family History Father Family Medical History: Unable to Obtain Additional Family Medical History / Comment(s): Pt was raised by her step father. Mother Family Medical History: Hypertension Additional Family Medical History / Comment(s): Mother is 82-year-old has history of hypertension. Daughter(s) Family Medical History: No Reported History Additional Family Medical History / Comment(s): Patient has 2 daughters no major medical problems Son(s) Family Medical History: No Reported History Additional Family Medical History / Comment(s): Patient has 2 sons no major medical problems. Medications and Allergies Home Medications Medication Instructions Recorded Confirmed Type Acetaminophen Tab [Tylenol] 650 mg PO Q4H PRN 01/26/18 09/16/20 History Baclofen [Lioresal] 10 mg PO TID@0600,1400,0 05/23/18 09/16/20 History Cyclobenzaprine [Flexeril] 10 mg PO BID@0900,2100 05/23/18 09/16/20 History levETIRAcetam [Keppra] 500 mg PO BID@0600,2200 05/23/18 09/16/20 History Aspirin EC [Ecotrin Low Dose] 81 mg PO DAILY@0900 03/04/19 09/16/20 History Labetalol [Trandate] 400 mg PO BID@0900,2100 03/04/19 09/16/20 History Magnesium Hydroxide [Milk of 2,400 mg PO DAILY PRN 03/04/19 09/16/20 History Magnesia] levETIRAcetam [Keppra] 250 mg PO DAILY@1400 03/04/19 09/16/20 History Clotrimazole/Betamethasone Dip 1 applic TOPICAL Q12H 12/07/19 09/16/20 History [Lotrisone Cream] Furosemide [Lasix] 40 mg PO BID@0600,1400 12/07/19 09/16/20 History Omeprazole 20 mg PO DAILY@0600 12/07/19 09/16/20 History Potassium Chloride ER [K-Dur 20] 20 meq PO DAILY@0900 12/07/19 09/16/20 History Rosuvastatin [Crestor] 10 mg PO HS@209912/07/19 09/16/20 History Sennosides/Docusate Sodium [Senna 1 tab PO BID@0900,209912/07/19 09/16/20 History Plus 8.6-50 mg Tablet] Vits A and D/White Pet/Lanolin [A 1 applic TOPICAL Q12H 12/07/19 09/16/20 History and D Ointment] Gabapentin [Neurontin] 400 mg PO BID@0600,2200 #6 cap 12/13/19 09/16/20 Rx Melatonin 6 mg PO HS tablet 12/13/19 09/16/20 Rx Artificial Tears-Hypromellose 1 drops BOTH EYES BID PRN 01/26/20 09/16/20 History [Artificial Tear Drops] Nitroglycerin Sl Tabs [Nitrostat] 0.4 mg SUBLINGUAL Q5M PRN 01/26/20 09/16/20 History Valsartan [Diovan] 160 mg PO DAILY@0900 01/26/20 09/16/20 History hydrALAZINE HCL [Apresoline] 100 mg PO BID 01/26/20 09/16/20 History polyethylene glycoL 3350 [Miralax] 17 gm PO DAILY@209901/26/20 09/16/20 History Benzocaine [place] [Hurricaine [place]] 1 applic TOPICAL Q6H PRN 09/16/20 09/16/20 History Benzocaine/Menthol [Cepacol Sore 1 lozenge MM Q2H PRN 09/16/20 09/16/20 History Throat Lozenge] Betadine Wipe 1 applic TOPICAL BID 09/16/20 09/16/20 History Butalbital/Tyl 50-325 1 tab PO Q4H PRN 09/16/20 09/16/20 History Clindamycin 1% Lotion 1 applic TOPICAL BID 09/16/20 09/16/20 History Lubiprostone [Amitiza] 24 mcg PO DAILY 09/16/20 09/16/20 History busPIRone HCl [Buspar] 10 mg PO QID 09/16/20 09/16/20 History Allergies Allergy/AdvReac Type Severity Reaction Status Date / Time codeine Allergy Unknown Verified 09/16/20 10:46 Physical Exam Vitals: Vital Signs Temp Pulse Pulse Resp BP BP Pulse Ox 09/17/20 07:40 97.4 F L 102 H 17 85/53 98 09/17/20 03:27 96.9 F L 76 19 99/66 98 09/16/20 22:00 97.8 F 87 18 122/80 98 09/16/20 21:34 98.5 F 88 18 113/66 96 09/16/20 20:42 88 18 113/66 96 09/16/20 20:14 86/43 09/16/20 16:14 82 18 102/85 100 09/16/20 14:30 87 12 108/67 09/16/20 14:00 81 12 95/70 09/16/20 13:30 81 12 85/67 09/16/20 13:00 82 13 90/76 09/16/20 12:30 84 15 95/51 99 09/16/20 12:00 93 10 L 107/67 100 09/16/20 11:30 119/103 09/16/20 11:00 93 16 98 Intake and Output 09/16/20 09/17/20 09/17/20 22:59 06:59 14:59 Output Total 825 Balance -825 Output: Urine 825 Other: Voiding Method Indwelling Catheter Indwelling Catheter Weight 85.593 kg Results - Lab Results Most recent lab results Calcium 9.2 mg/dL (8.4-10.2) 09/16/20 11:27 09/16/20 11:27 09/16/20 11:27 Assessment and Plan Plan: Assessment: 1. Acute kidney injury mostly prerenal secondary to hypotension and hypovolemia from diuresis. Creatinine 2.5 on admission. Labs from today are pending. No proteinuria on UA. No evidence of hydronephrosis noted on imaging. 2. Chronic kidney disease stage III with baseline creatinine 1.2-1.4 secondary to nephrosclerosis. 3. History of hemorrhagic CVA. 4. Altered mental status. Neurology consulted. 5. Hypertension with chronic kidney disease. Blood pressure currently on the lower side. Plan: Maintain IV fluids. Stop Lasix. Hold antihypertensives. Check morning cortisol level. Continue to monitor renal function and urine output. Thank you for the consultation. I will continue to follow patient with you during her hospital stay.
--- NOTE | 2020-09-17 11:08 | P.PN ---
Subjective Progress Note Date: 09/17/20 HISTORY OF PRESENT ILLNESS 55-year-old female one of Dr. 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 Patient was hospitalized last at [facility] back in December 2023 acute pneumonia along with severe dyspnea and shortness of breath with a QT prolongation was seen cardiology as well. Patient level of common medication is limited except she is awake alert and able to express herself slightly. who is her caregiver was at the bedside today and according to him to see a phone call from [facility] to tell him that his had significant decrease level of consciousness with unresponsiveness. When the insist to bring her to the emergency department for evaluation. Patient was seen and evaluated she was checked for hypoglycemia a sternal rub was with no result at the time EMS were not able to wake up patient on the right from [facility]. Vital signs were normal patient was giving Narcan did not make any change at the time. Ended up going for CT of the brain with finding consistent with mild generalized change with remote ischemic changes with no evidence of acute hemorrhagic or mass effect. With significant abdominal distention patient ended up having CT of the pelvis showed other to severe rectal fecal stasis and impaction with no obstruction or gas pattern was found. Her lab shows normal CBC but found to be in acute kidney injury with UTI drug screen was positive for try cyclic and I depression alcohol level was low and Covid 19 was negative. Patient was started on hydration, Narcan was giving, continue Keppra as an anti- seizure and patient be seen neurology in consultation. 09/17: Patient's is at bedside and state the night with the patient. He states that she woke up around 2 or 3 in the morning and talked to him for about one hour. She was awake and alert. She drank multiple full glasses of fluid and ate a tuna sandwich on her own. She then went back to sleep and is now unable to be awakened. We will discontinue Flexeril and decrease gabapentin to 200 mg twice daily. Consult in place with neurology. Patient has been afebrile, heart rate 102, blood pressure 85/53, pulse ox 98% on 2 L nasal cannula. Echocardiogram reveals EF of 55-60% with mild concentric left ventricular hypertrophy, trace mitral regurgitation, trace tricuspid regurgitati on, small generalized pericardial effusion. Consult was also in place for nephrology and general surgery for abdominal distention. The patient is on a regular diet and tolerating. Nephrology is ordered repeat lab work, cortisol level and magnesium. She is currently on IV fluids at 100 mL per hour. REVIEW OF SYSTEMS CONSTITUTIONAL: Well-developed no acute respiratory distress. EYES: No icterus sclerae, no conjunctivitis. EARS, NOSE, MOUTH, THROAT, and FACE: No sore throat, lymphadenopathy, carotid bruits or deformity. RESPIRATORY: no dyspnea and shortness of breath visible at this point no sign of hypoxia currently no cough.. CARDIOVASCULAR: No CP, Palpitation, PND, Orthopnea, or angina. GASTROINTESTINAL: No Abd pain, Nausea or vomiting, no Diarrhea positive co nstipation with impaction with slight abdominal distention. GENITOURINARY: Negative for Hematuria or UTI, no kidney stones.positive incontinence and recurrent UTI INTEGUMENT/BREAST: Negative for any muscular injury with mild osteoarthritis.. HEMATOLOGIC/LYMPHATIC: Negative for bleed or purpura. MUSCULOSKELTAL: Negative for Myalgia or arthralgia. NEURLOGICAL: significant decrease level of conscious with severe weakness from her stroke BEHAVIORAL/PSYCH: Negative. ENDOCRINE: Negative. PHYSICAL EXAMINATION General Appearance: significant decrease level of conscious not responding. is at bedside. Neck HEENT: Supple, no lymphadenopathy, no thyroid enlargement, no carotid bruits. Lungs: Clear to auscultation without crackles or wheezes no rhonchi, no de formity. Chest Wall: Chest wall normal expansion with deep inspiration no tenderness and no deformity was found on exam, no costochondral pain or discomfort. Heart: Regular rate and rhythm, S1, S2 normal, no murmur, rub or gallop. Back: Symmetric, no curvature, ROM normal, no CVA tenderness.significant irritation in the lower lumbar and sacral area. Abdomen: Soft, non-tender, bowel sounds active all four quadrants, no masses, no organomegaly. Extremities: Extremities normal, atraumatic, no cyanosis positive edema Pulses: 2+ and symmetric. Skin: Skin color, texture, tugor normal, no rashes or lesions. Neurologic: significant decrease level of consciousness, known to have severe expression aphasia as well as right sided weakness ASSESSMENT AND PLAN 1 significant decrease level of consciousness: Not a clear etiology, with previous history of intracranial hemorrhage and aneurysm rupture patient CAT scan did not show any whether able to do an MRI will not we will leave it up to neurology for. 2 encephalopathy: Not a clear etiology whether it's infectious reactive or toxic or without side effect of medication or respond to her previous history of st rokes, patient be seen neurology, EEG of the brain and MRI would be recommended. 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 No sign of active or acute bleed at this point. 4 hypertension: Continue patient on hydralazine 75 mg every 8 hours along with labetalol 400 mg twice a day. 5 hyperlipidemia: Remain on atorvastatin. 6 severe dysphagia: Secondary to her current stroke speech evaluation be done. 7 acute kidney injury on chronic kidney disease stage III: Hydrate patient will repeat BUN/creatinine. 8 history of QT prolongation: To avoid certain antibiotics might affect the severity of this furthermore. 7 UTI: UA was slightly but positive, patient be giving Ceftin for total of 7 days. 8 depression: Has been on Zoloft 75 mg daily. 9 GI prophylaxis: Remain on Protonix. 10 DVT prophylaxis: Patient to continue anticoagulation. CODE STATUS: Full code. DISCHARGE PLAN Return to [facility]. Impression and plan of care have been directed as dictated by the signing physician. Pretty Gomes nurse practitioner acting as scribe for signing physician. Objective - Vital Signs Vital signs: Vital Signs Temp 97.4 F L 09/17/20 07:40 Pulse 102 H 09/17/20 07:40 Resp 17 09/17/20 07:40 BP 85/53 09/17/20 07:40 Pulse Ox 98 09/17/20 07:40 Intake & Output 09/16/20 09/17/20 09/17/20 18:59 06:59 18:59 Output Total 825 Balance -825 Weight 85.593 kg Output: Urine 825 Other: Voiding Method Indwelling Catheter - Labs CBC & Chem 7: 09/16/20 11:27 09/16/20 11:27 Labs: Abnormal Lab Results - Last 24 Hours (Table) 09/16/20 09/16/20 09/16/20 Range/Units 10:11 11:27 12:24 BUN 39 H (7-17) mg/dL Creatinine 2.50 H (0.52-1.04) mg/dL Glucose 127 H (74-99) mg/dL POC Glucose (mg/dL) 130 H (75-99) mg/dL Ur Leukocyte Esterase Trace H (Negative) Amorphous Sediment Occasional H (None) /hpf Urine Bacteria Rare H (None) /hpf Hyaline Casts 4 H (0-2) /lpf Urine Mucus Rare H (None) /hpf U Tricyclic Antidepress Detected H (NotDetected)
--- NOTE | 2020-09-17 12:40 | P.GSCN ---
History of Present Illness Consult date: 09/17/20 Reason for Consult: Abdominal distention History of present illness: The patient is a 55-year-old female who states that the is extended care f acility. She stays at the extended care facility due to neurologic changes after hypertensive crisis 2 years ago. She was noted to be unresponsive yesterday and brought into the hospital by EMS. The patient's typically checks in on her daily. He came in yesterday and she had a short time where she was lucid yesterday afternoon and then this morning she woke up and he said she was her "normal self ". He got her to eat. She has since fallen back to sleep. He says this is not her normal status. The patient does wake up to tactile and verbal stimuli. She seems to answer questions appropriately with head nod. Denies abdominal pain. Denies nausea. While on palpating her abdomen she does manager forms my hand when in it is in her left lower quadrant Review of Systems All systems: negative Past Medical History Past Medical History: CVA/TIA, Deep Vein Thrombosis (DVT), Hyperlipidemia, Hypertension, Renal Disease, Skin Disorder, Vascular Disorder Additional Past Medical History / Comment(s): 12/2017 Intracranial hemorrhage 2ndary to HTN then 05/2018 had thalmic infarct/pt has R sided weakness/aphasia and is treated with keppra prophylactically/pt had lengthy hospitalizations re quiring trach/peg which have since been removed, hydrocephalus, generalized weakness, insomnia, chronic renal disease stage III, 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 Past Anesthesia/Blood Transfusion Reactions: No Reported Reaction Smoking Status: Never smoker - Past Family History Father Family Medical History: Unable to Obtain Additional Family Medical History / Comment(s): Pt was raised by her step father . Mother Family Medical History: Hypertension Additional Family Medical History / Comment(s): Mother is 82-year-old has history of hypertension. Daughter(s) Family Medical History: No Reported History Additional Family Medical History / Comment(s): Patient has 2 daughters no major medical problems Son(s) Family Medical History: No Reported History Additional Family Medical History / Comment(s): Patient has 2 sons no major medical problems. Medications and Allergies Home Medications Medication Instructions Recorded Confirmed Type Acetaminophen Tab [Tylenol] 650 mg PO Q4H PRN 01/26/18 09/16/20 History Baclofen [Lioresal] 10 mg PO TID@0600,1400,219905/23/18 09/16/20 History Cyclobenzaprine [Flexeril] 10 mg PO BID@0900,209905/23/18 09/16/20 History levETIRAcetam [Keppra] 500 mg PO BID@0600,219905/23/18 09/16/20 History Aspirin EC [Ecotrin Low Dose] 81 mg PO DAILY@0903/04/19 09/16/20 History Labetalol [Trandate] 400 mg PO BID@0900,209903/04/19 09/16/20 History Magnesium Hydroxide [Milk of 2,400 mg PO DAILY PRN 03/04/19 09/16/20 History Magnesia] levETIRAcetam [Keppra] 250 mg PO DAILY@1400 03/04/19 09/16/20 History Clotrimazole/Betamethasone Dip 1 applic TOPICAL Q12H 12/07/19 09/16/20 History [Lotrisone Cream] Furosemide [Lasix] 40 mg PO BID@0600,1400 12/07/19 09/16/20 History Omeprazole 20 mg PO DAILY@0600 12/07/19 09/16/20 History Potassium Chloride ER [K-Dur 20] 20 meq PO DAILY@0900 12/07/19 09/16/20 History Rosuvastatin [Crestor] 10 mg PO HS@209912/07/19 09/16/20 History Sennosides/Docusate Sodium [Senna 1 tab PO BID@0900,209912/07/19 09/16/20 History Plus 8.6-50 mg Tablet] Vits A and D/White Pet/Lanolin [A 1 applic TOPICAL Q12H 12/07/19 09/16/20 History and D Ointment] Gabapentin [Neurontin] 400 mg PO BID@0600,2200 #6 cap 12/13/19 09/16/20 Rx Melatonin 6 mg PO HS tablet 12/13/19 09/16/20 Rx Artificial Tears-Hypromellose 1 drops BOTH EYES BID PRN 01/26/20 09/16/20 History [Artificial Tear Drops] Nitroglycerin Sl Tabs [Nitrostat] 0.4 mg SUBLINGUAL Q5M PRN 01/26/20 09/16/20 History Valsartan [Diovan] 160 mg PO DAILY@0900 01/26/20 09/16/20 History hydrALAZINE HCL [Apresoline] 100 mg PO BID 01/26/20 09/16/20 History polyethylene glycoL 3350 [Miralax] 17 gm PO DAILY@2100 01/26/20 09/16/20 History Benzocaine [place] [Hurricaine [place]] 1 applic TOPICAL Q6H PRN 09/16/20 09/16/20 History Benzocaine/Menthol [Cepacol Sore 1 lozenge MM Q2H PRN 09/16/20 09/16/20 History Throat Lozenge] Betadine Wipe 1 applic TOPICAL BID 09/16/20 09/16/20 History Butalbital/Tyl 50-325 1 tab PO Q4H PRN 09/16/20 09/16/20 History Clindamycin 1% Lotion 1 applic TOPICAL BID 09/16/20 09/16/20 History Lubiprostone [Amitiza] 24 mcg PO DAILY 09/16/20 09/16/20 History busPIRone HCl [Buspar] 10 mg PO QID 09/16/20 09/16/20 History Allergies Allergy/AdvReac Type Severity Reaction Status Date / Time codeine Allergy Unknown Verified 09/16/20 10:46 Surgical - Exam Osteopathic Statement: *. No significant issues noted on an osteopathic structural exam other than those noted in the History and Physical/Consult. Vital Signs Temp Pulse BP Pulse Ox 98.5 F 99 101/76 100 09/16/20 10:07 09/16/20 10:07 09/16/20 10:07 09/16/20 10:07 - General Sleepy but awakes to questioning no distress - Eyes normal ocular movement - Respiratory normal expansion, normal respiratory effort - Cardiovascular Rhythm: regular - Abdomen Abdomen: soft (Softly distended), tender (The floor quadrant), no rigid, no rebound, distended Results - Labs 09/16/20 11:27 09/16/20 11:27 Abnormal Lab Results - Last 24 Hours (Table) 09/16/20 Range/Units 12:24 Ur Leukocyte Esterase Trace H (Negative) Amorphous Sediment Occasional H (None) /hpf Urine Bacteria Rare H (None) /hpf Hyaline Casts 4 H (0-2) /lpf Urine Mucus Rare H (None) /hpf U Tricyclic Antidepress Detected H (NotDetected) - Imaging CT scan - abdomen: report reviewed, image reviewed Assessment and Plan (1) Encephalopathy Current Visit: Yes Status: Acute Code(s): G93.40 - ENCEPHALOPATHY, UNSPEC IFIED SNOMED Code(s): 29866848 (2) KHAI (acute kidney injury) Current Visit: No Status: Acute Code(s): N17.9 - ACUTE KIDNEY FAILURE, UNSPECIFIED SNOMED Code(s): 20460662 (3) Altered mental status Current Visit: No Status: Acute Code(s): R41.82 - ALTERED MENTAL STATUS, UNSPECIFIED SNOMED Code(s): 238100692 (4) Constipation Current Visit: No Status: Acute Code(s): K59.00 - CONSTIPATION, UNSPECIFIED SNOMED Code(s): 24040341 Plan: There is a fairly large amount of fecal material in the rectum. We'll give her some enemas since she is more alert today to try to evacuate that. Explained to the that we don't see any evidence of acute inflammatory process in her abdomen. This should respond to conservative therapy. She should then be on a good bowel regimen. Questions were encouraged and answered. I will see her tomorrow.
--- NOTE | 2020-09-17 12:51 | P.CNNES ---
History of Present Illness Consult date: 09/17/20 Requesting physician: Nilson Kowalski Reason for Consult: Encephalopathy, NOS History of Present Illness: Patient is a 55-year-old female, came to the hospital yesterday on 09/16/2020 at 10:06 AM by ambulance, for unresponsiveness. Patient has severe expressive aphasia from previous stroke, therefore not able to provide any history. Patient's was present, who provided the history along with records from electronic medical records. 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 She had extensive stay and prolonged rehabilitation. Patient is status post tracheostomy and PEG placement. The trach and PEG has been removed subsequently. Patient is able to speak only few words like "thank you", or "I love you". She does have fairly good comprehension although sometimes takes time. Patient does have history of hypertension for last 27 years, and 6 months prior to her intracranial hemorrhage, she had stopped taking all her blood pressure medications which resulted in intracranial hemorrhage. Patient has been on Keppra for seizure prophylaxis. Patient has been residing in [facility] since her stroke. Patient was brought to the hospital yesterday from [facility], as she was found unresponsive breathing 16-18/m. Her blood glucose checked was 134. Her initial blood pressure was 74/51. Subsequent blood pressure was 86/56, pulse rate 76 temperature 97.2 and saturation 96%. Patient was not responding to sternal rub. IV fluids were given. Patient was brought to the hospital. No seizures were reported. The last time patient was seen at baseline was the night prior to arrival at 7 PM. She was discovered to be unresponsive in the morning. Vital signs on arrival blood pressure 101/76, pulse rate 99 temperature 98.5. Computed tomography scan of the head showed degenerative and remote ischemic changes with no evidence of acute hemorrhage or mass effect. chest x-ray showed low lung volumes and mild cardiomegaly without new suspicious acute pulmonary process. EKG shows sinus tachycardia with nonspecific T-wave abnormality. 2-D echo showed normal left ventricular size. Mild concentric LVH, EF is 55-60%. There is trace MR. Small generalized pericardial effusion present. computed tomography scanof abdomen and pelvis shows moderate to severe rectal fecal stasis or impaction is redemonstrated. Overall nonobstructive bowel gas pattern . blood test shows normal CBC, PT/PTT, electrolytes, BUN is 39, creatinine 2.50, hepatic panel normal, troponin negative, UA negative. Urine drug screen positive for tricyclics. Blood alcohol level negative. And rosado virus PCR negative. Patient at present is back to baseline. Per nursing report, patient has been sleeping too much. Per her , when he came to the hospital, she was as leep. She woke up at around 3 PM, had some lunch, and after 30 minutes went back to sleep and woke up at 1-2 AM. She had just woken up now. Her primary physician has decreased dose of Neurontin from 400 mg twice a day to 200 mg twice a day and also stop Flexeril since yesterday. No previous history of tobacco or alcohol use. 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 History of Any Multi-Drug Resistant Organisms: MRSA, VRE Date of last positivie culture/infection: 11/18/19 MRSA 05/04/18 VRE MDRO Source:: MRSA TOE/ VRE URINE Past Surgical History: Breast Surgery, Section Additional Past Surgical History / Comment(s): Trach/peg with removal, bilateral breast implants, abdominal aortagram. Past Anesthesia/Blood Transfusion Reactions: No Reported Reaction Smoking Status: Never smoker - Past Family History Father Family Medical History: Unable to Obtain Additional Family Medical History / Comment(s): Pt was raised by her step father. Mother Family Medical History: Hypertension Additional Family Medical History / Comment(s): Mother is 82-year-old has history of hypertension. Daughter(s) Family Medical History: No Reported History Additional Family Medical History / Comment(s): Patient has 2 daughters no major medical problems Son(s) Family Medical History: No Reported History Additional Family Medical History / Comment(s): Patient has 2 sons no major medical problems. Medications and Allergies Home Medications Medication Instructions Recorded Confirmed Type Acetaminophen Tab [Tylenol] 650 mg PO Q4H PRN 01/26/18 09/16/20 History Baclofen [Lioresal] 10 mg PO TID@0600,1400,219905/23/18 09/16/20 History Cyclobenzaprine [Flexeril] 10 mg PO BID@0900,209905/23/18 09/16/20 History levETIRAcetam [Keppra] 500 mg PO BID@0600,219905/23/18 09/16/20 History Aspirin EC [Ecotrin Low Dose] 81 mg PO DAILY@0903/04/19 09/16/20 History Labetalol [Trandate] 400 mg PO BID@0900,209903/04/19 09/16/20 History Magnesium Hydroxide [Milk of 2,400 mg PO DAILY PRN 03/04/19 09/16/20 History Magnesia] levETIRAcetam [Keppra] 250 mg PO DAILY@139903/04/19 09/16/20 History Clotrimazole/Betamethasone Dip 1 applic TOPICAL Q12H 12/07/19 09/16/20 History [Lotrisone Cream] Furosemide [Lasix] 40 mg PO BID@0600,1400 12/07/19 09/16/20 History Omeprazole 20 mg PO DAILY@0600 12/07/19 09/16/20 History Potassium Chloride ER [K-Dur 20] 20 meq PO DAILY@0900 12/07/19 09/16/20 History Rosuvastatin [Crestor] 10 mg PO HS@209912/07/19 09/16/20 History Sennosides/Docusate Sodium [Senna 1 tab PO BID@0900,209912/07/19 09/16/20 History Plus 8.6-50 mg Tablet] Vits A and D/White Pet/Lanolin [A 1 applic TOPICAL Q12H 12/07/19 09/16/20 History and D Ointment] Gabapentin [Neurontin] 400 mg PO BID@0600,2200 #6 cap 12/13/19 09/16/20 Rx Melatonin 6 mg PO HS tablet 12/13/19 09/16/20 Rx Artificial Tears-Hypromellose 1 drops BOTH EYES BID PRN 01/26/20 09/16/20 History [Artificial Tear Drops] Nitroglycerin Sl Tabs [Nitrostat] 0.4 mg SUBLINGUAL Q5M PRN 01/26/20 09/16/20 History Valsartan [Diovan] 160 mg PO DAILY@0900 01/26/20 09/16/20 History hydrALAZINE HCL [Apresoline] 100 mg PO BID 01/26/20 09/16/20 History polyethylene glycoL 3350 [Miralax] 17 gm PO DAILY@2100 01/26/20 09/16/20 History Benzocaine Wat[place] [Hurricaine Wataga] 1 applic TOPICAL Q6H PRN 09/16/20 09/16/20 History Benzocaine/Menthol [Cepacol Sore 1 lozenge MM Q2H PRN 09/16/20 09/16/20 History Throat Lozenge] Betadine Wipe 1 applic TOPICAL BID 09/16/20 09/16/20 History Butalbital/Tyl 50-325 1 tab PO Q4H PRN 09/16/20 09/16/20 History Clindamycin 1% Lotion 1 applic TOPICAL BID 09/16/20 09/16/20 History Lubiprostone [Amitiza] 24 mcg PO DAILY 09/16/20 09/16/20 History busPIRone HCl [Buspar] 10 mg PO QID 09/16/20 09/16/20 History Allergies Allergy/AdvReac Type Severity Reaction Status Date / Time codeine Allergy Unknown Verified 09/16/20 10:46 Physical Examination - Vital Signs Vital Signs: Vital Signs Temp Pulse Pulse Resp BP BP Pulse Ox 09/17/20 07:40 97.4 F L 102 H 17 85/53 98 09/17/20 03:27 96.9 F L 76 19 99/66 98 09/16/20 22:00 97.8 F 87 18 122/80 98 09/16/20 21:34 98.5 F 88 18 113/66 96 09/16/20 20:42 88 18 113/66 96 09/16/20 20:14 86/43 09/16/20 16:14 82 18 102/85 100 09/16/20 14:30 87 12 108/67 09/16/20 14:00 81 12 95/70 09/16/20 13:30 81 12 85/67 09/16/20 13:00 82 13 90/76 09/16/20 12:30 84 15 95/51 99 09/16/20 12:00 93 10 L 107/67 100 09/16/20 11:30 119/103 09/16/20 11:00 93 16 98 09/16/20 10:30 94 12 09/16/20 10:12 100 12 101/76 99 09/16/20 10:07 98.5 F 99 101/76 100 Intake and Output 09/16/20 09/17/20 09/17/20 22:59 06:59 14:59 Output Total 825 Balance -825 Output: Urine 825 Other: Voiding Method Indwelling Catheter Indwelling Catheter Weight 85.593 kg On examination patient is a middle aged female, in no acute distress. She is alert and awake. Patient has severe expressive aphasia. She can only say just a few words like "thank you", "I love you" to her . Patient comprehension is mildly impaired, as she has difficulty following some directions with the left arm. Patient does take time to understand and respond. Patient cannot name any object. Cannot repeat. She did follow directions like pointing to the door, to the window and ceiling. On cranial nerve examination pupils are round and reactive to light, visual torres revealed right-sided visual field deficit. Extraocular muscles are intact. Face is symmetric and tongue mildly protrudes the midline. Patient does have some apraxia. Palatal elevation could not be checked. Hearing appears normal. Shoulder shrug decreased on the right. On muscle strength testing patient is completely spastic hemiplegic in the right arm and right leg. Her strength is normal in the left arm distally and proximally. 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 Her comprehension is somewhat impaired. Her strength is normal in the left leg as well, although appears to have some spasticity in the left foot also. Patient has sustained clonus on the right side. Plantar is upgoing only on the right side. Plantars are withdrawal in the left foot. Sensory touch is decreased in the right arm and right leg as compared to the left. No ataxia for [id number] testing on the left side. Tone is increased on the right, bulk of muscles is normal. On general examination there is no carotid bruit, S1 and S2 audible, abdomen soft nontender, chest is clear. No peripheral edema. Results - Laboratory Findings CBC and BMP: 09/16/20 11:27 09/18/20 05:52 Abnormal Lab Findings: Abnormal Labs 09/16/20 09/16/20 09/16/20 10:11 11:27 12:24 BUN 39 H Creatinine 2.50 H Glucose 127 H POC Glucose (mg/dL) 130 H Ur Leukocyte Esterase Trace H Amorphous Sediment Occasional H Urine Bacteria Rare H Hyaline Casts 4 H Urine Mucus Rare H U Tricyclic Antidepress Detected H Assessment and Plan Assessment: * 55-year-old female with history of left thalamic intracranial hypertensive hemorrhage in on 12/14/2017, with subsequent expressive aphasia, and right hemiplegia, has presented with an episode of unresponsiveness. Patient was hypotensive at the scene. Rule out syncopal spell, versus seizure. * Hypertension * Chronic renal insufficiency * Hyperlipidemia Plan: * Patient had undergone EEG. We will review the results. Patient is on Keppra 750 mg twice a day which will be continued. Patient has mild chronic renal insufficiency, perhaps with some component of dehydration. We will check Keppra level to rule out Keppra toxicity, as Keppra is excreted through the renal system. * Patient also is on multiple psychoactive medications including baclofen 10 mg 3 times a day, Flexeril 10 mg twice a day, gabapentin 400 mg twice a day and BuSpar 10 mg 4 times a day. Agree with decreasing dose of gabapentin to 200 mg twice a day, as gabapentin can also accumulate in patients with renal insufficiency. Flexeril has been discontinued. * We will check B12, folate, TSH * Hemoglobin A1c 5.1 on 12/09/2019. * We will follow patient with you.
[2020-09-17] MEDS: levETIRAcetam IV 250 MG in SODIUM CHLORIDE 0.9% 100 ML IVPB SCH (13:59)
--- NOTE | 2020-09-17 14:51 | EEG ---
ELECTROENCEPHALOGRAM REPORT DATE OF SERVICE: 09/17/2020 PREAMBLE: This is a 55-year-old female who has history of stroke with right hemiplegia, was found unresponsive at the longterm. This study is performed to evaluate for any epileptiform activity. This is a 21 channel routine EEG recording in a patient utilizing 10-20 international system with referential and bipolar montages. The background consists of well- developed, moderately well regulated, mixed frequencies of alpha and theta, seen better in the right posterior hemispheric region. Background does not seem to be clearly reactive to eye opening or closing. There is a near continuous focal dysrhythmic theta and delta activity seen in the left hemispheric region. Some sharp appearing waves were seen in the left temporal region. Mild drowsiness was seen but deeper stages of sleep were not seen. No electrographic seizure was recorded. The EKG rhythm lead revealed no obvious arrhythmia. IMPRESSION: This is an abnormal EEG due to: 1. Background slowing, mild degree, suggestive of encephalopathy. 2. Focal slowing over the left hemispheric region. This is suggestive of focal cortical neural dysfunction. 3. Occasional sharp appearing waves were also seen in the left temporal region, suggestive of underlying cortical irritability and tendency for seizures. Clinical correlation is recommended. MMODL / IJN: [id number] /
[2020-09-17 15:37] VITALS: BMI 30.4
[2020-09-17] MEDS ORDERED: ACETAMINOPHEN TAB 325 MG TAB PO PRN (17:00)
[2020-09-17] MEDS: MELATONIN 3 MG TABLET PO SCH (22:13)
[2020-09-17] MEDS: polyethylene glycoL 3350 17 GM POWD.PACK PO SCH (22:15)
[2020-09-18] MEDS: CLOTRIMAZOLE/BETAMETH 1-0.05% CREAM 45 GM TUBE TOPICAL SCH ×2 (04:45→16:53)
[2020-09-18] MEDS: SODIUM CHLORIDE 0.9% 1,000 ML IV SCH (04:46)
[2020-09-18] MEDS: levETIRAcetam IV 500 MG in SODIUM CHLORIDE 0.9% 100 ML IVPB SCH (06:03)
[2020-09-18] MEDS: BACLOFEN 10 MG TAB PO SCH ×3 (06:03→22:02)
[2020-09-18] MEDS: GABAPENTIN 100 MG CAP PO SCH ×2 (06:03→22:02)
[2020-09-18] MEDS: LABETALOL 200 MG TAB PO SCH ×2 (07:56→22:03)
[2020-09-18] MEDS: LUBIPROSTONE 24 MCG PO SCH (07:56)
[2020-09-18] MEDS: CLINDAMYCIN 1% TOPICAL SCH ×2 (07:56→22:04)
[2020-09-18] MEDS: ASPIRIN 81 MG PO SCH (08:05)
[2020-09-18] MEDS: PANTOPRAZOLE 40 MG TABLET PO SCH (08:05)
[2020-09-18] MEDS: SENNOSIDES-DOCUSATE SODIUM 1 EACH TAB PO SCH ×2 (08:05→22:02)
[2020-09-18] MEDS: busPIRone HCl 10 MG TAB PO SCH ×4 (08:05→22:02)
[2020-09-18] MEDS: CEFUROXIME 1,500 MG in SODIUM CHLORIDE 0.9% 100 ML IVPB SCH ×2 (08:05→22:03)
[2020-09-18] MEDS ORDERED: SODIUM CHLORIDE 0.9% 1,000 ML IV SCH (09:15)
--- NOTE | 2020-09-18 10:05 | P.PN ---
Subjective Progress Note Date: 09/18/20 Patient was entered admitted due to altered mental status. She is reviewed turned to her baseline. Tolerating a diet. She did have a significant bowel movement yesterday. Not complaining of any pain Objective - Vital Signs Vital signs: Vital Signs Temp 97.9 F 09/18/20 08:00 Pulse 96 09/18/20 08:00 Resp 16 09/18/20 08:00 BP 94/65 09/18/20 08:00 Pulse Ox 98 09/18/20 08:00 Intake & Output 09/17/20 09/18/20 09/18/20 18:59 06:59 18:59 Output Total 2151 1025 Balance -2151 -1025 Weight 85.593 kg Output: Urine 2150 1025 Stool 1 Other: Voiding Method Indwelling Catheter Indwelling Catheter Indwelling Catheter - Constitutional General appearance: Present: cooperative, no acute distress - Gastrointestinal General gastrointestinal: Present: distended (She had some mild distention yesterday which has resolved), normal bowel sounds, soft. Absent: tenderness - Labs CBC & Chem 7: 09/16/20 11:27 09/16/20 11:27 Labs: Microbiology - Last 24 Hours (Table) 09/16/20 11:27 Blood Culture - Preliminary Blood No Growth after 24 hours Assessment and Plan (1) Encephalopathy Current Visit: Yes Status: Acute Code(s): G93.40 - ENCEPHALOPATHY, UNSPECIFIED SNOMED Code(s): 08485340 (2) KHAI (acute kidney injury) Current Visit: No Status: Acute Code(s): N17.9 - ACUTE KIDNEY FAILURE, UNSPECIFIED SNOMED Code(s): 22696000 (3) Altered mental status Current Visit: No Status: Acute Code(s): R41.82 - ALTERED MENTAL STATUS, UNSPECIFIED SNOMED Code(s): 694242853 (4) Constipation Current Visit: No Status: Acute Code(s): K59.00 - CONSTIPATION, UNSPECIFIED SNOMED Code(s): 13023360 Plan: The constipation has resolved and her mental status has returned to baseline. Recommend good Bowel regimen. I will follow up as needed
--- NOTE | 2020-09-18 10:50 | P.PN ---
Subjective Patient is seen in follow-up for acute kidney injury and chronic kidney disease. Patient has chronic kidney disease stage III. Baseline creatinine in the range of 1.2-1.4. Creatinine was 2.5 on admission. Labs from today are pending. She has a Santizo catheter in place and is nonoliguric. Denies any vomiting or diarrhea. Oral intake is fair. Vital signs are stable. General: The patient appeared well nourished and normally developed. HEENT: Head exam is unremarkable. Neck is without jugular venous distension. LUNGS: Breath sounds decreased. HEART: Rate and Rhythm are regular. ABDOMEN: Soft, nontender. EXTREMITITES: No edema. Objective - Vital Signs Vital signs: Vital Signs Temp 97.9 F 09/18/20 08:00 Pulse 96 09/18/20 08:00 Resp 16 09/18/20 08:00 BP 94/65 09/18/20 08:00 Pulse Ox 98 09/18/20 08:00 Intake & Output 09/17/20 09/18/20 09/18/20 18:59 06:59 18:59 Output Total 2151 1025 Balance -2151 -1025 Weight 85.593 kg Output: Urine 2150 1025 Stool 1 Other: Voiding Method Indwelling Catheter Indwelling Catheter Indwelling Catheter - Labs CBC & Chem 7: 09/16/20 11:27 09/16/20 11:27 Labs: Microbiology - Last 24 Hours (Table) 09/16/20 11:27 Blood Culture - Preliminary Blood No Growth after 24 hours Assessment and Plan Plan: Assessment: 1. Acute kidney injury mostly prerenal secondary to hypotension and hypovolemia from diuresis. Creatinine 2.5 on admission. Labs from today are pending. No proteinuria on UA. No evidence of hydronephrosis noted on imaging. 2. Chronic kidney disease stage III with baseline creatinine 1.2-1.4 secondary to nephrosclerosis. 3. History of hemorrhagic CVA. 4. Altered mental status. Neurology following. Mentation has improved since admission. 5. Hypertension with chronic kidney disease. Blood pressure currently on the lower side. Plan: Hep-Lock IV fluids. Encouraged oral intake. Hold Lasix and antihypertensives. Follow-up morning cortisol level. Follow-up morning labs. Continue to monitor renal function and urine output. Add Midodrine - hold if systolic blood pressure greater than 110.
[2020-09-18 11:20] LABS: African American GFR (CKD) 54.2 (60.0-200.0); Anion Gap 7.8 mmol/L (4.00-12.00); BUN/Creat Ratio 10.77 Ratio (12.00-20.00); Calcium 8.2 mg/dL (8.7-10.3); Carbon Dioxide 25.2 mmol/L (21.6-31.8); Magnesium 1.8 mg/dL (1.5-2.4); Non-African American GFR(CKD) 46.8 (60.0-200.0); Potassium 3.5 mmol/L (3.5-5.5)
[2020-09-18] MEDS ORDERED: POTASSIUM CHLORIDE ER 20 MEQ TAB.ER PO STA (11:32)
[2020-09-18] MEDS ORDERED: COSYNTROPIN 0.25 MG VIAL IVP ONE (11:34)
[2020-09-18] MEDS: MIDODRINE 5 MG TAB PO SCH ×2 (12:08→16:52)
[2020-09-18] MEDS: levETIRAcetam IV 250 MG in SODIUM CHLORIDE 0.9% 100 ML IVPB SCH (14:02)
--- NOTE | 2020-09-18 15:54 | P.PN ---
Subjective Progress Note Date: 09/18/20 HISTORY OF PRESENT ILLNESS 55-year-old female one of Dr. 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 Patient was hospitalized last at [facility] back in December 2023 acute pneumonia along with severe dyspnea and shortness of breath with a QT prolongation was seen cardiology as well. Patient level of common medication is limited except she is awake alert and able to express herself slightly. who is her caregiver was at the bedside today and according to him to see a phone call from [facility] to tell him that his had significant decrease level of consciousness with unresponsiveness. When the insist to bring her to the emergency department for evaluation. Patient was seen and evaluated she was checked for hypoglycemia a sternal rub was with no result at the time EMS were not able to wake up patient on the right from [facility]. Vital signs were normal patient was giving Narcan did not make any change at the time. Ended up going for CT of the brain with finding consistent with mild generalized change with remote ischemic changes with no evidence of acute hemorrhagic or mass effect. With significant abdominal distention patient ended up having CT of the pelvis showed other to severe rectal fecal stasis and impaction with no obstruction or gas pattern was found. Her lab shows normal CBC but found to be in acute kidney injury with UTI drug screen was positive for try cyclic and I depression alcohol level was low and Covid 19 was negative. Patient was started on hydration, Narcan was giving, continue Keppra as an anti- seizure and patient be seen neurology in consultation. 09/17: Patient's is at bedside and state the night with the patient. He states that she woke up around 2 or 3 in the morning and talked to him for about one hour. She was awake and alert. She drank multiple full glasses of fluid and ate a tuna sandwich on her own. She then went back to sleep and is now unable to be awakened. We will discontinue Flexeril and decrease gabapentin to 200 mg twice daily. Consult in place with neurology. Patient has been afebrile, heart rate 102, blood pressure 85/53, pulse ox 98% on 2 L nasal cannula. Echocardiogram reveals EF of 55-60% with mild concentric left ventricular hypertrophy, trace mitral regurgitation, trace tricuspid regurgitati on, small generalized pericardial effusion. Consult was also in place for nephrology and general surgery for abdominal distention. The patient is on a regular diet and tolerating. Nephrology is ordered repeat lab work, cortisol level and magnesium. She is currently on IV fluids at 100 mL per hour. 09/18: She was seen by Dr. Varner yesterday and ordered for milk and molasses enema. Patient did have good results last night. Liaison from [facility] and [employer] work meeting with the patient's family regarding discharge planning. Patient is awake and alert this morning. She is afebrile, heart rate 96, blood pressure 94/65, pulse ox 90% on 2 L nasal cannula. Patient has been seen by Dr. Orantes, hold Lasix and antihypertensives. Midodrine added. Cosyntropin stimulation test: Cortisol level at 6 AM 2.1, noon 5, 2 PM 28. Patient has been seen by neurology. EEG is abnormal with encephalopathy, left hemisphere shows focal cortical neuronal dysfunction. Underlying cortical air debility and tendency for seizures. Patient is starting on Keppra 750 mg twice daily with recommendations to continue. Agree with decreasing gabapentin and discontinuing Flexeril. B12, folate and TSH ordered. Anticipate discharge to subacute rehab tomorrow. again spent the night with her. REVIEW OF SYSTEMS CONSTITUTIONAL: Well-developed no acute respiratory distress. Denies fever. EYES: No icterus sclerae, no conjunctivitis. EARS, NOSE, MOUTH, THROAT, and FACE: No sore throat, lymphadenopathy, carotid bruits or deformity. RESPIRATORY: no dyspnea and shortness of breath visible at this point no sign of hypoxia currently no cough.. CARDIOVASCULAR: No CP, Palpitation, PND, Orthopnea, or angina. GASTROINTESTINAL: No Abd pain, Nausea or vomiting, no Diarrhea positive constipation with impaction with slight abdominal distention. GENITOURINARY: Negative for Hematuria or UTI, no kidney stones.positive incontinence and recurrent UTI INTEGUMENT/BREAST: Negative for any muscular injury with mild osteoarthritis.. HEMATOLOGIC/LYMPHATIC: Negative for bleed or purpura. MUSCULOSKELTAL: Negative for Myalgia or arthralgia. NEURLOGICAL: significant decrease level of conscious with severe weakness from her stroke BEHAVIORAL/PSYCH: Negative. ENDOCRINE: Negative. PHYSICAL EXAMINATION General Appearance: significant decrease level of conscious not responding. is at bedside. Neck HEENT: Supple, no lymphadenopathy, no thyroid enlargement, no carotid bruits. Lungs: Clear to auscultation without crackles or wheezes no rhonchi, no deformity. Chest Wall: Chest wall normal expansion with deep inspiration no tenderness and no deformity was found on exam, no costochondral pain or discomfort. Heart: Regular rate and rhythm, S1, S2 normal, no murmur, rub or gallop. Back: Symmetric, no curvature, ROM normal, no CVA tenderness.significant irritation in the lower lumbar and sacral area. Abdomen: Soft, non-tender, bowel sounds active all four quadrants, no masses, no organomegaly. Extremities: Extremities normal, atraumatic, no cyanosis positive edema Pulses: 2+ and symmetric. Skin: Skin color, texture, tugor normal, no rashes or lesions. Neurologic: Patient is awake and alert, responding to questions with chronic right sided weakness ASSESSMENT AND PLAN 1 significant decrease level of consciousness: Not a clear etiology, with previous history of intracranial hemorrhage and aneurysm rupture patient CAT scan did not show any whether able to do an MRI will not we will leave it up to neurology for. 2 encephalopathy: Not a clear etiology whether it's infectious reactive or toxic or without side effect of medication or respond to her previous history of strokes, patient be seen neurology, EEG of the brain and MRI would be recommended. 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 No sign of active or acute bleed at this point. 4 hypertension: Hydralazine discontinued and labetalol 400 mg twice a day held. Patient is hypotensive. Midodrine started by nephrology 5 mg 3 times daily. 5 hyperlipidemia: Remain on atorvastatin. 6 severe dysphagia: Secondary to her current stroke speech evaluation be done. 7 acute kidney injury on chronic kidney disease stage III: Hydrate patient will repeat BUN/creatinine. 8 history of QT prolongation: To avoid certain antibiotics might affect the severity of this furthermore. 7 UTI: UA was slightly but positive, patient be giving Ceftin for total of 7 days. 8 recurrent depression: Has been on Zoloft 75 mg daily. 9 GI prophylaxis: Remain on Protonix. 10 DVT prophylaxis: Patient to continue anticoagulation. CODE STATUS: Full code. DISCHARGE PLAN Return to [facility] on Tuesday. Impression and plan of care have been directed as dictated by the signing physician. Pretty Gomes nurse practitioner acting as scribe for signing physician. Objective - Vital Signs Vital signs: Vital Signs Temp 97.9 F 09/18/20 08:00 Pulse 96 09/18/20 08:00 Resp 16 09/18/20 08:00 BP 94/65 09/18/20 08:00 Pulse Ox 98 09/18/20 08:00 Intake & Output 09/17/20 09/18/20 09/18/20 18:59 06:59 18:59 Output Total 2151 1025 Balance -2151 -1025 Weight 85.593 kg Output: Urine 2150 1025 Stool 1 Other: Voiding Method Indwelling Catheter Indwelling Catheter - Labs CBC & Chem 7: 09/16/20 11:27 09/18/20 05:52 Labs: Microbiology - Last 24 Hours (Table) 09/16/20 11:27 Blood Culture - Preliminary Blood No Growth after 24 hours
[2020-09-18] MEDS: polyethylene glycoL 3350 17 GM POWD.PACK PO SCH (21:23)
--- NOTE | 2020-09-18 21:48 | P.PN ---
Subjective Progress Note Date: 09/18/20 Patient was seen for a follow-up. Patient's is also present. Patient is doing better. Much more alert and awake. No further syncopal or seizure- type spells. Objective - Vital Signs Vital signs: Vital Signs Temp 97.8 F 09/18/20 19:27 Pulse 86 09/18/20 19:27 Resp 14 09/18/20 19:27 BP 163/107 09/18/20 19:27 Pulse Ox 96 09/18/20 19:27 Intake & Output 09/18/20 09/18/20 09/19/20 06:59 18:59 06:59 Output Total 1025 1450 Balance -1025 -1450 Output: Urine 1025 1450 Other: Voiding Method Indwelling Catheter Indwelling Catheter - Exam On examination patient is a middle aged female, very pleasant. Patient is more alert and responsive as compared to yesterday. Patient has expressive aphasia. Comprehension is quite intact. Cannot repeat or name. 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 Fairly normal strength on the left. - Labs CBC & Chem 7: 09/16/20 11:27 09/18/20 05:52 Labs: Abnormal Lab Results - Last 24 Hours (Table) 09/18/20 Range/Units 05:52 Chloride 111 H (96-109) mmol/L Est GFR (CKD-EPI)AfAm 54.2 L (60.0-200.0) Est GFR (CKD-EPI)NonAf 46.8 L (60.0-200.0) BUN/Creatinine Ratio 10.77 L (12.00-20.00) Ratio Glucose 115 H (70-110) mg/dL Calcium 8.2 L (8.7-10.3) mg/dL Cortisol 2.1 L (3.10-22.40) ug/dL Microbiology - Last 24 Hours (Table) 09/16/20 11:27 Blood Culture - Preliminary Blood No Growth after 48 hours Assessment and Plan Assessment: * 55-year-old female with history of left thalamic intracranial hypertensive hemorrhage in on 12/14/2017, with subsequent expressive aphasia, and right hemiplegia, has presented with an episode of unresponsiveness. Patient was hypotensive at the scene. Rule out syncopal spell, versus unwitnessed seizure. * Hypertension * Dehydration with mild Chronic renal insufficiency. Renal function is much improved with hydration. * Hyperlipidemia Plan: * EEG revealed background slowing, mild degree, suggestive of encephalopathy. Focal slowing and occasional sharp waves seen over the left hemispheric region, suggestive of focal cortical neuronal dysfunction with underlying cortical irritability and tendency for seizures. Patient probably had a unwitnessed seizure, leading to unresponsiveness. Patient seizure likely due to significant dehydration, hypotension, renal impairment, and all of these culminating in a seizure. Patient will be continued on Keppra 750 mg twice a day. Patient's renal functions have improved since being hydrated. Patient strongly recommended to stay well-hydrated to prevent renal dysfunction, which can affect Keppra levels. Patient recommended to follow up with neurologist as outpatient. * Await B12, folate, TSH and Keppra level. * Hemoglobin A1c 5.1 on 12/09/2019. * Neurologically clear for discharge, when cleared by internal medicine.
[2020-09-18] MEDS: MELATONIN 3 MG TABLET PO SCH (22:02)
[2020-09-18] MEDS: ATORVASTATIN 20 MG TAB PO SCH (22:02)
[2020-09-18] MEDS: levETIRAcetam 250 MG TAB PO SCH (22:04)
[2020-09-19] MEDS: CLOTRIMAZOLE/BETAMETH 1-0.05% CREAM 45 GM TUBE TOPICAL SCH (02:12)
[2020-09-19] MEDS: BACLOFEN 10 MG TAB PO SCH ×2 (05:55→13:39)
[2020-09-19] MEDS: GABAPENTIN 100 MG CAP PO SCH (05:55)
[2020-09-19 06:16] LABS: Folate, Serum 4.8 ng/mL
[2020-09-19 07:58] VITALS: RESP 18; TEMP 98.2
[2020-09-19] MEDS: MIDODRINE 5 MG TAB PO SCH ×2 (08:51→12:03)
[2020-09-19] MEDS: CLINDAMYCIN 1% TOPICAL SCH (08:52)
[2020-09-19 09:24] LABS: African American GFR (CKD) 59.8 (60.0-200.0); Anion Gap 6.4 mmol/L (4.00-12.00); BUN/Creat Ratio 9.17 Ratio (12.00-20.00); Calcium 8.5 mg/dL (8.7-10.3); Carbon Dioxide 25.6 mmol/L (21.6-31.8); Magnesium 1.9 mg/dL (1.5-2.4); Non-African American GFR(CKD) 51.6 (60.0-200.0); Potassium 3.4 mmol/L (3.5-5.5)
[2020-09-19] MEDS: busPIRone HCl 10 MG TAB PO SCH ×2 (09:28→12:03)
[2020-09-19] MEDS: PANTOPRAZOLE 40 MG TABLET PO SCH (09:28)
[2020-09-19] MEDS: SENNOSIDES-DOCUSATE SODIUM 1 EACH TAB PO SCH (09:28)
[2020-09-19] MEDS: ASPIRIN 81 MG PO SCH (09:29)
[2020-09-19] MEDS: levETIRAcetam 250 MG TAB PO SCH (09:29)
[2020-09-19] MEDS: LABETALOL 200 MG TAB PO SCH (09:29)
[2020-09-19] MEDS: LUBIPROSTONE 24 MCG PO SCH (09:30)
[2020-09-19] MEDS: CEFUROXIME 1,500 MG in SODIUM CHLORIDE 0.9% 100 ML IVPB SCH (09:52)
[2020-09-19] MEDS ORDERED: POTASSIUM CHLORIDE ER 20 MEQ TAB.ER PO STA (10:55)
--- NOTE | 2020-09-19 10:58 | P.PN ---
Subjective Patient is seen in follow-up for acute kidney injury and chronic kidney disease. Patient has chronic kidney disease stage III. Baseline creatinine in the range of 1.2-1.4. Creatinine was 2.5 on admission and is down to 1.2 today. She has a Santizo catheter in place and is nonoliguric. Denies any vomiting or diarrhea. Oral intake is good. Vital signs are stable. General: The patient appeared well nourished and normally developed. HEENT: Head exam is unremarkable. Neck is without jugular venous distension. LUNGS: Breath sounds decreased. HEART: Rate and Rhythm are regular. ABDOMEN: Soft, nontender. EXTREMITITES: No edema. Objective - Vital Signs Vital signs: Vital Signs Temp 98.2 F 09/19/20 07:57 Pulse 91 09/19/20 07:57 Resp 18 09/19/20 07:57 BP 155/94 09/19/20 08:35 Pulse Ox 95 09/19/20 07:57 Intake & Output 09/18/20 09/19/20 09/19/20 18:59 06:59 18:59 Output Total 1450 1400 Balance -1450 -1400 Output: Urine 1450 1400 Other: Voiding Method Indwelling Catheter Indwelling Catheter Indwelling Catheter - Labs CBC & Chem 7: 09/16/20 11:27 09/19/20 06:11 Labs: Abnormal Lab Results - Last 24 Hours (Table) 09/18/20 09/19/20 Range/Units 05:52 06:11 Potassium 3.4 L (3.5-5.5) mmol/L Chloride 111 H 112 H (96-109) mmol/L Est GFR (CKD-EPI)AfAm 54.2 L 59.8 L (60.0-200.0) Est GFR (CKD-EPI)NonAf 46.8 L 51.6 L (60.0-200.0) BUN/Creatinine Ratio 10.77 L 9.17 L (12.00-20.00) Ratio Glucose 115 H 118 H (70-110) mg/dL Calcium 8.2 L 8.5 L (8.7-10.3) mg/dL Cortisol 2.1 L (3.10-22.40) ug/dL Microbiology - Last 24 Hours (Table) 09/16/20 11:27 Blood Culture - Preliminary Blood No Growth after 48 hours Assessment and Plan Plan: Assessment: 1. Acute kidney injury mostly prerenal secondary to hypotension and hypovolemia from diuresis. Creatinine 2.5 on admission - 1.2 today. No proteinuria on UA. No evidence of hydronephrosis noted on imaging. 2. Chronic kidney disease stage III with baseline creatinine 1.2-1.4 secondary to nephrosclerosis. 3. History of hemorrhagic CVA. 4. Altered mental status. Neurology following. Mentation has improved since admission. 5. Hypertension with chronic kidney disease. Stable. Blood pressure was on the lower side on admission but now resolved. Cortisol level increased from 5 to 28 post cosyntropin. 6. Hypokalemia from poor intake. Magnesium normal. Plan: Hep-Lock IV fluids. Encouraged oral intake. Replace potassium. 40 mEq today. Hold midodrine for systolic blood pressure greater than 110. Resume hydralazine. To be held for systolic blood pressure less than 120. Continue to monitor renal function and urine output. Anticipate discharge soon to [facility]CF. Follow up outpatient in 1-2 weeks.
[2020-09-19] MEDS ORDERED: hydrALAZINE HCL 50 MG TAB PO SCH (11:00)
[2020-09-19 12:03] VITALS: BP 159/94; PULSE 101
--- NOTE | 2020-09-19 12:56 | P.DS ---
Providers Date of admission: 09/16/20 12:50 Expected date of discharge: 09/19/20 Attending physician: Emory Bang Consults: 09/16/20 12:55 Consult Physician Routine Consulting Provider: Jenny Bowers Consult Reason/Comments: encephalopathy, NOS Do you want consulting provider notified?: Yes 09/16/20 20:38 Consult Physician Routine Consulting Provider: June Fields Consult Reason/Comments: KHAI Do you want consulting provider notified?: Yes 09/16/20 20:40 Consult Physician Routine Consulting Provider: Hannah Varner Consult Reason/Comments: abdominal distention Do you want consulting provider notified?: Yes Primary care physician: Sheree Amaya [facility] Course: 55-year-old female one of Dr. 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 Patient was hospitalized last at [facility] back in December 2023 acute pneumonia along with severe dyspnea and shortness of breath with a QT prolongation was seen cardiology as well. Patient level of common medication is limited except she is awake alert and able to express herself slightly. who is her caregiver was at the bedside today and according to him to see a phone call from [facility] to tell him that his had significant decrease level of consciousness with unresponsiveness. When the insist to bring her to the emergency department for evaluation. Patient was seen and evaluated she was checked for hypoglycemia a sternal rub was with no result at the time EMS were not able to wake up patient on the right from [facility]. Vital signs were normal patient was giving Narcan did not make any change at the time. Ended up going for CT of the brain with finding consistent with mild generalized change with remote ischemic changes with no evidence of acute hemorrhagic or mass effect. With significant abdominal distention patient ended up having CT of the pelvis showed other to severe rectal fecal stasis and impaction with no obstruction or gas pattern was found. Her lab shows normal CBC but found to be in acute kidney injury with UTI drug screen was positive for try cyclic and I depression alcohol level was low and Covid 19 was negative. Patient was started on hydration, Narcan was giving, continue Keppra as an anti- seizure and patient be seen neurology in consultation. 09/17: Patient's is at bedside and state the night with the patient. He states that she woke up around 2 or 3 in the morning and talked to him for about one hour. She was awake and alert. She drank multiple full glasses of fluid and ate a tuna sandwich on her own. She then went back to sleep and is now unable to be awakened. We will discontinue Flexeril and decrease gabapentin to 200 mg twice daily. Consult in place with neurology. Patient has been afebrile, heart rate 102, blood pressure 85/53, pulse ox 98% on 2 L nasal cannula. Echocardiogram reveals EF of 55-60% with mild concentric left ventricular hypertrophy, trace mitral regurgitation, trace tricuspid regurgitation, small generalized pericardial effusion. Consult was also in place for nephrology and general surgery for abdominal distention. The patient is on a regular diet and tolerating. Nephrology is ordered repeat lab work, cortisol level and magnesium. She is currently on IV fluids at 100 mL per hour. 09/18: She was seen by Dr. Varner yesterday and ordered for milk and molasses enema. Patient did have good results last night. Liaison from [facility] and social work meeting with the patient's family regarding discharge planning. Patient is awake and alert this morning. She is afebrile, heart rate 96, blood pressure 94/65, pulse ox 90% on 2 L nasal cannula. Patient has been seen by Dr. Orantes, hold Lasix and antihypertensives. Midodrine added. Cosyntropin stimulation test: Cortisol level at 6 AM 2.1, noon 5, 2 PM 28. Patient has been seen by neurology. EEG is abnormal with encephalopathy, left hemisphere shows focal cortical neuronal dysfunction. Underlying cortical air debility and tendency for seizures. Patient is starting on Keppra 750 mg twice daily with recommendations to continue. Agree with decreasing gabapentin and discontinuing Flexeril. B12, folate and TSH ordered. Anticipate discharge to subacute rehab tomorrow. again spent the night with her. 09/19: Patient was evaluated this morning, is at bedside. Patient is much more awake and alert. IV antibiotics will be switched to by mouth Ceftin. Vital signs are stable heart rate 101, afebrile 98.2, blood pressure 159/94, 95% on room air. Patient will be discharged back to [facility] today. Discharge diagnoses 1 significant decrease level of consciousness 2 encephalopathy 3 history of thalami Infarct along with intracanal bleed with chronic right- sided hemiparesis and aphasia 4 hypertension 5 hyperlipidemia 6 severe dysphagia 7 acute kidney injury on chronic kidney disease stage III 8 history of QT prolongation 7 UTI 8 recurrent depression: The above impression and plan of care have been discussed and directed by signing physician. Park Baer nurse practitioner acting as scribe for signing physician. Patient Condition at Discharge: Fair Plan - Discharge Summary Discharge Rx Participant: No New Discharge Prescriptions: New Cefuroxime [Ceftin] 250 mg PO BID 5 Days #10 tab Gabapentin [Neurontin] 200 mg PO BID@0600,2200 #60 cap Midodrine [ProAmatine] 5 mg PO AC-TID #90 tab Continue Acetaminophen Tab [Tylenol] 650 mg PO Q4H PRN PRN Reason: Pain Baclofen [Lioresal] 10 mg PO TID@0600,1400,2200 levETIRAcetam [Keppra] 500 mg PO BID@0600,2200 Aspirin EC [Ecotrin Low Dose] 81 mg PO DAILY@0900 Labetalol [Trandate] 400 mg PO BID@0900,2100 levETIRAcetam [Keppra] 250 mg PO DAILY@1400 Magnesium Hydroxide [Milk of Magnesia] 2,400 mg PO DAILY PRN PRN Reason: Constipation Vits A and D/White Pet/Lanolin [A and D Ointment] 1 applic TOPICAL Q12H Clotrimazole/Betamethasone Dip [Lotrisone Cream] 1 applic TOPICAL Q12H Sennosides/Docusate Sodium [Senna Plus 8.6-50 mg Tablet] 1 tab PO BID@0900,2100 Rosuvastatin [Crestor] 10 mg PO HS@2100 Omeprazole 20 mg PO DAILY@0600 Melatonin 6 mg PO HS tablet Nitroglycerin Sl Tabs [Nitrostat] 0.4 mg SUBLINGUAL Q5M PRN PRN Reason: Chest Pain Artificial Tears-Hypromellose [Artificial Tear Drops] 1 drops BOTH EYES BID PRN PRN Reason: RED/DRY EYES polyethylene glycoL 3350 [Miralax] 17 gm PO DAILY@2100 Betadine Wipe 1 applic TOPICAL BID Benzocaine [place] [Hurricaine [place]] 1 applic TOPICAL Q6H PRN PRN Reason: BUTTOCKS PAIN Benzocaine/Menthol [Cepacol Sore Throat Lozenge] 1 lozenge MM Q2H PRN PRN Reason: Sore Throat Butalbital/Tyl 50-325 1 tab PO Q4H PRN PRN Reason: Migraine Headache busPIRone HCl [Buspar] 10 mg PO QID Lubiprostone [Amitiza] 24 mcg PO DAILY Clindamycin 1% Lotion 1 applic TOPICAL BID Changed hydrALAZINE HCL [Apresoline] 50 mg PO BID #0 Potassium Chloride ER [K-Dur 20] 10 meq PO DAILY@0900 #0 Furosemide [Lasix] 40 mg PO DAILY #0 Discontinued Cyclobenzaprine [Flexeril] 10 mg PO BID@09,2099 Gabapentin [Neurontin] 400 mg PO BID@0600,0 #6 cap Valsartan [Diovan] 160 mg PO DAILY@0900 Discharge Medication List Acetaminophen Tab [Tylenol] 650 mg PO Q4H PRN 01/26/18 [History] Baclofen [Lioresal] 10 mg PO TID@0600,1400,0 05/23/18 [History] levETIRAcetam [Keppra] 500 mg PO BID@0600,0 05/23/18 [History] Aspirin EC [Ecotrin Low Dose] 81 mg PO DAILY@0900 03/04/19 [History] Labetalol [Trandate] 400 mg PO BID@0900,209903/04/19 [History] Magnesium Hydroxide [Milk of Magnesia] 2,400 mg PO DAILY PRN 03/04/19 [History] levETIRAcetam [Keppra] 250 mg PO DAILY@1400 03/04/19 [History] Clotrimazole/Betamethasone Dip [Lotrisone Cream] 1 applic TOPICAL Q12H 12/07/19 [History] Omeprazole 20 mg PO DAILY@0600 12/07/19 [History] Rosuvastatin [Crestor] 10 mg PO HS@209912/07/19 [History] Sennosides/Docusate Sodium [Senna Plus 8.6-50 mg Tablet] 1 tab PO BID@0900,209912/07/19 [History] Vits A and D/White Pet/Lanolin [A and D Ointment] 1 applic TOPICAL Q12H 12/07/19 [History] Melatonin 6 mg PO HS tablet 12/13/19 [Rx] Artificial Tears-Hypromellose [Artificial Tear Drops] 1 drops BOTH EYES BID PRN 01/26/20 [History] Nitroglycerin Sl Tabs [Nitrostat] 0.4 mg SUBLINGUAL Q5M PRN 01/26/20 [History] polyethylene glycoL 3350 [Miralax] 17 gm PO DAILY@2100 01/26/20 [History] Benzocaine [place] [Hurricaine [place]] 1 applic TOPICAL Q6H PRN 09/16/20 [History] Benzocaine/Menthol [Cepacol Sore Throat Lozenge] 1 lozenge MM Q2H PRN 09/16/20 [History] Betadine Wipe 1 applic TOPICAL BID 09/16/20 [History] Butalbital/Tyl 50-325 1 tab PO Q4H PRN 09/16/20 [History] Clindamycin 1% Lotion 1 applic TOPICAL BID 09/16/20 [History] Lubiprostone [Amitiza] 24 mcg PO DAILY 09/16/20 [History] busPIRone HCl [Buspar] 10 mg PO QID 09/16/20 [History] Cefuroxime [Ceftin] 250 mg PO BID 5 Days #10 tab 09/19/20 [Rx] Furosemide [Lasix] 40 mg PO DAILY #0 09/19/20 [Rx] Gabapentin [Neurontin] 200 mg PO BID@0600,2200 #60 cap 09/19/20 [Rx] Midodrine [ProAmatine] 5 mg PO AC-TID #90 tab 09/19/20 [Rx] Potassium Chloride ER [K-Dur 20] 10 meq PO DAILY@0900 #0 09/19/20 [Rx] hydrALAZINE HCL [Apresoline] 50 mg PO BID #0 09/19/20 [Rx] Follow up Appointment(s)/Referral(s): Sheree Amaya MD [Primary Care Provider] - 1-2 days Ambulatory/Diagnostic Orders: Complete Blood Count w/diff [LAB.AMB] Location: None Selected Comprehensive Metabolic Panel [LAB.AMB] Location: None Selected Patient Instructions/Handouts: Encephalopathy (DC) Discharge Disposition: TRANSFER TO SNF/F
--- NOTE | 2020-09-20 19:50 | P.PN ---
Subjective Progress Note Date: 09/19/20 Late entry: Patient was seen earlier today. Patient's is also present. Patient is doing much better, fully alert and awake. No further syncopal or seizure-type spells. Objective - Vital Signs Vital signs: Vital Signs Temp 98.2 F 09/19/20 07:57 Pulse 101 H 09/19/20 12:02 Resp 18 09/19/20 07:57 BP 159/94 09/19/20 12:02 Pulse Ox 95 09/19/20 07:57 Intake & Output 09/18/20 09/19/20 09/19/20 18:59 06:59 18:59 Output Total 1450 1400 1100 Balance -1450 -1400 -1100 Output: Urine 1450 1400 1100 Uretheral (Santizo) 1100 Other: Voiding Method Indwelling Catheter Indwelling Catheter Indwelling Catheter - Exam On examination patient is a middle aged female, very pleasant. Patient is more alert and responsive as compared to yesterday. Patient has expressive aphasia. Comprehension is quite intact. Cannot repeat or name. 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 Fairly normal strength on the left. 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 Patient was hypotensive at the scene. Rule out syncopal spell, versus unwitnessed seizure. * Hypertension * Dehydration with mild Chronic renal insufficiency. Renal function is much improved with hydration. * Hyperlipidemia Plan: * EEG revealed background slowing, mild degree, suggestive of encephalopathy. Focal slowing and occasional sharp waves seen over the left hemispheric region, suggestive of focal cortical neuronal dysfunction with underlying cortical irritability and tendency for seizures. Patient probably had a unwitnessed seizure, leading to unresponsiveness. Patient seizure likely due to significant dehydration, hypotension, renal impairment, and all of these culminating in a seizure. Patient will be continued on Keppra 750 mg twice a day. Patient's renal functions have improved since been hydrated. Patient strongly recommended to stay well-hydrated to prevent renal dysfunction, which can affect Keppra levels. Patient recommended to follow up with neurologist as outpatient. * B12 353, folate 4.8, which is slightly low, TSH normal 2.17 and Keppra level also therapeutic 25.9 (3-60). Suggest folate replacement. * Hemoglobin A1c 5.1 on 12/09/2019. * Neurologically clear for discharge, when cleared by internal medicine.
== END 2020-09-19 14:59 | DRG 71 ==
LOC: EC 10:06 → 4SSUR 12:50
PROVIDERS: ADMIT Internal Medicine Geriatric Medicine; ATTEND Internal Medicine Geriatric Medicine
DX: G93.41 Metabolic encephalopathy (principal); G91.9 Hydrocephalus, unspecified; N17.9 Acute kidney failure, unspecified; I31.3 Pericardial effusion (noninflammatory); N39.0 Urinary tract infection, site not specified; F33.9 Major depressive disorder, recurrent, unspecified; I69.351 Hemiplegia and hemiparesis following cerebral infarction affecting right dominant side; G40.909 Epilepsy, unspecified, not intractable, without status epilepticus; H53.461 Homonymous bilateral field defects, right side; N18.30 Chronic kidney disease, stage 3 unspecified; I95.9 Hypotension, unspecified; Z20.828 Contact with and (suspected) exposure to other viral communicable diseases; I12.9 Hypertensive chronic kidney disease with stage 1 through stage 4 chronic kidney disease, or unspecified chronic kidney disease; I16.0 Hypertensive urgency; E86.1 Hypovolemia; E87.6 Hypokalemia; E86.0 Dehydration; E78.5 Hyperlipidemia, unspecified; I69.320 Aphasia following cerebral infarction; I69.391 Dysphagia following cerebral infarction; R13.10 Dysphagia, unspecified; N20.0 Calculus of kidney; F41.9 Anxiety disorder, unspecified; K59.00 Constipation, unspecified; R32 Unspecified urinary incontinence; G47.00 Insomnia, unspecified; M19.90 Unspecified osteoarthritis, unspecified site; Z79.82 Long term (current) use of aspirin; Z79.899 Other long term (current) drug therapy; Z86.14 Personal history of Methicillin resistant Staphylococcus aureus infection; Z86.19 Personal history of other infectious and parasitic diseases; Z98.891 History of uterine scar from previous surgery; Z86.718 Personal history of other venous thrombosis and embolism; Z87.440 Personal history of urinary (tract) infections; Z98.82 Breast implant status; Z87.2 Personal history of diseases of the skin and subcutaneous tissue; Z86.79 Personal history of other diseases of the circulatory system; Z87.01 Personal history of pneumonia (recurrent); Z98.890 Other specified postprocedural states; Z88.5 Allergy status to narcotic agent; Z82.49 Family history of ischemic heart disease and other diseases of the circulatory system
CPT/HCPCS: 36415; 70450; 71045; 74176; 80048; 80053; 80177; 80306; 80320; 81001; 82140; 82533; 82607; 82746; 83605; 83735; 84443; 84484; 85025; 85610; 85730; 87040; 87635; 93005; 93306; 95816; 96361; 96365; 96366; 96375; 99285

== ENCOUNTER 2021-12-31 18:05 | Observation (INO) | payer BC, MEDICARE, OTHER ==
[2021-12-31] MEDS ORDERED: fentaNYL (PF) 50 MCG/ML 2 ML AMP IVP STA ×2 (18:33→20:17)
--- NOTE | 2021-12-31 18:37 | ED ---
General Adult HPI - General Chief complaint: Abdominal Pain Stated complaint: Abd pain Time Seen by Provider: 12/31/21 18:25 Source: patient, RN notes reviewed, old records reviewed Mode of arrival: EMS Limitations: altered mental status, physical limitation - History of Present Illness Initial comments: 56-year-old female, awake and alert but aphasic, presents to the emergency room with left sided abdominal pain. Patient points to her left side and shakes her head yes or no when assessing pain. Upon palpation she has left-sided abdominal pain, no right upper or right lower abdominal pain. She is afebrile. She has a history of stroke after ICH with right-sided paresis, chronic kidney disease, hypertension and DVT. -: days(s) (3) Location: abdomen (left sided) Severity scale (1-10): 2 - Related Data Home Medications Medication Instructions Recorded Confirmed Acetaminophen Tab [Tylenol] 650 mg PO Q4H PRN 01/26/18 12/31/21 Baclofen [Lioresal] 10 mg PO TID@0800,1200,1800 05/23/18 12/31/21 levETIRAcetam [Keppra] 500 mg PO BID 05/23/18 12/31/21 Aspirin EC [Ecotrin Low Dose] 81 mg PO HS 03/04/19 12/31/21 Labetalol [Trandate] 400 mg PO BID@0900,2100 03/04/19 12/31/21 levETIRAcetam [Keppra] 250 mg PO DAILY 03/04/19 12/31/21 Omeprazole 20 mg PO DAILY 12/07/19 12/31/21 Sennosides/Docusate Sodium [Senna 1 tab PO BID 12/07/19 12/31/21 Plus 8.6-50 mg Tablet] polyethylene glycoL 3350 [Miralax] 17 gm PO HS@199901/26/20 12/31/21 busPIRone HCl [Buspar] 10 mg PO QID 09/16/20 12/31/21 Atorvastatin [Lipitor] 20 mg PO DAILY 12/31/21 12/31/21 Cyanocobalamin [Vitamin B-12] 500 mcg PO DAILY 12/31/21 12/31/21 Gabapentin [Neurontin] 200 mg PO BID@0800,1400 12/31/21 12/31/21 Gabapentin [Neurontin] 300 mg PO HS@209912/31/21 12/31/21 Linaclotide [Linzess] 72 mcg PO DAILY 12/31/21 12/31/21 Melatonin 6 mg PO HS@199912/31/21 12/31/21 Potassium Chloride ER [K-Dur 10] 10 meq PO DAILY 12/31/21 12/31/21 cloNIDine 0.1 MG/24HR PATCH 1 patch TRANSDERM TH 12/31/21 12/31/21 [Catapres-TTS] cloNIDine HCL [Catapres] 0.1 mg PO DAILY PRN 12/31/21 12/31/21 hydrALAZINE HCL [Apresoline] 50 mg PO Q8H PRN 12/31/21 12/31/21 Allergies Allergy/AdvReac Type Severity Reaction Status Date / Time codeine Allergy Unknown Verified 12/31/21 21:14 Review of Systems ROS Statement: Those systems with pertinent positive or pertinent negative responses have been documented in the HPI. ROS Other: All systems not noted in ROS Statement are negative. 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 History of Any Multi-Drug Resistant Organisms: MRSA, VRE Date of last positivie culture/infection: 11/18/19 MRSA 12/01/20 VRE MDRO Source:: MRSA TOE/ VRE URINE Past Surgical History: Breast Surgery, Section Additional Past Surgical History / Comment(s): Trach/peg with removal, bilateral breast implants, abdominal aortagram. Past Anesthesia/Blood Transfusion Reactions: No Reported Reaction Past Psychological History: Anxiety Smoking Status: Never smoker Past Alcohol Use History: Unable to Obtain Past Drug Use History: Unable to Obtain - Past Family History Father Family Medical History: Unable to Obtain Additional Family Medical History / Comment(s): Pt was raised by her step father. Mother Family Medical History: Hypertension Additional Family Medical History / Comment(s): Mother is 82-year-old has history of hypertension. Daughter(s) Family Medical History: No Reported History Additional Family Medical History / Comment(s): Patient has 2 daughters no major medical problems Son(s) Family Medical History: No Reported History Additional Family Medical History / Comment(s): Patient has 2 sons no major medical problems. General Exam Limitations: altered mental status, physical limitation General appearance: alert Head exam: Present: atraumatic, normocephalic, normal inspection Eye exam: Absent: scleral icterus, conjunctival injection, periorbital swelling, periorbital tenderness ENT exam: Present: normal exam, normal oropharynx, mucous membranes moist Neck exam: Present: normal inspection. Absent: tenderness, meningismus, lymphadenopathy, thyromegaly Respiratory exam: Present: normal lung sounds bilaterally. Absent: respiratory distress, accessory muscle use Cardiovascular Exam: Present: regular rate, normal heart sounds. Absent: JVD GI/Abdominal exam: Present: soft, distended, tenderness (Left upper and left lower quadrant). Absent: guarding, rebound, rigid, mass Extremities exam: Present: normal capillary refill Neurological exam: Present: alert Expanded Speech: Present: expressive aphasia Upper motor neuron: Anders Neglect: Abnormal Right Motor strength exam: RUE: 0, LUE: 5, RLE: 0, LLE: 3 Eye Response: (4) open spontaneously Motor Response: (6) obeys commands Verbal Response: (3) inappropriate words Psychiatric exam: Present: normal affect, normal mood Skin exam: Present: warm, dry, normal color. Absent: cyanosis, diaphoretic, erythema, petechiae, pallor Course Vital Signs 12/31/21 12/31/21 12/31/21 18:09 18:49 21:00 Temperature 97.7 F Pulse Rate 88 81 75 Respiratory 18 18 16 Rate Blood Pressure 148/88 148/88 183/119 O2 Sat by Pulse 97 97 93 L Oximetry 12/31/21 21:39 Temperature Pulse Rate Respiratory 16 Rate Blood Pressure O2 Sat by Pulse Oximetry Medical Decision Making - Medical Decision Making 56-year-old aphasic female presents with abdominal pain and left sided for 3 days. Family at bedside states that she did have a bowel movement today. No nausea, vomiting or fevers. No evidence of leukocytosis. AST is elevated at 1263, ALT 948, alk phos 208, total bili 2.1. KUB shows large stool burden. CT abdomen shows no acute abdominal process. There are gallstones without evidence of biliary ductal dilatation. There is nonobstructing bilateral renal calculi. Liver is unremarkable. Hepatitis panel was sent. Soapsuds enema was ordered. Patient was given 2 doses of pain medication in the emergency room. Case discussed with Dr. Veloz. Patient will be admitted for intractable abdominal pain with elevated liver enzymes. Patient and her are agreeable to this plan of care. - Lab Data Result diagrams: 12/31/21 18:45 12/31/21 18:45 Lab Results 12/31/21 12/31/21 12/31/21 Range/Units 18:45 18:45 20:39 WBC 4.5 (3.8-10.6) k/uL RBC 4.51 (3.80-5.40) m/uL Hgb 13.7 (11.4-16.0) gm/dL Hct 40.8 (34.0-46.0) % MCV 90.5 (80.0-100.0) fL MCH 30.4 (25.0-35.0) pg MCHC 33.5 (31.0-37.0) g/dL RDW 14.7 (11.5-15.5) % Plt Count 157 (150-450) k/uL MPV 9.5 Neutrophils % 73 % Lymphocytes % 17 % Monocytes % 7 % Eosinophils % 1 % Basophils % 1 % Neutrophils # 3.3 (1.3-7.7) k/uL Lymphocytes # 0.8 L (1.0-4.8) k/uL Monocytes # 0.3 (0-1.0) k/uL Eosinophils # 0.1 (0-0.7) k/uL Basophils # 0.0 (0-0.2) k/uL PT 11.4 (9.0-12.0) sec INR 1.1 (<1.2) APTT 23.0 (22.0-30.0) sec Sodium 141 (137-145) mmol/L Potassium 4.4 (3.5-5.1) mmol/L Chloride 114 H (98-107) mmol/L Carbon Dioxide 21 L (22-30) mmol/L Anion Gap 6 mmol/L BUN 24 H (7-17) mg/dL Creatinine 1.12 H (0.52-1.04) mg/dL Est GFR (CKD-EPI)AfAm 64 (>60 ml/min/1.73 sqM) Est GFR (CKD-EPI)NonAf 56 (>60 ml/min/1.73 sqM) Glucose 104 H (74-99) mg/dL Plasma Lactic Acid Kane (0.7-2.0) mmol/L Calcium 8.3 L (8.4-10.2) mg/dL Total Bilirubin 2.1 H (0.2-1.3) mg/dL AST 1263 H (14-36) U/L ALT 948 H (4-34) U/L Alkaline Phosphatase 208 H (38-126) U/L Total Protein 6.0 L (6.3-8.2) g/dL Albumin 3.5 (3.5-5.0) g/dL Amylase 42 (30-110) U/L Lipase 132 (23-300) U/L 12/31/21 Range/Units 20:39 WBC (3.8-10.6) k/uL RBC (3.80-5.40) m/uL Hgb (11.4-16.0) gm/dL Hct (34.0-46.0) % MCV (80.0-100.0) fL MCH (25.0-35.0) pg MCHC (31.0-37.0) g/dL RDW (11.5-15.5) % Plt Count (150-450) k/uL MPV Neutrophils % % Lymphocytes % % Monocytes % % Eosinophils % % Basophils % % Neutrophils # (1.3-7.7) k/uL Lymphocytes # (1.0-4.8) k/uL Monocytes # (0-1.0) k/uL Eosinophils # (0-0.7) k/uL Basophils # (0-0.2) k/uL PT (9.0-12.0) sec INR (<1.2) APTT (22.0-30.0) sec Sodium (137-145) mmol/L Potassium (3.5-5.1) mmol/L Chloride (98-107) mmol/L Carbon Dioxide (22-30) mmol/L Anion Gap mmol/L BUN (7-17) mg/dL Creatinine (0.52-1.04) mg/dL Est GFR (CKD-EPI)AfAm (>60 ml/min/1.73 sqM) Est GFR (CKD-EPI)NonAf (>60 ml/min/1.73 sqM) Glucose (74-99) mg/dL Plasma Lactic Acid Kane 1.3 (0.7-2.0) mmol/L Calcium (8.4-10.2) mg/dL Total Bilirubin (0.2-1.3) mg/dL AST (14-36) U/L ALT (4-34) U/L Alkaline Phosphatase (38-126) U/L Total Protein (6.3-8.2) g/dL Albumin (3.5-5.0) g/dL Amylase (30-110) U/L Lipase (23-300) U/L Disposition Clinical Impression: Elevated liver enzymes, Intractable abdominal pain, Constipation Disposition: ADMITTED IP TO THIS [facility] Referrals: Sheree Amaya MD [Primary Care Provider] - 1-2 days Decision Date: 12/31/21 Decision Time: 22:10
[2021-12-31 18:59] LABS: Basophils % (A) 1 %; Eosinophils # (A) 0.1 k/uL (0-0.7); Eosinophils % (A) 1 %; HCT 40.8 % (34.0-46.0); HGB 13.7 gm/dL (11.4-16.0); Lymphocytes # (A) 0.8 k/uL (1.0-4.8); Lymphocytes % (A) 17 %; MCH 30.4 pg (25.0-35.0); MCHC 33.5 g/dL (31.0-37.0); MCV 90.5 fL (80.0-100.0); Mean Platelet Volume 9.5; Monocytes # (A) 0.3 k/uL (0-1.0); Monocytes % (A) 7 %; Neutrophils # (A) 3.3 k/uL (1.3-7.7); Neutrophils % (A) 73 %; Platelet Count 157 k/uL (150-450); RBC 4.51 m/uL (3.80-5.40); RDW 14.7 % (11.5-15.5); WBC 4.5 k/uL (3.8-10.6)
[2021-12-31 19:16] LABS: Albumin 3.5 g/dL (3.5-5.0); Calcium 8.3 mg/dL (8.4-10.2); Total Bilirubin 2.1 mg/dL (0.2-1.3)
--- NOTE | 2021-12-31 19:42 | XR ---
EXAMINATION TYPE: XR KUB DATE OF EXAM: 12/31/2021 7:06 PM INDICATION: Patient age:Female; 56 years old; Reason for study: abdominal pain; COMPARISON: Radiograph 12/13/2019. TECHNIQUE: One radiographic view of the abdomen was obtained. FINDINGS: The stomach is filled with air. There is a large stool burden throughout the colon. The bow el gas pattern is nonspecific without dilated loops of small or large bowel. There is no evidence for organomegaly or pneumoperitoneum. The osseous structures are intact. Calcification density project ing over the right cecum likely ingested contents. Fecal material and gas are demonstrated throughout the colon and rectum. IMPRESSION: Large stool burden throughout the colon with a nonspecific bowel gas pattern without radiographic ev idence for acute process.
[2021-12-31 19:45] LABS: Potassium 4.4 mmol/L (3.5-5.1)
[2021-12-31] MEDS ORDERED: ONDANSETRON 4 MG/2 ML VIAL IVP STA (20:50)
[2021-12-31 21:09] LABS: INR 1.1 (<1.2); Prothrombin Time 11.4 sec (9.0-12.0)
[2021-12-31] MEDS ORDERED: NALOXONE 0.4 MG/ML 1 ML VIAL IVP PRN (21:34)
--- NOTE | 2021-12-31 21:46 | CT ---
EXAMINATION TYPE: CT abdomen pelvis w con CT DLP: 1173.5 mGycm, Automated exposure control for dose reduction was used. DATE OF EXAM: 12/31/2021 9:33 PM COMPARISON: CT abdomen pelvis most recent from 09/16/2020. CLINICAL INDICATION:Female, 56 years old with history of elevated liver enzymes with abd pain; h/o ab d pain. TECHNIQUE: Standard CT of the abdomen and pelvis following the administration of 100 cc of Isovue 3 00 IV contrast material. Coronal and sagittal reformats were performed. FINDINGS: LOWER CHEST: Bilateral breast implants which appear intact. The heart is enlarged for size. There is trace pericardial effusion. ABDOMEN LIVER: Unremarkable GALLBLADDER AND BILE DUCTS: Layering densities within the gallbladder neck likely representing gallst ones. No evidence for biliary ductal dilatation. PANCREAS: Unremarkable. SPLEEN: Unremarkable. ADRENAL GLANDS: Unremarkable. KIDNEYS AND URETERS: No evidence of hydronephrosis. Nonobstructing saccular bilaterally measuring 15 x 7 mm in the right renal pelvis and 8 mm in the left renal cortex. The ureters are unremarkable. Co rtical thinning bilaterally of the renal cortex consistent with prior injuries. PELVIS BLADDER: Unremarkable REPRODUCTIVE: Unremarkable. ABDOMEN & PELVIS STOMACH AND BOWEL: There is a moderate stool burden throughout the colon. Appendix is visualized and unremarkable No evidence of bowel obstruction. PERITONEUM: No evidence of pneumoperitoneum or free fluid. VASCULATURE: No evidence of aortic aneurysm. MUSCULOSKELETAL: No acute osseous abnormalities LYMPH NODES: No gross evidence for lymphadenopathy. SOFT TISSUE/ABDOMINAL WALL: Unremarkable IMPRESSION: 1. No evidence for acute abdominal process. 2. Gallstones without evidence for biliary ductal dilatation. 3. Nonobstructing bilateral renal calculi with areas of cortical thinning likely from remote injuries . 4. Large stool burden throughout the colon.
--- NOTE | 2021-12-31 21:56 | US ---
EXAMINATION TYPE: US abdomen limited DATE OF EXAM: 12/31/2021 COMPARISON: CT 12/31/21 CLINICAL HISTORY: LUQ RUQ pain. RUQ pain; limited history, patient is aphasic EXAM MEASUREMENTS: Liver Length: 14.5 cm Gallbladder Wall: 0.35 cm CBD: 0.44 cm Right Kidney: 10.9 x 6.2 x 5.4 cm Pancreas: Tail obscured by overlying bowel gas Liver: Limited visualization with increased echotexture. Gallbladder: appears wnl Evidence for sonographic Del Cid's sign: no CBD: wnl Right Kidney: No hydronephrosis or masses seen; limited visualization due to overlying bowel gas Limited exam due to excessive bowel gas IMPRESSION: 1. Limited exam without evidence for acute process. 2. Hepatocellular disease most commonly relating to hepatic steatosis.
[2021-12-31] MEDS ORDERED: ONDANSETRON 4 MG/2 ML VIAL IVP PRN (22:38)
[2021-12-31] MEDS ORDERED: NALOXONE 0.4 MG/ML 1 ML VIAL IV PRN (22:38)
[2021-12-31] MEDS ORDERED: ACETAMINOPHEN TAB 325 MG TAB PO PRN (22:38)
[2022-01-01 00:42] LABS: Albumin 3.3 g/dL (3.5-5.0); Bilirubin, Conjugated 0.3 mg/dL (0.0-0.3); Bilirubin,Unconjugated 0.8 mg/dL (0.0-1.1); Total Bilirubin 2.1 mg/dL (0.2-1.3)
[2022-01-01] MEDS ORDERED: hydrALAZINE HCL 50 MG TAB PO PRN (07:57)
[2022-01-01] MEDS ORDERED: cloNIDine HCL 0.1 MG TAB PO PRN (07:57)
[2022-01-01] MEDS ORDERED: SENNOSIDES-DOCUSATE SODIUM 1 EACH TAB PO SCH (09:00)
[2022-01-01] MEDS: GABAPENTIN 100 MG CAP PO SCH ×2 (09:11→15:27)
[2022-01-01] MEDS: LABETALOL 200 MG TAB PO SCH ×2 (09:11→20:24)
[2022-01-01] MEDS: BACLOFEN 10 MG TAB PO SCH ×3 (09:12→17:31)
[2022-01-01] MEDS: busPIRone HCl 10 MG TAB PO SCH ×4 (09:12→20:22)
[2022-01-01] MEDS: PANTOPRAZOLE 40 MG TABLET PO SCH ×2 (09:12→09:14)
[2022-01-01] MEDS: NON FORMULARY DRUG (Linaclotide [Linzess] 72 MCG Capsule) PO SCH (09:13)
[2022-01-01] MEDS: POTASSIUM CHLORIDE ER 10 MEQ TAB.ER.PRT PO SCH (09:19)
--- NOTE | 2022-01-01 10:48 | P.HPIM ---
History of Present Illness H&P Date: 01/01/22 HISTORY OF PRESENT ILLNESS This is a 56-year-old female patient of Dr. 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 Patient has had abdominal pain for at least a few days. Patient indicates that she has a bowel movement every day. She is now having abdominal pain in the right upper quadrant with tenderness. Patient was transferred to [facility] due to left sided abdominal pain Patient was found to be afebrile, heart rate in the 80s, blood pressure 148/88, pulse ox 97% on room air. CBC is unremarkable. Sodium 141, potassium 4.4, chloride 114, CO2 21, BUN 24 creatinine 1.12. Blood sugar 104. AST 1263, ALT 948, alkaline phosphatase 208, total bilirubin 2.1. Albumin 3.5, lipase 132. Lactic acid 1.3. KUB reveals large stool burden throughout the colon with nonspecific bowel gas pattern without radiographic evidence of acute process. CT of the abdomen pelvis with contrast revealed no evidence of acute abdominal process. Gallstones without evidence of biliary ductal dilatation. Nonobstructive bilateral renal calculi with areas of cortical thinning likely from remote injuries. Large stool burden throughout the colon. Patient was given a soapsuds enema in the emergency center with only return of 2 small bowel movements. Repeat enema ordered as milk and molasses enema. Patient is seen today in the emergency center waiting for a bed on the observation unit. Consult in place with GI and general surgery. REVIEW OF SYSTEMS Constitutional: No fever, no chills, no night sweats. No weight change. No weakness, fatigue or lethargy. No daytime sleepiness. EENT: No headache. No blurred vision or double vision, no loss of vision. No loss of Hearing, no ringing in the ears, no dizziness. No nasal drainage or congestion. No epistaxis. No sore throat. Lungs: No shortness of breath, cough, no sputum production. No wheezing. Cardiovascular: No chest pain, no lower extremity edema. No palpitations. No paroxysmal nocturnal dyspnea. No orthopnea. No lightheadedness or dizziness. No syncopal episodes. Abdominal: Reports abdominal pain. No nausea, vomiting. No diarrhea. Reports constipation. No bloody or tarry stools. No loss of appetite. Genitourinary: No dysuria, increased frequency, urgency. No urinary retention. Musculoskeletal: No myalgias. No muscle weakness, no gait dysfunction, no frequent falls. No back pain. No neck pain. Integumentary: No wounds, no lesions. No rash or pruritus. No unusual bruising. No change in hair or nails. Neurologic: No aphasia. No facial droop. No change in mentation. No head injury. No headache. No paralysis. No paresthesia. Psychiatric: No depression. No anxiety. No mood swings. Endocrine: No abnormal blood sugars. No weight change. No excessive sweating or thirst. No cold intolerance. SOCIAL HISTORY Patient is a lifelong nonsmoker, no alcohol use, no illicit drug use. FAMILY HISTORY Mother is 82-year-old has history of hypertension. Patient does not know her father. Patient has 2 daughters no major medical problems. Patient has 2 sons no major medical problems. PHYSICAL EXAMINATION Gen: This is A 56-year-old female, resting on the ER stretcher, appears to be in no acute distress. Patient appears to be sleeping and opens her eyes to verbal stimuli. HEENT: Head is atraumatic, normocephalic. Pupils equal, round. Sclerae is anicteric. NECK: Supple. No JVD. No lymphadenopathy. No thyromegaly. LUNGS: Clear to auscultation. No wheezes or rhonchi. No intercostal retractions. HEART: Regular rate and rhythm. No murmur. ABDOMEN: Soft. Bowel sounds are present. No masses. Right upper quadrant tenderness. EXTREMITIES: No pedal edema. No calf tenderness. NEUROLOGICAL: Patient is awake, alert and oriented x3. Expressive aphasia which is chronic. ASSESSMENT AND PLAN 1. Abdominal pain secondary to constipation. Status post soapsuds enema, repeat enema with milk of molasses. Consult with general surgery, continue MiraLAX 17 g daily, Senokot S increased to 2 tablets twice daily, Linzess 72 g daily. 2. Elevated liver function tests of unclear etiology. Consult with GI. No abnormality found on the CAT scan. 3. History of thalamic infarct. Continue aspirin 81 mg daily, hold atorvastatin 20 mg at bedtime. 4. History of prior intracranial bleed. Continue prophylactic Keppra 500 mg twice daily in the morning and at bedtime, 250 mg at 1400. 5. Hypertension and hypertensive cardiovascular disease. Continue hydralazine 50 mg every 8 hours as needed, clonidine 0.1 mg daily as needed, clonidine patch every , labetalol 400 mg twice daily. 6. Hyperlipidemia. Hold Lipitor. 7. Right-sided weakness with aphasia secondary to her prior intracranial bleed. Continue patient on baclofen 10 mg orally 3 times every day, gabapentin 200 mg twice daily and 300 at bedtime., Generalized anxiety disorder. 8. Recurrent depression and generalized anxiety disorder. Continue Buspar 4 times daily. 9. Chronic kidney disease stage III. 10. DVT prophylaxis. Heparin 5000 units subcutaneously every 12 hours. 11. Gastroesophageal reflux disease and GI prophylaxis. Omeprazole 20 mg daily.. Patient placed as observation status. DISCHARGE PLAN Return to [facility]. Impression and plan of care have been directed as dictated by the signing physician. Pretty Gomes nurse practitioner acting as scribe for signing physician. 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 History of Any Multi-Drug Resistant Organisms: MRSA, VRE Date of last positivie culture/infection: 11/18/19 MRSA 12/01/20 VRE MDRO Source:: MRSA TOE/ VRE URINE Past Surgical History: Breast Surgery, Section Additional Past Surgical History / Comment(s): Trach/peg with removal, bilateral breast implants, abdominal aortagram. Past Anesthesia/Blood Transfusion Reactions: No Reported Reaction Past Psychological History: Anxiety Smoking Status: Never smoker Past Alcohol Use History: Unable to Obtain Past Drug Use History: Unable to Obtain - Past Family History Father Family Medical History: Unable to Obtain Additional Family Medical History / Comment(s): Pt was raised by her step father . Mother Family Medical History: Hypertension Additional Family Medical History / Comment(s): Mother is 82-year-old has history of hypertension. Daughter(s) Family Medical History: No Reported History Additional Family Medical History / Comment(s): Patient has 2 daughters no major medical problems Son(s) Family Medical History: No Reported History Additional Family Medical History / Comment(s): Patient has 2 sons no major medical problems. Medications and Allergies Home Medications Medication Instructions Recorded Confirmed Type Acetaminophen Tab [Tylenol] 650 mg PO Q4H PRN 01/26/18 12/31/21 History Baclofen [Lioresal] 10 mg PO TID@0800,1200,1800 05/23/18 12/31/21 History levETIRAcetam [Keppra] 500 mg PO BID 05/23/18 12/31/21 History Aspirin EC [Ecotrin Low Dose] 81 mg PO HS 03/04/19 12/31/21 History Labetalol [Trandate] 400 mg PO BID@0900,2100 03/04/19 12/31/21 History levETIRAcetam [Keppra] 250 mg PO DAILY 03/04/19 12/31/21 History Omeprazole 20 mg PO DAILY 12/07/19 12/31/21 History Sennosides/Docusate Sodium [Senna 1 tab PO BID 12/07/19 12/31/21 History Plus 8.6-50 mg Tablet] polyethylene glycoL 3350 [Miralax] 17 gm PO HS@199901/26/20 12/31/21 History busPIRone HCl [Buspar] 10 mg PO QID 09/16/20 12/31/21 History Atorvastatin [Lipitor] 20 mg PO DAILY 12/31/21 12/31/21 History Cyanocobalamin [Vitamin B-12] 500 mcg PO DAILY 12/31/21 12/31/21 History Gabapentin [Neurontin] 200 mg PO BID@0800,1400 12/31/21 12/31/21 History Gabapentin [Neurontin] 300 mg PO HS@209912/31/21 12/31/21 History Linaclotide [Linzess] 72 mcg PO DAILY 12/31/21 12/31/21 History Melatonin 6 mg PO HS@2000 12/31/21 12/31/21 History Potassium Chloride ER [K-Dur 10] 10 meq PO DAILY 12/31/21 12/31/21 History cloNIDine 0.1 MG/24HR PATCH 1 patch TRANSDERM TH 12/31/21 12/31/21 History [Catapres-TTS] cloNIDine HCL [Catapres] 0.1 mg PO DAILY PRN 12/31/21 12/31/21 History hydrALAZINE HCL [Apresoline] 50 mg PO Q8H PRN 12/31/21 12/31/21 History Allergies Allergy/AdvReac Type Severity Reaction Status Date / Time codeine Allergy Unknown Verified 12/31/21 21:14 Physical Exam Vitals: Vital Signs Temp Pulse Resp BP Pulse Ox 01/01/22 06:12 72 18 149/99 95 01/01/22 04:31 74 18 141/76 97 01/01/22 01:56 87 18 136/88 96 01/01/22 00:32 98.6 F 84 16 136/99 95 12/31/21 21:39 16 12/31/21 21:00 75 16 183/119 93 L 12/31/21 18:49 81 18 148/88 97 12/31/21 18:09 97.7 F 88 18 148/88 97 Intake and Output 12/31/21 01/01/22 01/01/22 22:59 06:59 14:59 Other: Weight 71.395 kg Results CBC & Chem 7: 12/31/21 18:45 12/31/21 18:45 Labs: Abnormal Lab Results - Last 24 Hours (Table) 12/31/21 12/31/21 12/31/21 Range/Units 18:45 18:45 18:45 Lymphocytes # 0.8 L (1.0-4.8) k/uL Chloride 114 H (98-107) mmol/L Carbon Dioxide 21 L (22-30) mmol/L BUN 24 H (7-17) mg/dL Creatinine 1.12 H (0.52-1.04) mg/dL Glucose 104 H (74-99) mg/dL Calcium 8.3 L (8.4-10.2) mg/dL Total Bilirubin 2.1 H 2.1 H (0.2-1.3) mg/dL Delta Bilirubin 1.0 H (0.0-0.2) mg/dL AST 1263 H 1274 H (14-36) U/L ALT 948 H 948 H (4-34) U/L Alkaline Phosphatase 208 H 221 H (38-126) U/L Total Protein 6.0 L 6.0 L (6.3-8.2) g/dL Albumin 3.3 L (3.5-5.0) g/dL
[2022-01-01 12:27] LABS: AST 539 U/L (14-36); African American GFR (CKD) 67 (>60 ml/min/1.73 sqM); Albumin 3.5 g/dL (3.5-5.0); Albumin/Globulin Ratio 1.3; Alkaline Phosphatase 245 U/L (38-126); Anion Gap 6 mmol/L; Blood Urea Nitrogen 18 mg/dL (7-17); Calcium 8.8 mg/dL (8.4-10.2); Carbon Dioxide 23 mmol/L (22-30); Chloride 111 mmol/L (98-107); Globulin 2.7 g/dL; Glucose 99 mg/dL (74-99); Non-African American GFR(CKD) 58 (>60 ml/min/1.73 sqM); Potassium 4.3 mmol/L (3.5-5.1); Sodium 140 mmol/L (137-145); Total Bilirubin 3.5 mg/dL (0.2-1.3); Total Protein 6.2 g/dL (6.3-8.2)
[2022-01-01 12:57] LABS: ALT 904 U/L (4-34)
--- NOTE | 2022-01-01 14:48 | P.CONS ---
History of Present Illness - Reason for Consult Consult date: 01/01/22 Elevated liver enzymes Requesting physician: Reza Ravi - Chief Complaint Abdominal pain - History of Present Illness This is a 56-year-old female with a past medical history including CVA with aphasia, hypertension, hyperlipidemia, fibromyalgia, chronic constipation, chr onic kidney disease, and generalized anxiety disorder who currently resides at [facility]. It is very difficult to obtain HPI due to patient's aphasia. However she does point that she is having abdominal pain. All when asked it appears that it may have been one to 2 days. No reported nausea or vomiting. She states that she's been having normal bowel movements regularly. Admitting labs WBC 4.5 hemoglobin 13.7 platelet count 157,000 INR 1.1 total bilirubin 2.1 AST 1274 ALT 948 alkaline phosphatase 221. Patient had CT abdomen and pelvis with contrast that showed no evidence for acute abdominal process. Gallstones without evidence for biliary ductal dilation. Nonobstructing bilateral renal calculi with areas of cortical thinning large stool burden throughout the colon. She also underwent abdominal ultrasound that shows hepatocellular disease most commonly related to hepatic steatosis, CBD 0.44 cm, gallbladder appears within normal limits. Patient denies any history of liver disease. Review of Systems REVIEW OF SYSTEMS: Limited due to expressive aphasia Past Medical History Past Medical History: CVA/TIA, Deep Vein Thrombosis (DVT), Eye Disorder, Hyperlipidemia, Hypertension, Renal Disease, Skin Disorder, Vascular Disorder Additional Past Medical History / Comment(s): 12/2017 Intracranial hemorrhage 2ndary to HTN then 05/2018 had thalmic infarct/pt has R sided weakness/aphasia and is treated with keppra prophylactically/pt had lengthy hospitalizations requiring trach/peg which have since been removed, hydrocephalus, diplopia, generalized weakness, insomnia, chronic renal disease stage III, 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 Past Anesthesia/Blood Transfusion Reactions: No Reported Reaction Smoking Status: Never smoker - Past Family History Father Family Medical History: Unable to Obtain Additional Family Medical History / Comment(s): Pt was raised by her step father. Mother Family Medical History: Hypertension Additional Family Medical History / Comment(s): Mother is 82-year-old has history of hypertension. Daughter(s) Family Medical History: No Reported History Additional Family Medical History / Comment(s): Patient has 2 daughters no major medical problems Son(s) Family Medical History: No Reported History Additional Family Medical History / Comment(s): Patient has 2 sons no major medical problems. Medications and Allergies Home Medications Medication Instructions Recorded Confirmed Type Acetaminophen Tab [Tylenol] 650 mg PO Q4H PRN 01/26/18 12/31/21 History Baclofen [Lioresal] 10 mg PO TID@0800,1200,1800 05/23/18 12/31/21 History levETIRAcetam [Keppra] 500 mg PO BID 05/23/18 12/31/21 History Aspirin EC [Ecotrin Low Dose] 81 mg PO HS 03/04/19 12/31/21 History Labetalol [Trandate] 400 mg PO BID@0900,2100 03/04/19 12/31/21 History levETIRAcetam [Keppra] 250 mg PO DAILY 03/04/19 12/31/21 History Omeprazole 20 mg PO DAILY 12/07/19 12/31/21 History Sennosides/Docusate Sodium [Senna 1 tab PO BID 12/07/19 12/31/21 History Plus 8.6-50 mg Tablet] polyethylene glycoL 3350 [Miralax] 17 gm PO HS@199901/26/20 12/31/21 History busPIRone HCl [Buspar] 10 mg PO QID 09/16/20 12/31/21 History Atorvastatin [Lipitor] 20 mg PO DAILY 12/31/21 12/31/21 History Cyanocobalamin [Vitamin B-12] 500 mcg PO DAILY 12/31/21 12/31/21 History Gabapentin [Neurontin] 200 mg PO BID@0800,1400 12/31/21 12/31/21 History Gabapentin [Neurontin] 300 mg PO HS@209912/31/21 12/31/21 History Linaclotide [Linzess] 72 mcg PO DAILY 12/31/21 12/31/21 History Melatonin 6 mg PO HS@2000 12/31/21 12/31/21 History Potassium Chloride ER [K-Dur 10] 10 meq PO DAILY 12/31/21 12/31/21 History cloNIDine 0.1 MG/24HR PATCH 1 patch TRANSDERM TH 12/31/21 12/31/21 History [Catapres-TTS] cloNIDine HCL [Catapres] 0.1 mg PO DAILY PRN 12/31/21 12/31/21 History hydrALAZINE HCL [Apresoline] 50 mg PO Q8H PRN 12/31/21 12/31/21 History Allergies Allergy/AdvReac Type Severity Reaction Status Date / Time codeine Allergy Unknown Verified 12/31/21 21:14 Physical Exam Vitals: Vital Signs Temp Pulse Resp BP Pulse Ox 01/01/22 13:37 80 18 126/78 98 01/01/22 08:00 97.1 F L 74 18 153/98 96 01/01/22 06:12 72 18 149/99 95 01/01/22 04:31 74 18 141/76 97 01/01/22 01:56 87 18 136/88 96 01/01/22 00:32 98.6 F 84 16 136/99 95 12/31/21 21:39 16 12/31/21 21:00 75 16 183/119 93 L 12/31/21 18:49 81 18 148/88 97 12/31/21 18:09 97.7 F 88 18 148/88 97 Intake and Output 12/31/21 01/01/22 01/01/22 22:59 06:59 14:59 Other: Weight 71.395 kg 71.395 kg Results CBC & Chem 7: 12/31/21 18:45 01/01/22 11:35 Labs: Abnormal Lab Results - Last 24 Hours (Table) 12/31/21 12/31/21 12/31/21 Range/Units 18:45 18:45 18:45 Lymphocytes # 0.8 L (1.0-4.8) k/uL Chloride 114 H (98-107) mmol/L Carbon Dioxide 21 L (22-30) mmol/L BUN 24 H (7-17) mg/dL Creatinine 1.12 H (0.52-1.04) mg/dL Glucose 104 H (74-99) mg/dL Calcium 8.3 L (8.4-10.2) mg/dL Total Bilirubin 2.1 H 2.1 H (0.2-1.3) mg/dL Delta Bilirubin 1.0 H (0.0-0.2) mg/dL AST 1263 H 1274 H (14-36) U/L ALT 948 H 948 H (4-34) U/L Alkaline Phosphatase 208 H 221 H (38-126) U/L Total Protein 6.0 L 6.0 L (6.3-8.2) g/dL Albumin 3.3 L (3.5-5.0) g/dL 01/01/22 Range/Units 11:35 Lymphocytes # (1.0-4.8) k/uL Chloride 111 H (98-107) mmol/L Carbon Dioxide (22-30) mmol/L BUN 18 H (7-17) mg/dL Creatinine 1.08 H (0.52-1.04) mg/dL Glucose (74-99) mg/dL Calcium (8.4-10.2) mg/dL Total Bilirubin 3.5 H (0.2-1.3) mg/dL Delta Bilirubin (0.0-0.2) mg/dL AST 539 H (14-36) U/L ALT 904 H (4-34) U/L Alkaline Phosphatase 245 H (38-126) U/L Total Protein 6.2 L (6.3-8.2) g/dL Albumin (3.5-5.0) g/dL Comments: CT abdomen and pelvis with contrast that showed no evidence for acute abdominal process. Gallstones without evidence for biliary ductal dilation. Nonobstructing bilateral renal calculi with areas of cortical thinning large stool burden throughout the colon. abdominal ultrasound that shows hepatocellular disease most commonly related to hepatic steatosis, CBD 0.44 cm, gallbladder appears within normal limits. Assessment and Plan (1) Elevated liver enzymes Narrative/Plan: 56-year-old female who presented to the emergency department with complaints of abdominal pain. Patient has a history of CVA with expressive aphasia however she is able to point to her abdomen. Believes that the been about 1-2 days of abdominal pain. She does have a long-standing history of constipation and was noted on CT of the abdomen and pelvis. CT of abdomen and pelvis No Acute Process of Layering Densities in the Gallbladder Neck Consistent with Gallstones However No CBD Dilation. Gallbladder Ultrasound reported the liver consistent with hepatocellular disease, likely hepatic steatosis.It was noted to Have Elevated LFTs on Admission. Repeat labs today show bilirubin 3.5 from 2.1 AST 539 which is down from 1274 ALT 904 down from 948 alkaline phosphatase 245 up from 221. Amylase and lipase are within normal limits. Patient is not having any nausea or vomiting. Gen. surgery is on consult for cholelithiasis. There is a cholestatic pattern is suspicious for possible CBD obstruction. MRCP ordered. Current Visit: Yes Status: Acute Code(s): R74.8 - ABNORMAL LEVELS OF OTHER SERUM ENZYMES SNOMED Code(s): 220272434 (2) Abdominal pain Current Visit: Yes Status: Acute Code(s): R10.9 - UNSPECIFIED ABDOMINAL PAIN SNOMED Code(s): 57618421 (3) History of CVA (cerebrovascular accident) Current Visit: Yes Status: Acute Code(s): Z86.73 - PRSNL HX OF TIA (TIA), AND CEREB INFRC W/O RESID DEFICITS SNOMED Code(s): 647499913 (4) Constipation Current Visit: Yes Status: Acute Code(s): K59.00 - CONSTIPATION, UNSPECIFIED SNOMED Code(s): 51232234 (5) Expressive aphasia Current Visit: No Status: Chronic Code(s): R47.01 - APHASIA SNOMED Code(s): 606346319 Plan: 1. Continue symptomatic and supportive care 2. Keep nothing by mouth 3. Repeat CMP 4. MRCP ordered Thank you for allowing us to participate in the care of the patient, the GI service will sign off, gastroenterology will not be available at the hospital this weekend and through next week. If further evaluation by gastroenterology is required the patient will need transfer as per the primary team's discretion. Dr. Tess Ko I agree with the dictator's note, documented as a scribe by Jina Jimenez.
[2022-01-01] MEDS ORDERED: MELATONIN 3 MG TABLET PO SCH (20:00)
[2022-01-01] MEDS ORDERED: polyethylene glycoL 3350 17 GM POWD.PACK PO SCH (20:00)
[2022-01-01] MEDS: HEPARIN SODIUM,PORCINE/PF 5,000 UNIT/0.5 ML SYRINGE SQ SCH (20:23)
[2022-01-01] MEDS: SENNOSIDES-DOCUSATE SODIUM 1 EACH TAB PO SCH (20:25)
[2022-01-01] MEDS ORDERED: levETIRAcetam 500 MG TAB PO SCH (21:00)
[2022-01-01] MEDS ORDERED: ASPIRIN 81 MG PO SCH (21:00)
[2022-01-01] MEDS ORDERED: GABAPENTIN 300 MG CAP PO SCH (21:00)
[2022-01-02] MEDS: PANTOPRAZOLE 40 MG TABLET PO SCH (08:05)
[2022-01-02] MEDS: HEPARIN SODIUM,PORCINE/PF 5,000 UNIT/0.5 ML SYRINGE SQ SCH (08:05)
[2022-01-02] MEDS: busPIRone HCl 10 MG TAB PO SCH ×3 (08:05→15:36)
[2022-01-02] MEDS: SENNOSIDES-DOCUSATE SODIUM 1 EACH TAB PO SCH (08:05)
[2022-01-02] MEDS: BACLOFEN 10 MG TAB PO SCH ×2 (08:05→12:55)
[2022-01-02] MEDS: POTASSIUM CHLORIDE ER 10 MEQ TAB.ER.PRT PO SCH (08:05)
[2022-01-02] MEDS: NON FORMULARY DRUG (Linaclotide [Linzess] 72 MCG Capsule) PO SCH (08:06)
[2022-01-02] MEDS: LABETALOL 200 MG TAB PO SCH (08:06)
[2022-01-02] MEDS: GABAPENTIN 100 MG CAP PO SCH ×2 (08:06→12:55)
--- NOTE | 2022-01-02 12:21 | MR ---
EXAMINATION TYPE: MR MRCP DATE OF EXAM: 01/02/2022 COMPARISON: CT abdomen and pelvis 2 days ago and older CTs HISTORY: elevated LFTS, Bili, gallstones Standard multiplanar, multisequence MRI departmental protocol Multiplanar, multisequence images of the abdomen were acquired without contrast. Diffusion weighted i maging was performed. Thin and thick slice MRCP imaging performed. FINDINGS: Liver/gallbladder/pancreas/biliary system: Liver is normal in size. No concerning solid or cystic int rahepatic mass. No significant fatty infiltration. No surrounding ascites. Pancreas is normal in size without concerning solid or cystic mass. Gallbladder shows no intraluminal gallstones. MRCP images s how poorly visualized pancreatic duct which is nondilated. There is no abnormal intrahepatic or extra hepatic biliary dilatation. No filling defect to suggest CBD stone noted. Other: Partial visualization of bilateral subpectoral breast implants. Lung bases are clear. Spleen a nd both adrenal glands remain within normal limits. Some cortical volume loss in both kidneys with oc casional simple tiny thin-walled cysts. No abnormal bowel dilatation. Osseous structures are intact. IMPRESSION: No intraluminal gallstones in gallbladder. No CBD stone. No biliary dilatation.
--- NOTE | 2022-01-02 12:51 | P.GSCN ---
History of Present Illness Consult date: 01/02/22 History of present illness: This 56-year-old female presented to hospital with abdominal pain. She is found have elevated LFTs. She has a history of CVA and aphasia. Today she is able to communicate that she does not have any ongoing abdominal pain. She has no compl aints. She had an MRCP performed today that showed no intraluminal gallstones no thickening of the gallbladder wall or pericholecystic fluid. There was also no CBD stones seen on MRCP. 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 Past Anesthesia/Blood Transfusion Reactions: No Reported Reaction Smoking Status: Never smoker - Past Family History Father Family Medical History: Unable to Obtain Additional Family Medical History / Comment(s): Pt was raised by her step father. Mother Family Medical History: Hypertension Additional Family Medical History / Comment(s): Mother is 82-year-old has histor y of hypertension. Daughter(s) Family Medical History: No Reported History Additional Family Medical History / Comment(s): Patient has 2 daughters no major medical problems Son(s) Family Medical History: No Reported History Additional Family Medical History / Comment(s): Patient has 2 sons no major medical problems. Medications and Allergies Home Medications Medication Instructions Recorded Confirmed Type Acetaminophen Tab [Tylenol] 650 mg PO Q4H PRN 01/26/18 12/31/21 History Baclofen [Lioresal] 10 mg PO TID@0800,1200,1800 05/23/18 12/31/21 History levETIRAcetam [Keppra] 500 mg PO BID 05/23/18 12/31/21 History Aspirin EC [Ecotrin Low Dose] 81 mg PO HS 03/04/19 12/31/21 History Labetalol [Trandate] 400 mg PO BID@0900,2100 03/04/19 12/31/21 History levETIRAcetam [Keppra] 250 mg PO DAILY 03/04/19 12/31/21 History Omeprazole 20 mg PO DAILY 12/07/19 12/31/21 History Sennosides/Docusate Sodium [Senna 1 tab PO BID 12/07/19 12/31/21 History Plus 8.6-50 mg Tablet] polyethylene glycoL 3350 [Miralax] 17 gm PO HS@199901/26/20 12/31/21 History busPIRone HCl [Buspar] 10 mg PO QID 09/16/20 12/31/21 History Atorvastatin [Lipitor] 20 mg PO DAILY 12/31/21 12/31/21 History Cyanocobalamin [Vitamin B-12] 500 mcg PO DAILY 12/31/21 12/31/21 History Linaclotide [Linzess] 72 mcg PO DAILY 12/31/21 12/31/21 History Melatonin 6 mg PO HS@199912/31/21 12/31/21 History Potassium Chloride ER [K-Dur 10] 10 meq PO DAILY 12/31/21 12/31/21 History cloNIDine 0.1 MG/24HR PATCH 1 patch TRANSDERM TH 12/31/21 12/31/21 History [Catapres-TTS] cloNIDine HCL [Catapres] 0.1 mg PO DAILY PRN 12/31/21 12/31/21 History hydrALAZINE HCL [Apresoline] 50 mg PO Q8H PRN 12/31/21 12/31/21 History Gabapentin [Neurontin] 200 mg PO BID@0800,1400 #6 cap 01/02/22 Rx Gabapentin [Neurontin] 300 mg PO HS@2100 #3 cap 01/02/22 Rx Allergies Allergy/AdvReac Type Severity Reaction Status Date / Time codeine Allergy Unknown Verified 12/31/21 21:14 Surgical - Exam Osteopathic Statement: *. No significant issues noted on an osteopathic structural exam other than those noted in the History and Physical/Consult. Vital Signs Temp Pulse Resp BP Pulse Ox 97.7 F 88 18 148/88 97 12/31/21 18:09 12/31/21 18:09 12/31/21 18:09 12/31/21 18:09 12/31/21 18:09 - General well developed, well nourished, no distress - Neck trachea midline - Cardiovascular Rhythm: regular - Abdomen Abdomen: soft, non tender - Psychiatric oriented to time, oriented to person, oriented to place Results - Labs 12/31/21 18:45 01/01/22 11:35 Abnormal Lab Results - Last 24 Hours (Table) 01/01/22 Range/Units 11:35 ALT 904 H (4-34) U/L Diabetes panel 01/01/22 Range/Units 11:35 ALT 904 H (4-34) U/L Adrenal panel 01/01/22 Range/Units 11:35 ALT 904 H (4-34) U/L Assessment and Plan Assessment: Elevated LFTs hyperbilirubinemia Plan: Multiple imaging modalities showed no gallstones or evidence of cholecystitis. Patient is not having any abdominal pain. This does appear to be a primary liver issue. Recommend continuing to follow-up with GI. Please contact directly with any further surgical concerns.
[2022-01-02 14:57] VITALS: BP 109/70; PULSE 75; RESP 16; TEMP 98.2
--- NOTE | 2022-01-02 15:44 | P.DS ---
Providers Date of admission: 01/01/22 03:25 Attending physician: Emory Bang Consults: 12/31/21 22:39 Consult Physician Routine Consulting Provider: Vangie Ko Consult Reason/Comments: Elevated liver enzymes Do you want consulting provider notified?: Yes 01/01/22 08:00 Consult Physician Routine Consulting Provider: Alexi Davila Consult Reason/Comments: abd pain, cholecystistis, elevated liver enzymes Do you want consulting provider notified?: Yes Primary care physician: Sheree Amaya [facility] Course: HISTORY OF PRESENT ILLNESS This is a 56-year-old female patient of Dr. Amaya long-term resident at [facility] with past medical history of intracranial hemorrhage related to hypertensive urgency back in 12/14/2017 following May 2018 with subacute thalami infarct, history of hypertension, hyperlipidemia, fibromyalgia, chronic constipation, chronic kidney disease stage III, frequent urinary tract infections, generalized anxiety disorder. Patient has had abdominal pain for at least a few days. Patient indicates that she has a bowel movement every day. She is now having abdominal pain in the right upper quadrant with tenderness. Patient was transferred to [facility] due to left sided abdominal pain Patient was found to be afebrile, heart rate in the 80s, blood pressure 148/88, pulse ox 97% on room air. CBC is unremarkable. Sodium 141, potassium 4.4, chloride 114, CO2 21, BUN 24 creatinine 1.12. Blood sugar 104. AST 1263, ALT 948, alkaline phosphatase 208, total bilirubin 2.1. Albumin 3.5, lipase 132. Lactic acid 1.3. KUB reveals large stool burden throughout the colon with nonspecific bowel gas pattern without radiographic evidence of acute process. CT of the abdomen pelvis with contrast revealed no evidence of acute abdominal process. Gallstones without evidence of biliary ductal dilatation. Nonobstructive bilateral renal calculi with areas of cortical thinning likely from remote injuries. Large stool burden throughout the colon. Patient was given a soapsuds enema in the emergency center with only return of 2 small bowel movements. Repeat enema ordered as milk and molasses enema. Patient is seen today in the emergency center waiting for a bed on the observation unit. Consult in place with GI and general surgery. 01/02: Patient has done very well so far her liver function tests were quite bit high originally they're down from yesterday with AST of 539 PLT of 904, no sign of hepatitis at this point patient was seen gastroenterology also consultation by general surgery was done with no consistent sign and symptom of any abnormality at this point consistent with gallstone or any evidence of cholecystitis. With the recommendation of an MRCP. Procedure was done today showed no blockage obstruction or any abnormality.the meanwhile patient had multiple bowel movements and her abdominal distention and discomfort is much better so far and she is feeling good. She is very stable to be discharged back to [facility] today to follow-up the rest of her progression as an outpatient. REVIEW OF SYSTEMS Constitutional: No fever, no chills, no night sweats. No weight change. No weakness, fatigue or lethargy. No daytime sleepiness. EENT: No headache. No blurred vision or double vision, no loss of vision. No loss of Hearing, no ringing in the ears, no dizziness. No nasal drainage or congestion. No epistaxis. No sore throat. Lungs: No shortness of breath, cough, no sputum production. No wheezing. Cardiovascular: No chest pain, no lower extremity edema. No palpitations. No paroxysmal nocturnal dyspnea. No orthopnea. No lightheadedness or dizziness. No syncopal episodes. Abdominal: Reports abdominal pain. No nausea, vomiting. No diarrhea. Reports constipation. No bloody or tarry stools. No loss of appetite. Genitourinary: No dysuria, increased frequency, urgency. No urinary retention. Musculoskeletal: No myalgias. No muscle weakness, no gait dysfunction, no frequent falls. No back pain. No neck pain. Integumentary: No wounds, no lesions. No rash or pruritus. No unusual bruising. No change in hair or nails. Neurologic: No aphasia. No facial droop. No change in mentation. No head injury. No headache. No paralysis. No paresthesia. Psychiatric: No depression. No anxiety. No mood swings. Endocrine: No abnormal blood sugars. No weight change. No excessive sweating or thirst. No cold intolerance. PHYSICAL EXAMINATION Gen: This is A 56-year-old female, resting on the ER stretcher, appears to be in no acute distress. Patient appears to be sleeping and opens her eyes to verbal stimuli. HEENT: Head is atraumatic, normocephalic. Pupils equal, round. Sclerae is anicteric. NECK: Supple. No JVD. No lymphadenopathy. No thyromegaly. LUNGS: Clear to auscultation. No wheezes or rhonchi. No intercostal retractions. HEART: Regular rate and rhythm. No murmur. ABDOMEN: Soft. Bowel sounds are present. No masses. Right upper quadrant tenderness. EXTREMITIES: No pedal edema. No calf tenderness. NEUROLOGICAL: Patient is awake, alert and oriented x3. Expressive aphasia which is chronic. ASSESSMENT AND PLAN 1. Abdominal pain secondary to constipation. Status post soapsuds enema, repeat enema with milk of molasses. Consult with general surgery, continue MiraLAX 17 g daily, Senokot S increased to 2 tablets twice daily, Linzess 72 g daily. patient constipation was treated with 2 different time of enema has done very well so far. 2. Elevated liver function tests of unclear etiology. she seen GI and general surgery MRCP was done no abnormality was found patient does not have any acute or subacute cholecystitis and no surgical problem no obstruction of the common duct. Her abnormal liver function tests most likely related to stasis of the biliary tree and mostly coming from [place] 3. History of thalamic infarct. Continue aspirin 81 mg daily, hold atorva statin 20 mg at bedtime. 4. History of prior intracranial bleed. Continue prophylactic Keppra 500 mg twice daily in the morning and at bedtime, 250 mg at 1400. 5. Hypertension and hypertensive cardiovascular disease. Continue hydralazine 50 mg every 8 hours as needed, clonidine 0.1 mg daily as needed, clonidine patch every , labetalol 400 mg twice daily. 6. Hyperlipidemia. Hold Lipitor for 1 week and then resume afterward. 7. Right-sided weakness with aphasia secondary to her prior intracranial bleed. Continue patient on baclofen 10 mg orally 3 times every day, gabapentin 200 mg twice daily and 300 at bedtime., Generalized anxiety disorder. 8. Recurrent depression and generalized anxiety disorder. Continue Buspar 4 times daily. 9. Chronic kidney disease stage III. 10. DVT prophylaxis. Heparin 5000 units subcutaneously every 12 hours. 11. Gastroesophageal reflux disease and GI prophylaxis. Omeprazole 20 mg daily.. patient is stable medically will be able to discharge her today to [facility]. Hospital course: patient had significant abnormal liver function test and distended abdomen, hepatitis panel came back negative, surgical consultation shows no sign of acute cholecystitis, MRCP was done and failed to show any abnormality in the common duct. Patient is feeling much better after having multiple bowel movements. With her symptoms are better liver enzymes are coming down patient be discharged back to [facility] to follow-up her liver function test and lab in 1 week. Plan - Discharge Summary Discharge Rx Participant: No New Discharge Prescriptions: Continue Acetaminophen Tab [Tylenol] 650 mg PO Q4H PRN PRN Reason: Pain Baclofen [Lioresal] 10 mg PO TID@0800,1200,1800 levETIRAcetam [Keppra] 500 mg PO BID Aspirin EC [Ecotrin Low Dose] 81 mg PO HS Labetalol [Trandate] 400 mg PO BID@0900,2100 levETIRAcetam [Keppra] 250 mg PO DAILY Sennosides/Docusate Sodium [Senna Plus 8.6-50 mg Tablet] 1 tab PO BID Omeprazole 20 mg PO DAILY polyethylene glycoL 3350 [Miralax] 17 gm PO HS@2000 busPIRone HCl [Buspar] 10 mg PO QID hydrALAZINE HCL [Apresoline] 50 mg PO Q8H PRN PRN Reason: Hypertension cloNIDine HCL [Catapres] 0.1 mg PO DAILY PRN PRN Reason: Hypertension Potassium Chloride ER [K-Dur 10] 10 meq PO DAILY cloNIDine 0.1 MG/24HR PATCH [Catapres-TTS] 1 patch TRANSDERM TH Atorvastatin [Lipitor] 20 mg PO DAILY Gabapentin [Neurontin] 200 mg PO BID@0800,1400 #6 cap Melatonin 6 mg PO HS@2000 Linaclotide [Linzess] 72 mcg PO DAILY Cyanocobalamin [Vitamin B-12] 500 mcg PO DAILY Changed Gabapentin [Neurontin] 300 mg PO HS@2100 #3 cap Discharge Medication List Acetaminophen Tab [Tylenol] 650 mg PO Q4H PRN 01/26/18 [History] Baclofen [Lioresal] 10 mg PO TID@0800,1200,1800 05/23/18 [History] levETIRAcetam [Keppra] 500 mg PO BID 05/23/18 [History] Aspirin EC [Ecotrin Low Dose] 81 mg PO HS 03/04/19 [History] Labetalol [Trandate] 400 mg PO BID@0900,2100 03/04/19 [History] levETIRAcetam [Keppra] 250 mg PO DAILY 03/04/19 [History] Omeprazole 20 mg PO DAILY 12/07/19 [History] Sennosides/Docusate Sodium [Senna Plus 8.6-50 mg Tablet] 1 tab PO BID 12/07/19 [History] polyethylene glycoL 3350 [Miralax] 17 gm PO HS@199901/26/20 [History] busPIRone HCl [Buspar] 10 mg PO QID 09/16/20 [History] Atorvastatin [Lipitor] 20 mg PO DAILY 12/31/21 [History] Cyanocobalamin [Vitamin B-12] 500 mcg PO DAILY 12/31/21 [History] Linaclotide [Linzess] 72 mcg PO DAILY 12/31/21 [History] Melatonin 6 mg PO HS@199912/31/21 [History] Potassium Chloride ER [K-Dur 10] 10 meq PO DAILY 12/31/21 [History] cloNIDine 0.1 MG/24HR PATCH [Catapres-TTS] 1 patch TRANSDERM TH 12/31/21 [History] cloNIDine HCL [Catapres] 0.1 mg PO DAILY PRN 12/31/21 [History] hydrALAZINE HCL [Apresoline] 50 mg PO Q8H PRN 12/31/21 [History] Gabapentin [Neurontin] 200 mg PO BID@0800,1400 #6 cap 01/02/22 [Rx] Gabapentin [Neurontin] 300 mg PO HS@2100 #3 cap 01/02/22 [Rx] Follow up Appointment(s)/Referral(s): Sheree Amaya MD [Primary Care Provider] - 1-2 days Discharge Disposition: TRANSFER TO SNF/ECF
== END 2022-01-02 16:08 ==
LOC: EC 18:05 → 6NMEDSUR 01-01 03:25
PROVIDERS: ADMIT Internal Medicine Geriatric Medicine; ATTEND Internal Medicine Geriatric Medicine
DX: K59.00 Constipation, unspecified (principal); R79.89 Other specified abnormal findings of blood chemistry; R74.8 Abnormal levels of other serum enzymes; I69.151 Hemiplegia and hemiparesis following nontraumatic intracerebral hemorrhage affecting right dominant side; I69.120 Aphasia following nontraumatic intracerebral hemorrhage; I13.10 Hypertensive heart and chronic kidney disease without heart failure, with stage 1 through stage 4 chronic kidney disease, or unspecified chronic kidney disease; N18.30 Chronic kidney disease, stage 3 unspecified; K21.9 Gastro-esophageal reflux disease without esophagitis; E78.5 Hyperlipidemia, unspecified; M79.7 Fibromyalgia; F33.9 Major depressive disorder, recurrent, unspecified; F41.1 Generalized anxiety disorder; R41.82 Altered mental status, unspecified; N20.0 Calculus of kidney; K80.20 Calculus of gallbladder without cholecystitis without obstruction; R21 Rash and other nonspecific skin eruption; G91.9 Hydrocephalus, unspecified; G47.00 Insomnia, unspecified; Z86.718 Personal history of other venous thrombosis and embolism; Z87.440 Personal history of urinary (tract) infections; Z86.14 Personal history of Methicillin resistant Staphylococcus aureus infection; Z79.899 Other long term (current) drug therapy; Z79.82 Long term (current) use of aspirin; Z88.5 Allergy status to narcotic agent; Z16.24 Resistance to multiple antibiotics; Z98.82 Breast implant status; Z71.9 Counseling, unspecified; Z82.49 Family history of ischemic heart disease and other diseases of the circulatory system
CPT/HCPCS: 96372 ×2; 96376; 96374; 96375; 99285; 36415; 80053 ×2; 80076; 82150; 83605; 83690; 85025; 85610; 85730; 74018; 76705; 74177; 74181; G0378 ×2; J2310; J2405; J3010; Q9967; J1644 ×2

== ENCOUNTER 2022-06-20 22:07 | Emergency (ER) | payer MEDICARE, OTHER ==
[2022-06-20] MEDS ORDERED: LABETALOL 5 MG/ML VIAL MDV IVP STA (22:09)
[2022-06-20] MEDS ORDERED: SODIUM CHLORIDE 0.9% 1,000 ML IV STA (22:09)
--- NOTE | 2022-06-20 22:14 | ED ---
Neuro HPI - General Stated Complaint: Stroke symptoms Time Seen by Provider: 06/20/22 22:08 Source: RN notes reviewed, old records reviewed, Caregiver Mode of arrival: EMS Limitations: altered mental status - History of Present Illness Is the patient presenting with stroke symptoms?: Yes -: minutes(s) Initial Comments: This is a 57-year-old female to the emergency department for evaluation today. She comes in with significant change in all for mental status. Decreased cognition decreased mentation, patient is a poor historian history pain from EMS and patient's chart report. Ration does have history of blood in brain bleed not on blood thinners. Mildly complaints of headache. She is very confused Location: altered History of same: Yes Place: home Severity: moderate Quality: weak, numb, tingling, other (ams) Context: gradual onset Associated Symptoms: confusion Treatments Prior to Arrival: Aspirin - Related Data Home Medications: Home Medications Medication Instructions Recorded Confirmed Acetaminophen Tab [Tylenol] 650 mg PO Q4H PRN 01/26/18 12/31/21 Baclofen [Lioresal] 10 mg PO TID@0800,1200,1800 05/23/18 12/31/21 levETIRAcetam [Keppra] 500 mg PO BID 05/23/18 12/31/21 Aspirin EC [Ecotrin Low Dose] 81 mg PO HS 03/04/19 12/31/21 Labetalol [Trandate] 400 mg PO BID@0900,2100 03/04/19 12/31/21 levETIRAcetam [Keppra] 250 mg PO DAILY 03/04/19 12/31/21 Omeprazole 20 mg PO DAILY 12/07/19 12/31/21 Sennosides/Docusate Sodium [Senna 1 tab PO BID 12/07/19 12/31/21 Plus 8.6-50 mg Tablet] polyethylene glycoL 3350 [Miralax] 17 gm PO HS@199901/26/20 12/31/21 busPIRone HCl [Buspar] 10 mg PO QID 09/16/20 12/31/21 Atorvastatin [Lipitor] 20 mg PO DAILY 12/31/21 12/31/21 Cyanocobalamin [Vitamin B-12] 500 mcg PO DAILY 12/31/21 12/31/21 Linaclotide [Linzess] 72 mcg PO DAILY 12/31/21 12/31/21 Melatonin 6 mg PO HS@199912/31/21 12/31/21 Potassium Chloride ER [K-Dur 10] 10 meq PO DAILY 12/31/21 12/31/21 cloNIDine 0.1 MG/24HR PATCH 1 patch TRANSDERM TH 12/31/21 12/31/21 [Catapres-TTS] cloNIDine HCL [Catapres] 0.1 mg PO DAILY PRN 12/31/21 12/31/21 hydrALAZINE HCL [Apresoline] 50 mg PO Q8H PRN 12/31/21 12/31/21 Previous Rx's Medication Instructions Recorded Gabapentin [Neurontin] 200 mg PO BID@0800,1400 #6 cap 01/02/22 Gabapentin [Neurontin] 300 mg PO HS@2100 #3 cap 01/02/22 Allergies/Adverse Reactions: Allergies Allergy/AdvReac Type Severity Reaction Status Date / Time codeine Allergy Unknown Verified 12/31/21 21:14 Review of Systems ROS Statement: Those systems with pertinent positive or pertinent negative responses have been documented in the HPI. ROS Other: All systems not noted in ROS Statement are negative. General Exam - General Exam Comments Initial Comments: NIH 8 Limitations: language barrier, altered mental status, physical limitation General appearance: alert, in no apparent distress, lethargic, in distress Head exam: Present: atraumatic, normocephalic, normal inspection Eye exam: Present: normal appearance, PERRL, EOMI. Absent: scleral icterus, conjunctival injection, periorbital swelling ENT exam: Present: normal exam, mucous membranes moist Neck exam: Present: normal inspection. Absent: tenderness, meningismus, lymphadenopathy Respiratory exam: Present: normal lung sounds bilaterally. Absent: respiratory distress, wheezes, rales, rhonchi, stridor Cardiovascular Exam: Present: regular rate, normal rhythm, normal heart sounds. Absent: systolic murmur, diastolic murmur, rubs, gallop, clicks GI/Abdominal exam: Present: soft, normal bowel sounds. Absent: distended, tenderness, guarding, rebound, rigid Extremities exam: Present: normal inspection, full ROM, normal capillary refill. Absent: tenderness, pedal edema, joint swelling, calf tenderness Back exam: Present: normal inspection Neurological exam: Present: alert, oriented X3, CN II-XII intact Psychiatric exam: Present: normal affect, normal mood Skin exam: Present: warm, dry, intact, normal color. Absent: rash Stroke MDM - Lab Data Result diagrams: 06/20/22 22:39 Lab Results 06/20/22 06/20/22 06/20/22 Range/Units 22:27 22:39 22:39 WBC 11.8 H (3.8-10.6) k/uL RBC 4.01 (3.80-5.40) m/uL Hgb 11.8 (11.4-16.0) gm/dL Hct 35.8 (34.0-46.0) % MCV 89.1 (80.0-100.0) fL MCH 29.4 (25.0-35.0) pg MCHC 33.0 (31.0-37.0) g/dL RDW 14.8 (11.5-15.5) % Plt Count 198 (150-450) k/uL MPV 8.5 Neutrophils % 81 % Lymphocytes % 13 % Monocytes % 3 % Eosinophils % 1 % Basophils % 0 % Neutrophils # 9.6 H (1.3-7.7) k/uL Lymphocytes # 1.6 (1.0-4.8) k/uL Monocytes # 0.4 (0-1.0) k/uL Eosinophils # 0.1 (0-0.7) k/uL Basophils # 0.0 (0-0.2) k/uL PT 11.5 (9.0-12.0) sec INR 1.1 (<1.2) APTT 22.7 (22.0-30.0) sec POC Glucose (mg/dL) 133 H (70-110) mg/dL POC Glu [employer] In[employer] ID - NIH Stroke Scale 1a. Level of Consciousness: (1) not alert, arousable 1c. LOC Commands: (1) performs 1 task correctly 2. Best Gaze: (1) partial gaze palsy 3. Visual: (0) no visual loss 4. Facial Palsy: (0) normal symmetrical movement 5a. Motor Arm Left: (0) no drift 5b. Motor Arm Right: (0) no drift 6a. Motor Leg Left: (0) no drift 6b. Motor Leg Right: (0) no drift 7. Limb Ataxia: (1) present 1 limb 8. Sensory: (1) mild/moderate sensory loss 9. Best Language: (un) mute/global aphasia 10. Dysarthria: (1) mild/moderate dysarthria 11. Extinction/Inattention: (1) visual/tactile inattention - Thrombolytic Inclusion/Exclusion Thrombolytic Inclusion Criteria: Symptom Onset < 4.5 h - Core Measures Door to Thrombolytics, if given: Patient is contraindicated from TPA secondary to positive SAH - Medical Decision Making 57 female to the emergency room for evaluation. Patient with altered mental status significant subarachnoid hemorrhage with mild aneurysm noted. 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 History of Any Multi-Drug Resistant Organisms: MRSA, VRE Date of last positivie culture/infection: 11/18/19 MRSA 12/01/20 VRE MDRO Source:: MRSA TOE/ VRE URINE Past Surgical History: Breast Surgery, Section Additional Past Surgical History / Comment(s): Trach/peg with removal, bilateral breast implants, abdominal aortagram. Past Anesthesia/Blood Transfusion Reactions: No Reported Reaction Past Psychological History: Anxiety Smoking Status: Never smoker Past Alcohol Use History: Unable to Obtain Past Drug Use History: Unable to Obtain - Past Family History Father Family Medical History: Unable to Obtain Additional Family Medical History / Comment(s): Pt was raised by her step father. Mother Family Medical History: Hypertension Additional Family Medical History / Comment(s): Mother is 82-year-old has h istory of hypertension. Daughter(s) Family Medical History: No Reported History Additional Family Medical History / Comment(s): Patient has 2 daughters no major medical problems Son(s) Family Medical History: No Reported History Additional Family Medical History / Comment(s): Patient has 2 sons no major medical problems. Course Vital Signs 06/20/22 06/20/22 06/20/22 22:41 22:43 23:04 Temperature 97.8 F Pulse Rate 96 95 89 Respiratory 16 16 14 Rate Blood Pressure 180/110 150/96 92/64 O2 Sat by Pulse 98 98 98 Oximetry 06/20/22 23:05 Temperature Pulse Rate 96 Respiratory 16 Rate Blood Pressure 102/73 O2 Sat by Pulse 98 Oximetry - Reevaluation(s) Reevaluation #1: 06/20/22 22:21 Medical record is reviewed Code stroke paged on patient arrival Reevaluation #2: 06/20/22 22:44 Patient family informed results Reevaluation #3: 06/20/22 23:16 no change in symptoms Reevaluation #4: 06/20/22 23:17 Strict blood pressure control is being maintained with Cleviprex - Consultations Consultation #1: Spoke with on-call neurologist, neuro interventional regarding findings, he is aware again spoke with on-call neuro intervention was will transferred [facility] by neuro Critical Care Time Critical Care Time: Yes Total Critical Care Time: 31 Disposition Clinical Impression: SAH (subarachnoid hemorrhage), Intracranial aneurysm Disposition: OTHER INSTITUTION NOT DEFINED Condition: Critical Is patient prescribed a controlled substance at d/c from ED?: No Referrals: Sheree Amaya MD [Primary Care Provider] - 1-2 days Time of Disposition: 23:15 Decision Time: 23:00 - Out of Hospital Transfer - Req. Specs Out of Hospital Transfer - Requested Specifics: Other Emergency Center ([facility])
[2022-06-20 22:29] LABS: Glucose,Whole Blood 133 mg/dL (70-110)
[2022-06-20] MEDS ORDERED: CLEVIDIPINE BUTYRATE 25 MG in EMPTY BAG 1 BAG IV SCH (22:30)
--- NOTE | 2022-06-20 22:30 | CT ---
EXAMINATION TYPE: CT brain wo con for TPA DATE OF EXAM: 06/20/2022 COMPARISON: 09/16/2020 HISTORY: slurred speech CT DLP: 1671.9 mGycm Automated exposure control for dose reduction was used. Images obtained of the brain with no contrast. There is massive subarachnoid hemorrhage at the basal cisterns. There is hemorrhage in the sylvian fi ssures bilaterally. There is hemorrhage in the interhemispheric fissure anteriorly. There is mild hyd rocephalus. There is no midline shift. No definite cerebral parenchymal hemorrhage. IMPRESSION: Massive subarachnoid hemorrhage is new compared to the old exam. Mild hydrocephalus. Small amount of hemorrhage is present also in the third ventricle.
[2022-06-20 22:43] VITALS: TEMP 97.8
--- NOTE | 2022-06-20 22:57 | CT ---
EXAMINATION TYPE: CT angio head neck DATE OF EXAM: 06/20/2022 COMPARISON: None HISTORY: CT DLP: mGycm Automated exposure control for dose reduction was used. CONTRAST: Performed , patient injected with mL of . Images obtained from the aortic arch to the vertex of the brain with IV contrast there are 3-D post p rocessed images. There is normal branching pattern of the great vessels on the aortic arch. There is arterial flow in the subclavian arteries bilaterally. There is arterial flow in the common internal and external carot id arteries bilaterally. There is mild plaque formation at the carotid artery bifurcations. No eviden ce of stenosis. There is arterial flow in both vertebral arteries. No evidence of carotid or vertebra l artery aneurysm or dissection. There is arterial flow in the vertebral basilar artery system. Basil ar artery is small. The left posterior cerebral artery appears to fill mostly through the posterior c ommunicating artery. No evidence of mass effect or stenosis. No intracranial aneurysm. There is chrissie l enhancement of the venous sinuses. IMPRESSION: No significant angiographic abnormality of the head and neck. Massive subarachnoid hemorrhage again n oted in the brain. This exam and the CT brain exam were discussed with the attending staff at 11:00 PM
[2022-06-20 23:02] LABS: Basophils % (A) 0 %; Eosinophils # (A) 0.1 k/uL (0-0.7); Eosinophils % (A) 1 %; HCT 35.8 % (34.0-46.0); HGB 11.8 gm/dL (11.4-16.0); Lymphocytes # (A) 1.6 k/uL (1.0-4.8); Lymphocytes % (A) 13 %; MCH 29.4 pg (25.0-35.0); MCV 89.1 fL (80.0-100.0); Mean Platelet Volume 8.5; Monocytes # (A) 0.4 k/uL (0-1.0); Monocytes % (A) 3 %; Neutrophils # (A) 9.6 k/uL (1.3-7.7); Neutrophils % (A) 81 %; Platelet Count 198 k/uL (150-450); RBC 4.01 m/uL (3.80-5.40); RDW 14.8 % (11.5-15.5); WBC 11.8 k/uL (3.8-10.6)
[2022-06-20 23:10] LABS: INR 1.1 (<1.2); Partial Thromboplastin Time 22.7 sec (22.0-30.0); Prothrombin Time 11.5 sec (9.0-12.0)
[2022-06-20 23:44] LABS: Albumin 3.8 g/dL (3.5-5.0); Calcium 8.9 mg/dL (8.4-10.2); Potassium 4.4 mmol/L (3.5-5.1); Total Bilirubin 0.5 mg/dL (0.2-1.3)
[2022-06-21] MEDS ORDERED: CLEVIDIPINE BUTYRATE 25 MG in EMPTY BAG 1 BAG IV SCH (01:00)
[2022-06-21 01:20] VITALS: BP 160/103; PULSE 98; RESP 16
== END 2022-06-21 01:20 | disposition other institution (70) ==
LOC: EC 22:07
DX: I60.9 Nontraumatic subarachnoid hemorrhage, unspecified (principal); I67.1 Cerebral aneurysm, nonruptured; Z86.73 Personal history of transient ischemic attack (TIA), and cerebral infarction without residual deficits; E78.5 Hyperlipidemia, unspecified; Z88.5 Allergy status to narcotic agent
CPT/HCPCS: 36415; 93005; 80053; 84484; 85025; 85610; 85730; 70496; 70450; 70498; 99291; 96374; 96375; C9248; Q9967